=== PATIENT | female | born 1995 | race Caucasian/White ===

== ENCOUNTER 2023-03-25 20:28 | Outpatient (REF) | payer BC, SELFPAY ==
[2023-03-31 14:18] LABS: Age Gdln ACOG Testing Note (.); IGP, rfx Aptima HPV ASCU Note (.)
== END 2023-03-25 20:29 | disposition home or self-care (01) ==
LOC: LAB 20:28
PROVIDERS: PCP Family Medicine; Visit Provider Physician Assistant
DX: Z01.419 Encounter for gynecological examination (general) (routine) without abnormal findings (principal)
CPT/HCPCS: G0145

== ENCOUNTER 2023-06-11 11:33 | Outpatient (OUT) | payer BC, SELFPAY ==
[2023-06-11 12:11] LABS: Basophils Absolute Auto 0.1 10^3/uL (0.0-0.1); Basophils Percent Auto 0.7 % (0.2-2.0); Eosinophils Absolute Auto 0.2 10^3/uL (0.0-0.7); Eosinophils Percent Auto 1.8 % (0.9-7.0); Hematocrit 39.5 % (36.0-48.0); Hemoglobin 12.6 g/dL (12.0-16.0); Immature Granulocytes Abs Auto 0.03 10^3/uL (0.00-0.03); Immature Granulocytes Pct Auto 0.4 % (0.0-0.5); Lymphocytes Absolute Auto 1.9 10^3/uL (1.2-3.8); Lymphocytes Percent Auto 22.9 % (20.5-60.0); Mean Corpuscular HGB Conc 31.9 g/dL (29.9-35.2); Mean Corpuscular Hemoglobin 25.7 pg (26.7-34.0); Mean Corpuscular Volume 80.4 fL (81.0-99.0); Mean Platelet Volume 9.2 fL (9.5-13.5); Monocytes Absolute Auto 0.6 10^3/uL (0.3-0.8); Monocytes Percent Auto 7.1 % (1.7-12.0); Neutrophils Absolute Auto 5.7 10^3/uL (1.4-6.5); Neutrophils Percent Auto 67.1 % (43.0-75.0); Platelet Count 348 10^3/uL (150-450); Red Blood Count 4.91 10^6/uL (4.20-5.40); Red Cell Distribution Width 14.2 % (11.0-15.0); White Blood Count 8.5 10^3/uL (4.0-11.0)
[2023-06-11 12:23] LABS: Estimated Average Glucose 88 mg/dL; Glycohemoglobin A1C 4.7 % (4.5-6.2)
[2023-06-11 13:07] LABS: Alanine Aminotransferase 28 U/L (14-59); Albumin Globulin Ratio 0.9; Albumin Level 3.6 g/dL (3.4-5.0); Alkaline Phosphatase 133 U/L (46-116); Anion Gap 12.3; Aspartate Amino Transferase 10 U/L (15-37); BUN Creatinine Ratio 16.3; Bilirubin Direct <0.1 mg/dL (0.0-0.2); Bilirubin Total 0.3 mg/dL (0.2-1.0); Calcium 8.7 mg/dL (8.5-10.1); Chloride 105 mmol/L (98-107); Chol HDL Ratio 2.8; Cholesterol 143 mg/dL (<=200); Estimated GFR (African America >60 (>=60); Estimated GFR (Non-African Ame >60 (>=60); Globulin 4.2 g/dL; Glucose 95 mg/dL (74-106); HDL Cholesterol 51 mg/dL (40-60); Potassium 4.3 mmol/L (3.5-5.1); Sodium 140 mmol/L (136-145); Thyroid Stimulating Hormone 2.896 uIU/mL (0.358-3.740); Total Protein 7.8 g/dL (6.4-8.2); Triglycerides 160 mg/dL (<=150)
== END 2023-06-11 11:34 | disposition home or self-care (01) ==
PROVIDERS: PCP Family Medicine; Visit Provider Family Medicine
DX: Z00.00 Encounter for general adult medical examination without abnormal findings (principal)
CPT/HCPCS: 36415; 80048; 80061; 80076; 83036; 84443; 85025

== ENCOUNTER 2024-03-29 19:51 | Outpatient (REF) | payer BC, SELFPAY ==
--- OUTSIDE RECORDS SUMMARY | 2024-03-29 19:56 | XMS_ITS | CCD ---
Author Organization [facility] Care Team Providers Care Criminal Research Specialist Name Role Phone Marion Davis Unavailable [phone] MICHAEL BATES Admitting Unavailable MICHAEL BATES Attending Unavailable ESTELLE BELLE Referring Unavailable BELLEESTELLE Primary Care Unavailable JANA, MICHAEL Attending Unavailable BELLEESTELLE Primary Care Unavailable Belle, Estelle Gruber Primary Care Provider Rachael Hernandez Unavailable SOPHIA, DR AGUILAR Admitting Unavailable SOPHIA, DR AGUILAR Attending Unavailable NADERER, DR GRACY Martin Primary Care Unavailable LEOBARDO, RAINE Attending Unavailable LEOBARDO, RAINE Consulting Unavailable LEOBARDORAINE SHARMA Admitting Unavailable NADERER, DR GRACY Martin Primary Care Unavailable SOPHIA, DR AGUILAR Admitting Unavailable SOPHIA, DR AGUILAR Consulting Unavailable SOPHIA, DR AGUILAR Attending Unavailable NADERER, DR GRACY Martin Primary Care Unavailable NADERER, DR GRACY Martin Primary Care Unavailable REINECK, DR HYACINTH Dutta Admitting Unavailabl e REINECK, DR HYACINTH Dutta Attending Unavailabl e REINECK, DR HYACINTH Dutta Consulting Unavailabl e SOPHIA, DR AGUILAR Consulting Unavailable SOPHIA, DR AGUILAR Admitting Unavailable SOPHIA, DR AGUILAR Attending Unavailable NADERER, DR GRACY Martin Primary Care Unavailable NADERER, DR GRACY Martin Attending Unavailable NADERER, DR GRACY Martin Consulting Unavailable NADERER, DR GRACY Martin Admitting Unavailable NADERER, DR GRACY Martin Primary Care Unavailable SOPHIA, DR AGUILAR Admitting Unavailable SOPHIA, DR AGUILAR Attending Unavailable SOPHIA, DR AGUILAR Consulting Unavailable NADERER, DR GRACY Martin Primary Care Unavailable SOPHIA, DR AGUILAR Consulting Unavailable SOPHIA, DR AGUILAR Admitting Unavailable SOPHIA, DR AGUILAR Attending Unavailable NADERER, DR GRACY Martin Primary Care Unavailable SOPHIA, DR AGUILAR Consulting Unavailable SOPHIA, DR AGUILAR Admitting Unavailable SOPHIA, DR AGUILAR Attending Unavailable NADERER, DR GRACY Martin Primary Care Unavailable SOPHIA, DR AGUILAR Admitting Unavailable SOPHIA, DR AGUILAR Attending Unavailable SOPHIA, DR AGUILAR Consulting Unavailable NADERER, DR GRACY Martin Primary Care Unavailable ZIEBER, DR MUNDO Figueroa Consulting Unavailable SOPHIA, DR AGUILAR Admitting Unavailable SOPHIA, DR AGUILAR Attending Unavailable SOPHIA, DR AGUILAR Consulting Unavailable NADERER, DR GRACY Martin Primary Care Unavailable NADERER, DR GRACY Martin Primary Care Unavailable SOPHIA, DR AGUILAR Admitting Unavailable SOPHIA, DR AGUILAR Attending Unavailable SOPHIA, DR AGUILAR Admitting Unavailable SOPHIA, DR AGUILAR Attending Unavailable SOPHAI, DR AGUILAR Consulting Unavailable NADERER, DR GRACY Martin Primary Care Unavailable SOPHIA, DR AGUILAR Admitting Unavailable SOPHIA, DR AGUILAR Attending Unavailable SOPHIA, DR AGUILAR Consulting Unavailable NADERER, DR GRACY Martin Primary Care Unavailable SOPHIA, DR AGUILAR Admitting Unavailable SOPHIA, DR AGUILAR Attending Unavailable SOPHIA, DR AGUILAR Consulting Unavailable NADERER, DR GRACY Martin Primary Care Unavailable SOPHIA, DR AGUILAR Consulting Unavailable SOPHIA, DR AGUILAR Admitting Unavailable SOPHIA, DR AGUILAR Attending Unavailable NADERER, DR GRACY Martin Primary Care Unavailable ZIEBER, DR MUNDO Figueroa Consulting Unavailable SOPHIA, DR AGUILAR Admitting Unavailable SOPHIA, DR AGUILAR Attending Unavailable SOPHIA, DR AGUILAR Consulting Unavailable NADERER, DR GRACY Martin Primary Care Unavailable NADERER, DR GRACY Martin Primary Care Unavailable SOPHIA, DR AGUILAR Admitting Unavailable SOPHIA, DR AGUILAR Consulting Unavailable SOPHIA, DR AGUILAR Attending Unavailable ERIN, DR LILIANE Figueroa Attending Unavailable NADERER, DR GRACY Martin Primary Care Unavailable RANJITCHNAVDEEP, MARY JO VERDUGO Consulting Unavailable ERIN, DR LILIANE Figueroa Admitting Unavailable SOPHIA, DR AGUILAR Consulting Unavailable SOPHIA, DR AGUILAR Admitting Unavailable SOPHIA, DR AGUILAR Attending Unavailable NADERER, DR GRACY Martin Primary Care Unavailable SOPHIA, DR AGUILAR Admitting Unavailable SOPHIA, DR AGUILAR Attending Unavailable WEST, DR KENZIE Chanel Consulting Unavailable NADWANDY, DR GRACY Martin Primary Care Unavailable SOPHIA, DR AGUILAR Consulting Unavailable NADERER, DR GRACY Martin Primary Care Unavailable SOPHIA, DR AGUILAR Admitting Unavailable SOPHIA, DR AGUILAR Attending Unavailable HAY, DR BELTRAN Admitting Unavailable NADERER, DR GRACY Martin Primary Care Unavailable HAY, DR BELTRAN Attending Unavailable HAY, DR BELTRAN Consulting Unavailable NADWANDY, DR GRACY Martin Primary Care Unavailable SOPHIA, DR AGUILAR Admitting Unavailable SOPHIA, DR AGUILAR Procedure Practitioner Unavailab gisella CISNEROS, DR MONTOYA Consulting Unavailable SOPHIA, DR AGUILAR Attending Unavailable SOPHIA, DR AGUILAR Consulting Unavailable SHARP, PATY Consulting Unavailable GEMBUS, JOSÉ MIGUEL Consulting Unavailable SRI, LORBHARTI Consulting Unavailable SOPHIA, DR AGUILAR Consulting Unavailable SOPHIA, DR AGUILAR Admitting Unavailable SOPHIA, DR AGUILAR Attending Unavailable NADERER, DR GRACY Martin Primary Care Unavailable TAMMYMargoth Attending Unavailable Allergies Allergy Classification Reported Allergen(s) Allergy Type Date of Onset Reaction(s) Facility (1 source) No Known Medication Allergies; Translations: [No Known Medication Allergies] Propensity to adverse reactions (disorder) [facility] Repository Medications Current Medications Medication Drug Class(es) Dates Sig (Normalized) Sig (Original) crisaborole 0.02 mg/mg topical ointment (1 source) Start: 02-16-2019 crisaborole (EUCRISA) 2 % Oint Apply 1 application topically 2 (two) times a day . 60 g 11 02/16/2019 Active Start: 02-16-2019 crisaborole (E UCRISA) 2 % Oint Apply 1 application topically 2 (two) times a day . 60 g 11 02/16/2019 Active ethinyl estradiol/ferrous fumarate/norethindrone (4 sources) Progestin, Estrogen Start: 05-03-2015 MICROGESTIN FE 08/29, 28, 1 mg-20 mcg (21)/75 mg (7) per tablet mometasone furoate 0.001 mg/mg topical ointment (1 source) Corticosteroid Start: 09-01-2017 End: 09-01-2018 mometasone (ELOCON) 0.1 % ointment Apply topically 2 (two) times a day. 45 g 0 09/01/2017 09/01/2018 Active PARoxetine hydrochloride 10 mg oral tablet (1 source) Serotonin Reuptake Inhibitor Start: 12-07-2018 take 1 tablet by mouth once daily PARoxetine (PAXIL) 10 MG tablet Take 1 tablet by mouth daily . 1 12/07/2018 Active sertraline 100 mg oral tablet (2 sources) Serotonin Reuptake Inhibitor Start: 03-13-2024 Sertraline Active MG PO March 13, 2024 12:00am Zoloft Active Problems Active Problems Problem Classification Problem Date Documented Date Episodic/Chronic Fever of unknown origin (4 sources) Fever, unspecified; Translations: [FEVER UNSPECIFIED] Onset: 06-19-2022 Episodic Menstrual disorders (4 sources) Irregular menstruation, unspecified; Translations: [IRREGULAR MENSTRUATION UNSPECIFIED] Onset: 11-23-2021 Chronic Other and unspecified benign neoplasm (2 sources) Melanocytic nevi of scalp and neck; Translations: [Melanocytic nevi of scalp and neck] Onset: 12-13-2018 Episodic Other complications of ; puerperium affecting management of mother (1 source) Urinary tract infection following delivery, unspecified; Translations: [UTI FOLLOWING DELIVERY UNSPECIFIED] Onset: 06-23-2022 Episodic Other complications of ; puerperium affecting management of mother (1 source) 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; Translations: [STREP B BOWER STATE COMP CHILDBIRTH] Onset: 06-11-2022 Episodic Other complications of (5 sources) Maternal care for excessive growth, third trimester, not applicable or unspecified; Translations: [MAT CARE EXCSS FTL GRTH 3RD TRI UNS] Onset: 04-27-2022 Episodic Other lower respiratory disease (3 sources) Shortness of breath; Translations: [SHORTNESS OF BREATH] Onset: 07-24-2022 Episodic Other nervous system disorders (2 sources) Other disturbances of skin sensation; Translations: [Other disturbances of skin sensation] Onset: 11-30-2018 Episodic Other and delivery including normal (15 sources) Encounter for care and examination of lactating mother; Translations: [Encounter for routine follow-up] Onset: 11-11-2021 Episodic Other screening for suspected conditions (not mental disorders or infectious disease) (18 sources) Encounter for screening for Streptococcus B; Translations: [Encounter for screening for diabetes mellitus] Onset: 09-02-2021 Episodic Other skin disorders (2 sources) Epidermal cyst; Translations: [Epidermal cyst] Onset: 11-30-2018 Episodic Other skin disorders (2 sources) Corns and callosities; Translations: [Corns and callosities] Onset: 11-30-2018 Episodic Other upper respiratory infections (1 source) Acute upper respiratory infection, unspecified Episodic Previous (1 source) Maternal care for low transverse scar from previous delivery; Translations: [MAT CARE LW TRANS SCAR PREV C/S DEL] Onset: 06-11-2022 Episodic Residual codes; unclassified (1 source) Acquired absence of other specified parts of digestive tract; Translations: [ACQ ABSENCE OTH PART DIGESTV TRACT] Onset: 06-11-2022 Episodic Residual codes; unclassified (1 source) 39 weeks gestation of ; Translations: [39 WEEKS GESTATION OF ] Onset: 06-11-2022 Episodic Unclassified (4 sources) CONTACT W/AND (SUSP) EXPOS COVID-19; Translations: [CONTACT W/AND (SUSP) EXPOS COVID-19] Onset: 06-04-2022 Urinary tract infections (1 source) Urinary tract infection, site not specified; Translations: [UTI SITE NOT SPECIFIED] Onset: 06-23-2022 Episodic Viral infection (1 source) COVID-19; Translations: [COVID-19] Onset: 07-27-2022 Past or Other Problems Problem Classification Problem Date Documented Date Episodic/Chronic Allergic reactions (1 source) Eczema; Translations: [Eczema, unspecified type] Episodic Conditions associated with dizziness or vertigo (3 sources) Dizziness and giddiness; Translations: [DIZZINESS AND GIDDINESS] Onset: 08-18-2021 Episodic Hemorrhage during ; abruptio placenta; placenta previa (4 sources) Hemorrhage in early , unspecified; Translations: [HEMORRHAGE EARLY UNS] Onset: 10-06-2021 Episodic Immunizations and screening for infectious disease (4 sources) Contact with and (suspected) exposure to other viral communicable diseases; Translations: [Encounter for screening for infections with a predominantly sexual mode of transmission] Onset: 11-27-2021 Episodic Other aftercare (1 source) Other longterm (current) drug therapy; Translations: [OTH PAVER CURRENT DRUG THERAPY] Onset: 08-20-2021 Episodic Other and unspecified benign neoplasm (1 source) Melanocytic nevus of scalp; Translations: [Nevus of scalp] Episodic Other female genital disorders (4 sources) Other specified noninflammatory disorders of vagina; Translations: [OTH SPEC NONINFLAMMATORY D/O VAGINA] Onset: 12-25-2021 Episodic Other nervous system disorders (3 sources) Skin sensation disturbance; Translations: [Other disturbances of skin sensation] Episodic Other skin disorders (1 source) Milia; Translations: [Milia] Episodic Other skin disorders (1 source) [place] - lesion ; Translations: [Pre-ulcerative corn or callous] Episodic Residual codes; unclassified (1 source) 33 weeks gestation of ; Translations: [33 WEEKS GESTATION OF ] Onset: 04-27-2022 Episodic Residual codes; unclassified (1 source) 28 weeks gestation of ; Translations: [28 WEEKS GESTATION OF ] Onset: 03-21-2022 Episodic Syncope (1 source) Syncope and collapse; Translations: [SYNCOPE AND COLLAPSE] Onset: 08-20-2021 Episodic Unclassified (1 source) CONTACT W/AND (SUSP) EXPOS COVID-19; Translations: [CONTACT W/AND (SUSP) EXPOS COVID-19] Onset: 07-23-2022 Viral infection (5 sources) Viral wart, unspecified; Translations: [Verruca vulgaris] Onset: 11-30-2018 Episodic Results Test Name Value Interpretation Reference Range Facility Quantiferon-TB Plus (Client Incubated)on 12-02-2023 Gamma interferon background IA Qn (Bld) 0.02 International_Unit/m L Invalid Interpretation Code [facility] Comment on above: Performed By: #### 1 [id number] #### [facility] [address] [place] [address] M. tuberculosis stim IFN-g by CD4+ CD8+ T-cells corrected for background Qn (Bld) 0.12 International_Unit/m L Invalid Interpretation Code [facility] Comment on above: Performed By: #### 1 [id number] #### [facility] [address] [place] [address] M. tuberculosis stim IFN-g by CD4+ T-cells corrected for background Qn (Bld) 0.05 International_Unit/m L Invalid Interpretation Code [facility] Comment on above: Performed By: #### 1 [id number] #### [facility] [address] [place] [address] M. tuberculosis stim IFN-g Ql (Bld) [Interp] Negative Invalid Interpretation Code Negative [facility] Comment on above: Result Comment: No r esponse to M tuberculosis antigens detected. Infection with M tuberculosis is unlikely, but high risk individuals should be considered for additional testing (ATS/IDSA/CDC Clinical Practice Guidelines, 2017). The reference range is an Antigen minus Nil result of <0.35 IU/mL. The specimen received for QuantiFERON testing was incubated by the ordering institution. Specific procedures outlined in our Directory of Services and in the package insert for the QuantiFERON Gold (In Tube) test must be followed to enable for proper stimulation of cells for the production of interferon gamma. Chemiluminescence immunoassay methodology Performed at: [facility] [id number] PhD Hu Jasmine Performed By: #### 1 [id number], [id number], [id number] #### [facility] [address] [place] [address] Mitogen stimulated gamma interferon corrected for background Qn (Bld) >10.00 Invalid Interpretation Code [facility] Comment on above: Performed By: #### 1 [id number], [id number], [id number], [id number] #### [facility] [address] [place] [address] Service comment (Unsp spec) [Interp] Comment Invalid Interpretation Code [facility] Comment on above: Result Comment: Issac tiFERON-TB Gold Plus is a qualitative indirect test for M tuberculosis infection (including disease) and is intended for use in conjunction with risk assessment, radiography, and other medical and diagnostic evaluations. The QuantiFERON-TB Gold Plus result is determined by subtracting the Nil value from either TB antigen (Ag) value. The Mitogen tube serves as a control for the test. Performed By: #### 1 [id number], [id number], [id number] #### [facility] [address] [place] [address] Hep Bs Abon 12-01-2023 HBV surface Ab Ql (S) Non-Reactive Invalid Interpretation Code [facility] Comment on above: Result Comment: Non Reactive: Inconsistent with immunity, less than 10 mIU/mL Reactive: Consistent with immunity, greater than 9.9 mIU/mL Performed at: [address] [id number] PhD Hu Jasmine Performed By: #### 1 [id number], [id number], [id number] #### [facility] [address] [place] [address] Measles/Mumps/Rubella Immuni tyon 12-01-2023 MeV IgG IA Qn (S) {index_val} Low Immune >16.4 [facility] Comment on above: Result Comment: Nega tive <13.5 Equivocal 13.5 - 16.4 Positive >16.4 Presence of antibodies to Rubeola is presumptive evidence of immunity except when acute infection is suspected. Performed By: #### 1 [id number], [id number], [id number] #### [facility] [address] [place] [address] MuV IgG IA Qn (S) 17.7 A unit/mL Invalid Interpretation Code Immune >10.9 [facility] Comment on above: Result Comment: Nega tive <9.0 Equivocal 9.0 - 10.9 Positive >10.9 A positive result generally indicates past exposure to Mumps virus or previous vaccination. Performed at: [facility] [address] [place] [id number] PhD Hu Jasmine Performed By: #### 1 [id number], [id number], [id number], [id number] #### [facility] [address] [place] [address] Rubella virus IgG Qn (S) 2.04 [IU]/mL Invalid Interpretation Code Immune >0.99 [facility] Comment on above: Result Comment: Non- immune <0.90 Equivocal 0.90 - 0.99 Immune >0.99 Performed By: #### 1 [id number], [id number], [id number] #### [facility] [address] [place] [address] Varic IgGon 12-01-2023 VZV IgG IA Qn (S) 164 Low Immune >165 [facility] Comment on above: Result Comment: A se cond sample should be collected and tested no less than 2-4 weeks. Negative <135 Equivocal 135 - 165 Positive >165 A positive result generally indicates exposure to the pathogen or administration of specific immunoglobulins, but it is not indication of active infection or stage of disease. Performed at: [facility] [id number] PhD Hu Jasmine Performed By: #### 1 [id number], [id number], [id number], [id number] #### [facility] [address] [place] [address] Covid-19 PCR ([facility])on 07-10 SARS-CoV-2 (COVID-19) RNA ZACKARY+probe Ql (Unsp spec) Detected Critically abnormal NOT DETECTED [facility] Comment on above: Result Comment: This test is not yet approved or cleared by the [place] FDA. When there are no FDA-approved or cleared tests available, and other criteria are met, FDA can make tests available under an emergency access mechanism called an Emergency Use Authorization (EUA). The EUA for this test is supported by the Electrical Engineering Intern of Health and Human Service's declaration that circumstances exist to justify the emergency use of in vitro diagnostics for the detection and/or diagnosis of the virus that causes COVID-19. This EUA will remain in effect for the duration of the COVID-19 declaration justifying emergency of IVDs, unless it is terminated or revoked by the FDA (after which the test may no longer be used). Performed By: #### C BC #### [facility] [address] [address] [address] Molina Zhang CBC AUTO DIFFon 06-19-2022 BASO # 0.0 103/ul Normal 0.0-0.1 [facility] Comment on above: Performed By: #### C BC #### [facility] [address] [address] [address] Molina Zhang Basophils/100 WBC (Bld) 0.6 % Normal 0.2-2.0 [facility] Comment on above: Performed By: #### C BC #### [facility] [address] [address] [address] Molina Zhang EO # 0.2 103/ul Normal 0.0-0.7 [facility] Comment on above: Performed By: #### C BC #### [facility] [address] [place] [address] Dr. Molina Zhang Eosinophils/100 WBC (Bld) 3.0 % Normal 0.9-7.0 [facility] Comment on above: Performed By: #### C BC #### [facility] [address] [place] [address] Dr. Molina Zhang Erythrocyte distribution width (RBC) [Ratio] 13.2 % Normal 11.0-15.0 [facility] Comment on above: Performed By: #### C BC #### [facility] [address] [place] [address] Dr. Molina Zhang Hematocrit (Bld) [Volume fraction] 33.1 % Critically low 36.0-48.0 [facility] Comment on above: Performed By: #### C BC #### [facility] [address] [place] [address] Dr. Molina Zhang Hemoglobin (Bld) [Mass/Vol] 10.7 g/dL Critically low 12.0-16.0 [facility] Comment on above: Performed By: #### C BC #### [facility] [address] [place] [address] Dr. Molina Zhang IG # 0.08 10e3/ul Critically high 0.00-0.03 [facility] Comment on above: Performed By: #### C BC #### [facility] [address] [place] [address] Dr. Molina Zhang IG % 1.3 % Critically high 0.0-0.5 [facility] Comment on above: Performed By: #### C BC #### [facility] [address] [place] [address] Dr. Molina Zhang LYMPH # 1.1 103/ul Critically low 1.2-3.8 [facility] Comment on above: Performed By: #### C BC #### [facility] [address] [place] [address] Dr. Molina Zhang Lymphocytes/100 WBC (Bld) 16.9 % Critically low 20.5-60.0 [facility] Comment on above: Performed By: #### C BC #### [facility] [address] [place] [address] Dr. Molina Zhang MANUAL DIFF REQ NO Normal [facility] Comment on above: Performed By: #### C BC #### [facility] [address] [place] [address] Dr. Molina Zhang MCH (RBC) [Entitic mass] 26.6 pg Critically low 26.7-34.0 [facility] Comment on above: Performed By: #### C BC #### [facility] [address] [place] [address] Dr. Molina Zhang MCHC (RBC) [Mass/Vol] 32.3 g/dL Normal 29.9-35.2 [facility] Comment on above: Performed By: #### C BC #### [facility] [address] [place] [address] Dr. Molina Zhang MCV (RBC) [Entitic vol] 82.1 fL Normal 81.0-99.0 [facility] Comment on above: Performed By: #### C BC #### [facility] [address] [place] [address] Dr. Molina Zhang MONO # 0.4 103/ul Normal 0.3-0.8 [facility] Comment on above: Performed By: #### C BC #### [facility] [address] [id number] Molina Zhang Monocytes/100 WBC (Bld) 6.1 % Normal 1.7-12.0 [facility] Comment on above: Performed By: #### C BC #### [facility] [address] [id number] Molina Zhang NEUT # 4.5 103/ul Normal 1.4-6.5 [facility] Comment on above: Performed By: #### C BC #### [facility] [address] [place], [place] [id number] Dr. Molina Zhang Neutrophils/100 WBC (Bld) 72.1 % Normal 43.0-75.0 [facility] Comment on above: Performed By: #### C BC #### [facility] [address] [place] [address] Dr. Molina Zhang Platelet mean volume (Bld) [Entitic vol] 9.3 fL Critically low 9.5-13.5 [facility] Comment on above: Performed By: #### C BC #### [facility] [address] [place], [place] [id number] Dr. Molina Zhang PLT 379 103/ul Normal 150-450 [facility] Comment on above: Performed By: #### C BC #### [facility] [address] [place], [place] [id number] Dr. Molina Zhang RBC 4.03 106/ul Critically low 4.20-5.40 [facility] Comment on above: Performed By: #### C BC #### [facility] [address] [place] [address] Dr. Molina Zhang WBC 6.3 103/ul Normal 4.0-11.0 [facility] Comment on above: Performed By: #### C BC #### [facility] [address] [place], [place] [id number] Dr. Molina Zhang COVID/FLU/RSV RT-PCRon 06-19 SARS-CoV-2 (COVID-19) RNA ZACKARY+probe Ql (Unsp spec) Negative [facility] Other COVID/FLU/RSV RT-PCR Negative [facility] Other CULTURE BLOODon 06-19-2022 Microscopic examination of blood, culture Culture Observations: NO GROWTH AT 5 DAYS. Normal [facility] Comment on above: Performed By: #### B [id number] #### [facility] [address] [place] [address] Dr. Molina Zhang Performed By: #### B [id number] #### [facility] [address] [place] [address] Dr. Molina Zhang CULTURE URINEon 06-19-2022 CULTURE URINE Culture Observations: LIGHT GROWTH OF MIXED GENITAL LAWANDA. NO POTENTIAL PATHOGENS SEEN. Normal [facility] Comment on above: Performed By: #### C MP #### [facility] [address] [place] [address] Dr. Molina Zhang [facility]10 SARS-CoV-2 (COVID-19) RNA ZACKARY+probe Ql (Unsp spec) Not detected Normal NOT DETECTED [facility] Comment on above: Result Comment: When diagnostic testing is negative, the possibility of a false negative should be considered in the context of a patient's recent exposures and the presence of clinical signs and symptoms consistent with SARS-CoV-2. This test is not yet approved or cleared by the [place] FDA. When there are no FDA-approved or cleared tests available, and other criteria are met, FDA can make tests available under an emergency access mechanism called an Emergency Use Authorization (EUA). The EUA for this test is supported by the [employer] Intern of Health and Human Service's declaration that circumstances exist to justify the emergency use of in vitro diagnostics for the detection and/or diagnosis of the virus that causes COVID-19. This EUA will remain in effect for the duration of the COVID-19 declaration justifying emergency of IVDs, unless it is terminated or revoked by the FDA (after which the test may no longer be used). Performed By: #### C BC #### [facility] [address] [place] [address] Dr. Molina Zhang ER URINE PROFILEon Bilirubin Ql (U) Negative Normal NEGATIVE [facility] Comment on above: Performed By: #### [id number] #### [facility] [address] [place] [address] Dr. Molina Zhang Clarity (U) CLEAR Normal CLEAR [facility] Comment on above: Performed By: #### [id number] #### [facility] [address] [place] [address] Dr. Molina Zhang Color (U) YELLOW Normal YELLOW [facility] Comment on above: Performed By: #### [id number] #### [facility] [address] [place] [address] Dr. Molina ESPINOSA A micrscopic examination will be performed if indicated. Normal [facility] Comment on above: Performed By: #### [id number] #### [facility] [address] [place] [address] Dr. Molina Zhang Glucose Ql (U) Negative Normal NEGATIVE [facility] Comment on above: Performed By: #### [id number] #### [facility] [address] [place] [address] Dr. Molina Zhang Hemoglobin Ql (U) LARGE Abnormal NEGATIVE [facility] Comment on above: Performed By: #### [id number] #### [facility] [address] [place] [address] Dr. Molina Zhang Ketones Ql (U) TRACE Abnormal NEGATIVE [facility] Comment on above: Performed By: #### [id number] #### [facility] [address] [place] [address] Dr. Molina Zhang LEUKOCYTES TRACE Abnormal NEGATIVE [facility] Comment on above: Performed By: #### [id number] #### [facility] [address] [place] [address] Dr. Molina Zhang Nitrite Ql (U) Negative Normal NEGATIVE [facility] Comment on above: Performed By: #### [id number] #### [facility] [address] [place] [address] Dr. Molina Zhang pH (U) 5.5 [pH] Normal 5-9 [facility] Comment on above: Performed By: #### [id number] #### [facility] [address] [place] [address] Dr. Molina Zhang Protein (U) [Mass/Vol] 30 mg/dL Abnormal NEGATIVE/ TRACE [facility] Comment on above: Performed By: #### [id number] #### [facility] [address] [place] [address] Dr. Molina Zhang SPEC GRAVITY >=1.030 Abnormal 1.005-<=1.025 [facility] Comment on above: Performed By: #### 4 [id number] #### [facility] [address] [place] [address] Dr. Molina Zhang UR MICRO IND INDICATED Normal [facility] Comment on above: Performed By: #### [id number] #### [facility] [address] [place] [address] Dr. Molina Zhang Urobilinogen Qn (U) 0.2 {Jaelyn'U}/dL Normal 0.2 - 1. 0 [facility] Comment on above: Performed By: #### [id number] #### [facility] [address] [place] [address] Dr. Molina Zhang LACTATE/LACTIC ACIDon 2021 Lactate [Moles/Vol] 1.4 mmol/L Normal 0.4-1.9 [facility] Comment on above: Performed By: #### B [id number] #### [facility] [address] [place] [address] Dr. Molina Zhang PROF 14(COMP METB)on 022 Albumin [Mass/Vol] 3.2 g/dL Critically low 3.4-5.0 [facility] Comment on above: Performed By: #### C MP #### [facility] [address] [place] [address] Dr. Molina Zhang Albumin/Globulin [Mass ratio] 0.8 {ratio} Normal [facility] Comment on above: Performed By: #### C MP #### [facility] [address] [place] [address] Dr. Molina Zhang ALP [Catalytic activity/Vol] 127 U/L Critically high 46-116 [facility] Comment on above: Performed By: #### C MP #### [facility] [address] [address] [address] Molina Zhang ALT [Catalytic activity/Vol] 14 U/L Normal 14-59 [facility] Comment on above: Performed By: #### C MP #### [facility] [address] [address] [address] Molina Zhang Anion gap [Moles/Vol] 9.5 mmol/L Normal [facility] Comment on above: Performed By: #### C MP #### [facility] [address] [address] [address] Molina Zhang AST [Catalytic activity/Vol] 10 U/L Critically low 15-37 [facility] Comment on above: Performed By: #### C MP #### [facility] [address] [address] [address] Molina Zhang Bilirubin [Mass/Vol] 0.2 mg/dL Normal 0.2-1.0 [facility] Comment on above: Performed By: #### C MP #### [facility] [address] [address] [address] Molina Zhang Calcium [Mass/Vol] 8.4 mg/dL Critically low 8.5-10.1 [facility] Comment on above: Performed By: #### C MP #### [facility] [address] [address] [address] Molina Zhang Chloride [Moles/Vol] 104 mmol/L Normal 98-107 [facility] Comment on above: Performed By: #### C MP #### [facility] [address] [address] [address] Molina Zhang CO2 [Moles/Vol] 25.9 mmol/L Normal 21.0-32.0 [facility] Comment on above: Performed By: #### C MP #### [facility] [address] [address] [address] Molina Zhang Creatinine [Mass/Vol] 1.23 mg/dL Critically high 0.55-1.02 [facility] Comment on above: Performed By: #### C MP #### [facility] [address] [address] [address] Molina Zhang EGFR-AF KAZAKH >60 Normal >=60 [facility] Comment on above: Performed By: #### C MP #### [facility] [address] [address] [address] Molina Zhang EGFR-NON AF KAZAKH 53 mL/min/1.73m2 Critically low >=60 [facility] Comment on above: Performed By: #### C MP #### [facility] [address] [address] [address] Molina Zhang Globulin (S) [Mass/Vol] 4.2 g/dL Normal [facility] Comment on above: Performed By: #### C MP #### [facility] [address] [address] [address] Molina Zhang Glucose [Mass/Vol] 98 mg/dL Normal 74-106 [facility] Comment on above: Performed By: #### C MP #### [facility] [address] [address] [address] Molina Zhang Potassium [Moles/Vol] 3.4 mmol/L Critically low 3.5-5.1 [facility] Comment on above: Performed By: #### C MP #### [facility] [address] [address] [address] Molina Zhang Protein [Mass/Vol] 7.4 g/dL Normal 6.4-8.2 [facility] Comment on above: Performed By: #### C MP #### [facility] [address] [address] [address] Molina Zhang Sodium [Moles/Vol] 136 mmol/L Normal 136-145 [facility] Comment on above: Performed By: #### C MP #### [facility] [address] [address] [address] Molina Zhagn Urea nitrogen [Mass/Vol] 13.0 mg/dL Normal 7.0-18.0 [facility] Comment on above: Performed By: #### C MP #### [facility] [address] [place] [address] Dr. Molina Zhang Urea nitrogen/Creatinine [Mass ratio] 10.6 mg/mg Normal [facility] Comment on above: Performed By: #### C MP #### [facility] [address] [place] [address] Dr. Molina Zhang URINE MICROSCOPIC ONLYon BACTERIA MODERATE Abnormal NONE SEEN [facility] Comment on above: Performed By: #### [id number] #### [facility] [address] [place] [address] Dr. Molina Zhang Bacteria identified Cx Nom (U) INDICATED Normal [facility] Comment on above: Performed By: #### [id number] #### [facility] [address] [place] [address] Dr. Molina Zhang CAST NONE SEEN Normal NONE SEEN [facility] Comment on above: Performed By: #### [id number] #### [facility] [address] [place] [address] Dr. Molina Zhang Crystals LM Nom (Urine sed) NONE SEEN Normal NONE SEEN [facility] Comment on above: Performed By: #### [id number] #### [facility] [address] [place] [address] Dr. Molina Zhang Epithelial cells LM Ql (Urine sed) FEW Abnormal NONE SEEN /RARE [facility] Comment on above: Performed By: #### [id number] #### [facility] [address] [place] [address] Dr. Molina Zhang MUCOUS TRACE Abnormal NONE SEEN [facility] Comment on above: Performed By: #### [id number] #### [facility] [address] [place] [address] Dr. Molina Zhang RBC 2-5 Abnormal 0-2 [facility] Comment on above: Performed By: #### [id number] #### [facility] [address] [place] [address] Dr. Molina Zhang WBC 10-20 Abnormal NONE SEEN [facility] Comment on above: Performed By: #### [id number] #### [facility] [address] [address] [address] Molina Zhang CBC AUTO DIFFon 06-05-2022 BASO # 0.0 103/ul Normal 0.0-0.1 [facility] Comment on above: Performed By: #### C MP #### [facility] [address] [place] [address] Dr. Molina Zhang Basophils/100 WBC (Bld) 0.4 % Normal 0.2-2.0 [facility] Comment on above: Performed By: #### C MP #### [facility] [address] [place] [address] Dr. Molina Zhang EO # 0.1 103/ul Normal 0.0-0.7 [facility] Comment on above: Performed By: #### C MP #### [facility] [address] [place] [address] Dr. Molina Zhang Eosinophils/100 WBC (Bld) 1.0 % Normal 0.9-7.0 [facility] Comment on above: Performed By: #### C MP #### [facility] [address] [place] [address] Dr. Molina Zhang Erythrocyte distribution width (RBC) [Ratio] 14.2 % Normal 11.0-15.0 [facility] Comment on above: Performed By: #### C MP #### [facility] [address] [place] [address] Dr. Molina Zhang Hematocrit (Bld) [Volume fraction] 24.7 % Critically low 36.0-48.0 [facility] Comment on above: Performed By: #### C MP #### [facility] [address] [place] [address] Dr. Molina Zhang Hemoglobin (Bld) [Mass/Vol] 8.3 g/dL Critically low 12.0-16.0 [facility] Comment on above: Performed By: #### C MP #### [facility] [address] [place] [address] Dr. Molina Zhang IG # 0.07 10e3/ul Critically high 0.00-0.03 [facility] Comment on above: Performed By: #### C MP #### [facility] [address] [place] [address] Dr. Molina Zhang IG % 0.7 % Critically high 0.0-0.5 [facility] Comment on above: Performed By: #### C MP #### [facility] [address] [place] [address] Dr. Molina Zhang LYMPH # 1.6 103/ul Normal 1.2-3.8 [facility] Comment on above: Performed By: #### C MP #### [facility] [address] [place] [address] Dr. Molina Zhang Lymphocytes/100 WBC (Bld) 16.1 % Critically low 20.5-60.0 [facility] Comment on above: Performed By: #### C MP #### [facility] [address] [place] [address] Dr. Molina Zhang MANUAL DIFF REQ NO Normal [facility] Comment on above: Performed By: #### C MP #### [facility] [address] [place] [address] Dr. Molina Zhang MCH (RBC) [Entitic mass] 27.9 pg Normal 26.7-34.0 [facility] Comment on above: Performed By: #### C MP #### [facility] [address] [place] [address] Dr. Molina Zhang MCHC (RBC) [Mass/Vol] 33.6 g/dL Normal 29.9-35.2 [facility] Comment on above: Performed By: #### C MP #### [facility] [address] [place] [address] Dr. Molina Zhang MCV (RBC) [Entitic vol] 83.2 fL Normal 81.0-99.0 [facility] Comment on above: Performed By: #### C MP #### [facility] [address] [place] [address] Dr. Molina Zhang MONO # 0.7 103/ul Normal 0.3-0.8 [facility] Comment on above: Performed By: #### C MP #### [facility] [address] [address] [address] Molina Zhang Monocytes/100 WBC (Bld) 6.8 % Normal 1.7-12.0 [facility] Comment on above: Performed By: #### C MP #### [facility] [address] [place] [address] Dr. Molina Zhang NEUT # 7.3 103/ul Critically high 1.4-6.5 [facility] Comment on above: Performed By: #### C MP #### [facility] [address] [place] [address] Dr. Molina Zhang Neutrophils/100 WBC (Bld) 75.0 % Normal 43.0-75.0 [facility] Comment on above: Performed By: #### C MP #### [facility] [address] [place] [address] Dr. Molina Zhang Platelet mean volume (Bld) [Entitic vol] 9.3 fL Critically low 9.5-13.5 [facility] Comment on above: Performed By: #### C MP #### [facility] [address] [place] [address] Dr. Molina Zhang PLT 253 103/ul Normal 150-450 [facility] Comment on above: Performed By: #### C MP #### [facility] [address] [place] [address] Dr. Molina Zhang RBC 2.97 106/ul Critically low 4.20-5.40 [facility] Comment on above: Performed By: #### C MP #### [facility] [address] [place] [address] Dr. Molina Zhang WBC 9.8 103/ul Normal 4.0-11.0 [facility] Comment on above: Performed By: #### C MP #### [facility] [address] [place] [address] Dr. Molina Zhang CBC AUTO DIFFon 06-04-2022 BASO # 0.0 103/ul Normal 0.0-0.1 [facility] Comment on above: Performed By: #### B [id number] #### [facility] [address] [place] [address] Dr. Molina Zhang Basophils/100 WBC (Bld) 0.4 % Normal 0.2-2.0 [facility] Comment on above: Performed By: #### B LDCX2 #### [facility] [address] [place] [address] Dr. Molina Zhang EO # 0.1 103/ul Normal 0.0-0.7 [facility] Comment on above: Performed By: #### B LDCX2 #### [facility] [address] [place] [address] Dr. Molina Zhang Eosinophils/100 WBC (Bld) 0.9 % Normal 0.9-7.0 [facility] Comment on above: Performed By: #### B LDCX2 #### [facility] [address] [place] [address] Dr. Molina Zhang Erythrocyte distribution width (RBC) [Ratio] 13.8 % Normal 11.0-15.0 [facility] Comment on above: Performed By: #### B LDCX2 #### [facility] [address] [place] [address] Dr. Molina Zhang Hematocrit (Bld) [Volume fraction] 30.9 % Critically low 36.0-48.0 [facility] Comment on above: Performed By: #### B LDCX2 #### [facility] [address] [place] [address] Dr. Molina Zhang Hemoglobin (Bld) [Mass/Vol] 10.5 g/dL Critically low 12.0-16.0 [facility] Comment on above: Performed By: #### B LDCX2 #### [facility] [address] [place] [address] Dr. Molina Zhang IG # 0.08 10e3/ul Critically high 0.00-0.03 [facility] Comment on above: Performed By: #### B LDCX2 #### [facility] [address] [place] [address] Dr. Molina Zhang IG % 0.7 % Critically high 0.0-0.5 [facility] Comment on above: Performed By: #### B LDCX2 #### [facility] [address] [address] [address] Molina Zhang LYMPH # 2.0 103/ul Normal 1.2-3.8 [facility] Comment on above: Performed By: #### B LDCX2 #### [facility] [address] [place] [address] Dr. Molina Zhang Lymphocytes/100 WBC (Bld) 17.7 % Critically low 20.5-60.0 [facility] Comment on above: Performed By: #### B LDCX2 #### [facility] [address] [place] [address] Dr. Molina Zhang MANUAL DIFF REQ NO Normal [facility] Comment on above: Performed By: #### B LDCX2 #### [facility] [address] [place] [address] Dr. Molina Zhang MCH (RBC) [Entitic mass] 28.0 pg Normal 26.7-34.0 [facility] Comment on above: Performed By: #### B LDCX2 #### [facility] [address] [place] [address] Dr. Molina Zhang MCHC (RBC) [Mass/Vol] 34.0 g/dL Normal 29.9-35.2 [facility] Comment on above: Performed By: #### B LDCX2 #### [facility] [address] [place] [address] Dr. Molina Zhang MCV (RBC) [Entitic vol] 82.4 fL Normal 81.0-99.0 [facility] Comment on above: Performed By: #### B LDCX2 #### [facility] [address] [place] [address] Dr. Molina Zhang MONO # 0.7 103/ul Normal 0.3-0.8 [facility] Comment on above: Performed By: #### B LDCX2 #### [facility] [address] [place] [address] Dr. Molina Zhang Monocytes/100 WBC (Bld) 6.4 % Normal 1.7-12.0 [facility] Comment on above: Performed By: #### B LDCX2 #### [facility] [address] [address] [address] Molina Zhang NEUT # 8.3 103/ul Critically high 1.4-6.5 [facility] Comment on above: Performed By: #### B LDCX2 #### [facility] [address] [address] [address] Molina Zhang Neutrophils/100 WBC (Bld) 73.9 % Normal 43.0-75.0 [facility] Comment on above: Performed By: #### B LDCX2 #### [facility] [address] [address] [address] Molina Zhang Platelet mean volume (Bld) [Entitic vol] 10.4 fL Normal 9.5-13.5 [facility] Comment on above: Performed By: #### B LDCX2 #### [facility] [address] [place] [address] Dr. Molina Zhang PLT 351 103/ul Normal 150-450 [facility] Comment on above: Performed By: #### B LDCX2 #### [facility] [address] [place] [address] Dr. Molina Zhang RBC 3.75 106/ul Critically low 4.20-5.40 [facility] Comment on above: Performed By: #### B LDCX2 #### [facility] [address] [place] [address] Dr. Molina Zhang WBC 11.2 103/ul Critically high 4.0-11.0 [facility] Comment on above: Performed By: #### B LDCX2 #### [facility] [address] [place] [address] Dr. Molina Zhang DRUG SCREEN RAPID (URINE)on 06-04-2022 AMP Negative Normal NEGATIVE [facility] Comment on above: Performed By: #### [id number] #### [facility] [address] [place] [address] Dr. Molina Zhang BAR Negative Normal NEGATIVE [facility] Comment on above: Performed By: #### [id number] #### [facility] [address] [place] [address] Dr. Molina Zhang BUP Negative Normal NEGATIVE [facility] Comment on above: Performed By: #### 4 [id number] #### [facility] [address] [place] [address] Dr. Molina Zhang BZO Negative Normal NEGATIVE [facility] Comment on above: Performed By: #### 4 [id number] #### [facility] [address] [place] [address] Dr. Molina Zhang MARCIO Negative Normal NEGATIVE [facility] Comment on above: Performed By: #### [id number] #### [facility] [address] [place] [address] Dr. Molina Zhang CUT-OFFS SEE BELOW Normal [facility] Comment on above: Result Comment: AMP (Amphetamine): 500ng/mL, BAR (Barbituates): 200 ng/mL, BZO (Benzodiazepines): 150 ng/mL, BUP (Buprenorphine): 10 ng/mL, MARCIO (Cocaine): 150 ng/mL, mAMP (Methamphetamine): 500 ng/mL, MTD (Methadone): 200 ng/mL, OPI (Opiates): 100 ng/mL, OXY (Oxycodone): 100 ng/mL, PCP (Phencyclidine): 25 ng/mL, PPX (Propoxyphene): 300 ng/mL, THC (Cannabinoids): 50 ng/mL, TCA (Trycyclic Antidepressants): 300 ng/mL Performed By: #### [id number] #### [facility] [address] [place] [address] Dr. Molina Zhang DRUG CUT HEADER DRUG CLASS TEST SYSTEM CUT-OFF CONCENTRATIONS ARE FOLLOWS: Normal [facility] Comment on above: Performed By: #### [id number] #### [facility] [address] [place] [address] Dr. Molina Zhang mAMP Negative Normal NEGATIVE [facility] Comment on above: Performed By: #### [id number] #### [facility] [address] [place] [address] Dr. Molina Zhang MTD Negative Normal NEGATIVE [facility] Comment on above: Performed By: #### [id number] #### [facility] [address] [place] [address] Dr. Molina Zhang OPI Negative Normal NEGATIVE [facility] Comment on above: Performed By: #### [id number] #### [facility] [address] [place] [address] Dr. Molina Zhang OXY Negative Normal NEGATIVE [facility] Comment on above: Performed By: #### [id number] #### [facility] [address] [place] [address] Dr. Molina Zhang PCP Negative Normal NEGATIVE [facility] Comment on above: Performed By: #### [id number] #### [facility] [address] [place] [address] Dr. Molina Zhang PPX Negative Normal NEGATIVE [facility] Comment on above: Performed By: #### 4 [id number] #### [facility] [address] [place] [address] Dr. Molina Zhang TCA Negative Normal NEGATIVE [facility] Comment on above: Performed By: #### [id number] #### [facility] [address] [place] [address] Dr. Molina Zhang THC Negative Normal NEGATIVE [facility] Comment on above: Performed By: #### 4 [id number] #### [facility] [address] [place] [address] Dr. Molina Zhang TYPE AND SCREENon 06-04-2022 TYPE AND SCREEN Negative Normal [facility] Comment on above: Performed By: #### C MP #### [facility] [address] [place] [address] Dr. Molina Zhang UA (CLEAN/CATCH) APPROVER/MICRO I F IND.on 06-04-2022 Bilirubin Ql (U) Negative Normal NEGATIVE [facility] Comment on above: Performed By: #### C BC #### [facility] [address] [place] [address] Dr. Molina Zhang Clarity (U) CLEAR Normal CLEAR [facility] Comment on above: Performed By: #### C BC #### [facility] [address] [place] [address] Dr. Molina Zhang Color (U) YELLOW Normal YELLOW [facility] Comment on above: Performed By: #### C BC #### [facility] [address] [place] [address] Dr. Molina Zhang Glucose Ql (U) Negative Normal NEGATIVE [facility] Comment on above: Performed By: #### C BC #### [facility] [address] [place] [address] Dr. Molina Zhang Hemoglobin Ql (U) Negative Normal NEGATIVE [facility] Comment on above: Performed By: #### C BC #### [facility] [address] [place] [address] Dr. Molina Zhang Ketones Ql (U) Negative Normal NEGATIVE [facility] Comment on above: Performed By: #### C BC #### [facility] [address] [place] [address] Dr. Molina Zhang LEUKOCYTES Negative Normal NEGATIVE [facility] Comment on above: Performed By: #### C BC #### [facility] [address] [place] [address] Dr. Molina Zhang Nitrite Ql (U) Negative Normal NEGATIVE [facility] Comment on above: Performed By: #### C BC #### [facility] [address] [place] [address] Dr. Molina Zhang pH (U) 6.0 [pH] Normal 5-9 [facility] Comment on above: Performed By: #### C BC #### [facility] [address] [place] [address] Dr. Molina Zhang SPEC GRAVITY >=1.030 Abnormal 1.005-<=1.025 [facility] Comment on above: Performed By: #### C BC #### [facility] [address] [place] [address] Dr. Molina Zhang UA PROTEIN TRACE Normal NEGATIVE/ TRACE [facility] Comment on above: Performed By: #### C BC #### [facility] [address] [place] [address] Dr. Molina Zhang UR MICRO IND NOT INDICATED Normal [facility] Comment on above: Performed By: #### C BC #### [facility] [address] [place], [place] [address] Dr. Molina Zhang Urobilinogen Qn (U) 0.2 {Jaelyn'U}/dL Normal 0.2 - 1. 0 [facility] Comment on above: Performed By: #### C BC #### [facility] [address] [place], [place] [address] Dr. Molina Zhang Covid-19 PCR ([facility])on 05-11 SARS-CoV-2 (COVID-19) RNA ZACKARY+probe Ql (Unsp spec) Not detected Normal NOT DETECTED [facility] Comment on above: Result Comment: This test is not yet approved or cleared by the [place] FDA. When there are no FDA-approved or cleared tests available, and other criteria are met, FDA can make tests available under an emergency access mechanism called an Emergency Use Authorization (EUA). The EUA for this test is supported by the [employer] Intern of Health and Human Service's (HHS's) declaration that circumstances exist to justify the emergency use of in vitro diagnostics for the detection and/or diagnosis of the virus that causes COVID-19. This EUA will remain in effect (meaning this test can be used) for the duration of the COVID-19 declaration justifying emergency of IVDs, unless it is terminated or revoked by FDA (after which the test may no longer be used). When diagnostic testing is negative, the possibility of a false negative should be considered in the context of a patient's recent exposures and the presence of clinical signs and symptoms consistent with SARS-CoV-2. Performed By: #### C MP #### [facility] [address] [place] [id number] [address] Molina Zhang GROUP B STREP CULTUREon S. agalactiae Ag Ql (Unsp spec) Culture Observations: Called Group B to Prisca Pinto LPN on 05/16 @ 1251 Isolate 1 Streptococcus agalactiae Light growth of ORGANISM 1 Streptococcus agalactiae ANTIBIOTIC M.I.C RX STATUS Benzylpenicillin <=0.06 S F Ampicillin <=0.25 S F Cefotaxime <=0.12 S F Ceftriaxone <=0.12 S F Levofloxacin 0.5 S F Erythromycin >=8 R F Clindamycin >=1 R F Linezolid <=2 S F Vancomycin 0.5 S F Tetracycline >=16 R F Normal [facility] Comment on above: Performed By: #### G BSCX #### [facility] [address] [place] [address] Dr. Molina Zhang US PREG GROWTHon 04-23-2022 US PREG GROWTH EXAMINATION: US PREG GROWTH HISTORY: Large for gestation age fetus COMPARISON: Ultrasound growth 03/20/2022 FINDINGS: Heart Rate: 139.0 bpm Number: 1.0 Position: CEPHALIC Amniotic Fluid Volume: 15.7 cm Maximum Vertical Pocket: 6.6 cm Complete BIOMETRY: BPD: 8.6 cm cm; 34 weeks 3 days; 84% HC: 31.5 cmcm; 35 weeks 3 days; 75% AC: 30.8 cm cm; 34 weeks 5 days; 92% FL: 6.5 cm cm; 33 weeks 4 days; 53% EFW: 2432.8 grams; 84% FL/AC: 21.1 FL/BPD: 76.0 HC/AC: 1.0 GESTATIONAL AGE: Age by EDC: 33 weeks 0 days YFN by EDC: 06/11/2022 Age by US: 34 weeks, 4 days YFN by US: 05/31/2022 IMPRESSION: 1. Single live intrauterine with growth detailed above. Electronically authenticated by: MUNDO BECKER Date: 2022-04-23 16:13 Normal [facility] US PREG GROWTHon 03-20-2022 US PREG GROWTH EXAMINATION: US PREG GROWTH HISTORY: Excessive growth affecting management of mother COMPARISON: No relevant comparison available. FINDINGS: Heart Rate: 142.1 bpm Amniotic Fluid Volume: 14.7 cm Number: 1.0 Position: Breech presentation, longitudinal lie Maximum Vertical Pocket: 5.7 cm cm 5.2 cm cm 3.9 cm cm 0.0 cm cm BIOMETRY: BPD: 7.0 cm cm; 28 weeks 2 days; 42% HC: 25.9 cmcm; 28 weeks 1 days, 20% AC: 25.8 cm cm; 30 weeks 0 days, 90% FL: 5.5 cm cm; 28 weeks 6 days; 56.9 % % EFW: 1373.8 grams, 3 lbs. 0 oz., 82% FL/AC: 21.2 FL/BPD: 77.7 HC/AC: 1.0 GESTATIONAL AGE: Age by EDC: 28 weeks 1 days YFN by EDC: 06/11/2022 Age by US: 28 weeks 6 days YFN by US: 06/06/2022 IMPRESSION: Normal interval growth Electronically authenticated by: KENZIE AVILES Date: 2022-03-20 16:41 Normal [facility] GLUCOSE - 1HRon 03-15-2022 Glucose [Mass/Vol] 137 mg/dL Critically high 74-106 [facility] Comment on above: Performed By: #### B [id number] #### [facility] [address] [place] [address] Dr. Molina Zhang HEMOGRAM AND PLATELon 2021 Hematocrit (Bld) [Volume fraction] 32.5 % Critically low 36.0-48.0 [facility] Comment on above: Performed By: #### [id number] #### [facility] [address] [place] [address] Dr. Molina Zhang Hemoglobin (Bld) [Mass/Vol] 11.2 g/dL Critically low 12.0-16.0 [facility] Comment on above: Performed By: #### [id number] #### [facility] [address] [place] [address] Dr. Molina Zhang MCH (RBC) [Entitic mass] 29.1 pg Normal 26.7-34.0 [facility] Comment on above: Performed By: #### 4 [id number] #### [facility] [address] [place] [address] Dr. Molina Zhang MCHC (RBC) [Mass/Vol] 34.5 g/dL Normal 29.9-35.2 [facility] Comment on above: Performed By: #### 4 [id number] #### [facility] [address] [place] [address] Dr. Molina Zhang MCV (RBC) [Entitic vol] 84.4 fL Normal 81.0-99.0 [facility] Comment on above: Performed By: #### 4 [id number] #### [facility] [address] [place] [address] [address] Molina Zhang PLT 294 103/ul Normal 150-450 [facility] Comment on above: Performed By: #### [id number] #### [facility] [address] [place] [address] [address] Molina Zhang RBC 3.85 106/ul Critically low 4.20-5.40 [facility] Comment on above: Performed By: #### 4 [id number] #### [facility] [address] [place] [address] [address] Molina Zhang WBC 9.9 103/ul Normal 4.0-11.0 [facility] Comment on above: Performed By: #### 4 [id number] #### [facility] [address] [place] [address] [address] Molina Zhang AFP MATERNAL FOR SPINA BIFID Aon 01-22-2022 AFP MoM 2.20 Normal [facility] Comment on above: Performed By: #### 4 [id number] #### [facility] [address] [place] [address] [address] Molina Zhang AFP Value 88.7 ng/mL Normal [facility] Comment on above: Performed By: #### [id number] #### [facility] [address] [place] [address] [address] Molina Zhang AFP, Serum for Spina Bifida Report Normal [facility] Comment on above: Performed By: #### 4 [id number] #### [facility] [address] [place] [address] [address] Molina Zhang Comment Comment Normal [facility] Comment on above: Result Comment: Jada Chacon, Ph.D., [facility] Director . References: Available Upon Request. . Multiples Of Median Cutoffs For AFP Elevations Wild 2.5 Black 2.8 IDD 2.0 Twins 4.5 Abbreviation Definitions IDD - Insulin Dep Diabetes OSBR - Open Spina Bifida Risk . For further inquiries contact [facility] at [phone]. Performed By: #### 4 [id number] #### [facility] [address] [place] [address] [address] Molina Zhang Gest Age Collection Date 19.7 weeks Normal [facility] Comment on above: Performed By: #### 4 [id number] #### [facility] [address] [place] [address] [address] Molina Zhang Gestat, Age Based on YFN Normal [facility] Comment on above: Result Comment: 09/2021 Recalculations are not recommended when gestational dating by LMP and ultrasound are within 10 days. Performed By: #### 4 [id number] #### [facility] [address] [place] [address] Dr. Molina Zhang Insulin Dep Diabetes No Normal [facility] Comment on above: Performed By: #### 4 [id number] #### [facility] [address] [place] [address] Dr. Molina Zhang Interpretation Comment Normal [facility] Comment on above: Result Comment: Inte rpretation: Screen Negative . This result is screen negative for OSB. The AFP MoM calculated is based on the gestational age provided. MS-AFP can identify up to 80% of open neural tube defects. Closed neural tube defects and some open defects may not be detected by this test. This test does not screen for Down Syndrome or Trisomy 18. If screening for Down Syndrome or Trisomy 18 is desired, contact [employer] to discuss available options. The [place] recommends amniocentesis be offered to women age 35 and older. Performed By: #### 4 [id number] #### [facility] [address] [place] [address] Dr. Molina Zhang [age] Normal [facility] Comment on above: Performed By: #### 4 [id number] #### [facility] [address] [place] [address] Dr. Molina Zhang Multiple Gestation No Normal [facility] Comment on above: Performed By: #### 4 [id number] #### [facility] [address] [place] [address] Dr. Molina Zhang OSBR Risk 1 IN 523 Normal [facility] Comment on above: Performed By: #### 4 [id number] #### [facility] [address] [place] [address] Dr. Molina Zhang PDF . Normal [facility] Comment on above: Performed By: #### 4 [id number] #### [facility] [address] [place] [address] Dr. Molina Zhang Race Normal [facility] Comment on above: Performed By: #### 4 [id number] #### [facility] [address] [place] [address] Dr. Molina Zhang Test Results: Negative Normal [facility] Comment on above: Performed By: #### 4 [id number] #### [facility] [address] [place] [address] Dr. Molina Zhang CHLAMYDIA/GONOCOCCUS ZACKARY ( AB/URINE/PAPon 12-30-2021 Chlamydia trachomatis, ZACKARY Negative Normal Negative [facility] Comment on above: Performed By: #### C BC #### [facility] [address] [place] [address] Dr. Molina Zhang Neisseria gonorrhoeae, ZACKARY Negative Normal Negative [facility] Comment on above: Performed By: #### C BC #### [facility] [address] [place] [address] Dr. Molina Zhang VAGINITIS/VAGINOSIS DNA PROB Facundo 12-27-2021 Angela species Negative Normal Negative [facility] Comment on above: Performed By: #### C MP #### [facility] [address] [place] [address] Dr. Molina Zhang Gardnerella vaginalis Negative Normal Negative [facility] Comment on above: Performed By: #### C MP #### [facility] [address] [place] [address] Dr. Molina Zhang Trichomonas vaginalis Negative Normal Negative [facility] Comment on above: Performed By: #### C MP #### [facility] [address] [place] [address] Dr. Molina Zhang HEP B SURFACE ANTIGEN SCREEN on 11-24-2021 HBsAg Screen Negative Normal Negative [facility] Comment on above: Performed By: #### [id number] #### [facility] [address] [place] [address] Dr. Molina Zhang HEPATITIS C VIRUS AB W/ REFL EX QUANTon 11-24-2021 HCV AB 0.1 s/co ratio Normal 0.0-0.9 [facility] Comment on above: Performed By: #### C MP #### [facility] [address] [place] [address] Dr. Molina Zhang Interpretation: Comment Normal [facility] Comment on above: Result Comment: Nega tive Not infected with HCV, unless recent infection is suspected or other evidence exists to indicate HCV infection. Performed By: #### C MP #### [facility] [address] [place] [address] Dr. Molina Zhang HIV 1 AND 2 WITH REFLEXon HIV Screen 4th Generation wRfx Non-Reactive Normal Non Reactive [facility] Comment on above: Result Comment: HIV Negative HIV-1/HIV-2 antibodies and HIV-1 p24 antigen were NOT detected. There is no laboratory evidence of HIV infection. Performed By: #### C BC #### [facility] [address] [place] [address] Dr. Molina Zhang RPR QUANTon 11-24-2021 Rapid Plasma Reagin, Quant Non-Reactive Normal NonRea<1:1 [facility] Comment on above: Result Comment: Plea se Note: This test does not meet current guidelines for screening and diagnosis of syphilis. This test is intended for following treatment response in patients being treated for syphilis infection. To screen for syphilis infection, a reflex cascade that includes both RPR and a treponema-specific assay should be utilized, such as Treponema pallidum (Syphilis) Screening [place] (968342) or Rapid Plasma Reagin (RPR) Test With Reflex to Quantitative RPR and Confirmatory Treponema pallidum Antibodies (946729). Performed By: #### B [id number] #### [facility] [address] [place] [address] Dr. Molina Zhang RUBELLA AB IGGon 11-24-2021 Rubella Antibodies, IgG 2.76 index Normal Immune >0.99 [facility] Comment on above: Result Comment: Non- immune <0.90 Equivocal 0.90 - 0.99 Immune >0.99 Performed By: #### C BC #### [facility] [address] [place] [address] Dr. Molina Zhang CBC AUTO DIFFon 11-23-2021 BASO # 0.0 103/ul Normal 0.0-0.1 [facility] Comment on above: Performed By: #### C BC #### [facility] [address] [place] [address] Dr. Molina Zhang Basophils/100 WBC (Bld) 0.2 % Normal 0.2-2.0 [facility] Comment on above: Performed By: #### C BC #### [facility] [address] [place] [address] Dr. Molina Zhang EO # 0.0 103/ul Normal 0.0-0.7 [facility] Comment on above: Performed By: #### C BC #### [facility] [address] [place] [address] Dr. Molina Zhang Eosinophils/100 WBC (Bld) 0.5 % Critically low 0.9-7.0 [facility] Comment on above: Performed By: #### C BC #### [facility] [address] [place] [address] Dr. Molina Zhang Erythrocyte distribution width (RBC) [Ratio] 14.2 % Normal 11.0-15.0 [facility] Comment on above: Performed By: #### C BC #### [facility] [address] [place] [address] Dr. Molina Zhang Hematocrit (Bld) [Volume fraction] 38.9 % Normal 36.0-48.0 [facility] Comment on above: Performed By: #### C BC #### [facility] [address] [place] [address] Dr. Molina Zhang Hemoglobin (Bld) [Mass/Vol] 13.1 g/dL Normal 12.0-16.0 [facility] Comment on above: Performed By: #### C BC #### [facility] [address] [place] [address] Dr. Molina Zhang IG # 0.03 10e3/ul Normal 0.00-0.03 [facility] Comment on above: Performed By: #### C BC #### [facility] [address] [place] [address] Dr. Molina Zhang IG % 0.4 % Normal 0.0-0.5 [facility] Comment on above: Performed By: #### C BC #### [facility] [address] [place] [address] Dr. Molina Zhang LYMPH # 1.2 103/ul Normal 1.2-3.8 [facility] Comment on above: Performed By: #### C BC #### [facility] [address] [place] [address] Dr. Molina Zhang Lymphocytes/100 WBC (Bld) 14.8 % Critically low 20.5-60.0 [facility] Comment on above: Performed By: #### C BC #### [facility] [address] [place] [address] Dr. Molina Zhang MANUAL DIFF REQ NO Normal [facility] Comment on above: Performed By: #### C BC #### [facility] [address] [place] [address] Dr. Molina Zhang MCH (RBC) [Entitic mass] 27.2 pg Normal 26.7-34.0 [facility] Comment on above: Performed By: #### C BC #### [facility] [address] [place] [address] Dr. Molina Zhang MCHC (RBC) [Mass/Vol] 33.7 g/dL Normal 29.9-35.2 [facility] Comment on above: Performed By: #### C BC #### [facility] [address] [place] [address] Dr. Molina Zhang MCV (RBC) [Entitic vol] 80.7 fL Critically low 81.0-99.0 [facility] Comment on above: Performed By: #### C BC #### [facility] [address] [place] [address] Dr. Molina Zhang MONO # 0.4 103/ul Normal 0.3-0.8 [facility] Comment on above: Performed By: #### C BC #### [facility] [address] [place] [address] Dr. Molina Zhang Monocytes/100 WBC (Bld) 4.8 % Normal 1.7-12.0 [facility] Comment on above: Performed By: #### C BC #### [facility] [address] [place] [address] Dr. Molina Zhang NEUT # 6.7 103/ul Critically high 1.4-6.5 [facility] Comment on above: Performed By: #### C BC #### [facility] [address] [place] [address] Dr. Molina Zhang Neutrophils/100 WBC (Bld) 79.3 % Critically high 43.0-75.0 [facility] Comment on above: Performed By: #### C BC #### [facility] [address] [place] [address] Dr. Molina Zhang Platelet mean volume (Bld) [Entitic vol] 9.1 fL Critically low 9.5-13.5 [facility] Comment on above: Performed By: #### C BC #### [facility] [address] [place] [address] Dr. Molina Zhang PLT 346 103/ul Normal 150-450 [facility] Comment on above: Performed By: #### C BC #### [facility] [address] [place] [address] Dr. Molina Zhang RBC 4.82 106/ul Normal 4.20-5.40 [facility] Comment on above: Performed By: #### C BC #### [facility] [address] [place] [address] Dr. Molina Zhang WBC 8.4 103/ul Normal 4.0-11.0 [facility] Comment on above: Performed By: #### C BC #### [facility] [address] [place] [address] Dr. Molina Zhang CULTURE URINEon 11-23-2021 CULTURE URINE Culture Observations: LIGHT GROWTH OF MIXED GENITAL LAWANDA. NO POTENTIAL PATHOGENS SEEN. Normal [facility] Comment on above: Performed By: #### U RCX #### [facility] [address] [place] [address] [address] Molina Zhang GLYCOHEMOGLOBIN A1Con 2021 ADA RECOMMENDATION ADA THERAPEUTIC TARGET 6.0 - 7.0 ACTION SUGGESTED > 7.0 Normal [facility] Comment on above: Performed By: #### 4 [id number] #### [facility] [address] [place] [address] Dr. Molina Zhang Glucose [Mass/Vol] 85 mg/dL Normal [facility] Comment on above: Performed By: #### [id number] #### [facility] [address] [place] [address] Dr. Molina Zhang HbA1c (Bld) [Mass fraction] 4.6 % Normal <=6.0 [facility] Comment on above: Performed By: #### 4 [id number] #### [facility] [address] [place] [address] Dr. Molina Zhang WILVER BOX TEST PT SEND OUTo n 11-23-2021 SENT TO REF LAB 11/23/2021 Normal [facility] Comment on above: Performed By: #### C BC #### [facility] [address] [place] [address] Dr. Molina Zhang TYPE AND SCREENon 11-23-2021 TYPE AND SCREEN Negative Normal [facility] Comment on above: Performed By: #### T NS #### [facility] [address] [place] [address] Dr. Molina Zhang US PREG TVon 11-07-2021 US PREG TV EXAMINATION: US PREG TV HISTORY: Missed period COMPARISON: No relevant comparison available. FINDINGS: GESTATIONAL SAC: Present and normal appearing. POLE: Present and normal appearing. YOLK SAC: Present. CARDIAC: Present. UTERUS: Normal size and appearance. OVARIES: Right: Normal. Left: Normal. CERVIX: 4.5 cm in length and closed. CUL-DE-SAC: Normal. OTHER: None. AGE BY LMP: 9 weeks, 1 day YFN BY LMP: 06/11/2022 AGE BY US CRL: 8 weeks, 4 days YNF BY US CRL: 06/15/2022 IMPRESSION: 1. Single live intrauterine . Electronically authenticated by: MUNDO BECKER Date: 2021-11-07 13:51 Normal [facility] PREG QUANT HCGon 10-06-2021 HCG QUANT 170 mIU/mL Normal [facility] Comment on above: Performed By: #### C MP #### [facility] [address] [place] [address] [address] Molina Zhang HCG RANGE SEE BELOW Normal [facility] Comment on above: Result Comment: 5-50 0-1 WEEK 40-300 1-2 WEEKS 100-1,000 2-3 WEEKS 500-6,000 3-4 WEEKS 5,000-200,000 1-2 MONTHS 10,000-100,000 2-3 MONTHS 3,000-50,000 2ND TRIMESTER 1,000-50,000 3RD TRIMESTER Performed By: #### C MP #### [facility] [address] [address] [address] Molina Zhang PREG QUANT HCGon 10-03-2021 HCG QUANT 59 mIU/mL Normal [facility] Comment on above: Performed By: #### C BC #### [facility] [address] [address] [address] Molina Zhang HCG RANGE SEE BELOW Normal [facility] Comment on above: Result Comment: 5-50 0-1 WEEK 40-300 1-2 WEEKS 100-1,000 2-3 WEEKS 500-6,000 3-4 WEEKS 5,000-200,000 1-2 MONTHS 10,000-100,000 2-3 MONTHS 3,000-50,000 2ND TRIMESTER 1,000-50,000 3RD TRIMESTER Performed By: #### C BC #### [facility] [address] [address] [address] Molina Zhang PREG QUANT HCGon 10-01-2021 HCG QUANT 28 mIU/mL Normal [facility] Comment on above: Performed By: #### C BC #### [facility] [address] [place] [address] Dr. Molina Zhang HCG RANGE SEE BELOW Normal [facility] Comment on above: Result Comment: 5-50 0-1 WEEK 40-300 1-2 WEEKS 100-1,000 2-3 WEEKS 500-6,000 3-4 WEEKS 5,000-200,000 1-2 MONTHS 10,000-100,000 2-3 MONTHS 3,000-50,000 2ND TRIMESTER 1,000-50,000 3RD TRIMESTER Performed By: #### C BC #### [facility] [address] [address] [address] Molina Zhang PREG QUANT HCGon 09-29-2021 HCG QUANT 22 mIU/mL Normal [facility] Comment on above: Performed By: #### P REGQNT #### [facility] [address] [address] [address] Molina Zhang HCG RANGE SEE BELOW Normal [facility] Comment on above: Result Comment: 5-50 0-1 WEEK 40-300 1-2 WEEKS 100-1,000 2-3 WEEKS 500-6,000 3-4 WEEKS 5,000-200,000 1-2 MONTHS 10,000-100,000 2-3 MONTHS 3,000-50,000 2ND TRIMESTER 1,000-50,000 3RD TRIMESTER Performed By: #### P REGQNT #### [facility] [address] [address] [address] Molina Zhang [facility]on SARS-CoV-2 (COVID-19) RNA ZACKARY+probe Ql (Unsp spec) Not detected Normal NOT DETECTED [facility] Comment on above: Result Comment: This test is not yet approved or cleared by the [place] FDA. When there are no FDA-approved or cleared tests available, and other criteria are met, FDA can make tests available under an emergency access mechanism called an Emergency Use Authorization (EUA). The EUA for this test is supported by the [place] of Health and Human Service's (HHS's) declaration that circumstances exist to justify the emergency use of in vitro diagnostics for the detection and/or diagnosis of the virus that causes COVID-19. This EUA will remain in effect (meaning this test can be used) for the duration of the COVID-19 declaration justifying emergency of IVDs, unless it is terminated or revoked by FDA (after which the test may no longer be used). When diagnostic testing is negative, the possibility of a false negative should be considered in the context of a patient's recent exposures and the presence of clinical signs and symptoms consistent with SARS-CoV-2. Performed By: #### [id number] #### [facility] [address] [place] [address] Dr. Molina Zhang PAP ACOG PANEL 2: 21 to 29on 09-05-2021 . . Normal [facility] Comment on above: Performed By: #### [id number] #### [facility] [address] [place] [address] Dr. Molina Zhang Age Gdln ACOG Testing - [facility] Comment on above: Performed By: #### [id number] #### [facility] [address] [place] [address] Dr. Molina Zhang DIAGNOSIS: Comment [facility] Comment on above: Result Comment: NEGA TIVE FOR INTRAEPITHELIAL LESION OR MALIGNANCY. Performed By: #### [id number] #### [facility] [address] [place] [address] Dr. Molina Zhang Methodology: Comment [facility] Comment on above: Result Comment: This liquid based ThinPrep(R) pap test was screened with the use of an image guided system. Performed By: #### [id number] #### [facility] [address] [place] [address] Dr. Molina Zhang Note: Comment [facility] Comment on above: Result Comment: The Pap smear is a screening test designed to aid in the detection of premalignant and malignant conditions of the uterine cervix. It is not a diagnostic procedure and should not be used as the sole means of detecting cervical cancer. Both false-positive and false-negative reports do occur. . Performed By: #### [id number] #### [facility] [address] [place] [address] Dr. Molina Zhang Performed by: Comment Normal [facility] Comment on above: Result Comment: Madhuri Jung, Stationary Engineer Apprentice (ASCP) Performed By: #### [id number] #### [facility] [address] [place] [address] Dr. Molina Zhang Reflex Criteria: Comment Normal [facility] Comment on above: Result Comment: The HPV DNA reflex criteria were not met with this specimen result therefore, no HPV testing was performed. . Performed By: #### [id number] #### [facility] [address] [place] [address] Dr. Molina Zhang Specimen adequacy: Comment Normal [facility] Comment on above: Result Comment: Sati sfactory for evaluation. No endocervical component is identified. Performed By: #### 4 [id number] #### [facility] [address] [place] [address] Dr. Molina Zhang CBC AUTO DIFFon 08-18-2021 BASO # 0.1 103/ul Normal 0.0-0.1 [facility] Comment on above: Performed By: #### C MP #### [facility] [address] [place] [address] Dr. Molina Zhang Basophils/100 WBC (Bld) 0.6 % Normal 0.2-2.0 [facility] Comment on above: Performed By: #### C MP #### [facility] [address] [place] [address] Dr. Molina Zhang EO # 0.2 103/ul Normal 0.0-0.7 [facility] Comment on above: Performed By: #### C MP #### [facility] [address] [place] [address] Dr. Molina Zhang Eosinophils/100 WBC (Bld) 1.7 % Normal 0.9-7.0 [facility] Comment on above: Performed By: #### C MP #### [facility] [address] [place] [address] Dr. Molina Zhang Erythrocyte distribution width (RBC) [Ratio] 13.8 % Normal 11.0-15.0 [facility] Comment on above: Performed By: #### C MP #### [facility] [address] [place] [address] Dr. Molina Zhang Hematocrit (Bld) [Volume fraction] 36.9 % Normal 36.0-48.0 [facility] Comment on above: Performed By: #### C MP #### [facility] [address] [address] [address] Molina Zhang Hemoglobin (Bld) [Mass/Vol] 12.3 g/dL Normal 12.0-16.0 [facility] Comment on above: Performed By: #### C MP #### [facility] [address] [address] [address] Molina Zhang IG # 0.02 10e3/ul Normal 0.00-0.03 [facility] Comment on above: Performed By: #### C MP #### [facility] [address] [place] [address] Dr. Molina Zhang IG % 0.2 % Normal 0.0-0.5 [facility] Comment on above: Performed By: #### C MP #### [facility] [address] [place] [address] Dr. Molina Zhang LYMPH # 2.3 103/ul Normal 1.2-3.8 [facility] Comment on above: Performed By: #### C MP #### [facility] [address] [place] [address] Dr. Molina Zhang Lymphocytes/100 WBC (Bld) 25.1 % Normal 20.5-60.0 [facility] Comment on above: Performed By: #### C MP #### [facility] [address] [place] [address] Dr. Molina Zhang MANUAL DIFF REQ NO Normal [facility] Comment on above: Performed By: #### C MP #### [facility] [address] [place] [address] Dr. Molina Zhang MCH (RBC) [Entitic mass] 26.7 pg Normal 26.7-34.0 [facility] Comment on above: Performed By: #### C MP #### [facility] [address] [place] [address] Dr. Molina Zhang MCHC (RBC) [Mass/Vol] 33.3 g/dL Normal 29.9-35.2 [facility] Comment on above: Performed By: #### C MP #### [facility] [address] [address] [address] Molina Zhang MCV (RBC) [Entitic vol] 80.2 fL Critically low 81.0-99.0 [facility] Comment on above: Performed By: #### C MP #### [facility] [address] [address] [address] Molina Zhang MONO # 0.7 103/ul Normal 0.3-0.8 [facility] Comment on above: Performed By: #### C MP #### [facility] [address] [address] [address] Molina Zhang Monocytes/100 WBC (Bld) 7.9 % Normal 1.7-12.0 [facility] Comment on above: Performed By: #### C MP #### [facility] [address] [place] [address] Dr. Molina Zhang NEUT # 6.0 103/ul Normal 1.4-6.5 [facility] Comment on above: Performed By: #### C MP #### [facility] [address] [place] [address] Dr. Molina Zhang Neutrophils/100 WBC (Bld) 64.5 % Normal 43.0-75.0 [facility] Comment on above: Performed By: #### C MP #### [facility] [address] [place] [address] Dr. Molina Zhang Platelet mean volume (Bld) [Entitic vol] 9.0 fL Critically low 9.5-13.5 [facility] Comment on above: Performed By: #### C MP #### [facility] [address] [place] [address] Dr. Molina Zhang PLT 368 103/ul Normal 150-450 [facility] Comment on above: Performed By: #### C MP #### [facility] [address] [place] [address] Dr. Molina Zhang RBC 4.60 106/ul Normal 4.20-5.40 [facility] Comment on above: Performed By: #### C MP #### [facility] [address] [place] [address] Dr. Molina Zhang WBC 9.3 103/ul Normal 4.0-11.0 [facility] Comment on above: Performed By: #### C MP #### [facility] [address] [place] [address] Dr. Molina Zhang ER URINE PROFILEon 2 Bilirubin Ql (U) Negative Normal NEGATIVE [facility] Comment on above: Performed By: #### 4 [id number] #### [facility] [address] [place] [address] Dr. Molina Zhang Clarity (U) CLEAR Normal CLEAR [facility] Comment on above: Performed By: #### 4 [id number] #### [facility] [address] [place] [address] Dr. Molina Zhang Color (U) LT. YELLOW Normal YELLOW [facility] Comment on above: Performed By: #### 4 [id number] #### [facility] [address] [place] [address] Dr. Molina CORNEJOPeter A micrscopic examination will be performed if indicated. Normal [facility] Comment on above: Performed By: #### 4 [id number] #### [facility] [address] [place] [address] Dr. Molina Zhang Glucose Ql (U) Negative Normal NEGATIVE [facility] Comment on above: Performed By: #### 4 [id number] #### [facility] [address] [place] [address] Dr. Molina Zhang Hemoglobin Ql (U) Negative Normal NEGATIVE [facility] Comment on above: Performed By: #### 4 [id number] #### [facility] [address] [place] [address] Dr. Molina Zhang Ketones Ql (U) Negative Normal NEGATIVE [facility] Comment on above: Performed By: #### 4 [id number] #### [facility] [address] [place] [address] Dr. Molina Zhang LEUKOCYTES Negative Normal NEGATIVE [facility] Comment on above: Performed By: #### 4 [id number] #### [facility] [address] [place] [address] Dr. Molina Zhang Nitrite Ql (U) Negative Normal NEGATIVE [facility] Comment on above: Performed By: #### 4 [id number] #### [facility] [address] [place] [address] Dr. Molina Zhang pH (U) 6.0 [pH] Normal 5-9 [facility] Comment on above: Performed By: #### 4 [id number] #### [facility] [address] [place] [address] Dr. Molina Zhang SPEC GRAVITY 1.025 Normal 1.005-<=1.025 [facility] Comment on above: Performed By: #### 4 [id number] #### [facility] [address] [place] [address] Dr. Molina Zhang UA PROTEIN Negative Normal NEGATIVE/ TRACE [facility] Comment on above: Performed By: #### 4 [id number] #### [facility] [address] [place] [address] Dr. Molina Zhang UR MICRO IND NOT INDICATED Normal [facility] Comment on above: Performed By: #### 4 [id number] #### [facility] [address] [place] [address] Dr. Molina Zhang Urobilinogen Qn (U) 0.2 {Jaelyn'U}/dL Normal 0.2 - 1. 0 [facility] Comment on above: Performed By: #### 4 [id number] #### [facility] [address] [place] [address] Dr. Molina Zhang POINT OF CARE GLUCOSEon Glucose [Mass/Vol] 110 mg/dL Critically high 74-106 [facility] Comment on above: Performed By: #### B [id number] #### [facility] [address] [place] [address] Dr. Molina Zhang URon 08-18-2021 , QUAL Negative Normal NEGATIVE [facility] Comment on above: Performed By: #### 4 [id number] #### [facility] [address] [place] [address] Dr. Molina Zhang PROF 14(COMP METB)on 022 Albumin [Mass/Vol] 3.6 g/dL Normal 3.5-5.0 [facility] Comment on above: Performed By: #### C MP #### [facility] [address] [place] [address] Dr. Molina Zhang Albumin/Globulin [Mass ratio] 0.9 {ratio} Normal [facility] Comment on above: Performed By: #### C MP #### [facility] [address] [place] [address] Dr. Molina Zhang ALP [Catalytic activity/Vol] 114 U/L Normal 38-126 [facility] Comment on above: Performed By: #### C MP #### [facility] [address] [place] [address] Dr. Molina Zhang ALT [Catalytic activity/Vol] 21 U/L Normal 9-52 [facility] Comment on above: Performed By: #### C MP #### [facility] [address] [place] [address] Dr. Molina Zhang Anion gap [Moles/Vol] 11.2 mmol/L Normal [facility] Comment on above: Performed By: #### C MP #### [facility] [address] [place] [address] Dr. Molina Zhang AST [Catalytic activity/Vol] 13 U/L Critically low 14-36 [facility] Comment on above: Performed By: #### C MP #### [facility] [address] [place] [address] Dr. Molina Zhang Bilirubin [Mass/Vol] 0.3 mg/dL Normal 0.2-1.3 [facility] Comment on above: Performed By: #### C MP #### [facility] [address] [place] [address] Dr. Molina Zhang Calcium [Mass/Vol] 9.0 mg/dL Normal 8.4-10.2 [facility] Comment on above: Performed By: #### C MP #### [facility] [address] [place] [address] Dr. Molina Zhang Chloride [Moles/Vol] 103 mmol/L Normal 98-107 [facility] Comment on above: Performed By: #### C MP #### [facility] [address] [address] [address] Molina Zhang CO2 [Moles/Vol] 27.6 mmol/L Normal 22.0-30.0 [facility] Comment on above: Performed By: #### C MP #### [facility] [address] [address] [address] Molina Zhang Creatinine [Mass/Vol] 0.98 mg/dL Normal 0.52-1.04 [facility] Comment on above: Performed By: #### C MP #### [facility] [address] [place] [address] Dr. Molina Zhang EGFR-AF KAZAKH >60 Normal >=60 [facility] Comment on above: Performed By: #### C MP #### [facility] [address] [place] [address] Dr. Molina Zhang EGFR-NON AF KAZAKH >60 Normal >=60 [facility] Comment on above: Performed By: #### C MP #### [facility] [address] [address] [address] Molina Zhang Globulin (S) [Mass/Vol] 3.9 g/dL Normal [facility] Comment on above: Performed By: #### C MP #### [facility] [address] [place] [address] Dr. Molina Zhang Glucose [Mass/Vol] 85 mg/dL Normal 74-106 [facility] Comment on above: Performed By: #### C MP #### [facility] [address] [place] [address] Dr. Molina Zhang Potassium [Moles/Vol] 3.8 mmol/L Normal 3.4-5.0 [facility] Comment on above: Performed By: #### C MP #### [facility] [address] [place] [address] Dr. Molina Zhang Protein [Mass/Vol] 7.5 g/dL Normal 6.1-8.2 [facility] Comment on above: Performed By: #### C MP #### [facility] [address] [place], [place] [address] Dr. Molina Zhang Sodium [Moles/Vol] 138 mmol/L Normal 137-145 [facility] Comment on above: Performed By: #### C MP #### [facility] [address] [place], [place] [address] Dr. Molina Zhang Urea nitrogen [Mass/Vol] 13.0 mg/dL Normal 7.0-17.0 [facility] Comment on above: Performed By: #### C MP #### [facility] [address] [place], [place] [address] Dr. Molina Zhang Urea nitrogen/Creatinine [Mass ratio] 13.3 mg/mg Normal [facility] Comment on above: Performed By: #### C MP #### [facility] [address] [place], [place] [address] Dr. Molina Zhang PAP, THIN PREP WITH IMAGINGo n 12-21-2018 PAP, THIN PREP WITH IMAGING Normal [facility] Comment on above: Result Comment: INTE RPRETATION Thin Prep Image-Guided Pap Test (Cervical/Endocervical) NEGATIVE FOR INTRAEPITHELIAL LESION /MALIGNANCY Satisfactory for evaluation (Absence/paucity of endocervical/transformation zone component) x12/21/2018 The Pap test is a screening test, hence, subject to both false negative and false positive results as evidenced by published data. For most women who lack an endocervical component on their Pap, and are undergoing routine screening, literature supports follow-up by obtaining a repeat Pap test in 12 months. Your patient's results should be interpreted in this context together with the history and clinical findings. HPV REQUESTS If ASC-US or above, perform Aptima high risk HPV testing. CLINICAL HISTORY Date of Last Menstrual Period: 11-29-18 Hormonal History: OCP (Oral Contraceptive Pills) ICD-CM DIAGNOSIS CODE(S) Z01.419 Encntr For Sequins Stringer Exam (general) (routine) W/o Abn Findings [facility] [address] [place] [address] CLIA No. [id number] CAP Accreditation No. [id number] Extrusion Die Template Maker: Kai Agarwal M.D. [employer] Accession Number: [id number] Performed By: #### P L PAP W/IMAGE #### [facility] [address] [place] [address] CT Nucleic-Acid Probe-Endoce rvical Swabon 12-20-2018 CT Nucleic-Acid Probe-Endocervical Swab Negative Normal NEGATIVE [facility] Comment on above: Performed By: #### G C Amp Endocerv, CT Amp Endocerv #### [facility] [address] [place] [address] Age at specimen collection = Normal [facility] Comment on above: Performed By: #### G C Amp Endocerv, CT Amp Endocerv #### [place] [address] [place] [address] Performed By: #### P L PAP W/IMAGE #### [place] [address] [place] [address] GC Nucleic-Acid Probe-Endoce rvical Swabon 12-20-2018 GC Nucleic-Acid Probe-Endocervical Swab Negative Normal NEGATIVE [facility] Comment on above: Performed By: #### G C Amp Endocerv, CT Amp Endocerv #### [place] [id number] [place] [address] Vital Signs Date Time Vital Sign Value Performing Clinician Facility 03-13-2024 10:30040 Body height 170.18 cm [facility] 03-13-2024 10:30-0400 Body mass index (BMI) [Ratio] 44.8 kg/m2 [facility] 03-13-2024 10:30-0400 Body temperature 99.6 [degF] [facility] 03-13-2024 10:30040 Body weight 129.84 kg [facility] 03-13-2024 10:30-0400 Diastolic blood pressure 81 mm[Hg] [facility] 03-13-2024 10:30-0400 Heart rate 92 /min [facility] 03-13-2024 10:30-0400 Respiratory rate 18 /min [facility] 03-13-2024 10:30-0400 SaO2% (BldA) [Mass fraction] 97 % [facility] 03-13-2024 10:30-0400 Systolic blood pressure 130 mm[Hg] [facility] 06-19-2022 16:05-0500 Body height 170.18 cm Rachael Hernandez Other [facility] Other 06-19-2022 16:05-0500 Body mass index (BMI) [Ratio] 42.28 kg/m2 Rachael Hernandez Other [facility] Other 06-19-2022 16:05-0500 Body temperature 100.3 [degF] Rachael Hernandez Other [facility] Other 06-19-2022 16:05-0500 Body weight 122.47 kg Rachael Hernandez Other [facility] Other 06-19-2022 16:05-0500 Respiratory rate 20 /min Rachael Hernandez Other [facility] Other 06-19-2022 16:05-0500 SaO2% (BldA) [Mass fraction] 98 % Rachael Hernandez Other [facility] Other 01-22-2022 03:06-0400 Body weight 125.[address] JEFF JARAMILLO [facility] Comment on above: Performed By: #### [id number] #### [facility] [address] [place] [address] Dr. Molian Zhang Encounters Encounter Date Encounter Type Care Provider Facility Start: 03-13-2024 End: 03-13-2024 ambulatory [facility] Work Phone: Start: 03-13-2024 End: 03-13-2024 Patient encounter procedure [facility] Work Phone: Start: 11-30-2023 End: 12-01-2023 ambulatory Margoth MUNOZ [facility] Start: 07-24-2022 End: 07-24-[address] RUBY PEARSON Facility: Start: 07-23-2022 End: 07-23-[address] GRACY ROSALES Facility:[facility] Start: 06-19-2022 End: 06-20-[address] LILIANE KHAN [facility] Other Start: 06-19-2022 Office outpatient ne w 30 minutes Rachael Hernandez [facility] Start: 06-12-2022 End: 06-23-[address] GRACY ROSALES Facility:[facility] Start: 06-09-2022 End: 06-09-[address] GRACY ROSALES Facility:[facility] Start: 06-04-2022 End: 06-06-2022 Evaluation and management of inpatient DR GRACY ROSALES Facility:[facility] Start: 05-31-2022 End: 05-31-[address] GRACY ROSALES Facility:[facility] Start: 05-31-2022 Evaluation and management of inpatient DR JEFF JARAMILLO Facility:[facility] Start: 05-31-2022 End: 05-31-[address] JEFF JARAMILLO Facility:[facility] Start: 05-13-2022 End: 05-13-[address] JEFF JARAMILLO Facility:[facility] Start: 04-23-2022 End: 04-24-[address] JEFF JARAMILLO Facility:[facility] Start: 03-20-2022 End: 03-21-[address] JEFF JARAMILLO Facility:[facility] Start: 03-15-2022 End: 03-16-[address] JEFF JARAMILLO Facility:[facility] Start: 01-20-2022 End: 01-21-[address] JEFF JARAMILLO Facility:[facility] Start: 12-25-2021 End: 12-25-[address] JEFF JARAMILLO Facility:[facility] Start: 11-23-2021 End: 11-24-[address] JEFF JARAMILLO Facility:[facility] Start: 11-07-2021 End: 11-08-[address] JEFF JARAMILLO Facility:[facility] Start: 10-06-2021 End: 10-07-[address] JEFF JARAMILLO Facility:[facility] Start: 10-03-2021 End: 10-04-[address] JEFF JARAMILLO Facility:[facility] Start: 10-01-2021 End: 10-02-[address] JEFF JARAMILLO Facility:[facility] Start: 09-29-2021 End: 09-30-[address] JEFF JARAMILLO Facility:[facility] Start: 09-16-2021 End: 09-16-2021 ambulatory RAINE BOOTH Facility:[facility] Start: 09-02-2021 End: 09-02-[address] JEFF JARAMILLO Facility:[facility] Start: 08-18-2021 End: 08-18-[address] GRACY ROSAELS Facility:[facility] Start: 02-16-2019 End: 02-16-2019 Office outpatient visit 15 minutes [facility] Work Phone: [facility] Comment on above: Viral warts, unspeci fied type (Primary Dx); Other disturbances of skin sensation; Eczema, unspecified type Start: 12-13-2018 End: 12-17-2018 Patient encounter procedure [facility] Start: 12-13-2018 End: 12-13-2018 Office outpatient visit 10 minutes [facility] Work Phone: [facility] Comment on above: Viral warts, unspeci fied type (Primary Dx); Other disturbances of skin sensation; Nevus of scalp Start: 11-30-2018 End: 12-04-2018 Patient encounter procedure [facility] Start: 11-30-2018 End: 11-30-2018 Office outpatient visit 15 minutes [facility] Work Phone: [facility] Comment on above: Milia (Primary Dx); Viral warts, unspecified type; Other disturbances of skin sensation; Pre-ulcerative corn or callous Start: 09-01-2017 Office consultation [facility] Work Phone: [facility] Procedures Date Procedure Procedure Detail Performing Clinician Start: 06-04-2022 Extraction of Produc ts of Conception, Low Cervical, Open Approach DR JEFF JARAMILLO Start: 10-13-2016 Microscopic observat ion [Identifier] in Cervix by Cyto stain Michael Bates Plan of Treatment Date Care Activity Detail Author Start: 08-31-2027 Tetanus vaccination TETANUS EVERY 10 YR [facility] Start: 10-14-2019 Screening for malignant neoplasm of cervix PAP SMEAR [facility] Work Phone: Start: 04-10-2019 Influenza vaccination given [facility] Start: 02-16-2019 End: 02-16-2019 Office Visit 02/16/2019 Office Visit Dermatology Michael Bates Jr., DO [address] [place] [address] [phone] [facility] Start: 12-13-2018 End: 12-13-2018 Office Visit 12/13/2018 Office Visit Dermatology Michael Bates Jr., DO [address] [place] [address] [phone] [facility] Start: 04-10-2018 Influenza vaccination given SEQUENTIAL INFLUENZA VACCINE (#1) [facility] Start: 04-10-2017 Influenza vaccination SEQUENTIAL INFLUENZA VACCINE (#1) [facility] Work Phone: Start: 2010 Vaccination for human papillomavirus HPV VACCINES (1 - Female 3-dose series) [facility] Start: 2006 Vaccination for human papillomavirus HPV VACCINES (1 of 3 - Female 3 Dose Series) [facility] [facility] Work Phone: Start: 1998 History and physical examination, annual for health maintenance Wellness Visit [facility] Start: 1995 Screening for Chlamydia trachomatis Chlamydia Screening [facility] Start: 1995 Tetanus vaccination TETANUS EVERY 10 YR [facility] Work Phone: Payers Date Payer Category Payer Unknown [id number] 2016 Private Health Insurance [id number] 2.16.840.1.352816.3.249.13 2016 Private Health Insurance xxx [id number] .[id number] 1995 Unknown [id number] 2.16.840.1.709094.3.579.2.903 1995 Unknown [id number] 2.16.840.1.990061.3.579.2.903 1995 Unknown [id number] 2.16.840.1.595601.3.579.2.593 1995 Unknown [id number] 2.16.840.1.648115.3.579.2.593 1995 Unknown [id number] 2.16.840.1.307601.3.579.2.593 1995 Unknown [id number] 2.16.840.1.921518.3.579.2.593 1995 Unknown [id number] 2.16.840.1.479664.3.579.2.593 1995 Unknown [id number] 2.16.840.1.352652.3.579.2.593 1995 Unknown [id number] 2.16.840.1.208239.3.579.2.593 1995 Unknown [id number] 2.16.840.1.253552.3.579.2.593 1995 Unknown [id number] 2.16.840.1.111290.3.579.2.593 1995 Unknown [id number] 2.16.840.1.259028.3.579.2.593 1995 Unknown [id number] 2.16.840.1.617886.3.579.2.593 1995 Unknown [id number] 2.16.840.1.899973.3.579.2.593 1995 Unknown [id number] 2.16.840.1.491885.3.579.2.593 1995 Unknown [id number] 2.16.840.1.906046.3.579.2.593 1995 Unknown [id number] 2.16.840.1.213101.3.579.2.593 1995 Unknown [id number] 2.16.840.1.264479.3.579.2.593 1995 Unknown [id number] 2.16.840.1.897127.3.579.2.593 1995 Unknown [id number] 2.16.840.1.137662.3.579.2.593 1995 Unknown [id number] 2.16.840.1.424427.3.579.2.593 1995 Unknown [id number] 2.16.840.1.332990.3.579.2.593 1995 Unknown [id number] 2.16.840.1.909637.3.579.2.593 1995 Unknown [id number] 2.16.840.1.383242.3.579.2.593 1995 Unknown [id number] 2.16.840.1.676913.3.579.2.593 1995 Unknown [id number] 2.16.840.1.569160.3.579.2.593 1995 Unknown [id number] 2.16.840.1.472835.3.579.2.727 1959 Self-pay Unknown [id number] 2.16.840.1.060890.3.249.13 Private Health Insurance [facility] [id number] Unknown [id number] 2.16840.1.235719.3.579.2.593 Social History Date Type Detail Facility Start: 09-01-2017 End: 12-13-2018 Tobacco smoking status NHIS Never smoker [facility] Work Phone: Sex Assigned At Not on file [facility] Work Phone: Sex Assigned At Sex Assigned At [facility] Start: 1995 Sex Assigned At Female F [facility] Evaluation note 06-19-2022 Note Date & Type Note Facility 06-19-2022 Evaluation note Encounter Date Diagnosis Assessment Notes Jun, Contact with and (suspected) exposure to other viral communicable diseases (ICD-10 - Z20.828) Jun, Viral URI with cough (ICD-10 - J06.9) Advised patient that COVID/Influenza A/B PCR test. Advised patient that will treat as viral URI. Supportive care as directed, increase fluids and rest, Tylenol as directed, OTC cough/cold remedies as directed on packaging that are safe in , cool mist humidifier, throat lozenges. Discussed infection control practices such as good hand washing and mask wearing. Patient to follow up with PCP if symptoms persist or worsen despite treatment. Immediate eval for SOB, difficulty, chest pain, fevers that do not break with antipyretic or any other concerning symptoms as reviewed on patient education handout. Patient verbalizes understanding and is agreeable to treatment plan. Patient left in stable condition [facility] Discharge summary note 06-04-2022 Note Date & Type Note Facility 06-04-2022 Note CONSULTATION DISCHARGE DATE: 07/03/2022 PRIMARY DIAGNOSES: 1. Intrauterine at 39 weeks. 2. Previous . PROCEDURE: Repeat low transverse section. HOSPITAL COURSE: As expected. Please see chart for full details. LABORATORY DATA: Please see chart. COMPLICATIONS: None. DISCHARGE CONDITION: Stable. CONSULTATION: Anesthesia. DISCHARGE INSTRUCTIONS: 1. Diet: Regular. 2. Medications: a. Percocet 5/325 one to two p.o. every 4-6 hours p.r.n. pain. b. Motrin 800 one p.o. every 8 hours p.r.n. pain. 3. Followup in one week. Restrictions: Pelvic rest for 6 weeks. No heavy lifting. May drive when pain free and no longer on narcotics. [facility] Clinical Note 06-04-2022 Note Date & Type Note Facility 06-04-2022 Note OPERATIVE NOTE OPERATION DATE: 06/04/2022 PROCEDURE: Repeat low transverse section. PREOPERATIVE DIAGNOSIS: 1. Intrauterine at 39 weeks. 2. Previous . POSTOPERATIVE DIAGNOSIS: 1. Intrauterine at 39 weeks. 2. Previous . ANESTHESIA: Spinal with Duramorph. SURGEON: Jeff Jaramillo D.O. FLOOR STEWARD/STEWARDESS: KASANDRA Ko URINE OUTPUT: Yellow and clear. BLOOD LOSS: 575 mL. SPECIMEN: Placenta. FINDINGS: Viable female. Apgars 8 at 1 and 9 at 5. Weight unknown at this time. PROCEDURE: Patient was taken back to the Operating Room where she was given a spinal anesthesia with Duramorph without difficulty. She was prepped and draped in the normal sterile fashion. A Pfannenstiel skin incision was then made 2 cm above the symphysis pubis and carried down to underlying rectus fascia using a Bovie. The fascia was incised in the midline and extended laterally using Means scissors. Two Joanne clamps were placed on the superior aspect of the fascia and dissected off the underlying rectus muscles. The same was performed on the inferior aspect as well. The muscles were then in the midline. Peritoneum was identified and entered bluntly. The peritoneum was then extended superiorly and inferiorly with good visualization of the bladder. The bladder blade was inserted. A low transverse incision was made on the patient's uterus and extended laterally digitally. The was then delivered atraumatically after the bladder blade was removed in the cephalic position. The cord was clamped and cut. Cord blood was obtained. The infant was handed off to awaiting team. The patient's placenta was spontaneously delivered. The uterus was then exteriorized. The uterus was cleared of all clots and debris. The bladder blade was reinserted. The patient's uterine incision was closed using #0 Vicryl in a running lock fashion. Excellent hemostasis was assured. The uterus was then returned to the patient's abdomen. The patient's abdomen was copiously irrigated using warm saline. Peritoneal gutters were cleared of all clots and debris. Again excellent hemostasis was assured. The patient's peritoneum was closed using 3-0 Vicryl in a running fashion. The patient's fascia was closed using #0 Vicryl in a running fashion. The patient's skin was closed using 4-0 Vicryl subcuticularly. The patient tolerated the procedure well. Sponge, lap, and needle counts were correct x2. The patient was taken to the Recovery Room in stable condition. [facility] Evaluation note Note Date & Type Note Facility Evaluation note No assessment information [facility] Work Phone: History general Narrative - Reported Note Date & Type Note Facility History general Narrative - Reported Type Surgical History [place] [facility] Other Assessments Diagnosis Eczema, unspecified type - P rimary Xerosis cutis Other specified disease of sebaceous glands Diagnosis Milia- Primary Sebaceous cyst Viral warts, unspecified type Other disturbances of skin sensation Pre-ulcerative corn or callous Diagnosis Viral warts, unspecified type- Primary Other disturbances of skin sensation Eczema, unspecified type Diagnosis Viral warts, unspecified type- Primary Other disturbances of skin sensation Nevus of scalp Summary Purpose Family History No Family History Records FoundNo Family History Records FoundNo Family History Records FoundNo Family History Records Found Advance Directives Documents on File Type Date Recorded 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 female who presents for Chief Complaint Skin Problem Dictation on: 11/30/2018 10:27 AM by: MICHAEL BATES [[id number]] History reviewed. No pertinent past medical history. Past Medical History Pertinent Negatives: Diagnosis Date Noted Basal cell carcinoma 09/01/2017 Melanoma (HCC) 09/01/2017 Squamous cell skin cancer 09/01/2017 Family History Cancer-related family history is not on file. Review of Systems Constitutional: Malaise: No Skin: Other new or changing growths on skin: No Physical Examination Physical Exam The following areas were within normal limits except as noted otherwise in this note: Exposed: Oriented x 3/ alert; development/nourishment; mood/affect; scalp/hair; face; eyes/eyelids;lips; neck; digits/nails. Pertinent positive PE findings can be found below Assessment and Plan Michael Bates DO 11/30/2018 documented in this encounter* Michael Bates Jr., DO - 02/16/2019 10:28 AM EDT Ioana Reyna is a 23 y.o. female who presents for Chief Complaint Skin Problem; Skin Lesion Dictation on: 02/16/2019 10:36 AM by: MICHAEL BATES [[id number]] History reviewed. No pertinent past medical history. Past Medical History Pertinent Negatives: Diagnosis Date Noted Basal cell carcinoma 09/01/2017 Melanoma (HCC) 09/01/2017 Squamous cell skin cancer 09/01/2017 Family History Cancer-related family history is not on file. Review of Systems Constitutional: Malaise: No Skin: Other new or changing growths on skin: No Physical Examination Physical Exam The following areas were within normal limits except as noted otherwise in this note: Exposed: Oriented x 3/ alert; development/nourishment; mood/affect; scalp/hair; face; eyes/eyelids;lips; neck; digits/nails. Pertinent positive PE findings can be found below Assessment and Plan Michael Bates DO 02/16/2019 documented in this encounter* Michael Bates Jr., DO - 12/13/2018 10:08 AM EDT Ioana Reyna is a 23 y.o. female who presents for Chief Complaint Skin Problem The patient is here today for the evaluation of a few verruca on her right hand and left knee that are still present. They were treated with cryosurgery at last visit. They did blister, but she states that they are still there. She is also complaining of a bump of her scalp that has grown slowly. It is not painful. It is constantly there. PHYSICAL EXAMINATION She has a brown 4 mm papule of her left scalp, verrucal papule of her left knee and 5 verrucal papules of her right hand. ASSESSMENT AND PLAN 1.Verruca vulgaris x5. We treated these 5 verruca with cryosurgery x2 freeze- thaw cycles. We discussed home care instructions, side effects and blistering. This was done after verbal consent was obtained. 2.Benign melanocytic nevus of the scalp. No treatment is needed today. I discussed the etiology with the patient. We will continue to observe. History reviewed. No pertinent past medical history. Past Medical History Pertinent Negatives: Diagnosis Date Noted Basal cell carcinoma 09/01/2017 Melanoma (HCC) 09/01/2017 Squamous cell skin cancer 09/01/2017 Family History Cancer-related family history is not on file. Review of Systems Constitutional: Malaise: No Skin: Other new or changing growths on skin: No Physical Examination Physical Exam The following areas were within normal limits except as noted otherwise in this note: Exposed: Oriented x 3/ alert; development/nourishment; mood/affect; scalp/hair; face; eyes/eyelids;lips; neck; digits/nails. Pertinent positive PE findings can be found below Assessment and Plan Michael Bates DO 12/13/2018 documented in this encounter Chief Complaint and Reason for Visit Chief Complaint cough for 2 weeks, d rainage Additional Source Comments INFORMATION SOURCE (unrecogn ized section and content) DATE CREATED AUTHOR 12/27/2018 [facility] DATE CREATED AUTHOR AUTHOR'S ORGANIZ ATION 11/15/2019 [facility] DATE CREATED AUTHOR AUTHOR'S ORGANIZ ATION 07/30/2022 [facility] DATE CREATED AUTHOR AUTHOR'S ORGANIZ ATION 12/04/2023 [facility] Reason for Visit (unrecogniz ed section and content) Reason Comments Skin Problem Status Reason Specialty Diagnoses / Procedures Referred By Contact Referred To Contact Pending Review Specialty Services Required/Patie nt's Best Interest Dermatology Diagnoses Viral warts, unspecified type Estelle Belle, ENG[employer] [address] [place] [address] Michael Bates Jr., DO [address] [place] [address] Reason Comments Skin Problem Skin Lesion Care Teams (unrecognized sec tion and content) Team Status: Active Member Role Status Dates Estelle Belle APRN [employer] Primary Care Provider Activ jeremiah Team Status: Inactive Member Role Status Dates Estelle Belle APRN [employer] Primary Care Provider Activ e Start: March 13, 2024 End: March 13, 2024 Lisbeth Toro APRN Attending Provider Active S tart: March 13, 2024 End: March 13, 2024 Goals (unrecognized section and content) Goals may be documented in a n alternate section FOR RECORDS PERTAINING TO PATIENTS WHO ARE OR HAVE BEEN ENROLLED IN A CHEMICAL DEPENDENCY/SUBSTANCEABUSE PROGRAM, SOME INFORMATION MAY BE OMITTED. This clinical summary was aggregated from multiple sources. Caution should be exercised in using it in the provision of clinical care. This summary normalizes information from multiple sources, and as a consequence, information in this document may materially change the coding, format and clinical context of patient data. In addition, data may be omitted in some cases. CLINICAL DECISIONS SHOULD BE BASED ON THE PRIMARY CLINICAL RECORDS. [employer] provides no warranty or guarantee of the accuracy or completeness of information in this document.
[2024-04-03 11:07] LABS: Age Gdln ACOG Testing Note (.); IGP, rfx Aptima HPV ASCU Note (.)
== END 2024-03-29 19:52 | disposition home or self-care (01) ==
LOC: LAB 19:51
PROVIDERS: PCP Family Medicine; Visit Provider Obstetrics & Gynecology
DX: Z01.419 Encounter for gynecological examination (general) (routine) without abnormal findings (principal)
CPT/HCPCS: 88175

== ENCOUNTER 2025-04-02 10:15 | Emergency (ER) | payer OTHER, SELFPAY ==
[2025-04-02 10:21] VITALS: BP 142/93; PULSE 114; TEMP 37; O2SAT 98; BMI 45.4
--- OUTSIDE RECORDS SUMMARY | 2025-04-02 10:24 | XMS_ITS | CCD ---
Author Organization [facility] Care Team Providers Care [employer] Balancer Name Role Phone Marion Davis Unavailable MICHAEL BATES Admitting Unavailable MICHAEL BATES Attending Unavailable ESTELLE BELLE Referring Unavailable ESTELLE BELLE Primary Care Unavailable MICHAEL BATES Attending Unavailable ESTELLE BELLE Primary Care Unavailable Estelle Belle Primary Care Provider Rachael Hernandez Unavailable CLINT, DR AGUILAR Admitting Unavailable CLINT, DR AGUILAR Attending Unavailable NADERER, DR BRADEN Martin Primary Care Unavailable LEOBARDORAINE SHARMA Attending Unavailable LEOBARDO, RAINE Consulting Unavailable RAINE BOOTH Admitting Unavailable NADERER, DR BRADEN Martin Primary Care Unavailable CLINT, DR AGUILAR Admitting Unavailable CLINT, DR AGUILAR Consulting Unavailable CLINT, DR AGUILAR Attending Unavailable NADERER, DR BRADEN Martin Primary Care Unavailable NADERER, DR BRADEN Martin Primary Care Unavailable REINECK, DR HYACINTH Dutta Admitting Unavailabl e REINECK, DR HYACINTH Dutta Attending Unavailabl e REINECK, DR HYACINTH Dutta Consulting Unavailabl e CLINT, DR AGUILAR Consulting Unavailable CLINT, DR AGUILAR Admitting Unavailable CLINT, DR AGUILAR Attending Unavailable NADERER, DR BRADEN Martin Primary Care Unavailable NADERER, DR BRADEN Martin Attending Unavailable NADERER, DR BRADEN Martin Consulting Unavailable NADERER, DR BRADEN Martin Admitting Unavailable NADERER, DR BRADEN Martin Primary Care Unavailable CLINT, DR AGUILAR Admitting Unavailable CLINT, DR AGUILAR Attending Unavailable CLINT, DR AGUILAR Consulting Unavailable NADERER, DR BRADEN Martin Primary Care Unavailable CLINT, DR AGUILAR Consulting Unavailable CLINT, DR AGUILAR Admitting Unavailable CLINT, DR AGUILAR Attending Unavailable NADERER, DR BRADEN Martin Primary Care Unavailable CLINT, DR AGUILAR Consulting Unavailable CLINT, DR AGUILAR Admitting Unavailable CLINT, DR AGUILAR Attending Unavailable NADERER, DR BRADEN Martin Primary Care Unavailable CLINT, DR AGUILAR Admitting Unavailable CLINT, DR AGUILAR Attending Unavailable CLINT, DR AGUILAR Consulting Unavailable NADERER, DR DUBOSE A Primary Care Unavailable ZIEBER, DR MUNDO Figueroa Consulting Unavailable CLINT, DR AGUILAR Admitting Unavailable CLINT, DR AGUILAR Attending Unavailable CLINT, DR AGUILAR Consulting Unavailable NADERER, DR BRADEN Martin Primary Care Unavailable NADERER, DR BRADEN Martin Primary Care Unavailable CLINT, DR AGUILAR Admitting Unavailable CLINT, DR AGUILAR Attending Unavailable CLINT, DR AGUILAR Admitting Unavailable CLINT, DR AGUILAR Attending Unavailable CLINT, DR AGUILAR Consulting Unavailable NADERER, DR BRADEN Martin Primary Care Unavailable CLINT, DR AGUILAR Admitting Unavailable CLINT, DR AGUILAR Attending Unavailable CLINT, DR AGUILAR Consulting Unavailable NADERER, DR BRADEN Martin Primary Care Unavailable CLINT, DR AGUILAR Admitting Unavailable CLINT, DR AGUILAR Attending Unavailable CLINT, DR AGUILAR Consulting Unavailable NADERER, DR BRADEN Martin Primary Care Unavailable CLINT, DR AGUILAR Consulting Unavailable CLINT, DR AGUILAR Admitting Unavailable CLINT, DR AGUILAR Attending Unavailable NADERER, DR BRADEN Martin Primary Care Unavailable ZIEBER, DR MUNDO Figueroa Consulting Unavailable CLINT, DR AGUILAR Admitting Unavailable CLINT, DR AGUILAR Attending Unavailable CLINT, DR AGUILAR Consulting Unavailable NADERER, DR BRADEN Martin Primary Care Unavailable NADERER, DR BRADEN Martin Primary Care Unavailable CLINT, DR AGUILAR Admitting Unavailable CLINT, DR AGUILAR Consulting Unavailable CLINT, DR AGUILAR Attending Unavailable KHAN, DR LILIANE Figueroa Attending Unavailable NADERER, DR BRADEN Martin Primary Care Unavailable GRECHNY, MARY JO VERDUGO Consulting Unavailable KHAN, DR LILIANE Figueroa Admitting Unavailable CLINT, DR AGUILAR Consulting Unavailable CLINT, DR AGUILAR Admitting Unavailable CLINT, DR AGUILAR Attending Unavailable NADERER, DR BRADEN A Primary Care Unavailable CLINT, DR AGUILAR Admitting Unavailable CLINT, DR AGUILAR Attending Unavailable AMANDA PARK, DR KENZIE Chanel Consulting Unavailable NADWANDY, DR DUBOSE A Primary Care Unavailable CLINT, DR AGUILAR Consulting Unavailable NADERER, DR DUBOSE A Primary Care Unavailable CLINT, DR AGUILAR Admitting Unavailable CLINT, DR AGUILAR Attending Unavailable HAY, DR BELTRAN Admitting Unavailable NADERER, DR DUBOSE A Primary Care Unavailable HAY, DR BELTRAN Attending Unavailable HAY, DR BELTRAN Consulting Unavailable NADERER, DR DUBOSE A Primary Care Unavailable CLINT, DR AGUILAR Admitting Unavailable CLINT, DR AGUILAR Procedure Practitioner Unavailab gisella CISNEROS, DR MONTOYA Consulting Unavailable CLINT, DR AGUILAR Attending Unavailable CLINT, DR AGUILAR Consulting Unavailable SHARP, PATY Consulting Unavailable GEMBUS, JOSÉ MIGUEL Consulting Unavailable SRI, LORBHARTI Consulting Unavailable CLINT, DR AGUILAR Consulting Unavailable CLINT, DR AGUILAR Admitting Unavailable CLINT, DR AGUILAR Attending Unavailable NADWANDY, DR DUBOSE A Primary Care Unavailable Braden Rosales MD Primary Care Provider [phone] JEFF JARAMILLO Attending Unavailable NADWANDY, BRADEN Attending Unavailable NADEREHenry, BRADEN Attending Unavailable TAMMY, Margoth Lentz Attending Unavailable Allergies Allergy Classification Reported Allergen(s) Allergy Type Date of Onset Reaction(s) Facility (1 source) No Known Medication Allergies; Translations: [No Known Medication Allergies] Propensity to adverse reactions (disorder) [facility] Repository Medications Current Medications Medication Drug Class(es) Dates Sig (Normalized) Sig (Original) [id number] 200 actuat albuterol 0.09 mg/actuat metered dose inhaler (9 sources) beta2-Adrenergic Agonist Start: 03-13-2024 take 2 puff(s) by mouth every four to six hours as needed for wheezing albuterol HFA 90 mcg/act inhaler INHALE 2 PUFFS BY MOUTH EVERY 4-6 HOURS NEEDED FOR SHORTNESS OF BREATH OR WHEEZING FOR 7 DAYS 03/13/2024 Active crisaborole 0.02 mg/mg topical ointment (1 source) [...] mg-20 mcg (21)/75 mg (7) per tablet levoFLOXacin 750 mg oral tablet (2 sources) Quinolone Antimicrobial Start: 04-08-2024 End: 04-15-2024 take 1 tablet by mouth once daily levoFLOXacin (Levaquin) 750 MG tablet Indications: Acute bronchitis due to other specified organisms Take 1 tablet (750 mg) by mouth Daily for 7 days 7 tablet 04/08/2024 04/15/2024 Active mometasone furoate 0.001 mg/mg topical ointment (1 [...] by mouth daily . 1 12/07/2018 Active predniSONE 50 mg oral tablet (2 sources) Start: 04-08-2024 End: 04-14-2024 take 1 tablet by mouth once daily predniSONE (Deltasone) 50 MG tablet Indications: Acute bronchitis due to other specified organisms Take 1 tablet (50 mg) by mouth Daily for 6 days 6 tablet 04/08/2024 04/14/2024 Active sertraline 100 mg oral tablet (12 sources) Serotonin Reuptake Inhibitor Start: 03-13-2024 Sertraline Active MG PO March 13, 2024 12:00am Start: 03-18-2023 End: 03-29-2024 Sertraline 100 mg tablet Act aline MG PO March 13, 2024 12:00am Zoloft Active Completed/Discontinued Medications Medication Drug Class(es) Dates Sig (Normalized) Sig (Original) Albuterol Sulfate 90 mcg/actuation HFA aerosol inhaler (1 source) Start: 03-13-2024 End: 10-26-2024 Albuterol Sulfate 90 mcg/actuation HFA aerosol inhaler Discontinued 2 INH INHALATION EVERY 4-6 HOURS as needed for shortness of breath or wheezing 6.7 7 March 13, 2024 12:00am October 26, 2024 1:26pm amoxicillin 875 mg / clavulanate 125 mg oral tablet (1 source) Penicillin-class Antibacterial Start: 03-13-2024 End: 10-26-2024 take 1 tablet by mouth twice daily Amoxicillin-Pot Clavulanate 875-125 mg tablet Discontinued 1 TAB PO Twice daily 20 10 March 13, 2024 12:00am October 26, 2024 1:26pm Problems Active Problems Problem Classification Problem Date Documented Date Episodic/Chronic Anxiety disorders (7 sources) Generalized anxiety disorder; Translations: [Generalized anxiety disorder] Onset: 04-08-2024 04-08-2024 Chronic Chronic obstructive pulmonary disease and bronchiectasis (1 source) Bronchitis; Translations: [Bronchitis, not specified as acute or chronic] 03-13-2024 Episodic Fever of unknown origin (4 sources) Fever, unspecified; Translations: [FEVER UNSPECIFIED] Onset: 06-19-2022 Episodic Influenza (2 sources) Influenza due to Influenza A virus; Translations: [Influenza due to other identified influenza virus with other respiratory manifestations] 10-26-2024 Episodic Menstrual disorders (4 sources) Irregular menstruation, unspecified; Translations: [IRREGULAR MENSTRUATION UNSPECIFIED] Onset: 11-23-2021 Chronic Mood disorders (7 sources) Recurrent major depressive episodes, mild ; Translations: [Major depressive disorder, recurrent, mild] Onset: 04-08-2024 04-08-2024 Chronic Other and unspecified benign neoplasm (2 [...] of skin sensation] Onset: 11-30-2018 Episodic Other nutritional; endocrine; and metabolic disorders (5 sources) Morbid obesity; Translations: [Morbid (severe) obesity due to excess calories] Onset: 04-08-2024 04-08-2024 Chronic Other nutritional; endocrine; and metabolic disorders (4 sources) Severe obesity; Translations: [Class 3 severe obesity due to excess calories without serious comorbidity with body mass index (BMI) of 45.0 to 49.9 in adult ([facility])] Onset: 04-08-2024 06-08-2024 Chronic Other nutritional; endocrine; and metabolic disorders (2 sources) Body mass index 40+ - severely obese; Translations: [Body mass index (BMI) 40.0-44.9, adult] 04-08-2024 Chronic Other and delivery including normal (15 sources) [...] Onset: 11-30-2018 Episodic Other upper respiratory infections (2 sources) Acute upper respiratory infection, unspecified; Translations: [Acute sinusitis] Episodic Previous (1 source) Maternal care for [...] Problem Classification Problem Date Documented Date Episodic/Chronic Acute bronchitis (7 sources) Acute infective bronchitis; Translations: [Acute bronchitis due to other specified organisms] Onset: 04-08-2024 Resolved: 06-08-2024 04-08-2024 Episodic Allergic reactions (1 source) Eczema; Translations: [Eczema, [...] 11-27-2021 Episodic Other aftercare (1 source) Other mcc (current) drug therapy; Translations: [OTH APPRAISER CURRENT DRUG THERAPY] Onset: 08-20-2021 Episodic Other [...] [Milia] Episodic Other skin disorders (1 source) Lima - lesion ; Translations: [Pre-ulcerative corn or [...] Test Name Value Interpretation Reference Range Facility No Panel InformationOrdered By: Magda Carroll on 10-26-2024 Quick Strep (POC) [facility] IGP,APTIMA HPV,AGE GDLNon AGE GDLN ACOG TESTING Note . [facility] Comment on above: TESTS RESULT FLAG UN ITS REF RANGE LAB Clinician Provided Cytology Information Source.............Cervix;Endocervix No. of containers..01 ThinPrep Vial Age Algo ACOG Roselyn... FLAG LEGEND: L-Low Normal,H-High Normal,LL-Alert Low,HH-Alert High <-Panic Low,>-Panic High,A-Abnormal,AA-Critical Abnormal Performed at: 01 =G [facility] [address] [place] [place] [address] Althea Boone MD, IGP, RFX APTIMA HPV ASCU Note . [facility] Comment on above: TESTS RESULT FLAG UN ITS REF RANGE LAB DIAGNOSIS: 02 NEGATIVE FOR INTRAEPITHELIAL LESION OR MALIGNANCY. Specimen adequacy: 02 Satisfactory for evaluation. Endocervical and/or squamous metaplastic cells (endocervical component) are present. Performed by: Rosario Nunez, Office Sweeper ([facility]) . 02 Note: Note 03 The Pap smear is a screening test designed to aid in the detection of premalignant and malignant conditions of the uterine cervix. It is not a diagnostic procedure and should not be used as the sole means of detecting cervical cancer. Both false-positive and false-negative reports do occur. Test Methodology: Note 03 This liquid based ThinPrep(R) pap test was screened with the use of an image guided system. . 02 The HPV DNA reflex criteria were not met with this specimen result therefore, no HPV testing was performed. FLAG LEGEND: L-Low Normal,H-High Normal,LL-Alert Low,HH-Alert High <-Panic Low,>-Panic High,A-Abnormal,AA-Critical Abnormal Performed at: 02 [facility] [address] [place] [address] Jimi Florez MD, 03 WB [facility] [address] [address] Althea Boone MD, Performed at: =G - [facility] [address] [id number] Ironer Hand: Althea Boone MD, Phone: [phone] Performed at: [facility] - [facility] [address] [place], [place] [id number] Ironer Hand: Jimi Florez MD, Phone: [phone] [facility] CERVIX ENDOCERVIX [facility] Covid-[facility] PCR ([facility])on 07-10 SARS-CoV-2 (COVID-19) RNA ZACKARY+probe Ql (Unsp spec) Detected Critically abnormal NOT DETECTED [facility] Comment on above: Result Comment: This test is not yet approved or cleared by the [place] FDA. When there are no FDA-approved or cleared tests available, and other criteria are met, FDA can make tests available under an emergency access mechanism called an Emergency Use Authorization (EUA). The EUA for this test is supported by the Coach of Health and Human Service's declaration that [...] used). Performed By: #### C BC #### [facility] [address] [place] [address] Dr. Molina Zhang CBC AUTO DIFFon 06-19-2022 BASO # 0.0 103/ul Normal 0.0-0.1 [facility] Comment on above: Performed By: #### C BC #### [facility] [address] [address] [address] Molina Zhang Basophils/100 WBC (Bld) 0.6 % Normal 0.2-2.0 [facility] Comment on above: Performed By: #### C BC #### [facility] [address] [place] [address] Dr. Molina Zhang EO # 0.2 103/ul Normal 0.0-0.7 [facility] Comment on above: Performed By: #### C BC #### [facility] [address] [place] [address] Dr. Molina Zhang Eosinophils/100 WBC (Bld) 3.0 % Normal 0.9-7.0 [facility] Comment on above: Performed By: #### C BC #### [facility] [address] [place] [address] Dr. Molina Zhang Erythrocyte distribution width (RBC) [Ratio] 13.2 % Normal 11.0-15.0 [facility] Comment on above: Performed By: #### C BC #### [facility] [address] [place] [address] Dr. Molina Zhang Hematocrit (Bld) [Volume fraction] 33.1 % Critically low 36.0-48.0 [facility] Comment on above: Performed By: #### C BC #### [facility] [address] [place] [address] Dr. Molina Zhang Hemoglobin (Bld) [Mass/Vol] 10.7 g/dL Critically low 12.0-16.0 [facility] Comment on above: Performed By: #### C BC #### [facility] [address] [place] [address] Dr. Molina Zhang IG # 0.08 10e3/ul Critically high 0.00-0.03 [facility] Comment on above: Performed By: #### C BC #### [facility] [address] [place] [address] Dr. Molina Zhang IG % 1.3 % Critically high 0.0-0.5 [facility] Comment on above: Performed By: #### C BC #### [facility] [address] [place] [address] Dr. Molina Zhang LYMPH # 1.1 103/ul Critically low 1.2-3.[address] [facility] Comment on above: Performed By: #### C BC #### [facility] [address] [place] [address] Dr. Molina Zhang Lymphocytes/100 WBC (Bld) 16.9 % Critically low 20.5-60.0 [facility] Comment on above: Performed By: #### C BC #### [facility] [address] [place] [address] Dr. Molina Zhang MANUAL DIFF REQ NO Normal [facility] Comment on above: Performed By: #### C BC #### [facility] [address] [place] [address] Dr. Molina Zhang MCH (RBC) [Entitic mass] 26.6 pg Critically low 26.7-34.0 [facility] Comment on above: Performed By: #### C BC #### [facility] [address] [place] [address] Dr. Molina Zhang MCHC (RBC) [Mass/Vol] 32.3 g/dL Normal 29.9-35.2 [facility] Comment on above: Performed By: #### C BC #### [facility] [address] [place] [address] Dr. Molina Zhang MCV (RBC) [Entitic vol] 82.1 fL Normal 81.0-99.0 [facility] Comment on above: Performed By: #### C BC #### [facility] [address] [place] [address] Dr. Molina Zhang MONO # 0.4 103/ul Normal 0.3-0.8 [facility] Comment on above: Performed By: #### C BC #### [facility] [address] [place] [address] Dr. Molina Zhang Monocytes/100 WBC (Bld) 6.1 % Normal 1.7-12.0 [facility] Comment on above: Performed By: #### C BC #### [facility] [address] [place] [address] Dr. Molina Zhang NEUT # 4.5 103/ul Normal 1.4-6.5 [facility] Comment on above: Performed By: #### C BC #### [facility] [address] [place] [address] Dr. Molina Zhang Neutrophils/100 WBC (Bld) 72.1 % Normal 43.0-75.0 [facility] Comment on above: Performed By: #### C BC #### [facility] [address] [place] [address] Dr. Molina Zhang Platelet mean volume (Bld) [Entitic vol] 9.3 fL Critically low 9.5-13.5 [facility] Comment on above: Performed By: #### C BC #### [facility] [address] [place] [address] Dr. Molina Zhang PLT 379 103/ul Normal 150-450 [facility] Comment on above: Performed By: #### C BC #### [facility] [address] [place] [address] Dr. Molina Zhang RBC 4.03 106/ul Critically low 4.20-5.40 [facility] Comment on above: Performed By: #### C BC #### [facility] [address] [place] [address] Dr. Molina Zhang WBC 6.3 103/ul Normal 4.0-11.0 [facility] Comment on above: Performed By: #### C BC #### [facility] [address] [place] [address] Dr. Molina Zhang COVID/FLU/RSV RT-PCRon 06-19 SARS-CoV-2 (COVID-19) RNA ZACKARY+probe Ql (Unsp spec) Negative [facility] Other COVID/FLU/RSV RT-PCR Negative [facility] [employer] Other CULTURE BLOODon 06-19-2022 Microscopic examination of blood, culture Culture Observations: NO GROWTH AT 5 DAYS. Normal [facility] Comment on above: Performed By: #### B [id number] #### [facility] [address] [place] [address] Dr. Molina Zhang Performed By: #### B LDCX1 #### [facility] [address] [place] [address] Dr. Molina Zhang CULTURE URINEon 06-19-2022 CULTURE URINE Culture Observations: LIGHT GROWTH OF MIXED GENITAL LAWANDA. NO POTENTIAL PATHOGENS SEEN. Normal [facility] Comment on above: Performed By: #### C MP #### [facility] [address] [place] [address] Dr. Molina Zhang Covid-19 PCR ([facility])on 06-10 SARS-CoV-2 (COVID-19) RNA ZACKARY+probe Ql (Unsp spec) Not detected Normal NOT DETECTED [facility] Comment on above: Result Comment: When [...] for this test is supported by the [place] of Health and Human Service's declaration that [...] used). Performed By: #### C BC #### [facility] [address] [place] [address] Dr. Molina Zhang ER URINE PROFILEon Bilirubin Ql (U) Negative Normal NEGATIVE [facility] Comment on above: Performed By: #### 4 [id number] #### [facility] [address] [place] [address] Dr. Molina Zhang Clarity (U) CLEAR Normal CLEAR [facility] Comment on above: Performed By: #### 4 [id number] #### [facility] [address] [place] [address] Dr. Molina Zhang Color (U) YELLOW Normal YELLOW [facility] Comment on above: Performed By: #### 4 [id number] #### [facility] [address] [place] [address] Dr. Molina ESPINOSA A micrscopic examination will be performed if indicated. Normal [facility] Comment on above: Performed By: #### 4 [id number] #### [facility] [address] [place] [address] Dr. Molina Zhang Glucose Ql (U) Negative Normal NEGATIVE [facility] Comment on above: Performed By: #### 4 [id number] #### [facility] [address] [place] [address] Dr. Molina Zhang Hemoglobin Ql (U) LARGE Abnormal NEGATIVE [facility] Comment on above: Performed By: #### 4 [id number] #### [facility] [address] [place] [address] Dr. Molina Zhang Ketones Ql (U) TRACE Abnormal NEGATIVE [facility] Comment on above: Performed By: #### 4 [id number] #### [facility] [address] [place] [address] Dr. Molina Zhang LEUKOCYTES TRACE Abnormal NEGATIVE [facility] Comment on above: Performed By: #### 4 [id number] #### [facility] [address] [place] [address] Dr. Molina Zhang Nitrite Ql (U) Negative Normal NEGATIVE [facility] Comment on above: Performed By: #### 4 [id number] #### [facility] [address] [place] [address] Dr. Molina Zhang pH (U) 5.5 [pH] Normal 5-9 [facility] Comment on above: Performed By: #### 4 [id number] #### [facility] [address] [place] [address] Dr. Molina Zhang Protein (U) [Mass/Vol] 30 mg/dL Abnormal NEGAT ALINE/ TRACE [facility] Comment on above: Performed By: #### 4 [id number] #### [facility] [address] [place] [address] Dr. Molina Zhang SPEC GRAVITY >=1.030 Abnormal 1.005-<=1.02 5 [facility] Comment on above: Performed By: #### 4 [id number] #### [facility] [address] [place] [address] Dr. Molina Zhang UR MICRO IND INDICATED Normal [facility] Comment on above: Performed By: #### 4 [id number] #### [facility] [address] [place] [address] Dr. Molina Zhang Urobilinogen Qn (U) 0.2 {Jaelyn'U}/dL Normal 0.2 - 1. 0 [facility] Comment on above: Performed By: #### 4 [id number] #### [facility] [address] [place] [address] Dr. Molina Zhagn LACTATE/LACTIC ACIDon 2021 Lactate [Moles/Vol] 1.4 mmol/L Normal 0.4-1.9 [facility] Comment on above: Performed By: #### B LDCX2 #### [facility] [address] [place] [address] Dr. Molina Zhang PROF 14(COMP METB)on 022 Albumin [Mass/Vol] 3.2 g/dL Critically low 3.4-5.0 [facility] Comment on above: Performed By: #### C MP #### [facility] [address] [place] [address] Dr. Molina Zhang Albumin/Globulin [Mass ratio] 0.8 {ratio} Normal [facility] Comment on above: Performed By: #### C MP #### [facility] [address] [place] [address] Dr. Molina Zhang ALP [Catalytic activity/Vol] 127 U/L Critically high 46-116 [facility] Comment on above: Performed By: #### C MP #### [facility] [address] [place] [address] Dr. Molina Zhang ALT [Catalytic activity/Vol] 14 U/L Normal 14-59 [facility] Comment on above: Performed By: #### C MP #### [facility] [address] [address] [address] Molina Zhang Anion gap [Moles/Vol] 9.5 mmol/L Normal [facility] Comment on above: Performed By: #### C MP #### [facility] [address] [address] [address] Molina Zhang AST [Catalytic activity/Vol] 10 U/L Critically low 15-37 [facility] Comment on above: Performed By: #### C MP #### [facility] [address] [address] [address] Molina Zhang Bilirubin [Mass/Vol] 0.2 mg/dL Normal 0.2-1.0 [facility] Comment on above: Performed By: #### C MP #### [facility] [address] [place] [address] Dr. Molina Zhang Calcium [Mass/Vol] 8.4 mg/dL Critically low 8.5-10.1 [facility] Comment on above: Performed By: #### C MP #### [facility] [address] [place] [address] Dr. Molina Zhang Chloride [Moles/Vol] 104 mmol/L Normal 98-107 [facility] Comment on above: Performed By: #### C MP #### [facility] [address] [place] [address] Dr. Molina Zhang CO2 [Moles/Vol] 25.9 mmol/L Normal 21.0-32.0 [facility] Comment on above: Performed By: #### C MP #### [facility] [address] [place] [address] Dr. Molina Zhang Creatinine [Mass/Vol] 1.23 mg/dL Critically high 0.55-1.02 [facility] Comment on above: Performed By: #### C MP #### [facility] [address] [address] [address] Molina Zhang EGFR-AF QATARI >60 Normal >=60 [facility] Comment on above: Performed By: #### C MP #### [facility] [address] [place] [address] Dr. Molina Zhang EGFR-NON AF QATARI 53 mL/min/1.73m2 Critically low >=60 [facility] Comment on above: Performed By: #### C MP #### [facility] [address] [address] [address] Molina Zhang Globulin (S) [Mass/Vol] 4.2 g/dL Normal [facility] Comment on above: Performed By: #### C MP #### [facility] [address] [address] [address] Molina Zhang Glucose [Mass/Vol] 98 mg/dL Normal 74-106 [facility] Comment on above: Performed By: #### C MP #### [facility] [address] [place] [address] Dr. Molina Zhang Potassium [Moles/Vol] 3.4 mmol/L Critically low 3.5-5.1 [facility] Comment on above: Performed By: #### C MP #### [facility] [address] [address] [address] Molina Zhang Protein [Mass/Vol] 7.4 g/dL Normal 6.4-8.2 [facility] Comment on above: Performed By: #### C MP #### [facility] [address] [place] [address] Dr. Molina Zhang Sodium [Moles/Vol] 136 mmol/L Normal 136-145 [facility] Comment on above: Performed By: #### C MP #### [facility] [address] [address] [address] Molina Zhang Urea nitrogen [Mass/Vol] 13.0 mg/dL Normal 7.0-18.0 [facility] Comment on above: Performed By: #### C MP #### [facility] [address] [place] [address] Dr. Molina Zhang Urea nitrogen/Creatinine [Mass ratio] 10.6 mg/mg Normal [facility] Comment on above: Performed By: #### C MP #### [facility] [address] [place] [address] Dr. Molina Zhang URINE MICROSCOPIC ONLYon BACTERIA MODERATE Abnormal NONE SEEN [facility] Comment on above: Performed By: #### [id number] #### [facility] [address] [place] [address] Dr. Molina Zhang Bacteria identified Cx Nom (U) INDICATED Normal [facility] Comment on above: Performed By: #### [id number] #### [facility] [address] [place] [address] Dr. Molina Zhang CAST NONE SEEN Normal NONE SEEN [facility] Comment on above: Performed By: #### [id number] #### [facility] [address] [place] [address] Dr. Molina Zhang Crystals LM Nom (Urine sed) NONE SEEN Normal NONE SEEN [facility] Comment on above: Performed By: #### [id number] #### [facility] [address] [place] [address] Dr. Molina Zhang Epithelial cells LM Ql (Urine sed) FEW Abnormal NONE SEEN /RARE [facility] Comment on above: Performed By: #### [id number] #### [facility] [address] [place] [address] Dr. Molina Zhang MUCOUS TRACE Abnormal NONE SEEN [facility] Comment on above: Performed By: #### [id number] #### [facility] [address] [place] [address] Dr. Molina Zhang RBC 2-5 Abnormal 0-2 [facility] Comment on above: Performed By: #### [id number] #### [facility] [address] [place] [address] Dr. Molina Zhang WBC 10-20 Abnormal NONE SEEN [facility] Comment on above: Performed By: #### [id number] #### [facility] [address] [place] [address] Dr. Molina Zhang CBC AUTO DIFFon 06-05-2022 BASO # 0.0 103/ul Normal 0.0-0.1 [facility] Comment on above: Performed By: #### C MP #### [facility] [address] [place] [address] Dr. Molina Zhang Basophils/100 WBC (Bld) 0.4 % Normal 0.2-2.0 [facility] Comment on above: Performed By: #### C MP #### [facility] [address] [place] [address] Dr. Molina Zhang EO # 0.1 103/ul Normal 0.0-0.7 [facility] Comment on above: Performed By: #### C MP #### [facility] [address] [place] [address] Dr. Molina Zhang Eosinophils/100 WBC (Bld) 1.0 % Normal 0.9-7.0 [facility] Comment on above: Performed By: #### C MP #### [facility] [address] [place] [address] Dr. Molina Zhang Erythrocyte distribution width (RBC) [Ratio] 14.2 % Normal 11.0-15.0 [facility] Comment on above: Performed By: #### C MP #### [facility] [address] [place] [address] Dr. Molina Zhang Hematocrit (Bld) [Volume fraction] 24.7 % Critically low 36.0-48.0 [facility] Comment on above: Performed By: #### C MP #### [facility] [address] [place] [address] Dr. Molina Zhang Hemoglobin (Bld) [Mass/Vol] 8.3 g/dL Critically low 12.0-16.0 [facility] Comment on above: Performed By: #### C MP #### [facility] [address] [place] [address] Dr. Molina Zhang IG # 0.07 10e3/ul Critically high 0.00-0.03 [facility] Comment on above: Performed By: #### C MP #### [facility] [address] [place] [address] Dr. Molina Zhang IG % 0.7 % Critically high 0.0-0.5 [facility] Comment on above: Performed By: #### C MP #### [facility] [address] [place] [address] Dr. Molina Zhang LYMPH # 1.6 103/ul Normal 1.2-3.8 [facility] Comment on above: Performed By: #### C MP #### [facility] [address] [place] [address] Dr. Molina Zhang Lymphocytes/100 WBC (Bld) 16.1 % Critically low 20.5-60.0 [facility] Comment on above: Performed By: #### C MP #### [facility] [address] [place] [address] Dr. Molina Zhang MANUAL DIFF REQ NO Normal [facility] Comment on above: Performed By: #### C MP #### [facility] [address] [place] [address] Dr. Molina Zhang MCH (RBC) [Entitic mass] 27.9 pg Normal 26.7-34.0 [facility] Comment on above: Performed By: #### C MP #### [facility] [address] [place] [address] Dr. Molina Zhang MCHC (RBC) [Mass/Vol] 33.6 g/dL Normal 29.9-35.2 [facility] Comment on above: Performed By: #### C MP #### [facility] [address] [place] [address] Dr. Molina Zhang MCV (RBC) [Entitic vol] 83.2 fL Normal 81.0-99.0 [facility] Comment on above: Performed By: #### C MP #### [facility] [address] [place] [address] Dr. Molina Zhang MONO # 0.7 103/ul Normal 0.3-0.8 [facility] Comment on above: Performed By: #### C MP #### [facility] [address] [place] [address] Dr. Molina Zhang Monocytes/100 WBC (Bld) 6.8 % Normal 1.7-12.0 [facility] Comment on above: Performed By: #### C MP #### [facility] [address] [place] [address] Dr. Molina Zhang NEUT # 7.3 103/ul Critically high 1.4-6.5 [facility] Comment on above: Performed By: #### C MP #### [facility] [address] [address] [address] Molina Zhang Neutrophils/100 WBC (Bld) 75.0 % Normal 43.0-75.0 [facility] Comment on above: Performed By: #### C MP #### [facility] [address] [address] [address] Molina Zhang Platelet mean volume (Bld) [Entitic vol] 9.3 fL Critically low 9.5-13.5 [facility] Comment on above: Performed By: #### C MP #### [facility] [address] [place] [address] Dr. Molina Zhang PLT 253 103/ul Normal 150-450 [facility] Comment on above: Performed By: #### C MP #### [facility] [address] [place] [address] Dr. Molina Zhang RBC 2.97 106/ul Critically low 4.20-5.40 [facility] Comment on above: Performed By: #### C MP #### [facility] [address] [place] [address] Dr. Molina Zhang WBC 9.8 103/ul Normal 4.0-11.0 [facility] Comment on above: Performed By: #### C MP #### [facility] [address] [place] [address] Dr. Molina Zhang CBC AUTO DIFFon 06-04-2022 BASO # 0.0 103/ul Normal 0.0-0.1 [facility] Comment on above: Performed By: #### B LDCX2 #### [facility] [address] [place] [address] Dr. Molina Zhang Basophils/100 WBC (Bld) 0.4 % Normal 0.2-2.0 [facility] Comment on above: Performed By: #### B LDCX2 #### [facility] [address] [place] [address] Dr. Molina Zhang EO # 0.1 103/ul Normal 0.0-0.7 [facility] Comment on above: Performed By: #### B LDCX2 #### [facility] [address] [place] [address] Dr. Molina Zhang Eosinophils/100 WBC (Bld) 0.9 % Normal 0.9-7.0 [facility] Comment on above: Performed By: #### B LDCX2 #### [facility] [address] [place] [address] Dr. Molina Zhang Erythrocyte distribution width (RBC) [Ratio] 13.8 % Normal 11.0-15.0 [facility] Comment on above: Performed By: #### B LDCX2 #### [facility] [address] [place] [address] Dr. Molina Zhang Hematocrit (Bld) [Volume fraction] 30.9 % Critically low 36.0-48.0 [facility] Comment on above: Performed By: #### B LDCX2 #### [facility] [address] [place] [address] Dr. Molina Zhang Hemoglobin (Bld) [Mass/Vol] 10.5 g/dL Critically low 12.0-16.0 [facility] Comment on above: Performed By: #### B LDCX2 #### [facility] [address] [place] [address] Dr. Molina Zhang IG # 0.08 10e3/ul Critically high 0.00-0.03 [facility] Comment on above: Performed By: #### B LDCX2 #### [facility] [address] [place] [address] Dr. Molina Zhang IG % 0.7 % Critically high 0.0-0.5 [facility] Comment on above: Performed By: #### B LDCX2 #### [facility] [address] [place] [address] Dr. Molina Zhang LYMPH # 2.0 103/ul Normal 1.2-3.8 [facility] Comment on above: Performed By: #### B LDCX2 #### [facility] [address] [place] [address] Dr. Molina Zhang Lymphocytes/100 WBC (Bld) 17.7 % Critically low 20.5-60.0 [facility] Comment on above: Performed By: #### B LDCX2 #### [facility] [address] [place] [address] Dr. Molina Zhang MANUAL DIFF REQ NO Normal [facility] Comment on above: Performed By: #### B LDCX2 #### [facility] [address] [place] [address] Dr. Molina Zhang MCH (RBC) [Entitic mass] 28.0 pg Normal 26.7-34.0 [facility] Comment on above: Performed By: #### B LDCX2 #### [facility] [address] [place] [address] Dr. Molina Zhang MCHC (RBC) [Mass/Vol] 34.0 g/dL Normal 29.9-35.2 [facility] Comment on above: Performed By: #### B LDCX2 #### [facility] [address] [place] [address] Dr. Molina Zhang MCV (RBC) [Entitic vol] 82.4 fL Normal 81.0-99.0 [facility] Comment on above: Performed By: #### B LDCX2 #### [facility] [address] [place] [address] Dr. Molina Zhang MONO # 0.7 103/ul Normal 0.3-0.8 [facility] Comment on above: Performed By: #### B LDCX2 #### [facility] [address] [place] [address] Dr. Molina Zhang Monocytes/100 WBC (Bld) 6.4 % Normal 1.7-12.0 [facility] Comment on above: Performed By: #### B LDCX2 #### [facility] [address] [place] [address] Dr. Molnia Zhang NEUT # 8.3 103/ul Critically high 1.4-6.5 [facility] Comment on above: Performed By: #### B LDCX2 #### [facility] [address] [place] [address] Dr. Molina Zhang Neutrophils/100 WBC (Bld) 73.9 % Normal 43.0-75.0 [facility] Comment on above: Performed By: #### B LDCX2 #### [facility] [address] [place] [address] Dr. Molina Zhang Platelet mean volume (Bld) [Entitic vol] 10.4 fL Normal 9.5-13.5 [facility] Comment on above: Performed By: #### B LDCX2 #### [facility] [address] [place] [address] Dr. Molina Zhang PLT 351 103/ul Normal 150-450 [facility] Comment on above: Performed By: #### B LDCX2 #### [facility] [address] [place] [address] Dr. Molina Zhang RBC 3.75 106/ul Critically low 4.20-5.40 [facility] Comment on above: Performed By: #### B LDCX2 #### [facility] [address] [place] [address] Dr. Molina Zhang WBC 11.2 103/ul Critically high 4.0-11.0 [facility] Comment on above: Performed By: #### B LDCX2 #### [facility] [address] [place] [address] Dr. Molina Zhang DRUG SCREEN RAPID (URINE)on 06-04-2022 AMP Negative Normal NEGATIVE [facility] Comment on above: Performed By: #### [id number] #### [facility] [address] [place] [address] Dr. Molina Zhang BAR Negative Normal NEGATIVE [facility] Comment on above: Performed By: #### 4 [id number] #### [facility] [address] [place] [address] Dr. Molina Zhang BUP Negative Normal NEGATIVE [facility] Comment on above: Performed By: #### 4 [id number] #### [facility] [address] [place] [address] Dr. Molina Zhang BZO Negative Normal NEGATIVE [facility] Comment on above: Performed By: #### 4 [id number] #### [facility] [address] [place] [address] Dr. Molina Zhang MARCIO Negative Normal NEGATIVE [facility] Comment on above: Performed By: #### [id number] #### [facility] [address] [place] [address] Dr. Molina Zhang CUT-OFFS SEE BELOW Normal [facility] Comment on above: Result Comment: AMP (Amphetamine): 500ng/mL, BAR (Barbituates): 200 ng/mL, BZO (Benzodiazepines): 150 ng/mL, BUP (Buprenorphine): 10 ng/mL, MARCIO (Cocaine): 150 ng/mL, mAMP (Methamphetamine): 500 ng/mL, MTD (Methadone): 200 ng/mL, OPI (Opiates): 100 ng/mL, OXY (Oxycodone): 100 ng/mL, PCP (Phencyclidine): 25 ng/mL, PPX (Propoxyphene): 300 ng/mL, THC (Cannabinoids): 50 ng/mL, TCA (Trycyclic Antidepressants): 300 ng/mL Performed By: #### [id number] #### [facility] [address] [place] [address] Dr. Molina Zhang DRUG CUT HEADER DRUG CLASS TEST SYSTEM CUT-OFF CONCENTRATIONS ARE FOLLOWS: Normal [facility] Comment on above: Performed By: #### 4 [id number] #### [facility] [address] [place] [address] Dr. Molina Zhang mAMP Negative Normal NEGATIVE [facility] Comment on above: Performed By: #### [id number] #### [facility] [address] [place] [address] Dr. Molina Zhang MTD Negative Normal NEGATIVE [facility] Comment on above: Performed By: #### 4 [id number] #### [facility] [address] [place] [address] Dr. Molina Zhang OPI Negative Normal NEGATIVE [facility] Comment on above: Performed By: #### 4 [id number] #### [facility] [address] [place] [address] Dr. Molina Zhang OXY Negative Normal NEGATIVE [facility] Comment on above: Performed By: #### 4 [id number] #### [facility] [address] [place] [address] Dr. Molina Zhang PCP Negative Normal NEGATIVE [facility] Comment on above: Performed By: #### 4 [id number] #### [facility] [address] [place] [address] Dr. Molina Zhang PPX Negative Normal NEGATIVE [facility] Comment on above: Performed By: #### 4 [id number] #### [facility] [address] [place] [address] Dr. Molina Zhang TCA Negative Normal NEGATIVE [facility] Comment on above: Performed By: #### 4 [id number] #### [facility] [address] [place] [address] Dr. Molina Zhang THC Negative Normal NEGATIVE [facility] Comment on above: Performed By: #### [id number] #### [facility] [address] [place] [address] Dr. Molina Zhang TYPE AND SCREENon 06-04-2022 TYPE AND SCREEN Negative Normal [facility] Comment on above: Performed By: #### C MP #### [facility] [address] [place] [address] Dr. Molina Zhang UA (CLEAN/CATCH) METAL CONTROL COORDINATOR/MICRO I F IND.on 06-04-2022 Bilirubin Ql (U) Negative Normal NEGATIVE [facility] Comment on above: Performed By: #### C BC #### [facility] [address] [place] [address] Dr. Molina Zhang Clarity (U) CLEAR Normal CLEAR [facility] Comment on above: Performed By: #### C BC #### [facility] [address] [place] [address] Dr. Molina Zhang Color (U) YELLOW Normal YELLOW [facility] Comment on above: Performed By: #### C BC #### [facility] [address] [place] [address] Dr. Molina Zhang Glucose Ql (U) Negative Normal NEGATIVE [facility] Comment on above: Performed By: #### C BC #### [facility] [address] [place] [address] Dr. Molina Zhang Hemoglobin Ql (U) Negative Normal NEGATIVE [facility] Comment on above: Performed By: #### C BC #### [facility] [address] [place] [address] Dr. Molina Zhang Ketones Ql (U) Negative Normal NEGATIVE [facility] Comment on above: Performed By: #### C BC #### [facility] [address] [place] [address] Dr. Molina Zhang LEUKOCYTES Negative Normal NEGATIVE [facility] Comment on above: Performed By: #### C BC #### [facility] [address] [place] [address] Dr. Molina Zhang Nitrite Ql (U) Negative Normal NEGATIVE [facility] Comment on above: Performed By: #### C BC #### [facility] [address] [place] [address] Dr. Molina Zhang pH (U) 6.0 [pH] Normal 5-9 [facility] Comment on above: Performed By: #### C BC #### [facility] [address] [place] [address] Dr. Molina Zhang SPEC GRAVITY >=1.030 Abnormal 1.005-<=1.02 5 [facility] Comment on above: Performed By: #### C BC #### [facility] [address] [place] [address] Dr. Molina Zhang UA PROTEIN TRACE Normal NEGATIVE/ TRACE [facility] Comment on above: Performed By: #### C BC #### [facility] [address] [place] [address] Dr. Molina Zhang UR MICRO IND NOT INDICATED Normal [facility] Comment on above: Performed By: #### C BC #### [facility] [address] [place] [address] Dr. Molina Zhang Urobilinogen Qn (U) 0.2 {Jaelyn'U}/dL Normal 0.2 - 1. 0 [facility] Comment on above: Performed By: #### C BC #### [facility] [address] [place] [address] Dr. Molina Zhang [facility]11 SARS-CoV-2 (COVID-19) RNA ZACKARY+probe Ql (Unsp spec) Not detected Normal NOT DETECTED [facility] Comment on above: Result Comment: This test is not yet approved or cleared by the [place] FDA. When there are no FDA-approved or cleared tests available, and other criteria are met, FDA can make tests available under an emergency access mechanism called an Emergency Use Authorization (EUA). The EUA for this test is supported by the [place] of Health and Human Service's (HHS's) declaration [...] SARS-CoV-2. Performed By: #### C MP #### [facility] [address] [address] [address] Molina Zhang GROUP B STREP CULTUREon [...] S F Tetracycline >=16 R F Normal [facility] Comment on above: Performed By: #### G BSCX #### [facility] [address] [address] [address] Molina Zhang US PREG GROWTHon 04-23-2022 [...] by: MUNDO BECKER Date: 2022-04-23 16:13 Normal [facility] US PREG GROWTHon 03-20-2022 US PREG GROWTH [...] by: KENZIE AVILES Date: 2022-03-20 16:41 Normal [facility] GLUCOSE - 1HRon 03-15-2022 Glucose [Mass/Vol] 137 mg/dL Critically high 74-106 [facility] Comment on above: Performed By: #### B LDCX2 #### [facility] [address] [place] [address] Dr. Molina Zhang HEMOGRAM AND PLATELon 2021 Hematocrit (Bld) [Volume fraction] 32.5 % Critically low 36.0-48.0 [facility] Comment on above: Performed By: #### [id number] #### [facility] [address] [place] [address] Dr. Molina Zhang Hemoglobin (Bld) [Mass/Vol] 11.2 g/dL Critically low 12.0-16.0 [facility] Comment on above: Performed By: #### [id number] #### [facility] [address] [place] [address] Dr. Molina Zhang MCH (RBC) [Entitic mass] 29.1 pg Normal 26.7-34.0 [facility] Comment on above: Performed By: #### 4 [id number] #### [facility] [address] [place] [address] Dr. Molina Zhang MCHC (RBC) [Mass/Vol] 34.5 g/dL Normal 29.9-35.2 [facility] Comment on above: Performed By: #### 4 [id number] #### [facility] [address] [place] [address] Dr. Molina Zhang MCV (RBC) [Entitic vol] 84.4 fL Normal 81.0-99.0 [facility] Comment on above: Performed By: #### 4 [id number] #### [facility] [address] [place] [address] Dr. Molina Zhang PLT 294 103/ul Normal 150-450 [facility] Comment on above: Performed By: #### 4 [id number] #### [facility] [address] [place] [address] Dr. Molina Zhang RBC 3.85 106/ul Critically low 4.20-5.40 [facility] Comment on above: Performed By: #### 4 [id number] #### [facility] [address] [address] [address] Molina Zhang WBC 9.9 103/ul Normal 4.0-11.0 [facility] Comment on above: Performed By: #### 4 [id number] #### [facility] [address] [address] [address] Molina Zhang AFP MATERNAL FOR SPINA BIFID Aon 01-22-2022 AFP MoM 2.20 Normal [facility] Comment on above: Performed By: #### 4 [id number] #### [facility] [address] [address] [address] Molina Zhang AFP Value 88.7 ng/mL Normal [facility] Comment on above: Performed By: #### 4 [id number] #### [facility] [address] [address] [address] Molina Zhang AFP, Serum for Spina Bifida Report Normal [facility] Comment on above: Performed By: #### 4 [id number] #### [facility] [address] [address] [address] Molina Zhang Comment Comment Normal [facility] Comment on above: Result Comment: Jada Chacon, Ph.D., [facility] Director . References: Available Upon Request. . Multiples Of Median Cutoffs For AFP Elevations Wild 2.5 Black 2.8 IDD 2.0 Twins 4.5 Abbreviation Definitions IDD - Insulin Dep Diabetes OSBR - Open Spina Bifida Risk . For further inquiries contact [facility] at [phone]. Performed By: #### 4 [id number] #### [facility] [address] [address] [address] Molina Charles Age Collection Date 19.7 weeks Normal [facility] Comment on above: Performed By: #### 4 [id number] #### [facility] [address] [address] [address] Molina Zhang Gestat, Age Based on YFN Normal [facility] Comment on above: Result Comment: 09/2021 Recalculations are not recommended when gestational dating by LMP and ultrasound are within 10 days. Performed By: #### 4 [id number] #### [facility] [address] [address] [address] Molina Zhang Insulin Dep Diabetes No Normal [facility] Comment on above: Performed By: #### 4 [id number] #### [facility] [address] [place] [address] Dr. Molina Zhang Interpretation Comment Normal [facility] Comment on above: Result Comment: Inte [...] Customer Services to discuss available options. The [employer] recommends amniocentesis be offered to women age 35 and older. Performed By: #### 4 [id number] #### [facility] [address] [place] [address] Dr. Molina Zhang [age] Normal [facility] Comment on above: Performed By: #### 4 [id number] #### [facility] [address] [place] [address] Dr. Molina Zhang Multiple Gestation No Normal [facility] Comment on above: Performed By: #### 4 [id number] #### [facility] [address] [place] [address] Dr. Molina Zhang OSBR Risk 1 [place] 523 [facility] Comment on above: Performed By: #### 4 [id number] #### [facility] [address] [place] [address] Dr. Molina Zhang PDF . [facility] Comment on above: Performed By: #### 4 [id number] #### [facility] [address] [place] [address] Dr. Molina Zhang Race [facility] Comment on above: Performed By: #### 4 [id number] #### [facility] [address] [place] [address] Dr. Molina Zhang Test Results: Negative Normal [facility] Comment on above: Performed By: #### 4 [id number] #### [facility] [address] [place] [address] Dr. Molina Zhang CHLAMYDIA/GONOCOCCUS ZACKARY (SW AB/URINE/PAPon 12-30-2021 Chlamydia trachomatis, ZACKARY Negative Normal Negative [facility] Comment on above: Performed By: #### C BC #### [facility] [address] [place] [address] Dr. Molina Zhang Neisseria gonorrhoeae, ZACKARY Negative Normal Negative [facility] Comment on above: Performed By: #### C BC #### [facility] [address] [place] [address] Dr. Molina Zhang VAGINITIS/VAGINOSIS DNA PROB Facundo 12-27-2021 Angela species Negative Normal Negative [facility] Comment on above: Performed By: #### C MP #### [facility] [address] [place] [address] Dr. Molina Zhang Gardnerella vaginalis Negative Normal Negative [facility] Comment on above: Performed By: #### C MP #### [facility] [address] [place] [address] Dr. Molina Zhang Trichomonas vaginalis Negative Normal Negative [facility] Comment on above: Performed By: #### C MP #### [facility] [address] [place] [address] Dr. Molina Zhang HEP B SURFACE ANTIGEN SCREEN on 11-24-2021 HBsAg Screen Negative Normal Negative [facility] Comment on above: Performed By: #### 4 [id number] #### [facility] [address] [place] [address] Dr. Molina Zhang HEPATITIS C VIRUS AB W/ REFL EX QUANTon 11-24-2021 HCV AB 0.1 s/co ratio Normal 0.0-0.[address] [facility] Comment on above: Performed By: #### C MP #### [facility] [address] [place] [address] Dr. Molina Zhang Interpretation: Comment Normal [facility] Comment on above: Result Comment: Nega tive Not infected with HCV, unless recent infection is suspected or other evidence exists to indicate HCV infection. Performed By: #### C MP #### [facility] [address] [place] [address] Dr. Molina Zhang HIV 1 AND 2 WITH REFLEXon HIV Screen 4th Generation wRfx Non-Reactive Normal Non Reactive [facility] Comment on above: Result Comment: HIV Negative HIV-1/HIV-2 antibodies and HIV-1 p24 antigen were NOT detected. There is no laboratory evidence of HIV infection. Performed By: #### C BC #### [facility] [address] [place] [address] Dr. Molina Zhang RPR QUANTon 11-24-2021 Rapid Plasma Reagin, Quant Non-Reactive Normal NonRea<1:1 [facility] Comment on above: Result Comment: Plea se Note: This test does not meet current guidelines for screening and diagnosis of syphilis. This test is intended for following treatment response in patients being treated for syphilis infection. To screen for syphilis infection, a reflex cascade that includes both RPR and a treponema-specific assay should be utilized, such as Treponema pallidum (Syphilis) Screening [place] (773069) or Rapid Plasma Reagin (RPR) Test With Reflex to Quantitative RPR and Confirmatory Treponema pallidum Antibodies (681567). Performed By: #### B [id number] #### [facility] [address] [place] [address] Dr. Molina Zhang RUBELLA AB IGGon 11-24-2021 Rubella Antibodies, IgG 2.76 index Normal Immune >0.99 [facility] Comment on above: Result Comment: Non- immune <0.90 Equivocal 0.90 - 0.99 Immune >0.99 Performed By: #### C BC #### [facility] [address] [place] [address] Dr. Molina Zhang CBC AUTO DIFFon 11-23-2021 BASO # 0.0 103/ul Normal 0.0-0.1 [facility] Comment on above: Performed By: #### C BC #### [facility] [address] [address] [address] Molina Zhang Basophils/100 WBC (Bld) 0.2 % Normal 0.2-2.0 [facility] Comment on above: Performed By: #### C BC #### [facility] [address] [address] [address] Molina Zhang EO # 0.0 103/ul Normal 0.0-0.7 [facility] Comment on above: Performed By: #### C BC #### [facility] [address] [address] [address] Molina Zhang Eosinophils/100 WBC (Bld) 0.5 % Critically low 0.9-7.0 [facility] Comment on above: Performed By: #### C BC #### [facility] [address] [place] [address] Dr. Molina Zhang Erythrocyte distribution width (RBC) [Ratio] 14.2 % Normal 11.0-15.0 [facility] Comment on above: Performed By: #### C BC #### [facility] [address] [place] [address] Dr. Molina Zhang Hematocrit (Bld) [Volume fraction] 38.9 % Normal 36.0-48.0 [facility] Comment on above: Performed By: #### C BC #### [facility] [address] [place] [address] Dr. Molina Zhang Hemoglobin (Bld) [Mass/Vol] 13.1 g/dL Normal 12.0-16.0 [facility] Comment on above: Performed By: #### C BC #### [facility] [address] [place] [address] Dr. Molina Zhang IG # 0.03 10e3/ul Normal 0.00-0.03 [facility] Comment on above: Performed By: #### C BC #### [facility] [address] [place] [address] Dr. Molina Zhang IG % 0.4 % Normal 0.0-0.5 [facility] Comment on above: Performed By: #### C BC #### [facility] [address] [address] [address] Molina Zhang LYMPH # 1.2 103/ul Normal 1.2-3.8 [facility] Comment on above: Performed By: #### C BC #### [facility] [address] [place] [address] Dr. Molina Zhang Lymphocytes/100 WBC (Bld) 14.8 % Critically low 20.5-60.0 [facility] Comment on above: Performed By: #### C BC #### [facility] [address] [place] [address] Dr. Molina Zhang MANUAL DIFF REQ NO Normal [facility] Comment on above: Performed By: #### C BC #### [facility] [address] [place] [address] Dr. Molina Zhang MCH (RBC) [Entitic mass] 27.2 pg Normal 26.7-34.0 [facility] Comment on above: Performed By: #### C BC #### [facility] [address] [place] [address] Dr. Molina Zhang MCHC (RBC) [Mass/Vol] 33.7 g/dL Normal 29.9-35.2 [facility] Comment on above: Performed By: #### C BC #### [facility] [address] [place] [address] Dr. Molina Zhang MCV (RBC) [Entitic vol] 80.7 fL Critically low 81.0-99.0 [facility] Comment on above: Performed By: #### C BC #### [facility] [address] [place] [address] Dr. Molina Zhang MONO # 0.4 103/ul Normal 0.3-0.8 [facility] Comment on above: Performed By: #### C BC #### [facility] [address] [place] [address] Dr. Molina Zhang Monocytes/100 WBC (Bld) 4.8 % Normal 1.7-12.0 [facility] Comment on above: Performed By: #### C BC #### [facility] [address] [address] [address] Molina Zhang NEUT # 6.7 103/ul Critically high 1.4-6.5 [facility] Comment on above: Performed By: #### C BC #### [facility] [address] [address] [address] Molina Zhang Neutrophils/100 WBC (Bld) 79.3 % Critically high 43.0-75.0 [facility] Comment on above: Performed By: #### C BC #### [facility] [address] [place] [address] Dr. Molina Zhang Platelet mean volume (Bld) [Entitic vol] 9.1 fL Critically low 9.5-13.5 [facility] Comment on above: Performed By: #### C BC #### [facility] [address] [place] [address] Dr. Molina Zhang PLT 346 103/ul Normal 150-450 [facility] Comment on above: Performed By: #### C BC #### [facility] [address] [place] [address] Dr. Molina Zhang RBC 4.82 106/ul Normal 4.20-5.40 [facility] Comment on above: Performed By: #### C BC #### [facility] [address] [place] [address] Dr. Molina Zhang WBC 8.4 103/ul Normal 4.0-11.0 [facility] Comment on above: Performed By: #### C BC #### [facility] [address] [place] [address] Dr. Molina Zhang CULTURE URINEon 11-23-2021 CULTURE URINE Culture Observations: LIGHT GROWTH OF MIXED GENITAL LAWANDA. NO POTENTIAL PATHOGENS SEEN. Normal [facility] Comment on above: Performed By: #### U RCX #### [facility] [address] [place] [address] Dr. Molina Zhang GLYCOHEMOGLOBIN A1Con 2021 ADA RECOMMENDATION ADA THERAPEUTIC TARGET 6.0 - 7.0 ACTION SUGGESTED > 7.0 Normal [facility] Comment on above: Performed By: #### 4 [id number] #### [facility] [address] [address] [address] Molina Zhang Glucose [Mass/Vol] 85 mg/dL Normal [facility] Comment on above: Performed By: #### 4 [id number] #### [facility] [address] [address] [address] Molina Zhang HbA1c (Bld) [Mass fraction] 4.6 % Normal <=6.0 [facility] Comment on above: Performed By: #### 4 [id number] #### [facility] [address] [place] [address] Dr. Moilna Zhang WILVER BOX TEST PT SEND OUTo n 11-23-2021 SENT TO REF LAB 11/23/2021 Normal [facility] Comment on above: Performed By: #### C BC #### [facility] [address] [place] [address] Dr. Molina Zhang TYPE AND SCREENon 11-23-2021 TYPE AND SCREEN Negative Normal [facility] Comment on above: Performed By: #### T NS #### [facility] [address] [place] [address] Dr. Molina Zhang US PREG TVon 11-07-2021 [...] BY US CRL: 8 weeks, 4 days YFN BY US CRL: 06/15/2022 IMPRESSION: 1. Single live intrauterine . Electronically authenticated by: MUNDO BECKER Date: 2021-11-07 13:51 Normal [facility] PREG QUANT HCGon 10-06-2021 HCG QUANT 170 mIU/mL Normal [facility] Comment on above: Performed By: #### C MP #### [facility] [address] [place] [address] Dr. Molina Zhang HCG RANGE SEE BELOW Normal [facility] Comment on above: Result Comment: 5-50 0-1 WEEK 40-300 1-2 WEEKS 100-1,000 2-3 WEEKS 500-6,000 3-4 WEEKS 5,000-200,000 1-2 MONTHS 10,000-100,000 2-3 MONTHS 3,000-50,000 2ND TRIMESTER 1,000-50,000 3RD TRIMESTER Performed By: #### C MP #### [facility] [address] [place] [address] Dr. Molina Zhang PREG QUANT HCGon 10-03-2021 HCG QUANT 59 mIU/mL Normal [facility] Comment on above: Performed By: #### C BC #### [facility] [address] [place] [address] Dr. Molina Zhang HCG RANGE SEE BELOW Normal [facility] Comment on above: Result Comment: 5-50 0-1 WEEK 40-300 1-2 WEEKS 100-1,000 2-3 WEEKS 500-6,000 3-4 WEEKS 5,000-200,000 1-2 MONTHS 10,000-100,000 2-3 MONTHS 3,000-50,000 2ND TRIMESTER 1,000-50,000 3RD TRIMESTER Performed By: #### C BC #### [facility] [address] [place] [address] Dr. Molina Zhang PREG QUANT HCGon 10-01-2021 HCG QUANT 28 mIU/mL Normal [facility] Comment on above: Performed By: #### C BC #### [facility] [address] [place] [address] Dr. Molina Zhang HCG RANGE SEE BELOW Normal [facility] Comment on above: Result Comment: 5-50 0-1 WEEK 40-300 1-2 WEEKS 100-1,000 2-3 WEEKS 500-6,000 3-4 WEEKS 5,000-200,000 1-2 MONTHS 10,000-100,000 2-3 MONTHS 3,000-50,000 2ND TRIMESTER 1,000-50,000 3RD TRIMESTER Performed By: #### C BC #### [facility] [address] [place] [address] Dr. Molina Zhang PREG QUANT HCGon 09-29-2021 HCG QUANT 22 mIU/mL Normal [facility] Comment on above: Performed By: #### P REGQNT #### [facility] [address] [place] [address] Dr. Molina Zhang HCG RANGE SEE BELOW Normal [facility] Comment on above: Result Comment: 5-50 0-1 WEEK 40-300 1-2 WEEKS 100-1,000 2-3 WEEKS 500-6,000 3-4 WEEKS 5,000-200,000 1-2 MONTHS 10,000-100,000 2-3 MONTHS 3,000-50,000 2ND TRIMESTER 1,000-50,000 3RD TRIMESTER Performed By: #### P REGQNT #### [facility] [address] [place] [address] Dr. Molina Zhang Covid-19 PCR ([facility])on SARS-CoV-2 (COVID-19) RNA ZACKARY+probe Ql (Unsp spec) Not detected Normal NOT DETECTED [facility] Comment on above: Result Comment: This test is not yet approved or cleared by the [place] FDA. When there are no FDA-approved or cleared tests available, and other criteria are met, FDA can make tests available under an emergency access mechanism called an Emergency Use Authorization (EUA). The EUA for this test is supported by the [place] of Health and Human Service's (HHS's) declaration [...] consistent with SARS-CoV-2. Performed By: #### 4 [id number] #### [facility] [address] [place] [address] Dr. Molina Zhang PAP ACOG PANEL 2: 21 to 29on 09-05-2021 . . Normal [facility] Comment on above: Performed By: #### 4 [id number] #### [facility] [address] [place] [address] Dr. Molina Zhang Age Gdln ACOG Testing - [facility] Comment on above: Performed By: #### 4 [id number] #### [facility] [address] [place] [address] Dr. Molina Zhang DIAGNOSIS: Comment [facility] Comment on above: Result Comment: NEGA TIVE FOR INTRAEPITHELIAL LESION OR MALIGNANCY. Performed By: #### 4 [id number] #### [facility] [address] [place] [address] Dr. Molina Zhang Methodology: Comment [facility] Comment on above: Result Comment: This liquid based ThinPrep(R) pap test was screened with the use of an image guided system. Performed By: #### 4 [id number] #### [facility] [address] [place] [address] Dr. Molina Zhang Note: Comment [facility] Comment on above: Result Comment: The Pap smear is a screening test designed to aid in the detection of premalignant and malignant conditions of the uterine cervix. It is not a diagnostic procedure and should not be used as the sole means of detecting cervical cancer. Both false-positive and false-negative reports do occur. . Performed By: #### 4 [id number] #### [facility] [address] [place] [address] Dr. Molina Zhang Performed by: Comment Normal [facility] Comment on above: Result Comment: Madhuri Jung, Office Sweeper (ASCP) Performed By: #### 4 [id number] #### [facility] [address] [place] [address] Dr. Molina Zhang Reflex Criteria: Comment [facility] Comment on above: Result Comment: The HPV DNA reflex criteria were not met with this specimen result therefore, no HPV testing was performed. . Performed By: #### 4 [id number] #### [facility] [address] [place] [address] Dr. Molina Zhang Specimen adequacy: Comment Normal [facility] Comment on above: Result Comment: Sati sfactory for evaluation. No endocervical component is identified. Performed By: #### 4 [id number] #### [facility] [address] [address] [address] Molina Zhang CBC AUTO DIFFon 08-18-2021 BASO # 0.1 103/ul Normal 0.0-0.1 [facility] Comment on above: Performed By: #### C MP #### [facility] [address] [place] [address] Dr. Molina Zhang Basophils/100 WBC (Bld) 0.6 % Normal 0.2-2.0 [facility] Comment on above: Performed By: #### C MP #### [facility] [address] [place] [address] Dr. Molina Zhang EO # 0.2 103/ul Normal 0.0-0.7 [facility] Comment on above: Performed By: #### C MP #### [facility] [address] [place] [address] Dr. Molina Zhang Eosinophils/100 WBC (Bld) 1.7 % Normal 0.9-7.0 [facility] Comment on above: Performed By: #### C MP #### [facility] [address] [place] [address] Dr. Molina Zhang Erythrocyte distribution width (RBC) [Ratio] 13.8 % Normal 11.0-15.0 [facility] Comment on above: Performed By: #### C MP #### [facility] [address] [place] [address] Dr. Molina Zhang Hematocrit (Bld) [Volume fraction] 36.9 % Normal 36.0-48.0 [facility] Comment on above: Performed By: #### C MP #### [facility] [address] [place] [address] Dr. Molina Zhang Hemoglobin (Bld) [Mass/Vol] 12.3 g/dL Normal 12.0-16.0 [facility] Comment on above: Performed By: #### C MP #### [facility] [address] [place] [address] Dr. Molina Zhang IG # 0.02 10e3/ul Normal 0.00-0.03 [facility] Comment on above: Performed By: #### C MP #### [facility] [address] [place] [address] Dr. Molina Zhang IG % 0.2 % Normal 0.0-0.5 [facility] Comment on above: Performed By: #### C MP #### [facility] [address] [place] [address] Dr. Molina Zhang LYMPH # 2.3 103/ul Normal 1.2-3.8 [facility] Comment on above: Performed By: #### C MP #### [facility] [address] [place] [address] Dr. Molina Zhang Lymphocytes/100 WBC (Bld) 25.1 % Normal 20.5-60.0 [facility] Comment on above: Performed By: #### C MP #### [facility] [address] [place] [address] Dr. Molina Zhang MANUAL DIFF REQ NO Normal [facility] Comment on above: Performed By: #### C MP #### [facility] [address] [place] [address] Dr. Molina Zhang MCH (RBC) [Entitic mass] 26.7 pg Normal 26.7-34.0 [facility] Comment on above: Performed By: #### C MP #### [facility] [address] [place] [address] Dr. Molina Zhang MCHC (RBC) [Mass/Vol] 33.3 g/dL Normal 29.9-35.2 [facility] Comment on above: Performed By: #### C MP #### [facility] [address] [place] [address] Dr. Molina Zhang MCV (RBC) [Entitic vol] 80.2 fL Critically low 81.0-99.0 [facility] Comment on above: Performed By: #### C MP #### [facility] [address] [place] [address] Dr. Molina Zhang MONO # 0.7 103/ul Normal 0.3-0.8 [facility] Comment on above: Performed By: #### C MP #### [facility] Laboratory [address] [place] [address] Dr. Molina Zhang Monocytes/100 WBC (Bld) 7.9 % Normal 1.7-12.0 [facility] Comment on above: Performed By: #### C MP #### [facility] [address] [place] [address] Dr. Molina Zhang NEUT # 6.0 103/ul Normal 1.4-6.5 [facility] Comment on above: Performed By: #### C MP #### [facility] [address] [place] [address] Dr. Molina Zhang Neutrophils/100 WBC (Bld) 64.5 % Normal 43.0-75.0 [facility] Comment on above: Performed By: #### C MP #### [facility] [address] [place] [address] Dr. Molina Zhang Platelet mean volume (Bld) [Entitic vol] 9.0 fL Critically low 9.5-13.5 [facility] Comment on above: Performed By: #### C MP #### [facility] [address] [place] [address] Dr. Molina Zhang PLT 368 103/ul Normal 150-450 [facility] Comment on above: Performed By: #### C MP #### [facility] [address] [place] [address] Dr. Molina Zhang RBC 4.60 106/ul Normal 4.20-5.40 [facility] Comment on above: Performed By: #### C MP #### [facility] [address] [place] [address] Dr. Molina Zhang WBC 9.3 103/ul Normal 4.0-11.0 [facility] Comment on above: Performed By: #### C MP #### [facility] [address] [place] [address] Dr. Molina Zhang ER URINE PROFILEon 2 Bilirubin Ql (U) Negative Normal NEGATIVE [facility] Comment on above: Performed By: #### 4 [id number] #### [facility] [address] [place] [address] Dr. Molina Zhang Clarity (U) CLEAR Normal CLEAR [facility] Comment on above: Performed By: #### 4 [id number] #### [facility] [address] [place] [address] Dr. Molina Zhang Color (U) LT. YELLOW Normal YELLOW [facility] Comment on above: Performed By: #### 4 [id number] #### [facility] [address] [place] [address] Dr. Molina Zhang ERUAHD A micrscopic examination will be performed if indicated. Normal [facility] Comment on above: Performed By: #### 4 [id number] #### [facility] [address] [place] [address] Dr. Molina Zhang Glucose Ql (U) Negative Normal NEGATIVE [facility] Comment on above: Performed By: #### 4 [id number] #### [facility] [address] [place] [address] Dr. Molina Zhang Hemoglobin Ql (U) Negative Normal NEGATIVE [facility] Comment on above: Performed By: #### 4 [id number] #### [facility] [address] [place] [address] Dr. Molina Zhang Ketones Ql (U) Negative Normal NEGATIVE [facility] Comment on above: Performed By: #### 4 [id number] #### [facility] [address] [place] [address] Dr. Molina Zhang LEUKOCYTES Negative Normal NEGATIVE [facility] Comment on above: Performed By: #### 4 [id number] #### [facility] [address] [place] [address] Dr. Molina Zhang Nitrite Ql (U) Negative Normal NEGATIVE [facility] Comment on above: Performed By: #### 4 [id number] #### [facility] [address] [place] [address] Dr. Molina Zhang pH (U) 6.0 [pH] Normal 5-9 [facility] Comment on above: Performed By: #### 4 [id number] #### [facility] [address] [place] [address] Dr. Molina Zhang SPEC GRAVITY 1.025 Normal 1.005-<=1.02 5 [facility] Comment on above: Performed By: #### 4 [id number] #### [facility] [address] [place] [address] Dr. Molina Zhang UA PROTEIN Negative Normal NEGATIVE/ TRACE [facility] Comment on above: Performed By: #### 4 [id number] #### [facility] [address] [address] [address] Molina Zhang UR MICRO IND NOT INDICATED Normal [facility] Comment on above: Performed By: #### 4 [id number] #### [facility] [address] [place] [address] Dr. Molina Zhang Urobilinogen Qn (U) 0.2 {Jaelyn'U}/dL Normal 0.2 - 1. 0 [facility] Comment on above: Performed By: #### 4 [id number] #### [facility] [address] [place] [address] Dr. Molina Zhang POINT OF CARE GLUCOSEon Glucose [Mass/Vol] 110 mg/dL Critically high 74-106 T [facility] Comment on above: Performed By: #### B [id number] #### [facility] [address] [place] [address] Dr. Molina Zhang URon 08-18-2021 , QUAL Negative Normal NEGATIVE [facility] Comment on above: Performed By: #### 4 [id number] #### [facility] [address] [place] [address] Dr. Molina Zhang PROF 14(COMP METB)on 022 Albumin [Mass/Vol] 3.6 g/dL Normal 3.5-5.0 [facility] Comment on above: Performed By: #### C MP #### [facility] [address] [place] [address] Dr. Molina Zhang Albumin/Globulin [Mass ratio] 0.9 {ratio} Normal [facility] Comment on above: Performed By: #### C MP #### [facility] [address] [address] [address] Molina Zhang ALP [Catalytic activity/Vol] 114 U/L Normal 38-126 [facility] Comment on above: Performed By: #### C MP #### [facility] [address] [address] [address] Molina Zhang ALT [Catalytic activity/Vol] 21 U/L Normal 9-52 [facility] Comment on above: Performed By: #### C MP #### [facility] [address] [address] [address] Molina Zhang Anion gap [Moles/Vol] 11.2 mmol/L Normal [facility] Comment on above: Performed By: #### C MP #### [facility] [address] [place] [address] Dr. Molina Zhang AST [Catalytic activity/Vol] 13 U/L Critically low 14-36 [facility] Comment on above: Performed By: #### C MP #### [facility] [address] [address] [address] Molina Zhang Bilirubin [Mass/Vol] 0.3 mg/dL Normal 0.2-1.3 [facility] Comment on above: Performed By: #### C MP #### [facility] [address] [place] [address] Dr. Molina Zhang Calcium [Mass/Vol] 9.0 mg/dL Normal 8.4-10.2 [facility] Comment on above: Performed By: #### C MP #### [facility] [address] [address] [address] Molina Zhang Chloride [Moles/Vol] 103 mmol/L Normal 98-107 [facility] Comment on above: Performed By: #### C MP #### [facility] [address] [address] [address] Molina Zhang CO2 [Moles/Vol] 27.6 mmol/L Normal 22.0-30.0 [facility] Comment on above: Performed By: #### C MP #### [facility] [address] [address] [address] Molina Zhang Creatinine [Mass/Vol] 0.98 mg/dL Normal 0.52-1.04 [facility] Comment on above: Performed By: #### C MP #### [facility] [address] [address] [address] Molina Zhang EGFR-AF QATARI >60 Normal >=60 [facility] Comment on above: Performed By: #### C MP #### [facility] [address] [address] [address] Molina Zhang EGFR-NON AF QATARI >60 Normal >=60 [facility] Comment on above: Performed By: #### C MP #### [facility] [address] [place] [address] Dr. Molina Zhang Globulin (S) [Mass/Vol] 3.9 g/dL Normal [facility] Comment on above: Performed By: #### C MP #### [facility] [address] [place] [address] Dr. Molina Zhang Glucose [Mass/Vol] 85 mg/dL Normal 74-106 [facility] Comment on above: Performed By: #### C MP #### [facility] [address] [place] [address] Dr. Molina Zhang Potassium [Moles/Vol] 3.8 mmol/L Normal 3.4-5.0 [facility] Comment on above: Performed By: #### C MP #### [facility] [address] [place] [address] Dr. Molina Zhang Protein [Mass/Vol] 7.5 g/dL Normal 6.1-8.2 [facility] Comment on above: Performed By: #### C MP #### [facility] [address] [place] [address] Dr. Molina Zhang Sodium [Moles/Vol] 138 mmol/L Normal 137-145 [facility] Comment on above: Performed By: #### C MP #### [facility] [address] [place] [address] Dr. Molina Zhang Urea nitrogen [Mass/Vol] 13.0 mg/dL Normal 7.0-17.0 [facility] Comment on above: Performed By: #### C MP #### [facility] [address] [place], [place] [address] Dr. Molina Zhang Urea nitrogen/Creatinine [Mass ratio] 13.3 mg/mg Normal [facility] Comment on above: Performed By: #### C MP #### [facility] [address] [place], [place] [address] Dr. Molina Zhang PAP, THIN PREP WITH IMAGINGo n 12-21-2018 PAP, THIN PREP WITH IMAGING Normal [facility] Comment on above: Result Comment: INTE RPRETATION Thin Prep Image-Guided Pap Test (Cervical/Endocervical) NEGATIVE FOR INTRAEPITHELIAL LESION /MALIGNANCY Satisfactory for evaluation (Absence/paucity of endocervical/transformation zone component) xdc12/21/2018 The Pap test is a screening test, [...] Pills) ICD-CM DIAGNOSIS CODE(S) Z01.419 [facility] [employer] Coordinator Exam (general) (routine) W/o Abn Findings [facility] [address] [place] [address] CLIA No. [id number] CAP Accreditation No. [id number] Event Marketing Specialist: Kai Agarwal M.D. [facility] Accession Number: [id number] Performed By: #### P L PAP W/IMAGE #### [facility] [id number] Nucleic-Acid Probe-Endoce rvical Swabon 12-20-2018 CT Nucleic-Acid Probe-Endocervical Swab Negative Normal NEGATIVE [facility] Comment on above: Performed By: #### G C Amp Endocerv, CT Amp Endocerv #### [facility] [address] [place] [address] Age at specimen collection = Normal [facility] Comment on above: Performed By: #### G C Amp Endocerv, CT Amp Endocerv #### [facility] [address] [place] [address] Performed By: #### P L PAP W/IMAGE #### [facility] [address] [place] [address] GC Nucleic-Acid Probe-Endoce rvical Swabon 12-20-2018 GC Nucleic-Acid Probe-Endocervical Swab Negative Normal NEGATIVE [facility] Comment on above: Performed By: #### G C Amp Endocerv, CT Amp Endocerv #### [facility] [address] [place] [address] Vital Signs Date Time Vital Sign Value Performing Clinician Facility 10-26-2024 13:32-0400 Body height 170.18 cm [facility] 10-26-2024 13:32-0400 Body mass index (BMI) [Ratio] 45.6 kg/m2 [facility] 10-26-2024 13:32-0400 Body temperature 98.8 [degF] [facility] 10-26-2024 13:32-0400 Body weight 131.99 kg [facility] 10-26-2024 13:32-0400 Diastolic blood pressure 82 mm[Hg] [facility] 10-26-2024 13:32-0400 Heart rate 94 /min [facility] 10-26-2024 13:32-0400 Respiratory rate 16 /min [facility] 10-26-2024 13:32-0400 SaO2% (BldA) [Mass fraction] 99 % [facility] 10-26-2024 13:32-0400 Systolic blood pressure 118 mm[Hg] [facility] 06-08-2024 08:57-0400 Body height 167.6 cm Braden Rosales MD Work Phone: [facility] 06-08-2024 08:57-0400 Body mass index (BMI) [Ratio] 46.65 kg/m2 Braden Rosales MD Work Phone: [facility] 06-08-2024 08:57-0400 Body temperature 97.3 [degF] Braden Rosales MD Work Phone: [facility] 06-08-2024 08:57-0400 Body weight 131.09 kg Braden Rosales MD Work Phone: [facility] 06-08-2024 08:57-0400 Diastolic blood pressure 68 mm[Hg] Braden Rosales MD Work Phone: [facility] 06-08-2024 08:57-0400 Heart rate 87 /min Braden Rosales MD Work Phone: [facility] 06-08-2024 08:57-0400 Respiratory rate 22 /min Braden Rosales MD Work Phone: [facility] 06-08-2024 08:57-0400 SaO2% (BldA) [Mass fraction] 97 % Braden Rosales MD Work Phone: [facility] 06-08-2024 08:57-0400 Systolic blood pressure 120 mm[Hg] Braden Rosales MD Work Phone: [facility] 04-08-2024 09:40-0400 Body height 167.6 cm Braden Rosales MD Work Phone: [facility] 04-08-2024 09:40-0400 Body mass index (BMI) [Ratio] 46.16 kg/m2 Braden Rosales MD Work Phone: [facility] 04-08-2024 09:40-0400 Body temperature 97.5 [degF] Braden Rosales MD Work Phone: [facility] 04-08-2024 09:40-0400 Body weight 129.73 kg Braden Rosales MD Work Phone: [facility] 04-08-2024 09:40-0400 Diastolic blood pressure 74 mm[Hg] Braden Rosales MD Work Phone: [facility] 04-08-2024 09:40-0400 Heart rate 88 /min Braden Rosales MD Work Phone: [facility] 04-08-2024 09:40-0400 Respiratory rate 22 /min Braden Rosales MD Work Phone: [facility] 04-08-2024 09:40-0400 SaO2% (BldA) [Mass fraction] 97 % Braden Rosales MD Work Phone: [facility] 04-08-2024 09:40-0400 Systolic blood pressure 120 mm[Hg] Braden Rosales MD Work Phone: [facility] 03-29-2024 09:11-0400 Body mass index (BMI) [Ratio] 46.16 kg/m2 Jeff Clint DO Work Phone: [facility] 03-29-2024 09:11-0400 Body weight 129.73 kg Jeff Clint DO Work Phone: [facility] 03-29-2024 09:11-0400 Diastolic blood pressure 74 mm[Hg] Jeff Clint DO Work Phone: [facility] 03-29-2024 09:11-0400 Systolic blood pressure 118 mm[Hg] Jeff Clint DO Work Phone: [facility] 03-13-2024 10:30-0400 Body height 170.18 cm [facility] 03-13-2024 10:30-0400 Body mass index (BMI) [Ratio] 44.8 kg/m2 [facility] 03-13-2024 10:30-0400 Body temperature 99.6 [degF] [facility] 03-13-2024 10:30-0400 Body weight 129.84 kg [facility] 03-13-2024 10:30-0400 Diastolic blood pressure 81 mm[Hg] [facility] 03-13-2024 10:30-0400 Heart rate 92 /min [facility] 03-13-2024 10:30-0400 Respiratory rate 18 /min [facility] 03-13-2024 10:30-0400 SaO2% (BldA) [Mass fraction] 97 % [facility] 03-13-2024 10:30-0400 Systolic blood pressure 130 mm[Hg] [facility] 06-19-2022 16:05-0500 Body height 170.18 cm Rachael Hernandez Other [facility] Other 06-19-2022 16:05-0500 Body mass index (BMI) [Ratio] 42.28 kg/m2 Rachael Hernandez Other [facility] Other 06-19-2022 16:05-0500 Body temperature 100.3 [degF] Rachael Hernandez Other [facility] Other 06-19-2022 16:05-0500 Body weight 122.47 kg Rachael Hernandez Other [facility] Other 06-19-2022 16:05-0500 Respiratory rate 20 /min Rachael Hernandez Other [facility] Other 06-19-2022 16:05-0500 SaO2% (BldA) [Mass fraction] 98 % Rachael Hernandez Other [facility] Other 01-22-2022 03:06-0400 Body weight 125.[address] JEFF JARAMILLO [facility] Comment on above: Performed By: #### [id number] #### [facility] [address] [place] [address] Dr. Molina Zhang Encounters Encounter Date Encounter Type Care Provider Facility Start: 02-20-2025 End: 02-20-2025 ambulatory Margoth MUNOZ Facility:[facility] Start: 10-26-2024 End: 10-26-2024 ambulatory [facility] Work Phone: Start: 10-26-2024 End: 10-26-2024 Patient encounter procedure [facility] Work Phone: Start: 06-08-2024 End: 06-08-2024 Bamboo flowsheet Braden Rosales MD Work Phone: [facility] Start: 06-08-2024 End: 06-08-2024 Bamboo flowsheet Braden Rosales MD Work Phone: [facility] Start: 06-08-2024 End: 06-08-2024 Patient encounter procedure Braden Rosales MD Work Phone: [facility] Work Phone: Start: 06-08-2024 End: 06-08-2024 Periodic preventive med est patient 18-39 yrs Braden Rosales MD Work Phone: [facility] Comment on above: Annual physical exam (Primary Dx); Class 3 severe obesity due to excess calories without serious comorbidity with body mass index (BMI) of 45.0 to 49.9 in adult ([facility]) Start: 06-08-2024 End: 06-08-2024 ambulatory BRADEN ROSALES Not Available Start: 04-08-2024 End: 04-08-2024 Bamboo flowsheet Braden Rosales MD Work Phone: [facility] Start: 04-08-2024 End: 04-08-2024 Bamboo flowsheet Braden Rosales MD Work Phone: [facility] Start: 04-08-2024 End: 04-08-2024 Office outpatient visit 15 minutes Braden Rosales MD Work Phone: [facility] Comment on above: Acute bronchitis due to other specified organisms (Primary Dx); Morbid obesity due to excess calories (CMS/HCC); Body mass index (BMI) 40.0-44.9, adult (CMS/HCC) Start: 04-08-2024 End: 04-08-2024 ambulatory BRADEN ROSALES Not Available Start: 03-29-2024 End: 04-03-2024 Clinisync Result Encounter Generic External Data Provider [facility] External Department Unsolicited Start: 03-29-2024 End: 04-03-2024 Clinisync Result Encounter Generic External Data Provider [facility] External Department Unsolicited Start: 03-29-2024 End: 03-29-2024 Patient encounter procedure Jeff Clint DO Work Phone: [facility] Work Phone: Start: 03-29-2024 End: 03-29-2024 Periodic preventive med est patient 18-39 yrs Jeff Clint DO Work Phone: [facility] Comment on above: Well woman exam with routine gynecological exam Start: 03-29-2024 End: 03-29-2024 ambulatory JEFF CLINT Not Available Start: 03-13-2024 End: 03-13-2024 ambulatory [facility] Work Phone: Start: 03-13-2024 End: 03-13-2024 Patient encounter procedure [facility] Work Phone: Start: 07-24-2022 End: 07-24-[address] RUBY PEARSON Facility:[facility] Start: 07-23-2022 End: 07-23-[address] BRADEN ROSALES Facility:[facility] Start: 06-19-2022 End: 06-20-[address] LILIANE KHAN [facility] Other Start: 06-19-2022 Office outpatient ne w 30 minutes Rachael Hernandez [facility] Start: 06-12-2022 End: 06-23-[address] BRADEN ROSALES Facility:[facility] Start: 06-09-2022 End: 06-09-[address] BRADEN ROSALES Facility:[facility] Start: 06-04-2022 End: 06-06-2022 Evaluation and management of inpatient DR BRADEN ROSALES Facility:[facility] Start: 05-31-2022 End: 05-31-[address] BRADEN ROSALES Facility:[facility] Start: 05-31-2022 Evaluation and manag ement of inpatient DR JEFF JARAMILLO Facility:[facility] Start: [...] Facility:[facility] Start: 08-18-2021 End: 08-18-[address] BRADEN ROSALES Facility:[facility] Start: 02-16-2019 End: 02-16-2019 Office outpatient visit 15 minutes Michael Bates Work Phone: [facility] Comment on above: Viral warts, unspeci fied type (Primary Dx); Other disturbances of skin sensation; Eczema, unspecified type Start: 12-13-2018 End: 12-17-2018 [facility] Start: 12-13-2018 End: 12-13-2018 Office outpatient visit 10 minutes Michael Hameedo Work Phone: [facility] Comment on above: Viral warts, unspeci fied type (Primary Dx); Other disturbances of skin sensation; Nevus of scalp Start: 11-30-2018 End: 12-04-2018 Patient encounter procedure MICHAEL [facility] Start: 11-30-2018 End: 11-30-2018 Office outpatient visit 15 minutes Michael Hameedo Work Phone: [facility] Comment on above: Milia (Primary Dx); Viral warts, unspecified type; Other disturbances of skin sensation; Pre-ulcerative corn or callous Start: 09-01-2017 Office consultation Michael Vargas sales account representative Work Phone: [facility] Procedures Date Procedure Procedure Detail Performing Clinician Start: 10-26-2024 Quick Strep (POC) Start: 03-29-2024 IGP,APTIMA HPV,AGE GDLN Jeff Jaramillo DO Work Phone: Start: 06-04-2022 Extraction of Produc ts of Conception, Low Cervical, Open Approach DR JEFF JARAMILLO Start: 10-13-2016 Microscopic observat ion [Identifier] in Cervix by Cyto stain [facility] Plan of Treatment Date Care Activity Detail Author Start: 08-31-2027 Tetanus vaccination TETANUS EVERY 10 YR [facility] Start: 04-06-2025 End: 04-06-2025 Patient encounter procedure 04/06/2025 9:00 AM EDT Office Visit [facility] [address] [place] [id number] Jeff Jaramillo, DO [address] [place] [address] [facility] Start: 06-08-2024 End: 06-08-2025 Basic metabolic 1998 panel - Serum or Plasma Basic metabolic panel Lab Routine Annual physical exam Expected: 06/08/2024 (Approximate), Expires: 06/08/2025 [facility] Comment on above: Expected: 06/08/2024 (Approximate), Expires: 06/08/2025 Start: 06-08-2024 End: 06-08-2025 CBC W Auto Differential panel - Blood CBC and differential Lab Routine Annual physical exam Expected: 06/08/2024 (Approximate), Expires: 06/08/2025 [facility] Comment on above: Expected: 06/08/2024 (Approximate), Expires: 06/08/2025 Start: 06-08-2024 End: 06-08-2025 Hemoglobin A1c/Hemoglobin.total in Blood Hemoglobin A1c Lab Routine Annual physical exam Expected: 06/08/2024 (Approximate), Expires: 06/08/2025 [facility] Work Phone: Comment on above: Expected: 06/08/2024 (Approximate), Expires: 06/08/2025 Start: 06-08-2024 End: 06-08-2025 Hepatic function 2000 panel - Serum or Plasma Hepatic function panel Lab Routine Annual physical exam Expected: 06/08/2024 (Approximate), Expires: 06/08/2025 [facility] Comment on above: Expected: 06/08/2024 (Approximate), Expires: 06/08/2025 Start: 06-08-2024 End: 06-08-2025 Lipid 1996 panel - Serum or Plasma Lipid panel Lab Routine Annual physical exam Expected: 06/08/2024 (Approximate), Expires: 06/08/2025 [facility] Comment on above: Expected: 06/08/2024 (Approximate), Expires: 06/08/2025 Start: 06-08-2024 End: 06-08-2025 Thyrotropin [Units/volume] in Serum or Plasma TSH Lab Routine Annual physical exam Expected: 06/08/2024 (Approximate), Expires: 06/08/2025 [facility] Comment on above: Expected: 06/08/2024 (Approximate), Expires: 06/08/2025 Start: 06-08-2024 End: 06-08-2024 [facility] Comment on above: Arrived Start: 04-10-2024 Influenza vaccination Influenza Vacc ine (#1) [facility] Start: 04-08-2024 End: 04-08-2024 Patient encounter procedure 04/08/2024 9:45 AM EDT Office Visit [facility] [address] [place] [address] Braden Rosales MD [address] [place] [address] Arrived [facility] Comment on above: Arrived Start: 10-14-2019 Screening for malign ant neoplasm of cervix PAP SMEAR [facility] Work Phone: Start: 04-10-2019 Influenza vaccinatio n given [facility] Start: 02-16-2019 End: 02-16-2019 Office Visit 02/16/2019 Office Visit Dermatology Michael Bates Jr., DO [address] [facility] [place] [address] [phone] [facility] Start: 12-13-2018 End: 12-13-2018 Office Visit 12/13/2018 Office Visit Dermatology Michael Bates Jr., DO [address] [place] [address] [phone] [facility] Start: 04-10-2018 Influenza vaccinatio n given SEQUENTIAL INFLUENZA VACCINE (#1) [facility] Start: 04-10-2017 Influenza vaccination SEQUENTI AL INFLUENZA VACCINE (#1) [facility] Work Phone: Start: 2010 Vaccination for starr n papillomavirus HPV VACCINES (1 - Female 3-dose series) [facility] Start: 2006 Vaccination for starr n papillomavirus HPV VACCINES (1 of 3 - Female 3 Dose Series) [facility] Work Phone: Start: 1998 History and physical examination, annual for health maintenance Wellness Visit [facility] Start: 1995 Screening for Chlamy darwin trachomatis Chlamydia Screening [facility] Start: 1995 Tetanus vaccination TETANUS EVERY 10 YR [facility] Work Phone: Cytology Cervical or vaginal smear or scraping study Pap Smear Pathology and Cytology Routine Well woman exam with routine gynecological exam Ordered: 03/29/2024 [facility] Work Phone: Comment on above: Ordered: 03/29/2024 Immunizations Immunization Date Immunization Notes Care Provider Wanda bruce 07-10-2017 influenza virus vacc ine, unspecified formulation Jeff Jaramillo DO Work Phone: [facility] Payers Date Payer Category Payer Private Health Insurance [id number] 2024 Private Health Insurance [id number] 2019 Unknown [id number] 2.16.840.1.200651.19 2016 Private Health Insurance [id number] 2.16.840.1.685984.3.249.13 2016 Private Health Insurance xxx [id number] .[id number] 1995 Unknown [id number] 2.16.840.1.909740.3.579.2.903 1995 Unknown [id number] 2.16.840.1.824488.3.579.2.903 1995 Unknown [id number] 2.16.840.1.223185.3.579.2.593 1995 Unknown [id number] 2.16.840.1.831528.3.579.2.593 1995 Unknown [id number] 2.16.840.1.892890.3.579.2.593 1995 Unknown [id number] 2.16.840.1.226122.3.579.2.593 1995 Unknown [id number] 2.16.840.1.608231.3.579.2.593 1995 Unknown [id number] 2.16.840.1.172498.3.579.2.593 1995 Unknown [id number] 2.16.840.1.886400.3.579.2.593 1995 Unknown [id number] 2.16.840.1.091548.3.579.2.593 1995 Unknown [id number] 2.16.840.1.422954.3.579.2.593 1995 Unknown [id number] 2.16.840.1.485428.3.579.2.593 1995 Unknown [id number] 2.16.840.1.083163.3.579.2.593 1995 Unknown [id number] 2.16.840.1.962689.3.579.2.593 1995 Unknown [id number] 2.16.840.1.969783.3.579.2.593 1995 Unknown [id number] 2.16.840.1.255014.3.579.2.593 1995 Unknown [id number] 2.16.840.1.242058.3.579.2.593 1995 Unknown [id number] 2.16.840.1.043205.3.579.2.593 1995 Unknown [id number] 2.16.840.1.490710.3.579.2.593 1995 Unknown [id number] 2.16.840.1.787577.3.579.2.593 1995 Unknown [id number] 2.16.840.1.516568.3.579.2.593 1995 Unknown [id number] 2.16.840.1.960005.3.579.2.593 1995 Unknown [id number] 2.16.840.1.974121.3.579.2.593 1995 Unknown [id number] 2.16.840.1.971549.3.579.2.593 1995 Unknown [id number] 2.16.840.1.690176.3.579.2.593 1995 Unknown [id number] 2.16.840.1.153932.3.579.2.593 1995 Unknown [id number] 2.16.840.1.401247.3.579.2.125 9 1995 Unknown [id number] 2.16.840.1.587842.3.579.2.125 9 1995 Unknown [id number] 2.16.840.1.923462.3.579.2.125 9 1995 Unknown [id number] 2.16.840.1.709239.3.579.2.727 1959 Self-pay Unknown [id number] 2.16.840.1.019787.3.249.13 Private Health Insurance [facility] [id number] Unknown [id number] 2.16.840.1.507548.3.579.2.593 Social History Date Type Detail Facility Start: 09-01-2017 End: 10-26-2024 Tobacco smoking status [facility] Never smoker [facility] Work Phone: Start: 1995 Sex Assigned At Not on file [facility] Work Phone: Start: 03-29-2024 End: 04-08-2024 Sex Assigned At [facility] [place] Other Start: 1995 Sex Assigned At Female [facility] Start: 04-08-2024 Tobacco use and exposure Smokeless tobacco non-user [facility] Start: 03-29-2024 End: 04-08-2024 Alcoholic beverage intake Lifetime non-drinker (finding) [facility] Start: 03-29-2024 End: 04-08-2024 History of Social function [facility] Start: 03-24-2023 Alcohol Comment Caffeine intak e: 2 cans pop daily [facility] Start: 10-26-2024 Sex Female (finding) [facility] Clinical Notes 06-04-2022 to 06-08-2024 Braden Rosales MD - 06/08/2024 9:44 AM Jesse Rosales MD - 06/08/2024 9:43 AM Jesse Rosales MD - 06/08/2024 8:45 AM Jesse Rosales MD - 04/08/2024 10:11 AM EDT Note Date & Type Note Facility 06-08-2024 History of Presen t illness Narrative Associated Problem(s): Class 3 severe obesity due to excess calories without serious comorbidity with body mass index (BMI) of 45.0 to 49.9 in adult (CMS/[facility]) Weight loss indicated Associated Problem(s): Annual physical exam Due for labs. Discussed proper diet and regular aerobic exercise. Need aerobic exercise 5-6 days a week for 30 minutes at a time. Smaller portions and limit total calories. Colonoscopy after age 45. Tetanus every 10 years. Advised not to smoke. Discussed daily Aspirin therapy. Images from the original note were not included. Subjective Patient ID: Ioana Hutchison is a 28 y.o. female who presents for Annual Exam (wellness). Presents for annual PE. Patient doing well today. Weight up 6 pounds in the past year. Active at work and with her children but no regular exercise. Tries to watch diet and eat healthy. Increased fruits and vegetables. Smaller portions and limits snacking. Tries to limit total daily calories. Due for labs. Review of Systems Respiratory: Negative for cough, shortness of breath and wheezing. Cardiovascular: Negative for chest pain and palpitations. Gastrointestinal: Negative for abdominal pain, diarrhea, nausea and vomiting. Genitourinary: Negative for dysuria. Objective Physical Exam Constitutional: General: She is not in acute distress. Appearance: Normal appearance. HENT: Head: Normocephalic. Right Ear: Tympanic membrane normal. Left Ear: Tympanic membrane normal. Eyes: Extraocular Movements: Extraocular movements intact. Pupils: Pupils are equal, round, and reactive to light. Cardiovascular: Rate and Rhythm: Normal rate and regular rhythm. Heart sounds: No murmur heard. No friction rub. No gallop. Pulmonary: Effort: Pulmonary effort is normal. Breath sounds: Normal breath sounds. No wheezing, rhonchi or rales. Abdominal: General: Bowel sounds are normal. There is no distension. Palpations: Abdomen is soft. Tenderness: There is no abdominal tenderness. There is no guarding or rebound. Musculoskeletal: General: No swelling or tenderness. Cervical back: Neck supple. Right lower leg: No edema. Left lower leg: No edema. Skin: Findings: No erythema or rash. Neurological: General: No focal deficit present. Mental Status: She is alert and oriented to person, place, and time. Cranial Nerves: No cranial nerve deficit. Motor: No weakness. Gait: Gait normal. Assessment/Plan Problem List Items Addressed This Visit Class 3 severe obesity due to excess calories without serious comorbidity with body mass index (BMI) of 45.0 to 49.9 in adult (CMS/HCC) Weight loss indicated Annual physical exam - Primary Due for labs. Discussed proper diet and regular aerobic exercise. Need aerobic exercise 5-6 days a week for 30 minutes at a time. Smaller portions and limit total calories. Colonoscopy after age 45. Tetanus every 10 years. Advised not to smoke. Discussed daily Aspirin therapy. Relevant Orders Hemoglobin A1c Basic metabolic panel CBC and differential Hepatic function panel Lipid panel TSH documented in this encounter [facility] 04-08-2024 History of Presen t illness Narrative Associated Problem(s): Morbid obesity due to excess calories (CMS/HCC) Weight loss indicated Associated Problem(s): Acute bronchitis due to other specified organisms Take antibiotics for 7 days. Use prednisone for inflammation. Use sudafed or other decongestants as needed. Use Robitussin or Robitussin-DM for cough. Can use afrin for congestion but no longer than 3 days. Can use Mucinex to bring up phlegm. Use Motrin or Tylenol as needed for fever, aches, or pains. Increase fluid intake and rest. Should improve over next 5-7 days and if no better or worse call for re-evaluation. Images from the original note were not included. Subjective Patient ID: Ioana Hutchison is a 28 y.o. female who presents for Sinusitis (WITH BRONCHITIS ). C/o cough, congestion, and rhinorrhea x 1 month. Afebrile. Severe fatigue and no energy. Increased cough dry and nonproductive. Denies chest tightness or SOB. LÓPEZ and sinus pressure in forehead and cheeks along with postnasal drip. Ears plugged and popping. Sore throat and pain to swallow. Mild nausea. Denies recent sick contacts. Initially had severe sinus symptoms. To urgent care 03/13 and given augmentin. Sinus symptoms improved but now developed worsening cough and mild SOB. Using OTC medication and mild relief. Review of Systems Respiratory: Positive for cough. Negative for shortness of breath and wheezing. Cardiovascular: Negative for chest pain and palpitations. Gastrointestinal: Negative for abdominal pain, diarrhea, nausea and vomiting. Genitourinary: Negative for dysuria. Objective Physical Exam Constitutional: General: She is not in acute distress. Appearance: Normal appearance. HENT: Head: Normocephalic. Right Ear: Tympanic membrane normal. Left Ear: Tympanic membrane normal. Eyes: Extraocular Movements: Extraocular movements intact. Pupils: Pupils are equal, round, and reactive to light. Cardiovascular: Rate and Rhythm: Normal rate and regular rhythm. Heart sounds: No murmur heard. No friction rub. No gallop. Pulmonary: Effort: Pulmonary effort is normal. Breath sounds: Normal breath sounds. No wheezing, rhonchi or rales. Abdominal: General: Bowel sounds are normal. There is no distension. Palpations: Abdomen is soft. Tenderness: There is no abdominal tenderness. There is no guarding or rebound. Musculoskeletal: Cervical back: Neck supple. Right lower leg: No edema. Left lower leg: No edema. Neurological: Mental Status: She is alert. Assessment/Plan Problem List Items Addressed This Visit Acute bronchitis due to other specified organisms - Primary Take antibiotics for 7 days. Use prednisone for inflammation. Use sudafed or other decongestants as needed. Use Robitussin or Robitussin-DM for cough. Can use afrin for congestion but no longer than 3 days. Can use Mucinex to bring up phlegm. Use Motrin or Tylenol as needed for fever, aches, or pains. Increase fluid intake and rest. Should improve over next 5-7 days and if no better or worse call for re-evaluation. Relevant Medications levoFLOXacin (Levaquin) 750 MG tablet predniSONE (Deltasone) 50 MG tablet documented in this encounter [facility] 03-29-2024 History of Presen t illness Narrative Reason for Appointment: Patient ID: Ioana Hutchison is a 28 y.o. female who presents for Well Women Visit Patient presents today for Annual Exam. MEDICATIONS Current Outpatient Medications Medication Instructions albuterol HFA 90 mcg/act inhaler INHALE 2 PUFFS BY MOUTH EVERY 4-6 HOURS NEEDED FOR SHORTNESS OF BREATH OR WHEEZING FOR 7 DAYS sertraline (ZOLOFT) 100 mg, Oral, Daily ALLERGIES No Known Allergies PROBLEMS Active Ambulatory Problems Diagnosis Date Noted No Active Ambulatory Problems Resolved Ambulatory Problems Diagnosis Date Noted No Resolved Ambulatory Problems Past Medical History: Diagnosis Date Anxiety Panic attacks (CMS/HCC) HISTORY PAST MEDICAL HISTORY SOCIAL HISTORY Past Medical History: Diagnosis Date Anxiety Panic attacks (CMS/HCC) Social History Tobacco Use Smoking status: Never Smokeless tobacco: Not on file Substance Use Topics Alcohol use: Never Comment: Caffeine intake: 2 cans pop daily Drug use: Never FAMILY HISTORY No family history on file. SURGICAL HISTORY Past Surgical History: Procedure Laterality Date SECTION, LOW TRANSVERSE 06/2022 REVIEW OF SYSTEMS Review of Systems: Review of Systems Constitutional: Negative. HENT: Negative. Eyes: Negative. Respiratory: Negative. Cardiovascular: Negative. Gastrointestinal: Negative. Genitourinary: Negative. Musculoskeletal: Negative. Skin: Negative. Neurological: Negative. All other systems reviewed and are negative. Hematological: Negative. Endocrine: Negative. Allergic/Immunologic: Negative. OBJECTIVE Objective: Physical Exam Constitutional: Appearance: Normal appearance. She is well-developed. Genitourinary: Vulva normal. Breasts: Breasts are soft. Right: Normal. Left: Normal. Cardiovascular: Rate and Rhythm: Normal rate and regular rhythm. Pulmonary: Effort: Pulmonary effort is normal. Breath sounds: Normal breath sounds. Abdominal: General: Bowel sounds are normal. There is no distension. Palpations: Abdomen is soft. Tenderness: There is no abdominal tenderness. There is no guarding or rebound. Musculoskeletal: General: No swelling. Normal range of motion. Right lower leg: No edema. Left lower leg: No edema. Neurological: Mental Status: She is alert and oriented to person, place, and time. Skin: General: Skin is warm and dry. Psychiatric: Mood and Affect: Mood normal. Behavior: Behavior normal. Vitals and nursing note reviewed. Exam conducted with a academic administrator present. Vitals: Estimated body mass index is 46.16 kg/m as calculated from the following: Height as of 07/22/22: 5' 6 . Weight as of this encounter: 286 lb. BP: 118/74 No LMP recorded. ASSESSMENT & PLAN ICD-10-CM 1. Well woman exam with routine gynecological exam Z01.419 Pap Smear Annual Exam: Patient presents today for an annual exam. Patient states she is doing well and has no complaints. Pap was obtained without difficulty. No orders of the defined types were placed in this encounter. Follow Up: Patient is to return in one year for annual unless needed otherwise. Documented by Dedra Carlos LPN on behalf of: Jeff Jaramillo DO documented in this encounter [facility] 06-19-2022 Evaluation note Encounter Date Diagnosis Assessment [...] treatment plan. Patient left in stable condition [facility] Other 10-26-2022 NoteCONSULTATION DISCHARGE DATE: 07/03/2022 PRIMARY DIAGNOSES: 1. Intrauterine [...] when pain free and no longer on narcotics.[facility] [id number] NoteOPERATIVE NOTE OPERATION DATE: 06/04/2022 PROCEDURE: Repeat low transverse section. PREOPERATIVE DIAGNOSIS: 1. Intrauterine at 39 weeks. 2. Previous . POSTOPERATIVE DIAGNOSIS: 1. Intrauterine at 39 weeks. 2. Previous . ANESTHESIA: Spinal with Duramorph. SURGEON: Jeff Jaramillo D.O. IT OPERATIONS ANALYST: KASANDRA Ko URINE OUTPUT: Yellow and clear. [...] and cut. Cord blood was obtained. The was handed off to awaiting team. The [...] taken to the Recovery Room in stable condition.[facility]Evaluation noteNo assessment information availableK[facility] Work Phone: Evaluation note* Diagnosis Acute bronchitis due to other specified organisms- Primary Morbid obesity due to excess calories ([facility]/HCC) Body mass index (BMI) 40.0-44.9, adult ([facility]) Annual physical exam- Primary Routine general medical examination at a health care facility Class 3 severe obesity due to excess calories without serious comorbidity with body mass index (BMI) of 45.0 to 49.9 in adult (CMS/HCC) documented in this encounter [facility] HealthcareEvaluation note* Diagnosis Well woman exam with routine gynecological exam Routine gynecological examination documented in this encounter [facility] HealthcareEvaluation note* Diagnosis Acute bronchitis due to other specified organisms- Primary Morbid obesity due to excess calories ([facility]) Body mass index (BMI) 40.0-44.9, adult ([facility]) documented in this encounter [facility] HealthcareEvaluation note* Diagnosis Onset Date Resolution Status Admit Date Influenza A acute October 26 1:14pm [facility] Work Phone: History general Narrative - Reported* Type Description Date Surgical History [facility] Other Assessments Diagnosis Eczema, unspecified type - [...] FoundNo Family History Records Found Advance Directives No Advanced Directives Records FoundDocuments on File Type Date Recorded Patient Radiosonde Operator Expl anation Advance Directives and Living Will Advance Directive Response Recorded Date/ Time Advance Directives No October 24 6:03pm History of Present Illness * Michael Bates Jr., DO - 11/30/2018 10:19 AM EDT Ioana Reyna is a 23 y.o. female who presents for Chief Complaint Skin Problem Dictation on: 11/30/2018 10:27 AM by: MICHAEL BATES [[id number]] History reviewed. No pertinent past medical history. [...] on: 02/16/2019 10:36 AM by: MICHAEL BATES [[id number]] History reviewed. No pertinent past medical history. [...] Complaint cough for 2 weeks, d rainage Chief Complaint Admit Date Sore throat October 26, 2024 1:1 4pm Reason for Visit Admit Date Influenza A October 26, 2024 1:1 4pm Additional Source Comments INFORMATION SOURCE (unrecogn ized section and content) DATE CREATED AUTHOR 12/27/2018 [facility] DATE CREATED AUTHOR AUTHOR'S ORGANIZ ATION 11/15/2019 [facility] DATE CREATED AUTHOR AUTHOR'S ORGANIZ ATION 07/30/2022 [facility] DATE CREATED AUTHOR AUTHOR'S ORGANIZ ATION 06/09/2024 [facility] DATE CREATED AUTHOR AUTHOR'S ORGANIZ ATION 02/27/2025 [facility] Reason for Visit (unrecogniz ed section and content) Reason Comments Skin Problem Status Reason Specialty Diagnoses / Procedures Referred By Contact Referred To Contact Pending Review Specialty Services Required/Patie nt's Best Interest Dermatology Diagnoses Viral warts, unspecified type Estelle Belle, ROD MILL TENDER [address] [place] [address] Michael Bates Jr., DO [address] [place] [address] Reason Comments Skin Problem Skin Lesion Reason Comments Annual Exam wellness Reason Comments Well Women Visit Reason Comments Sinusitis WITH BRONCHITIS Care Teams (unrecognized sec tion and content) Team Status: Active Member Role Status Dates Estelle Belle APRN SENIOR TAX ACCOUNTANT-C Primary Care Provider Activ e Team Status: Inactive Member Role Status Dates Estelle Belle APRN SENIOR TAX ACCOUNTANT-C Primary Care Provider Activ e Start: March 13, 2024 End: March 13, 2024 Lisbeth Toro APRN Attending Provider Active S tart: March 13, 2024 End: March 13, 2024 Crankshaft Balancer Relationship Specialty Start Date End Date Braden Rosales MD [address] [place] [address] [place] [phone] PCP - General Family Medicine 03/25/23 Crankshaft Balancer Relationship Specialty Start Date End Date Braden Rosales MD [address] [place] [phone] PCP - General Family Medicine 03/25/23 Crankshaft Balancer Relationship Specialty Start Date End Date Braden Rosales MD [address] [place] [phone] PCP - General Family Medicine 03/25/23 Crankshaft Balancer Relationship Specialty Start Date End Date Braden Rosales MD [address] [place] [address] [place] [phone] PCP - General Family Medicine 03/25/23 Crankshaft Balancer Relationship Specialty Start Date End Date Braden Rosales MD [address] [place] [phone] PCP - [facility] 03/25/23 Crankshaft Balancer Relationship Specialty Start Date End Date Braden Rosales MD [address] [place] [phone] PCP - [facility] 03/25/23 Team Status: Inactive Member Role Status Dates Estelle Belle APRN SENIOR TAX ACCOUNTANT-C Primary Care Provider Activ e Start: October 26, 2024 End: October 26, 2024 Magda Carroll APRN Attending Provider Active Start: October 26, 2024 End: October 26, 2024 Goals (unrecognized section and content) Goals [...] BE BASED ON THE PRIMARY CLINICAL RECORDS. [facility] [employer] [facility]. provides no warranty or guarantee of the accuracy or completeness of information in this document.
--- OUTSIDE RECORDS SUMMARY | 2025-04-02 10:24 | XMS_ITS | Clinical Summary ---
Author Organization [facility] tem Address [id number] [address] [place] [address] Care Team Providers Care Bakery Decorator Name Role Phone 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 APRN-ABSTRACT WRITER Primary Care Provider [phone] Allergies No known active allergies Medications ondansetron (ZOFRAN) 4 mg tablet Take 4 mg by mouth every 6 (six) hours as needed for nausea or vomiting. Active sertraline (ZOLOFT) 50 mg tablet Take 100 mg by mouth daily. Active vit calc,iron,folic ( VITAMIN ORAL) Take 1 tablet by mouth daily. Active loratadine (CLARITIN) 10 mg tablet TAKE 1 TABLET BY MOUTH ONCE A DAY NEEDED FOR ALLERGIES 0 Active metoclopramide (REGLAN) 10 mg tablet Take 10 mg by mouth in the morning and 10 mg at noon and 10 mg in the evening and 10 mg before bedtime. Active aspirin 81 mg Take 81 mg by mouth in the morning. Active Active Problems Problem Noted Date Diagnosed Date Abnormal genetic test during 1 Overview (09/05/2020): Screen POSITIVE for OSB Cholelithiasis affecting , antepartum 0 08/31/2020 Anxiety during 07/25/2020 Depression during 07/25/2020 Family history of coarctation of aorta 0 Overview (07/25/2020): FOB has coarctation of aorta Obesity affecting 07/25/2020 Family History Medical History Relation Name Comments Diabetes Maternal Grandmother Heart disease Maternal Grandmother Hypertension Maternal Grandmother Cancer Paternal Grandfather lung Relation Name Status Comments Maternal Grandmother Paternal Grandfather Social History Tobacco Use Types Packs/Day Years Used Date Smoking Tobacco: Never Smokeless Tobacco: Never Alcohol Use Standard Drinks/Week Comments Not Currently 0 (1 standard drink = 0.6 oz pur e alcohol) Childcare Answer Date Recorded Childcare Unknown 07/17/2020 Employment Answer Date Recorded Employment Unknown 07/17/2020 Purpose - Life Answer Date Recorded Purpose and direction in life Unknown Comments No Sex and Gender Information Value Date Recorded Sex Assigned at Not on file Legal Sex Female 11:07 AM EST Gender Identity Not on file Sexual Orientation Not on file Last Filed Vital Signs Vital Sign Reading Time Taken Comments Blood Pressure 107/59 01/24/2022 9:07 AM EDT Pulse 74 01/24/2022 9:07 AM EDT Temperature - - Respiratory Rate - - Oxygen Saturation - - Inhaled Oxygen Concentration - - Weight 126.5 kg (278 lb 14.1 oz) 01/24/2022 9:07 AM EDT Height 170.2 cm (5' 7 ) 01/24/2022 9:07 AM EDT Body Mass Index 43.68 01/24/2022 9:07 AM EDT Plan of Treatment Health Maintenance Due Date Last Done Comments Depression Screening 2007 Tobacco Screening 2007 Adult BMI Screening 2013 Pap Smear 2016 COVID-19 Vaccine (2023-2 5 season) 2024 04/01/2021, 03/09/2021 Influenza Vaccine 04/10/2025 07/10/2017, , 05/14/2015, Additional history exists DTaP,Tdap and Td Vaccines (9 - Td or Tdap) 01/01/2031 01/01/2021, 08/31/2017, 12/03/2007, Additional history exists Medical Devices Not on file Insurance [employer] Care Teams Bakery Decorator Relationship Specialty Start Date End Date 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 APRN-NP PCP - General Nurse Practitioner 08/31/20
--- OUTSIDE RECORDS SUMMARY | 2025-04-02 10:24 | XMS_ITS | Clinical Summary ---
Author Organization [facility] Address [address], [address] [place] [address] Care Team Providers Care Livestock Yard Supervisor Name Role Phone Paul Estelle Dutta APRN - [employer]CHO[employer] TE[employer]ER Primary Care Provider Allergies No known active allergies Medications loratadine (CLARITIN) 10 MG tablet TAKE 1 TABLET BY MOUTH ONCE A DAY NEEDED FOR ALLERGIES 0 Active ondansetron (ZOFRAN) 4 MG tablet TAKE 1 TABLET BY MOUTH EVERY 6 HOURS 0 Active sertraline (ZOLOFT) 100 MG tablet TAKE 1 TABLET BY MOUTH EVERY DAY 15 tablet 1 Active Active Problems Problem Noted Date Diagnosed Date 12 weeks gestation of 07/10/2020 Other specified diseases of gallbladder 07/10/20 20 Upper abdominal pain, unspecified 07/06/2020 Anxiety 11/22/2019 Immunizations Immunization Administration Dates Next Due Hep B, RECOMBIVAX-HB, (age 20y+), IM, 1mL 2017,11/06/2017,09/29/2017 TDaP, ADACEL (age 10y-64y), BOOSTRIX (age 10y+), IM, 0.5mL 08/31/2017 Social History Tobacco Use Types Packs/Day Years Used Date Smoking Tobacco: Never Smokeless Tobacco: Never Alcohol Use Standard Drinks/Week Comments Yes 0 (1 standard drink = 0.6 oz pur e alcohol) AUDIT-C Answer Date Recorded Q1: How often do you have a drink containing alc ohol? Monthly or less 07/11/2020 Q2: How many drinks containi ng alcohol do you have on a typical day when you are drinking? 1 or 2 07/11/2020 Frequency of Binge Drinking Not on file 09/2019 Comments Unknown Sex and Gender Information Value Date Recorded Sex Assigned at Not on file Legal Sex Female 9:41 PM EST Gender Identity Not on file Sexual Orientation Not on file Last Filed Vital Signs Vital Sign Reading Time Taken Comments Blood Pressure 119/76 07/11/2020 7:36 AM EST Pulse 80 07/11/2020 7:36 AM EST Temperature 36.7 C (98.1 F) 07/11/2020 7:36 AM EST Respiratory Rate 12 07/11/2020 7:36 AM EST Oxygen Saturation 98% 12/11/2015 12:49 PM EDT Inhaled Oxygen Concentration - - Weight 117 kg (258 lb) 07/11/2020 7:36 AM EST Height 170.2 cm (5' 7 ) 07/11/2020 7:36 AM EST Body Mass Index 40.41 07/11/2020 7:36 AM EST Plan of Treatment Not on file Insurance [employer] Care Teams Livestock Yard Supervisor Relationship Specialty Start Date End Date 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, WILLOW WORKER - [employer] SCHO[employer] TEACHER PCP - General Family Nurse Practitioner 07/11/20
--- OUTSIDE RECORDS SUMMARY | 2025-04-02 10:24 | XMS_ITS | Encounter Summary ---
Author Organization [facility] Address [address], [address] [place] [address] Care Team Providers Care Blacksmith Farm Name Role Phone 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 APRN, CNP Primary Care Provider Reason for Visit * Reason Comments Medication Refill Encounter Details Date Type Department Care Team (Late st Contact Info) Description 01/23/2021 Refill [facility] Medical Providers at [facility] [address] [place] [phone] 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 APRN - CNP [address] [place], [place] [id number] Medication Refill Social History Tobacco Use Types Packs/Day Years [...] on file Sexual Orientation Not on file documented as of this encounter Plan of Treatment Not on file documented as of this encounter Visit Diagnoses Not on filedocumented in this encounter Care Teams [employer] Farm Relationship Specialty Start Date End Date 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 APRN - CNP PCP - General Family Nurse Practitioner 07/11/20 documented as of this encounter
--- OUTSIDE RECORDS SUMMARY | 2025-04-02 10:24 | XMS_ITS | Encounter Summary ---
Author Organization [facility] Address [facility] [id number] [address] [place] [address] Care Team Providers Care Top Polisher Name Role Phone 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 Primary Care Provider [phone] Encounter Details Date Type Department Care Team (Late st Contact Info) Description 07/25/2020 Orders Only Maternal- Medicine at [facility] [address] [place] [phone] External, Scanning Provider Social History Tobacco Use Types Packs/Day Years Used Date Smoking Tobacco: Never Alcohol Use Standard Drinks/Week Comments Not Currently 0 (1 standard drink = 0.6 oz pur e alcohol) Childcare Answer Date Recorded Childcare Unknown 07/17/2020 Employment Answer Date Recorded Employment Unknown 07/17/2020 Comments Yes Sex and Gender Information Value Date Recorded Sex Assigned at Not on file Legal Sex Female 11:07 AM EST Gender Identity Not on file Sexual Orientation Not on file documented as of this encounter Plan of Treatment Not on file documented as of this encounter Procedures Procedure Name Priority Date/Time Associated Diagnosis Comments US PREG LMTD 1 OR MORE FETUS Routine 06/12/2020 documented in this encounter Results * Ultrasound limited 1 or more fetus (06/12/2020) Anatomical Region Laterality Modality OB-COMMERCIAL TECHNICIAN Ultrasound Narrative 06/12/2020 see attached report us Scanning Provider External IMG US ORDERABLES Charles melissa Result - Final documented in this encounter Visit Diagnoses Not on filedocumented in this encounter Care Teams Top Polisher Relationship Specialty Start Date End Date 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 APRN-NP PCP - General Nurse Practitioner 08/31/20 documented as of this encounter
--- OUTSIDE RECORDS SUMMARY | 2025-04-02 10:24 | XMS_ITS | Clinical Summary ---
Author Organization [facility] Address [address] [place] [address] Care Team Providers Care Security Guard Supervisor Name Role Phone Braden Reagan MD Primary Care Provider [phone] Allergies No known active allergies Medications sertraline (Zoloft) 100 MG tabletIndicatio ns:Major depressive disorder, recurrent, mild,Major depressive disorder, recurrent episode, mild TAKE 1 TABLET BY MOUTH EVERY DAY 90 tablet 3 4 Active albuterol HFA 90 mcg/act inhaler INHALE 2 PUFFS BY MOUTH EVERY 4-6 HOURS NEEDED FOR SHORTNESS OF BREATH OR WHEEZING FOR 7 DAYS 4 Active Active Problems Problem Noted Date Diagnosed Date Annual physical exam 06/08/2024 Assessment & Plan (06/08/2024 9:43 AM EDT): Due for labs. Discussed proper diet and regular aerobic exercise. Need aerobic exercise 5-6 days a week for 30 minutes at a time. Smaller portions and limit total calories. Colonoscopy after age 45. Tetanus every 10 years. Advised not to smoke. Discussed daily Aspirin therapy. Generalized anxiety disorder 04/08/2024 Major depressive disorder, recurrent episode, mi ld 04/08/2024 Class 3 severe obesity due t o excess calories without serious comorbidity with body mass index (BMI) of 45.0 to 49.9 in adult 04/08/2024 Assessment & Plan (06/08/2024 9:44 AM EDT): Weight loss indicated Assessment & Plan (04/08/2024 10:11 AM EDT): Weight loss indicated Resolved Problems Problem Noted Date Diagnosed Date Resolved Date Acute bronchitis due to othe r specified organisms 04/08/2024 06/08/2024 Assessment & Plan (04/08/2024 10:10 AM EDT): Take antibiotics for 7 days. Use prednisone [...] if no better or worse call for re- evaluation. Encounters Date Type Department Care Team Description 01/18/2025 Telephone [facility] [address] [place] [address] Braden Reagan MD 01/16/2025 Telephone [facility] [address] [place] [phone] Braden Reagan MD from Last 3 Months Social History Tobacco Use Types Packs/Day Years Used Date Smoking Tobacco: Never Smokeless Tobacco: Never Tobacco Cessation:Counseling Given: Not Answered Alcohol Use Standard Drinks/Week Comments Never 0 (1 standard drink = 0.6 oz pure alcohol) Caffeine intake: 2 cans pop daily Comments Unknown Sex and Gender Information Value Date Recorded Sex Assigned at Not on file Legal Sex Female 10:02 PM EDT Gender Identity Not on file Sexual Orientation Not on file Last Filed Vital Signs Vital Sign Reading Time Taken Comments Blood Pressure 120/68 06/08/2024 8:57 AM EDT Pulse 87 06/08/2024 8:57 AM EDT Temperature 36.3 C (97.3 F) 06/08/2024 8:57 AM EDT Respiratory Rate 22 06/08/2024 8:57 AM EDT Oxygen Saturation 97% 06/08/2024 8:57 AM EDT Inhaled Oxygen Concentration - - Weight 131 kg (289 lb) 06/08/2024 8:57 AM EDT Height 167.6 cm (5' 6 ) 06/08/2024 8:57 AM EDT Body Mass Index 46.65 06/08/2024 8:57 AM EDT Plan of Treatment Upcoming Encounters Date Type Department Care Team (Late st Contact Info) Description 04/28/2025 9:00 AM ED[place] [address] 04/28/2025 9:30 [place] [address] Health Maintenance Due Date Last Done Comments Influenza Vaccine (#1) 2025 07/10/2017, 2015, 05/14/2015 Insurance [employer] Care Teams Security Guard Supervisor Relationship Specialty Start Date End Date Braden Reagan MD [address] [address] PCP - General Family Medicine 03/25/23
[2025-04-02 10:50] LABS: Hematocrit 39.5 % (36.0-48.0); Hemoglobin 13.3 g/dL (12.0-16.0); Immature Granulocytes Abs Auto 0.03 10^3/uL (0.00-0.03); Immature Granulocytes Pct Auto 0.4 % (0.0-0.5); Lymphocytes Absolute Auto 1.7 10^3/uL (1.2-3.8); Mean Corpuscular HGB Conc 33.7 g/dL (29.9-35.2); Mean Corpuscular Hemoglobin 27.5 pg (26.7-34.0); Mean Corpuscular Volume 81.6 fL (81.0-99.0); Platelet Count 374 10^3/uL (150-450); Red Blood Count 4.84 10^6/uL (4.20-5.40); White Blood Count 8.6 10^3/uL (4.0-11.0)
[2025-04-02] MEDS: 0.9 % SODIUM CHLORIDE 1,000 ML 1000 ML IV (10:50)
--- NOTE | 2025-04-02 10:54 | ED.GENADUL1 ---
HPI HPI - General Adult General Chief complaint: Nausea/Vomiting/Diarrhea Stated complaint: NAUSEA, LIGHT HEADED, + Time Seen by Provider: 04/02/25 10:19 Source: patient Mode of arrival: Wheelchair History of Present Illness HPI narrative: Patient is a 29-year-old female with no medical conditions, presenting to the emergency department for nausea x 3 days. Patient states that she is 5 weeks , her LMP was February 26, 2025. She states that she has dealt with -induced nausea for her prior pregnancies, however this feels significantly worse. She states she still able to eat, but has decreased appetite because of the nausea. She denies any vomiting, constipation, or diarrhea. She denies any abdominal pain. No dysuria or hematuria. No vaginal bleeding. She denies history of prior miscarriages or gynecologic conditions. Her 2 previous children are healthy and were born via . She denies any fevers or chills. No chest pain or shortness of breath. Related Data Home Medications ?Medication ?Instructions ?Recorded ?Confirmed sertraline 100 mg tablet mg 04/02/25 Previous Rx's ?Medication ?Instructions ?Recorded doxylamine 10 mg-pyridoxine (vit 1 tab PO DAILY PRN nausea 14 days 04/02/25 B6) 10 mg tablet,delayed release #14 tabs (Diclegis) ondansetron 4 mg disintegrating 4 mg PO Q8H PRN nausea and 04/02/25 tablet vomiting 5 days #10 tabs Allergies Allergy/AdvReac Type Severity Reaction Status Date / Time No Known Drug Allergies Allergy Verified 04/02/25 10:20 Opioid HPI Opioid Management Most Recent Opioid Data: Last Pain Scale 0 Today, 10:21 Review of Systems ROS Status of ROS 10 or more systems reviewed and unremarkable except as noted in history and below PFSH PFSH Social History Little interest or pleasure in doing things: not at all Feeling down, depressed, or hopeless: not at all Exam Narrative Exam Narrative: CONSTITUTIONAL: Patient appears fatigued, but nontoxic. Answering questions and following commands appropriately. SKIN: Was warm and dry. EYES: Sclerae white. No conjunctival pallor EARS, NOSE, THROAT: Moist oral mucosa. RESPIRATORY: Clear to auscultation bilaterally, no wheezes, crackles, or stridor, no use of accessory muscles CARDIOVASCULAR: Normal rate and regular rhythm. There is no S3, S4, murmur, rub. GASTROINTESTINAL: Abdomen soft, nondistended, and nontender MUSCULOSKELETAL: No peripheral edema. NEUROLOGIC: Patient is awake and alert. 5/5 strength in the bilateral upper/lower extremities. Sensation tact light touch in the bilateral upper/lower extremities. EOMI. PERRLA. Finger-nose intact. Facies were symmetrical Constitutional Vital Signs, click to edit/add: Last Vital Signs Temp 98.6 F 04/02/25 10:21 Pulse 114 H 04/02/25 10:21 Resp 16 04/02/25 10:21 BP 142/93 H 04/02/25 10:21 Pulse Ox 98 04/02/25 10:21 O2 Del Method Room Air 04/02/25 10:21 Course Vital Signs Vital signs: Vital Signs Temperature 98.6 F 04/02/25 10:21 Pulse Rate 114 H 04/02/25 10:21 Respiratory Rate 16 04/02/25 10:21 Blood Pressure 142/93 H 04/02/25 10:21 Pulse Oximetry 98 04/02/25 10:21 Oxygen Delivery Method Room Air 04/02/25 10:21 Temperature 98.6 F 04/02/25 10:21 Pulse Rate 114 H 04/02/25 10:21 Respiratory Rate 16 04/02/25 10:21 Blood Pressure 142/93 H 04/02/25 10:21 Pulse Oximetry 98 04/02/25 10:21 Oxygen Delivery Method Room Air 04/02/25 10:21 Medical Decision Making MDM Narrative Medical decision making narrative: Patient is a healthy 29-year-old female presenting to the emergency department with a 3-day history of nausea in the setting of first trimester . Patient is 5 weeks by dates, LMP is February 26. Vital signs arrival are significant for tachycardia, otherwise were within normal limits. She is afebrile and hemodynamically stable. The patient appears fatigued, but has a normal physical examination. She has no abdominal tenderness. She has no vaginal bleeding. She does not appear to be significantly dehydrated. Differential diagnosis includes -induced nausea, molar , ectopic , GERD, gastritis, or other electrolyte/metabolic derangement. She has no vaginal bleeding or abdominal pain/tenderness making ectopic less likely. Regardless, TVUS was ordered to further investigate. IV was established and laboratory studies were obtained. She was treated symptomatically with 1 L bolus normal saline and 4 mg IV Zofran. Laboratory studies were unremarkable. Patient's beta hCG level was 2583, which is in the expected range at 5 weeks of - making molar of low likelihood. No significant electrolyte or metabolic derangement. No evidence of acute kidney injury. No anemia, leukocytosis, or thrombocytopenia. No transaminitis or hyperbilirubinemia. TVUS independently reviewed and interpreted by myself and radiology demonstrated an intrauterine gestational sac without evidence of ectopic . On reevaluation, she states she feels moderately improved. Her tachycardia has resolved. I did instruct her to follow-up with her [facility] within the 5 days for further care. She was given a prescription for Diclegis and Zofran. Strict return precautions were given including lower abdominal pain/cramping and vaginal bleeding. Patient understands and agrees to plan. FINAL IMPRESSION: #Acute nausea in the setting of first trimester DISPOSITION: Discharged home CONDITION: Good Medical Records Medical records reviewed: Yes I reviewed the patient's medical records Lab Data Lab results reviewed: Yes I reviewed the patient's lab results Labs: Lab Results 04/02/25 Range/Units 10:35 WBC 8.6 (4.0-11.0) 10^3/uL RBC 4.84 (4.20-5.40) 10^6/uL Hgb 13.3 (12.0-16.0) g/dL Hct 39.5 (36.0-48.0) % MCV 81.6 (81.0-99.0) fL MCH 27.5 (26.7-34.0) pg MCHC 33.7 (29.9-35.2) g/dL RDW 14.4 (11.0-15.0) % Plt Count 374 (150-450) 10^3/uL MPV 9.1 L (9.5-13.5) fL Neut % (Auto) 70.4 (43.0-75.0) % Lymph % (Auto) 19.6 L (20.5-60.0) % Atlantic % (Auto) 7.7 (1.7-12.0) % Eos % (Auto) 1.5 (0.9-7.0) % Baso % (Auto) 0.4 (0.2-2.0) % Neut # (Auto) 6.0 (1.4-6.5) 10^3/uL Lymph # (Auto) 1.7 (1.2-3.8) 10^3/uL Atlantic # (Auto) 0.7 (0.3-0.8) 10^3/uL Eos # (Auto) 0.1 (0.0-0.7) 10^3/uL Baso # (Auto) 0.0 (0.0-0.1) 10^3/uL Abs Immat Gran (auto) 0.03 (0.00-0.03) 10^3/uL Imm/Tot Granulo (auto) 0.4 (0.0-0.5) % Sodium 140 (136-145) mmol/L Potassium 3.7 (3.5-5.1) mmol/L Chloride 104 (98-107) mmol/L Carbon Dioxide 26.7 (21.0-32.0) mmol/L Anion Gap 13.0 BUN 6.0 L (7.0-18.0) mg/dL Creatinine 0.70 (0.55-1.02) mg/dL Est GFR ( Amer) >60 (>=60 mL/min/1.73m^2) Est GFR (Non-Af Amer) >60 (>=60 mL/min/1.73m^2) BUN/Creatinine Ratio 8.6 Glucose 102 (74-106) mg/dL Calcium 9.1 (8.5-10.1) mg/dL Total Bilirubin 0.4 (0.2-1.0) mg/dL AST 17 (15-37) U/L ALT 39 (14-59) U/L Alkaline Phosphatase 85 (46-116) U/L Total Protein 8.1 (6.4-8.2) g/dL Albumin 3.8 (3.4-5.0) g/dL Globulin 4.3 g/dL Albumin/Globulin Ratio 0.9 HCG, Quant 2583 mIU/mL Imaging Data TVUS: Attestation: I personally reviewed and interpreted this imaging study as follows: Discharge Plan Discharge Chief Complaint: Nausea/Vomiting/Diarrhea Clinical Impression: Vomiting or nausea of Patient Disposition: Home, Self-Care Time of Disposition Decision: 11:40 Condition: Good Mode of Transportation: Private Vehicle Prescriptions / Home Meds: New ondansetron 4 mg tablet,disintegrating 4 mg PO Q8H PRN (Reason: nausea and vomiting) 5 Days Qty: 10 0RF doxylamine-pyridoxine (vit B6) [Diclegis] 10-10 mg tablet,delayed release (DR/EC) 1 tab PO DAILY PRN (Reason: nausea ) 14 Days Qty: 14 0RF No Action sertraline 100 mg tablet Print Language: German Instructions: Nausea and Vomiting in (ED) Referrals: Braden Reagan MD [Primary Care Provider, Family Practice] - 1 week
[2025-04-02 11:06] LABS: Alanine Aminotransferase 39 U/L (14-59); Albumin Globulin Ratio 0.9; Albumin Level 3.8 g/dL (3.4-5.0); Alkaline Phosphatase 85 U/L (46-116); Anion Gap 13.0; Aspartate Amino Transferase 17 U/L (15-37); Blood Urea Nitrogen 6.0 mg/dL (7.0-18.0); Calcium 9.1 mg/dL (8.5-10.1); Carbon Dioxide 26.7 mmol/L (21.0-32.0); Chloride 104 mmol/L (98-107); Estimated GFR (African America >60 (>=60 mL/min/1.73m^2); Estimated GFR (Non-African Ame >60 (>=60 mL/min/1.73m^2); Globulin 4.3 g/dL; Glucose 102 mg/dL (74-106); Potassium 3.7 mmol/L (3.5-5.1); Sodium 140 mmol/L (136-145); Total Protein 8.1 g/dL (6.4-8.2)
--- NOTE | 2025-04-02 11:59 | US_ITS ---
[facility] [place] [id number] Patient Name: ERI HUTCHISON MRN: [id number] date: 1995 Sex: F Assigned Patient Location: ER Current Patient Location: Accession/Order Number: [id number] Exam Date: 04/02/2025 12:30 Report Date: 04/02/2025 13:29 At the request of: KENDRA PANDEY DO Procedure: US OB transvaginal US OB transvaginal 04/02/2025 1:11 PM SIGNS AND SYMPTOMS: ^r/o ectopic COMPARISON: None. TECHNIQUE: Limited pelvic ultrasound using transvesical sonography. FINDINGS: An early intrauterine is identified. An early gestational sac is noted within the endometrial canal measuring 5 mm. This has an estimated gestational age of 5 weeks and 0 days. There is no visible pole or yolk sac at this time. No evidence of ectopic . Pelvic survey reveals no gross abnormalities. The right ovary measures 2.2 x 1.9 x 3.0 cm in greatest dimension. The left ovary is not visualized. The cervix measures 4.1 cm in length. US/US OB transvaginal IMPRESSION: Early intrauterine with an estimated gestational age of 5 weeks and 0 days. The yolk sac and pole are not currently visible presumably due to early gestational age. No evidence of ectopic . However, the left ovary is not visualized. Impression dictated by: Ming Vaughan M.D. 04/02/2025 1:29 PM Dictation Location: [place] [address] Electronically authenticated by: [id number] Y Date: 04/02/2025 13:29
== END 2025-04-02 13:13 | disposition home or self-care (01) ==
PROVIDERS: Emergency Provider Student in an Organized Health Care Education/Training Program; PCP Family Medicine
DX: O21.0 Mild hyperemesis gravidarum (principal); Z3A.01 Less than 8 weeks gestation of pregnancy
CPT/HCPCS: 36415; 76817; 80053; 84702; 85025; 96374; 99285; J2405

== ENCOUNTER 2025-05-03 12:02 | Outpatient (OUT) | payer OTHER, SELFPAY ==
--- OUTSIDE RECORDS SUMMARY | 2025-05-03 12:09 | XMS_ITS | CCD ---
Author Organization [facility] Care Team Providers Care Resident Care Manager Rn Name Role Phone Marion Davis Unavailable [phone] SONIA ABTES Admitting Unavailable TYSHAWN, SONIA Attending Unavailable BELLEESTELLE Referring Unavailable BELLE, ESTELLE BETTS Primary Care Unavailable MOROCCChanning, SONIA Attending Unavailable BELLE, ESTELLE BETTS Primary Care Unavailable BelleEstelle Gamichel Primary Care Provider Rachael Hernandez Unavailable CLINT, DR AGUILAR Admitting Unavailable CLINT, DR AGUILAR Attending Unavailable NADERER, DR BRADEN Martin Primary Care Unavailable LEOBARDO, RAINE Attending Unavailable LEOBARDO, RAINE Consulting Unavailable LEOBARDORAINE SHARMA Admitting Unavailable NADERER, DR BRADEN Martin Primary [...] Admitting Unavailable CLINT, DR AGUILAR Attending Unavailable BIDDLE, DR KENZIE Chanel Consulting Unavailable NADERER, DR BRADEN Martin Primary Care Unavailable CLINT, DR AGUILAR Consulting Unavailable NADERER, DR BRADEN Martin Primary Care Unavailable CLINT, DR AGUILAR Admitting Unavailable CLINT, DR AGUILAR Attending Unavailable HAY, DR BELTRAN Admitting Unavailable NADERER, DR BRADEN Martin Primary Care Unavailable HAY, DR BELTRAN Attending Unavailable HAY, DR BELTRAN Consulting Unavailable NADERER, DR BRADEN Martin Primary Care Unavailable CLINT, DR AGUILAR Admitting Unavailable CLINT, DR AGUILAR Procedure Practitioner Unavailab gisella CISNEROS, DR MONTOYA Consulting Unavailable CLINT, DR AGUILAR Attending Unavailable CLINT, DR AGUILAR Consulting Unavailable SHARP, PATY Consulting Unavailable GEMBUS, JOSÉ MIGUEL Consulting Unavailable SRI, LORAN Consulting Unavailable CLINT, DR AGUILAR Consulting Unavailable CLINT, DR AGUILAR Admitting Unavailable CLINT, DR AGUILAR Attending Unavailable NADWANDY, DR BRADEN Martin Primary Care Unavailable Braden Rosales MD Primary Care Provider Margoth MUNOZ Attending Unavailable Braden Rosales MD Primary Care Provider [phone] CONNIE, BRADEN Attending Unavailable CONNIE, BRADEN Attending Unavailable Allergies Allergy Classification Reported Allergen(s) Allergy Type Date of Onset Reaction(s) Facility (1 source) No Known Medication Allergies; Translations: [No Known Medication Allergies] Propensity to adverse reactions (disorder) [facility] Medications Current Medications Medication Drug Class(es) Dates Sig (Normalized) Sig (Original) [id number] 200 actuat albuterol 0.09 mg/actuat metered dose inhaler (12 sources) beta2-Adrenergic Agonist Start: 03-13-2024 End: 04-04-2025 take 2 puff(s) by mouth every four to six hours as needed for wheezing albuterol HFA 90 mcg/act inhaler INHALE 2 PUFFS BY MOUTH EVERY 4-6 HOURS NEEDED FOR SHORTNESS OF BREATH OR WHEEZING FOR 7 DAYS 03/13/2024 04/04/2025 Discontinued crisaborole 0.02 mg/mg topical ointment (1 source) [...] Progestin, Estrogen Start: 05-03-2015 MICROGESTIN FE 08/29, , 1 mg-20 mcg (21)/75 mg (7) per tablet hydrOXYzine hydrochloride 25 mg oral tablet (3 sources) Antihistamine Start: 04-04-2025 take 1 tablet by mouth four times daily as needed for anxiety hydrOXYzine HCl (Atarax) 25 MG tablet Indications: Generalized anxiety disorder Take 1 tablet (25 mg) by mouth 4 (four) times a day as needed for anxiety 60 tablet 2 04/04/2025 Active Start: 04-04-2025 take 1 tablet by kahlil th four times daily as needed for anxiety hydrOXYzine HCl (Atarax) 25 MG tablet Indications: Generalized anxiety disorder Take 1 tablet (25 mg) by mouth 4 (four) times a day as needed for anxiety 60 tablet 2 04/04/2025 Active levoFLOXacin 750 mg oral tablet (2 sources) [...] day. 45 g 0 09/01/2017 09/01/2018 Active ondansetron 4 mg disintegrating oral tablet (1 source) Serotonin-3 Receptor Antagonist Start: 04-05-2025 take 1 tablet by mouth every six hours as needed for nausea and nausea and nausea ondansetron ODT (Zofran-ODT) 4 MG disintegrating tablet Indications: Nausea Take 1 tablet (4 mg) by mouth every 6 (six) hours if needed for nausea 20 tablet 2 04/05/2025 Active PARoxetine hydrochloride 10 mg oral tablet [...] 04/14/2024 Active sertraline 100 mg oral tablet (18 sources) Serotonin Reuptake Inhibitor Start: 04-04-2025 take 1.5 tablets by mouth once daily sertraline (Zoloft) 100 MG tablet Indications: Major depressive disorder, recurrent episode, mild Take 1.5 tablets (150 mg) by mouth Daily 135 tablet 3 04/04/2025 Active Start: 04-04-2025 take 1.5 tablets by mouth once daily sertraline (Zoloft) 100 MG tablet Indications: Major depressive disorder, recurrent episode, mild Take 1.5 tablets (150 mg) by mouth Daily 135 tablet 3 04/04/2025 Active Start: 04-03-2025 End: 04-04-2025 take 1 tablet by mouth once daily sertraline (Zoloft) 100 MG tablet Indications: Major depressive disorder, recurrent, mild , Major depressive disorder, recurrent episode, mild TAKE 1 TABLET BY MOUTH EVERY DAY 90 tablet 3 04/03/2025 04/04/2025 Discontinued (Reorder) Start: 03-13-2024 Sertraline Act aline MG PO March 13, 2024 12:00am Start: [...] 13, 2024 12:00am October 26, 2024 1:26pm metoclopramide 10 mg oral tablet (1 source) Dopamine-2 Receptor Antagonist Start: 04-12-2025 End: 04-27-2025 metoclopramide (Reglan) 10 MG tablet Indications: Nausea and vomiting during ([facility]) Take 1 tablet (10 mg) by mouth in the morning and 1 tablet (10 mg) at noon and 1 tablet (10 mg) in the evening. Take before meals. Take 1 tablet by mouth 30 minutes prior to meals 3 times daily as needed for nausea. 90 tablet 2 04/12/2025 04/27/2025 Discontinued Problems Active Problems Problem Classification Problem Date Documented Date Episodic/Chronic Anxiety disorders (13 sources) Generalized anxiety disorder; Translations: [Generalized anxiety [...] other respiratory manifestations] 10-26-2024 Episodic Menstrual disorders (5 sources) Irregular menstruation, unspecified; Translations: [Missed period] Onset: 11-23-2021 Chronic Mood disorders (13 sources) Recurrent major depressive episodes, mild ; [...] 3RD TRI UNS] Onset: 04-27-2022 Episodic Other complications of (5 sources) Vomiting of , unspecified; Translations: [Mild hyperemesis gravidarum, unspecified as to episode of care or not applicable] Onset: 04-04-2025 04-04-2025 Episodic Other lower respiratory disease (3 sources) [...] Chronic Other nutritional; endocrine; and metabolic disorders (10 sources) Severe obesity; Translations: [Class 3 severe obesity due to excess calories without serious comorbidity with body mass index (BMI) of 45.0 to 49.9 in adult ([facility])] Onset: 04-08-2024 06-08-2024 Chronic Other nutritional; endocrine; and metabolic disorders (2 sources) Body mass index 40+ - severely obese; Translations: [Body mass index (BMI) 40.0-44.9, adult] 04-08-2024 Chronic Other and delivery including normal (18 sources) Encounter for care and examination of [...] Problem Date Documented Date Episodic/Chronic Acute bronchitis (11 sources) Acute infective bronchitis; Translations: [Acute bronchitis [...] 11-27-2021 Episodic Other aftercare (1 source) 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 No subchorionic hemorrhage. A single pole is present. Normal heart rate at 173 beats per minute. Yolk sac also is seen. Current sonographic age is 8 weeks and 4 days based on the crown-rump length measurement of 2.0cm. Based on this age, current estimated date of delivery is December 03, 2025. No pelvic fluid or adnexal mass present. Cervix closed, 4.3 cm. IMPRESSION: Findings consistent with a live intrauterine gestation, current sonographic age of 8 weeks and 4 days resulting in an estimated date of delivery of December 03, 2025. TRANSCRIBED BY: ELECTRONICALLY SIGNED BY: Juan A Neal MD Normal Not Available Comment on above: Order Comment: US OB TRANSVAGINAL No LMP recorded. Urinalysis macro (dipstick) panel (U)on 04-27-2025 Bilirubin, UA Negative Negative - 4(70) +++ mg/dL [facility] Blood, UA Negative Negative - 50 Todd/mcL [facility] Clarity, UA Clear [facility] Healthca re Color, UA Yellow [facility] Showpadcar e Glucose, UA Negative Negative - 1999(110) ++++ mg/dL [facility] Interpretation and review of laboratory results Abnormal [facility] Ketones, UA Negative Negative - 160(16) ++++ mg/dL [facility] Leukocytes, UA Negative Negative - 500+++ Yamilet/mcL [facility] Nitrite, UA Negative Negative - Positive [facility] pH, UA 6 5 - 9 [facility] Filmzu e Protein, UA Positive Negative - 1999(20) ++++ mg/dL [facility] Spec Grav, UA 1.03 1 - 1.03 [facility] Urobilinogen, UA 1.0 0.2 - 12 mg/dL [facility] Health[facility] No Panel InformationOrdered By: Magda Carroll on 10-26-2024 Quick Strep (POC) [facility] IGP,APTIMA HPV,AGE GDLNon AGE GDLN ACOG TESTING Note . [facility] Comment on above: TESTS RESULT FLAG UN ITS REF RANGE LAB Clinician Provided Cytology Information Source.............Cervix;Endocervix No. of containers..01 ThinPrep Vial Age Algo ACOG Roselyn... FLAG LEGEND: L-Low Normal,H-High Normal,LL-Alert Low,HH-Alert High <-Panic Low,>-Panic High,A-Abnormal,AA-Critical Abnormal Performed at: 01 =[facility] [address] [place] [address] Althea Boone MD, IGP, RFX APTIMA HPV ASCU Note . [facility] Comment on above: TESTS RESULT FLAG UN ITS REF RANGE LAB DIAGNOSIS: 02 NEGATIVE FOR INTRAEPITHELIAL LESION OR MALIGNANCY. Specimen adequacy: 02 Satisfactory for evaluation. Endocervical and/or squamous metaplastic cells (endocervical component) are present. Performed by: Rosario Nunez, Label Paster ([facility]) . 02 Note: Note 03 The Pap [...] High,A-Abnormal,AA-Critical Abnormal Performed at: 02 [facility] [place] [facility] [address] [address] [place] [address] Jimi Florez MD, 03 WB [facility] [address] [address] Althea Boone MD, Performed at: =G - [facility] [address] [id number] [employer] Operator: Althea Boone MD, Phone: [phone] Performed at: [facility] [address] [place], [place] [id number] [employer] Serv[employer] Operator: Jimi Florez MD, Phone: [phone] [facility] CERVIX ENDOCERVIX [facility] Covid-19 PCR ([facility])on 07-10 SARS-CoV-2 (COVID-19) RNA ZACKARY+probe Ql (Unsp spec) Detected Critically abnormal NOT DETECTED [facility] Comment on above: Result Comment: This test is not yet approved or cleared by the [place] FDA. When there are no FDA-approved or cleared tests available, and other criteria are met, FDA can make tests available under an emergency access mechanism called an Emergency Use Authorization (EUA). The EUA for this test is supported by the [place] of Health and Human Service's declaration that [...] used). Performed By: #### C BC #### [facility] [address] [place] [address] Dr. Molina Zhang CBC AUTO DIFFon 06-19-2022 BASO # 0.0 103/ul Normal 0.0-0.1 [facility] Comment on above: Performed By: #### C BC #### [facility] [address] [address] [address] Molina Zhang Basophils/100 WBC (Bld) 0.6 % Normal 0.2-2.0 [facility] Comment on above: Performed By: #### C BC #### [facility] [address] [address] [address] Molina Zhang EO # 0.2 103/ul Normal 0.0-0.7 [facility] Comment on above: Performed By: #### C BC #### [facility] [address] [address] [address] Molina Zhang Eosinophils/100 WBC (Bld) 3.0 % Normal 0.9-7.0 [facility] Comment on above: Performed By: #### C BC #### [facility] [address] [place] [address] Dr. Molina Zhang Erythrocyte distribution width (RBC) [Ratio] 13.2 % Normal 11.0-15.0 [facility] Comment on above: Performed By: #### C BC #### [facility] [address] [place] [address] Dr. Molina Zhang Hematocrit (Bld) [Volume fraction] 33.1 % Critically low 36.0-48.0 [facility] Comment on above: Performed By: #### C BC #### [facility] [address] [place] [address] Dr. Molina Zhang Hemoglobin (Bld) [Mass/Vol] 10.7 g/dL Critically low 12.0-16.0 [facility] Comment on above: Performed By: #### C BC #### [facility] [address] [address] [address] Molina Zhang IG # 0.08 10e3/ul Critically high 0.00-0.03 [facility] Comment on above: Performed By: #### C BC #### [facility] [address] [address] [address] Molina Zhang IG % 1.3 % Critically high 0.0-0.5 [facility] Comment on above: Performed By: #### C BC #### [facility] [address] [place] [address] Dr. Molina Zhang LYMPH # 1.1 103/ul Critically low 1.2-3.8 [facility] Comment on above: Performed By: #### C BC #### [facility] [address] [place] [address] Dr. Molina Zhang Lymphocytes/100 WBC (Bld) 16.9 % Critically low 20.5-60.0 [facility] Comment on above: Performed By: #### C BC #### [facility] [address] [place] [address] Dr. Molina Zhang MANUAL DIFF REQ NO Normal [facility] Comment on above: Performed By: #### C BC #### [facility] [address] [place] [address] Dr. Molina Zhang MCH (RBC) [Entitic mass] 26.6 pg Critically low 26.7-34.0 [facility] Comment on above: Performed By: #### C BC #### [facility] [address] [place] [address] Dr. Molina Zhang MCHC (RBC) [Mass/Vol] 32.3 g/dL Normal 29.9-35.2 [facility] Comment on above: Performed By: #### C BC #### [facility] [address] [place] [address] Dr. Molina Zhang MCV (RBC) [Entitic vol] 82.1 fL Normal 81.0-99.0 [facility] Comment on above: Performed By: #### C BC #### [facility] [address] [place] [address] Dr. Molina Zhang MONO # 0.4 103/ul Normal 0.3-0.8 [facility] Comment on above: Performed By: #### C BC #### [facility] [address] [place] [address] Dr. Molina Zhang Monocytes/100 WBC (Bld) 6.1 % Normal 1.7-12.0 [facility] Comment on above: Performed By: #### C BC #### [facility] [address] [place] [address] Dr. Molina Zhang NEUT # 4.5 103/ul Normal 1.4-6.5 [facility] Comment on above: Performed By: #### C BC #### [facility] [address] [place] [address] Dr. Molina Zhang Neutrophils/100 WBC (Bld) 72.1 % Normal 43.0-75.0 [facility] Comment on above: Performed By: #### C BC #### [facility] [address] [place] [address] Dr. Molina Zhang Platelet mean volume (Bld) [Entitic vol] 9.3 fL Critically low 9.5-13.5 [facility] Comment on above: Performed By: #### C BC #### [facility] [address] [place] [address] Dr. Molina Zhang PLT 379 103/ul Normal 150-450 [facility] Comment on above: Performed By: #### C BC #### [facility] [address] [place] [address] Dr. Molina Zhang RBC 4.03 106/ul Critically low 4.20-5.40 [facility] Comment on above: Performed By: #### C BC #### [facility] [address] [place] [address] Dr. Molina Zhang WBC 6.3 103/ul Normal 4.0-11.0 [facility] Comment on above: Performed By: #### C BC #### [facility] [address] [place] [address] Dr. Molina Zhang COVID/FLU/RSV RT-PCRon 06-19 SARS-CoV-2 (COVID-19) RNA ZACKARY+probe Ql (Unsp spec) Negative [employer] Other COVID/FLU/RSV RT-PCR Negative [facility] Other CULTURE BLOODon 06-19-2022 Microscopic examination of blood, culture Culture Observations: NO GROWTH AT 5 DAYS. Normal [facility] Comment on above: Performed By: #### B [id number] #### [facility] [address] [place] [address] Dr. Molina Zhnag Performed By: #### B [id number] #### [facility] [address] [place] [address] Dr. Molina Zhang CULTURE URINEon 06-19-2022 CULTURE URINE Culture Observations: LIGHT GROWTH OF MIXED GENITAL LAWANDA. NO POTENTIAL PATHOGENS SEEN. Normal [facility] Comment on above: Performed By: #### C MP #### [facility] [address] [place] [address] Dr. Molina Zhang Covid-19 PCR ([facility])on 06-10 SARS-CoV-2 (COVID-19) RNA ZACKARY+probe Ql (Unsp spec) Not detected Normal NOT DETECTED [facility] Comment on above: Result Comment: When diagnostic [...] for this test is supported by the [place] of Health and Human Service's declaration that [...] used). Performed By: #### C BC #### [facility] [address] [place] [address] Dr. Molina Zhang ER URINE PROFILEon 2 Bilirubin Ql (U) Negative Normal NEGATIVE [facility] Comment on above: Performed By: #### 4 [id number] #### [facility] [address] [place] [address] Dr. Molina Zhang Clarity (U) CLEAR Normal CLEAR [facility] Comment on above: Performed By: #### 4 [id number] #### [facility] [address] [place] [address] Dr. Molina Zhang Color (U) YELLOW Normal YELLOW [facility] Comment on above: Performed By: #### 4 [id number] #### [facility] [address] [place] [address] Dr. Molina ESPINOSA A micrscopic examination will be performed if indicated. Normal [facility] Comment on above: Performed By: #### [id number] #### [facility] [address] [place] [address] Dr. Molina Zhang Glucose Ql (U) Negative Normal NEGATIVE [facility] Comment on above: Performed By: #### 4 [id number] #### [facility] [address] [place] [address] Dr. Molina Zhang Hemoglobin Ql (U) LARGE Abnormal NEGATIVE [facility] Comment on above: Performed By: #### 4 [id number] #### [facility] [address] [place] [address] Dr. Molina Zhang Ketones Ql (U) TRACE Abnormal NEGATIVE [facility] Comment on above: Performed By: #### 4 [id number] #### [facility] [address] [place] [address] Dr. Molina Zhang LEUKOCYTES TRACE Abnormal NEGATIVE [facility] Comment on above: Performed By: #### 4 [id number] #### [facility] [address] [place] [address] Dr. Molina Zhang Nitrite Ql (U) Negative Normal NEGATIVE [facility] Comment on above: Performed By: #### 4 [id number] #### [facility] [address] [place] [address] Dr. Molina Zhang pH (U) 5.5 [pH] Normal 5-9 [facility] Comment on above: Performed By: #### 4 [id number] #### [facility] [address] [place] [address] Dr. Molina Zhang Protein (U) [Mass/Vol] 30 mg/dL Abnormal NEGAT ALINE/ TRACE [facility] Comment on above: Performed By: #### 4 [id number] #### [facility] [address] [place] [address] Dr. Molina Zhang SPEC GRAVITY >=1.030 Abnormal 1.005-<=1.02 5 [facility] Comment on above: Performed By: #### 4 [id number] #### [facility] [address] [place] [address] Dr. Molina Zhang UR MICRO IND INDICATED Normal [facility] Comment on above: Performed By: #### [id number] #### [facility] [address] [place] [address] Dr. Molina Zhang Urobilinogen Qn (U) 0.2 {Jaelyn'U}/dL Normal 0.2 - 1. 0 [facility] Comment on above: Performed By: #### 4 [id number] #### [facility] [address] [place] [address] Dr. Molina Zhang LACTATE/LACTIC ACIDon 2021 Lactate [Moles/Vol] 1.4 mmol/L Normal 0.4-1.9 [facility] Comment on above: Performed By: #### B [id number] #### [facility] [address] [place] [address] Dr. Molina Zhang PROF 14(COMP METB)on 022 Albumin [Mass/Vol] 3.2 g/dL Critically low 3.4-5.0 [facility] Comment on above: Performed By: #### C MP #### [facility] [address] [place] [address] Dr. Molina Zhang Albumin/Globulin [Mass ratio] 0.8 {ratio} Normal [facility] Comment on above: Performed By: #### C MP #### [facility] [address] [place] [address] Dr. Molina Zhang ALP [Catalytic activity/Vol] 127 U/L Critically high 46-116 [facility] Comment on above: Performed By: #### C MP #### [facility] [address] [address] [address] Molina Zhang ALT [Catalytic activity/Vol] 14 U/L Normal 14-59 [facility] Comment on above: Performed By: #### C MP #### [facility] [address] [address] [address] Molina Zhang Anion gap [Moles/Vol] 9.5 mmol/L Normal [facility] Comment on above: Performed By: #### C MP #### [facility] [address] [address] [address] Molina Zhang AST [Catalytic activity/Vol] 10 U/L Critically low 15-37 [facility] Comment on above: Performed By: #### C MP #### [facility] [address] [place] [address] Dr. Molina Zhang Bilirubin [Mass/Vol] 0.2 mg/dL Normal 0.2-1.0 [facility] Comment on above: Performed By: #### C MP #### [facility] [address] [address] [address] Molina Zhang Calcium [Mass/Vol] 8.4 mg/dL Critically low 8.5-10.1 [facility] Comment on above: Performed By: #### C MP #### [facility] [address] [address] [address] Molina Zhang Chloride [Moles/Vol] 104 mmol/L Normal 98-107 [facility] Comment on above: Performed By: #### C MP #### [facility] [address] [address] [address] Molina Zhang CO2 [Moles/Vol] 25.9 mmol/L Normal 21.0-32.0 [facility] Comment on above: Performed By: #### C MP #### [facility] [address] [address] [address] Molina Zhang Creatinine [Mass/Vol] 1.23 mg/dL Critically high 0.55-1.02 [facility] Comment on above: Performed By: #### C MP #### [facility] [address] [address] [address] Molina Zhang EGFR-AF DJIBOUTIAN >60 Normal >=60 [facility] Comment on above: Performed By: #### C MP #### [facility] [address] [address] [address] Molina Zhang EGFR-NON AF DJIBOUTIAN 53 mL/min/1.73m2 Critically low >=60 [facility] Comment on above: Performed By: #### C MP #### [facility] [address] [address] [address] Molina Zhang Globulin (S) [Mass/Vol] 4.2 g/dL Normal [facility] Comment on above: Performed By: #### C MP #### [facility] [address] [address] [address] Molina Zhang Glucose [Mass/Vol] 98 mg/dL Normal 74-106 [facility] Comment on above: Performed By: #### C MP #### [facility] [address] [address] [address] Molina Zhang Potassium [Moles/Vol] 3.4 mmol/L Critically low 3.5-5.1 [facility] Comment on above: Performed By: #### C MP #### [facility] [address] [address] [address] Molina Zhang Protein [Mass/Vol] 7.4 g/dL Normal 6.4-8.2 [facility] Comment on above: Performed By: #### C MP #### [facility] [address] [address] [address] Molina Zhang Sodium [Moles/Vol] 136 mmol/L Normal 136-145 [facility] Comment on above: Performed By: #### C MP #### [facility] [address] [address] [address] Molina Zhang Urea nitrogen [Mass/Vol] 13.0 mg/dL Normal 7.0-18.0 [facility] Comment on above: Performed By: #### C MP #### [facility] [address] [place] [address] Dr. Molina Zhang Urea nitrogen/Creatinine [Mass ratio] 10.6 mg/mg Normal [facility] Comment on above: Performed By: #### C MP #### [facility] [address] [place] [address] Dr. Molina Zhang URINE MICROSCOPIC ONLYon BACTERIA MODERATE Abnormal NONE SEEN [facility] Comment on above: Performed By: #### [id number] #### [facility] [address] [place] [address] Dr. Molina Zhang Bacteria identified Cx Nom (U) INDICATED Normal [facility] Comment on above: Performed By: #### [id number] #### [facility] [address] [place] [address] Dr. Molina Zhang CAST NONE SEEN Normal NONE SEEN [facility] Comment on above: Performed By: #### 4 [id number] #### [facility] [address] [place] [address] Dr. Molina Zhang Crystals LM Nom (Urine sed) NONE SEEN Normal NONE SEEN [facility] Comment on above: Performed By: #### 4 [id number] #### [facility] [address] [place] [address] Dr. Molina Zhang Epithelial cells LM Ql (Urine sed) FEW Abnormal NONE SEEN /RARE [facility] Comment on above: Performed By: #### [id number] #### [facility] [address] [place] [address] Dr. Molina Zhang MUCOUS TRACE Abnormal NONE SEEN [facility] Comment on above: Performed By: #### 4 [id number] #### [facility] [address] [place] [address] Dr. Molina Zhang RBC 2-5 Abnormal 0-2 [facility] Comment on above: Performed By: #### 4 [id number] #### [facility] [address] [place] [address] Dr. Molina Zhang WBC 10-20 Abnormal NONE SEEN [facility] Comment on above: Performed By: #### 4 [id number] #### [facility] [address] [place] [address] Dr. Molina Zhang CBC AUTO DIFFon 06-05-2022 BASO # 0.0 103/ul Normal 0.0-0.1 [facility] Comment on above: Performed By: #### C MP #### [facility] [address] [address] [address] Molina Zhang Basophils/100 WBC (Bld) 0.4 % Normal 0.2-2.0 [facility] Comment on above: Performed By: #### C MP #### [facility] [address] [address] [address] Molina Zhang EO # 0.1 103/ul Normal 0.0-0.7 [facility] Comment on above: Performed By: #### C MP #### [facility] [address] [address] [address] Molina Zhang Eosinophils/100 WBC (Bld) 1.0 % Normal 0.9-7.0 [facility] Comment on above: Performed By: #### C MP #### [facility] [address] [address] [address] Molina Zhang Erythrocyte distribution width (RBC) [Ratio] 14.2 % Normal 11.0-15.0 [facility] Comment on above: Performed By: #### C MP #### [facility] [address] [address] [address] Molina Zhang Hematocrit (Bld) [Volume fraction] 24.7 % Critically low 36.0-48.0 [facility] Comment on above: Performed By: #### C MP #### [facility] [address] [address] [address] Molina Zhang Hemoglobin (Bld) [Mass/Vol] 8.3 g/dL Critically low 12.0-16.0 [facility] Comment on above: Performed By: #### C MP #### [facility] [address] [address] [address] Molina Zhang IG # 0.07 10e3/ul Critically high 0.00-0.03 [facility] Comment on above: Performed By: #### C MP #### [facility] [address] [address] [address] Molina Zhang IG % 0.7 % Critically high 0.0-0.5 [facility] Comment on above: Performed By: #### C MP #### [facility] [address] [place] [address] Dr. Molina Zhang LYMPH # 1.6 103/ul Normal 1.2-3.8 [facility] Comment on above: Performed By: #### C MP #### [facility] [address] [place] [address] Dr. Molina Zhang Lymphocytes/100 WBC (Bld) 16.1 % Critically low 20.5-60.0 [facility] Comment on above: Performed By: #### C MP #### [facility] [address] [place] [address] Dr. Molina Zhang MANUAL DIFF REQ NO Normal [facility] Comment on above: Performed By: #### C MP #### [facility] [address] [place] [address] Dr. Molina Zhang MCH (RBC) [Entitic mass] 27.9 pg Normal 26.7-34.0 [facility] Comment on above: Performed By: #### C MP #### [facility] [address] [place] [address] Dr. Molina Zhang MCHC (RBC) [Mass/Vol] 33.6 g/dL Normal 29.9-35.2 [facility] Comment on above: Performed By: #### C MP #### [facility] [address] [place] [address] Dr. Molina Zhang MCV (RBC) [Entitic vol] 83.2 fL Normal 81.0-99.0 [facility] Comment on above: Performed By: #### C MP #### [facility] [address] [place] [address] Dr. Molina Zhang MONO # 0.7 103/ul Normal 0.3-0.8 [facility] Comment on above: Performed By: #### C MP #### [facility] [address] [place] [address] Dr. Molina Zhang Monocytes/100 WBC (Bld) 6.8 % Normal 1.7-12.0 [facility] Comment on above: Performed By: #### C MP #### [facility] [address] [place] [address] Dr. Molina Zhang NEUT # 7.3 103/ul Critically high 1.4-6.5 [facility] Comment on above: Performed By: #### C MP #### [facility] [address] [place] [address] Dr. Molina Zhang Neutrophils/100 WBC (Bld) 75.0 % Normal 43.0-75.0 [facility] Comment on above: Performed By: #### C MP #### [facility] [address] [place] [address] Dr. Molina Zhang Platelet mean volume (Bld) [Entitic vol] 9.3 fL Critically low 9.5-13.5 [facility] Comment on above: Performed By: #### C MP #### [facility] [address] [place] [address] Dr. Molina Zhang PLT 253 103/ul Normal 150-450 [facility] Comment on above: Performed By: #### C MP #### [facility] [address] [place] [address] Dr. Molina Zhang RBC 2.97 106/ul Critically low 4.20-5.40 [facility] Comment on above: Performed By: #### C MP #### [facility] [address] [place] [address] Dr. Molina Zhang WBC 9.8 103/ul Normal 4.0-11.0 [facility] Comment on above: Performed By: #### C MP #### [facility] [address] [place] [address] Dr. Molina Zhang CBC AUTO DIFFon 06-04-2022 BASO # 0.0 103/ul Normal 0.0-0.1 [facility] Comment on above: Performed By: #### B LDCX2 #### [facility] [address] [place] [address] Dr. Molina Zhang Basophils/100 WBC (Bld) 0.4 % Normal 0.2-2.0 [facility] Comment on above: Performed By: #### B LDCX2 #### [facility] [address] [place] [address] Dr. Molina Zhang EO # 0.1 103/ul Normal 0.0-0.7 [facility] Comment on above: Performed By: #### B LDCX2 #### [facility] [address] [place] [address] Dr. Molina Zhang Eosinophils/100 WBC (Bld) 0.9 % Normal 0.9-7.0 [facility] Comment on above: Performed By: #### B LDCX2 #### [facility] [address] [place] [address] Dr. Molina Zhang Erythrocyte distribution width (RBC) [Ratio] 13.8 % Normal 11.0-15.0 [facility] Comment on above: Performed By: #### B LDCX2 #### [facility] [address] [place] [address] Dr. Molina Zhang Hematocrit (Bld) [Volume fraction] 30.9 % Critically low 36.0-48.0 [facility] Comment on above: Performed By: #### B LDCX2 #### [facility] [address] [place] [address] Dr. Molina Zhang Hemoglobin (Bld) [Mass/Vol] 10.5 g/dL Critically low 12.0-16.0 [facility] Comment on above: Performed By: #### B LDCX2 #### [facility] [address] [place] [address] Dr. Molina Zhang IG # 0.08 10e3/ul Critically high 0.00-0.03 [facility] Comment on above: Performed By: #### B LDCX2 #### [facility] [address] [place] [address] Dr. Molina Zhang IG % 0.7 % Critically high 0.0-0.5 [facility] Comment on above: Performed By: #### B LDCX2 #### [facility] [address] [address] [address] Molina Zhang LYMPH # 2.0 103/ul Normal 1.2-3.8 [facility] Comment on above: Performed By: #### B LDCX2 #### [facility] [address] [address] [address] Molina Zhang Lymphocytes/100 WBC (Bld) 17.7 % Critically low 20.5-60.0 [facility] Comment on above: Performed By: #### B LDCX2 #### [facility] [address] [address] [address] Molina Zhang MANUAL DIFF REQ NO Normal [facility] Comment on above: Performed By: #### B LDCX2 #### [facility] [address] [place] [address] Dr. Molina Zhang MCH (RBC) [Entitic mass] 28.0 pg Normal 26.7-34.0 [facility] Comment on above: Performed By: #### B LDCX2 #### [facility] [address] [place] [address] Dr. Molina Zhang MCHC (RBC) [Mass/Vol] 34.0 g/dL Normal 29.9-35.2 [facility] Comment on above: Performed By: #### B LDCX2 #### [facility] [address] [place] [address] Dr. Molina Zhang MCV (RBC) [Entitic vol] 82.4 fL Normal 81.0-99.0 [facility] Comment on above: Performed By: #### B LDCX2 #### [facility] [address] [place] [address] Dr. Molina Zhang MONO # 0.7 103/ul Normal 0.3-0.8 [facility] Comment on above: Performed By: #### B LDCX2 #### [facility] [address] [place] [address] Dr. Molina Zhang Monocytes/100 WBC (Bld) 6.4 % Normal 1.7-12.0 [facility] Comment on above: Performed By: #### B LDCX2 #### [facility] [address] [address] [address] Molina Zhang NEUT # 8.3 103/ul Critically high 1.4-6.5 [facility] Comment on above: Performed By: #### B LDCX2 #### [facility] [address] [place] [address] Dr. Molina Zhang Neutrophils/100 WBC (Bld) 73.9 % Normal 43.0-75.0 [facility] Comment on above: Performed By: #### B LDCX2 #### [facility] [address] [place] [address] Dr. Molina Zhang Platelet mean volume (Bld) [Entitic vol] 10.4 fL Normal 9.5-13.5 [facility] Comment on above: Performed By: #### B LDCX2 #### [facility] [address] [place] [address] Dr. Molina Zhang PLT 351 103/ul Normal 150-450 [facility] Comment on above: Performed By: #### B LDCX2 #### [facility] [address] [place] [address] Dr. Molina Zhang RBC 3.75 106/ul Critically low 4.20-5.40 [facility] Comment on above: Performed By: #### B LDCX2 #### [facility] [address] [place] [address] Dr. Molina Zhang WBC 11.2 103/ul Critically high 4.0-11.0 [facility] Comment on above: Performed By: #### B LDCX2 #### [facility] [address] [place] [address] Dr. Molina Zhang DRUG SCREEN RAPID (URINE)on 06-04-2022 AMP Negative Normal NEGATIVE [facility] Comment on above: Performed By: #### 4 [id number] #### [facility] [address] [place] [address] Dr. Molina Zhang BAR Negative Normal NEGATIVE [facility] Comment on above: Performed By: #### 4 [id number] #### [facility] [address] [place] [address] Dr. Molina Zhang BUP Negative Normal NEGATIVE [facility] Comment on above: Performed By: #### 4 [id number] #### [facility] [address] [place] [address] Dr. Molina Zhang BZO Negative Normal NEGATIVE [facility] Comment on above: Performed By: #### 4 [id number] #### [facility] [address] [place] [address] Dr. Molina Zhang MARCIO Negative Normal NEGATIVE [facility] Comment on above: Performed By: #### 4 [id number] #### [facility] [address] [place] [address] Dr. Molina Zhang CUT-OFFS SEE BELOW Normal [facility] Comment on above: Result Comment: AMP (Amphetamine): 500ng/mL, BAR (Barbituates): 200 ng/mL, BZO (Benzodiazepines): 150 ng/mL, BUP (Buprenorphine): 10 ng/mL, MARCIO (Cocaine): 150 ng/mL, mAMP (Methamphetamine): 500 ng/mL, MTD (Methadone): 200 ng/mL, OPI (Opiates): 100 ng/mL, OXY (Oxycodone): 100 ng/mL, PCP (Phencyclidine): 25 ng/mL, PPX (Propoxyphene): 300 ng/mL, THC (Cannabinoids): 50 ng/mL, TCA (Trycyclic Antidepressants): 300 ng/mL Performed By: #### 4 [id number] #### [facility] [address] [place] [address] Dr. Mloina Zhang DRUG CUT HEADER DRUG CLASS TEST SYSTEM CUT-OFF CONCENTRATIONS ARE FOLLOWS: Normal [facility] Comment on above: Performed By: #### 4 [id number] #### [facility] [address] [place] [address] Dr. Molina Zhang mAMP Negative Normal NEGATIVE [facility] Comment on above: Performed By: #### 4 [id number] #### [facility] [address] [place] [address] Dr. Molina Zhang MTD Negative Normal NEGATIVE [facility] Comment on above: Performed By: #### 4 [id number] #### [facility] [address] [place] [address] Dr. Molina Zhang OPI Negative Normal NEGATIVE [facility] Comment on above: Performed By: #### 4 [id number] #### [facility] [address] [place] [address] Dr. Molina Zhang OXY Negative Normal NEGATIVE [facility] Comment on above: Performed By: #### 4 [id number] #### [facility] [address] [place] [address] Dr. Molina Zhang PCP Negative Normal NEGATIVE [facility] Comment on above: Performed By: #### 4 [id number] #### [facility] [address] [place] [address] Dr. Molina Zhang PPX Negative Normal NEGATIVE [facility] Comment on above: Performed By: #### 4 [id number] #### [facility] [address] [place] [address] Dr. Molina Zhang TCA Negative Normal NEGATIVE [facility] Comment on above: Performed By: #### 4 [id number] #### [facility] [address] [place] [address] Dr. Molina Zhang THC Negative Normal NEGATIVE [facility] Comment on above: Performed By: #### 4 [id number] #### [facility] [address] [place] [address] Dr. Molina Zhang TYPE AND SCREENon 06-04-2022 TYPE AND SCREEN Negative Normal [facility] Comment on above: Performed By: #### C MP #### [facility] [address] [place] [address] Dr. Molina Zhang UA (CLEAN/CATCH) RECYCLE WORKER/MICRO I F IND.on 06-04-2022 Bilirubin Ql (U) Negative Normal NEGATIVE [facility] Comment on above: Performed By: #### C BC #### [facility] [address] [place] [address] Dr. Molina Zhang Clarity (U) CLEAR Normal CLEAR [facility] Comment on above: Performed By: #### C BC #### [facility] [address] [place] [address] Dr. Molina Zhang Color (U) YELLOW Normal YELLOW [facility] Comment on above: Performed By: #### C BC #### [facility] [address] [address] [address] Molina Zhang Glucose Ql (U) Negative Normal NEGATIVE [facility] Comment on above: Performed By: #### C BC #### [facility] [address] [place] [address] Dr. Molina Zhang Hemoglobin Ql (U) Negative Normal NEGATIVE [facility] Comment on above: Performed By: #### C BC #### [facility] [address] [address] [address] Molina Zhang Ketones Ql (U) Negative Normal NEGATIVE [facility] Comment on above: Performed By: #### C BC #### [facility] [address] [place] [address] Dr. Molina Zhang LEUKOCYTES Negative Normal NEGATIVE [facility] Comment on above: Performed By: #### C BC #### [facility] [address] [place] [address] Dr. Molina Zhang Nitrite Ql (U) Negative Normal NEGATIVE [facility] Comment on above: Performed By: #### C BC #### [facility] [address] [place] [address] Dr. Molina Zhang pH (U) 6.0 [pH] Normal 5-9 [facility] Comment on above: Performed By: #### C BC #### [facility] [address] [place] [address] Dr. Molina Zhang SPEC GRAVITY >=1.030 Abnormal 1.005-<=1.02 5 [facility] Comment on above: Performed By: #### C BC #### [facility] [address] [place] [address] Dr. Molina Zhang UA PROTEIN TRACE Normal NEGATIVE/ TRACE [facility] Comment on above: Performed By: #### C BC #### [facility] [address] [place] [address] Dr. Molina Zhang UR MICRO IND NOT INDICATED Normal [facility] Comment on above: Performed By: #### C BC #### [facility] [address], [place] [address] Dr. Molina Zhang Urobilinogen Qn (U) 0.2 {Jaelyn'U}/dL Normal 0.2 - 1. 0 [facility] Comment on above: Performed By: #### C BC #### [facility] [address], [place] [address] Dr. Molina Zhang Covid-19 PCR ([facility])on 05-11 SARS-CoV-2 (COVID-19) RNA ZACKARY+probe Ql (Unsp spec) Not detected Normal NOT DETECTED [facility] Comment on above: Result Comment: This test is not yet approved or cleared by the [place] FDA. When there are no FDA-approved or cleared tests available, and other criteria are met, FDA can make tests available under an emergency access mechanism called an Emergency Use Authorization (EUA). The EUA for this test is supported by the [employer] of Health and Human Service's (HHS's) declaration [...] SARS-CoV-2. Performed By: #### C MP #### [facility] [address], [place] [address] Dr. Molina Zhang GROUP B STREP CULTUREon [...] F Tetracycline >=16 R F Normal [facility] Comment on above: Performed By: #### G BSCX #### [facility] [address] [address] [address] Molina Zhang US PREG GROWTHon 04-23-2022 [...] MUNDO BECKER Date: 2022-04-23 16:13 Normal [facility] US PREG GROWTHon 03-20-2022 US PREG GROWTH [...] KENZIE AVILES Date: 2022-03-20 16:41 Normal [facility] GLUCOSE - 1HRon 03-15-2022 Glucose [Mass/Vol] 137 mg/dL Critically high 74-106 [facility] Comment on above: Performed By: #### B LDCX2 #### [facility] [address] [place] [address] Dr. Molina Zhang HEMOGRAM AND PLATELon 2021 Hematocrit (Bld) [Volume fraction] 32.5 % Critically low 36.0-48.0 [facility] Comment on above: Performed By: #### 4 [id number] #### [facility] [address] [place] [address] Dr. Molina Zhang Hemoglobin (Bld) [Mass/Vol] 11.2 g/dL Critically low 12.0-16.0 [facility] Comment on above: Performed By: #### 4 [id number] #### [facility] [address] [place] [address] Dr. Molina Zhang MCH (RBC) [Entitic mass] 29.1 pg Normal 26.7-34.0 [facility] Comment on above: Performed By: #### 4 [id number] #### [facility] [address] [place] [address] Dr. Molina Zhang MCHC (RBC) [Mass/Vol] 34.5 g/dL Normal 29.9-35.2 [facility] Comment on above: Performed By: #### 4 [id number] #### [facility] [address] [place] [address] Dr. Molina Zhang MCV (RBC) [Entitic vol] 84.4 fL Normal 81.0-99.0 [facility] Comment on above: Performed By: #### 4 [id number] #### [facility] [address] [address] [address] Molina Zhang PLT 294 103/ul Normal 150-450 [facility] Comment on above: Performed By: #### 4 [id number] #### [facility] [address] [address] [address] Molina Zhang RBC 3.85 106/ul Critically low 4.20-5.40 [facility] Comment on above: Performed By: #### 4 [id number] #### [facility] [address] [address] [address] Molina Zhang WBC 9.9 103/ul Normal 4.0-11.0 [facility] Comment on above: Performed By: #### 4 [id number] #### [facility] [address] [address] [address] Molina Zhang AFP MATERNAL FOR SPINA BIFID Aon 01-22-2022 AFP MoM 2.20 Normal [facility] Comment on above: Performed By: #### 4 [id number] #### [facility] [address] [address] [address] Molina Zhang AFP Value 88.7 ng/mL Normal [facility] Comment on above: Performed By: #### 4 [id number] #### [facility] [address] [address] [address] oMlina Zhang AFP, Serum for Spina Bifida Report Normal [facility] Comment on above: Performed By: #### 4 [id number] #### [facility] [address] [address] [address] Molina Zhang Comment Comment Normal [facility] Comment on above: Result Comment: Jada Chacon, Ph.D., [facility] Director . References: Available Upon Request. . Multiples Of Median Cutoffs For AFP Elevations Wild 2.5 Black 2.8 IDD 2.0 Twins 4.5 Abbreviation Definitions IDD - Insulin Dep Diabetes OSBR - Open Spina Bifida Risk . For further inquiries contact [facility] at [phone]. Performed By: #### 4 [id number] #### [facility] [address] [address] [address] Molina Charles Age Collection Date 19.7 weeks Normal [facility] Comment on above: Performed By: #### 4 [id number] #### [facility] [address] [address] [address] Molina Zhang Gestat, Age Based on YFN Normal [facility] Comment on above: Result Comment: 09/2021 Recalculations are not recommended when gestational dating by LMP and ultrasound are within 10 days. Performed By: #### 4 [id number] #### [facility] [address] [place] [address] Dr. Molina Zhang Insulin Dep Diabetes No Normal [facility] Comment on above: Performed By: #### 4 [id number] #### [facility] [address] [place] [address] Dr. Molina Zhang Interpretation Comment Normal [facility] Comment on above: Result Comment: Inte [...] Customer Services to discuss available options. The [employer] recommends amniocentesis be offered to women age 35 and older. Performed By: #### 4 [id number] #### [facility] [address] [place] [address] Dr. Molina Zhang [age] Normal [facility] Comment on above: Performed By: #### 4 [id number] #### [facility] [address] [place] [address] Dr. Molina Zhang Multiple Gestation No Normal [facility] Comment on above: Performed By: #### 4 [id number] #### [facility] [address] [place] [address] Dr. Molina Zhang OSBR Risk 1 [place] 523 Normal [facility] Comment on above: Performed By: #### [id number] #### [facility] [address] [place] [address] Dr. Molina Zhang PDF . Normal [facility] Comment on above: Performed By: #### [id number] #### [facility] [address] [place] [address] Dr. Molina Zhang Race Normal [facility] Comment on above: Performed By: #### [id number] #### [facility] [address] [place] [address] Dr. Molina Zhang Test Results: Negative Normal [facility] Comment on above: Performed By: #### 4 [id number] #### [facility] [address] [place] [address] Dr. Molina Zhang CHLAMYDIA/GONOCOCCUS ZACKARY ( AB/URINE/PAPon 12-30-2021 Chlamydia trachomatis, ZACKARY Negative Normal Negative [facility] Comment on above: Performed By: #### C BC #### [facility] [address] [place] [address] Dr. Molina Zhang Neisseria gonorrhoeae, ZACKARY Negative Normal Negative [facility] Comment on above: Performed By: #### C BC #### [facility] [address] [place] [address] Dr. Molina Zhang VAGINITIS/VAGINOSIS DNA PROB Facundo 12-27-2021 Angela species Negative Normal Negative [facility] Comment on above: Performed By: #### C MP #### [facility] [address] [place] [address] Dr. Molina Zhang Gardnerella vaginalis Negative Normal Negative [facility] Comment on above: Performed By: #### C MP #### [facility] [address] [place] [address] Dr. Molina Zhang Trichomonas vaginalis Negative Normal Negative [facility] Comment on above: Performed By: #### C MP #### [facility] [address] [place] [address] Dr. Molina Zhang HEP B SURFACE ANTIGEN SCREEN on 11-24-2021 HBsAg Screen Negative Normal Negative [facility] Comment on above: Performed By: #### [id number] #### [facility] [address] [address] [address] Molina Zhang HEPATITIS C VIRUS AB W/ REFL EX QUANTon 11-24-2021 HCV AB 0.1 s/co ratio Normal 0.0-0.9 [facility] Comment on above: Performed By: #### C MP #### [facility] [address] [place] [address] Dr. Molina Zhang Interpretation: Comment Normal [facility] Comment on above: Result Comment: Nega tive Not infected with HCV, unless recent infection is suspected or other evidence exists to indicate HCV infection. Performed By: #### C MP #### [facility] [address] [place] [address] Dr. Molina Zhang HIV 1 AND 2 WITH REFLEXon HIV Screen 4th Generation wRfx Non-Reactive Normal Non Reactive [facility] Comment on above: Result Comment: HIV Negative HIV-1/HIV-2 antibodies and HIV-1 p24 antigen were NOT detected. There is no laboratory evidence of HIV infection. Performed By: #### C BC #### [facility] [address] [place] [address] Dr. Molina Zhang RPR QUANTon 11-24-2021 Rapid Plasma Reagin, Quant Non-Reactive Normal NonRea<1:1 [facility] Comment on above: Result Comment: Plea se Note: This test does not meet current guidelines for screening and diagnosis of syphilis. This test is intended for following treatment response in patients being treated for syphilis infection. To screen for syphilis infection, a reflex cascade that includes both RPR and a treponema-specific assay should be utilized, such as Treponema pallidum (Syphilis) Screening Gu[place]illa (599929) or Rapid Plasma Reagin (RPR) Test With Reflex to Quantitative RPR and Confirmatory Treponema pallidum Antibodies (248036). Performed By: #### B [id number] #### [facility] [address] [place] [address] Dr. Molina Zhang RUBELLA AB IGGon 11-24-2021 Rubella Antibodies, IgG 2.76 index Normal Immune >0.99 [facility] Comment on above: Result Comment: Non- immune <0.90 Equivocal 0.90 - 0.99 Immune >0.99 Performed By: #### C BC #### [facility] [address] [place] [address] Dr. Molina Zhang CBC AUTO DIFFon 11-23-2021 BASO # 0.0 103/ul Normal 0.0-0.1 [facility] Comment on above: Performed By: #### C BC #### [facility] [address] [place] [address] Dr. Molina Zhang Basophils/100 WBC (Bld) 0.2 % Normal 0.2-2.0 [facility] Comment on above: Performed By: #### C BC #### [facility] [address] [place] [address] Dr. Molina Zhang EO # 0.0 103/ul Normal 0.0-0.7 [facility] Comment on above: Performed By: #### C BC #### [facility] [address] [place] [address] Dr. Molina Zhang Eosinophils/100 WBC (Bld) 0.5 % Critically low 0.9-7.0 [facility] Comment on above: Performed By: #### C BC #### [facility] [address] [place] [address] Dr. Molina Zhang Erythrocyte distribution width (RBC) [Ratio] 14.2 % Normal 11.0-15.0 [facility] Comment on above: Performed By: #### C BC #### [facility] [address] [place] [address] Dr. Molina Zhang Hematocrit (Bld) [Volume fraction] 38.9 % Normal 36.0-48.0 [facility] Comment on above: Performed By: #### C BC #### [facility] [address] [place] [address] Dr. Molina Zhang Hemoglobin (Bld) [Mass/Vol] 13.1 g/dL Normal 12.0-16.0 [facility] Comment on above: Performed By: #### C BC #### [facility] [address] [place] [address] Dr. Molina Zhang IG # 0.03 10e3/ul Normal 0.00-0.03 [facility] Comment on above: Performed By: #### C BC #### [facility] [address] [place] [address] Dr. Molina Zhang IG % 0.4 % Normal 0.0-0.5 [facility] Comment on above: Performed By: #### C BC #### [facility] [address] [place] [address] Dr. Molina Zhang LYMPH # 1.2 103/ul Normal 1.2-3.8 [facility] Comment on above: Performed By: #### C BC #### [facility] [address] [place] [address] Dr. Molina Zhang Lymphocytes/100 WBC (Bld) 14.8 % Critically low 20.5-60.0 [facility] Comment on above: Performed By: #### C BC #### [facility] [address] [place] [address] Dr. Molina Zhang MANUAL DIFF REQ NO Normal [facility] Comment on above: Performed By: #### C BC #### [facility] [address] [place] [address] Dr. Molina Zhang MCH (RBC) [Entitic mass] 27.2 pg Normal 26.7-34.0 [facility] Comment on above: Performed By: #### C BC #### [facility] [address] [place] [address] Dr. Molina Zhang MCHC (RBC) [Mass/Vol] 33.7 g/dL Normal 29.9-35.2 [facility] Comment on above: Performed By: #### C BC #### [facility] [address] [place] [address] Dr. Molina Zhang MCV (RBC) [Entitic vol] 80.7 fL Critically low 81.0-99.0 [facility] Comment on above: Performed By: #### C BC #### [facility] [address] [place] [address] Dr. Molina Zhang MONO # 0.4 103/ul Normal 0.3-0.8 [facility] Comment on above: Performed By: #### C BC #### [facility] [address] [address] [address] Molina Zhang Monocytes/100 WBC (Bld) 4.8 % Normal 1.7-12.0 [facility] Comment on above: Performed By: #### C BC #### [facility] [address] [address] [address] Molina Zhang NEUT # 6.7 103/ul Critically high 1.4-6.5 [facility] Comment on above: Performed By: #### C BC #### [facility] [address] [place] [address] Dr. Molina Zhang Neutrophils/100 WBC (Bld) 79.3 % Critically high 43.0-75.0 [facility] Comment on above: Performed By: #### C BC #### [facility] [address] [place] [address] Dr. Molina Zhang Platelet mean volume (Bld) [Entitic vol] 9.1 fL Critically low 9.5-13.5 [facility] Comment on above: Performed By: #### C BC #### [facility] [address] [place] [address] Dr. Molina Zhang PLT 346 103/ul Normal 150-450 [facility] Comment on above: Performed By: #### C BC #### [facility] [address] [place] [address] Dr. Molina Zhang RBC 4.82 106/ul Normal 4.20-5.40 [facility] Comment on above: Performed By: #### C BC #### [facility] [address] [place] [address] Dr. Molina Zhang WBC 8.4 103/ul Normal 4.0-11.0 [facility] Comment on above: Performed By: #### C BC #### [facility] [address] [place] [address] Dr. Molina Zhang CULTURE URINEon 11-23-2021 CULTURE URINE Culture Observations: LIGHT GROWTH OF MIXED GENITAL LAWANDA. NO POTENTIAL PATHOGENS SEEN. Normal [facility] Comment on above: Performed By: #### U RCX #### [facility] [address] [address] [address] Molina Zhang GLYCOHEMOGLOBIN A1Con 2021 ADA RECOMMENDATION ADA THERAPEUTIC TARGET 6.0 - 7.0 ACTION SUGGESTED > 7.0 Normal [facility] Comment on above: Performed By: #### [id number] #### [facility] [address] [address] [address] Molina Zhang Glucose [Mass/Vol] 85 mg/dL Normal [facility] Comment on above: Performed By: #### 4 [id number] #### [facility] [address] [place] [address] Dr. Molina Zhang HbA1c (Bld) [Mass fraction] 4.6 % Normal <=6.0 [facility] Comment on above: Performed By: #### [id number] #### [facility] [address] [place] [address] Dr. Molina Zhang WILVER BOX TEST PT SEND OUTo n 11-23-2021 SENT TO REF LAB 11/23/2021 Normal [facility] Comment on above: Performed By: #### C BC #### [facility] [address] [place] [address] Dr. Molina Zhang TYPE AND SCREENon 11-23-2021 TYPE AND SCREEN Negative Normal [facility] Comment on above: Performed By: #### T NS #### [facility] [address] [place] [address] Dr. Molina Zhang US PREG TVon 11-07-2021 [...] MUNDO BECKER Date: 2021-11-07 13:51 Normal [facility] PREG QUANT HCGon 10-06-2021 HCG QUANT 170 mIU/mL Normal [facility] Comment on above: Performed By: #### C MP #### [facility] [address] [address] [address] Molina Zhang HCG RANGE SEE BELOW Normal [facility] Comment on above: Result Comment: 5-50 0-1 WEEK 40-300 1-2 WEEKS 100-1,000 2-3 WEEKS 500-6,000 3-4 WEEKS 5,000-200,000 1-2 MONTHS 10,000-100,000 2-3 MONTHS 3,000-50,000 2ND TRIMESTER 1,000-50,000 3RD TRIMESTER Performed By: #### C MP #### [facility] [address] [address] [address] Molina Zhang PREG QUANT HCGon 10-03-2021 HCG QUANT 59 mIU/mL Normal [facility] Comment on above: Performed By: #### C BC #### [facility] [address] [address] [address] Molina Zhang HCG RANGE SEE BELOW Normal [facility] Comment on above: Result Comment: 5-50 0-1 WEEK 40-300 1-2 WEEKS 100-1,000 2-3 WEEKS 500-6,000 3-4 WEEKS 5,000-200,000 1-2 MONTHS 10,000-100,000 2-3 MONTHS 3,000-50,000 2ND TRIMESTER 1,000-50,000 3RD TRIMESTER Performed By: #### C BC #### [facility] [address] [address] [address] Molina Zhang PREG QUANT HCGon 10-01-2021 HCG QUANT 28 mIU/mL Normal [facility] Comment on above: Performed By: #### C BC #### [facility] [address] [address] [address] Molina Zhang HCG RANGE SEE BELOW Normal [facility] Comment on above: Result Comment: 5-50 0-1 WEEK 40-300 1-2 WEEKS 100-1,000 2-3 WEEKS 500-6,000 3-4 WEEKS 5,000-200,000 1-2 MONTHS 10,000-100,000 2-3 MONTHS 3,000-50,000 2ND TRIMESTER 1,000-50,000 3RD TRIMESTER Performed By: #### C BC #### [facility] [address] [address] [address] Molina Zhang PREG QUANT HCGon 09-29-2021 HCG QUANT 22 mIU/mL Normal [facility] Comment on above: Performed By: #### P REGQNT #### [facility] [address] [address] [address] Molina Zhang HCG RANGE SEE BELOW Normal [facility] Comment on above: Result Comment: 5-50 0-1 WEEK 40-300 1-2 WEEKS 100-1,000 2-3 WEEKS 500-6,000 3-4 WEEKS 5,000-200,000 1-2 MONTHS 10,000-100,000 2-3 MONTHS 3,000-50,000 2ND TRIMESTER 1,000-50,000 3RD TRIMESTER Performed By: #### P REGQNT #### [facility] [address] [address] [address] Molina Zhang Covid-19 PCR ([facility])on SARS-CoV-2 (COVID-19) RNA ZACKARY+probe Ql (Unsp spec) Not detected Normal NOT DETECTED [facility] Comment on above: Result Comment: This test is not yet approved or cleared by the [place] FDA. When there are no FDA-approved or cleared tests available, and other criteria are met, FDA can make tests available under an emergency access mechanism called an Emergency Use Authorization (EUA). The EUA for this test is supported by the [employer] Operator of Health and Human Service's (HHS's) declaration [...] consistent with SARS-CoV-2. Performed By: #### 4 [id number] #### [facility] [address] [place] [address] Dr. Molina Zhang PAP ACOG PANEL 2: 21 to 29on 09-05-2021 . . Normal [facility] Comment on above: Performed By: #### 4 [id number] #### [facility] [address] [place] [address] Dr. Molina Zhang Age Gdln ACOG Testing - [facility] Comment on above: Performed By: #### 4 [id number] #### [facility] [address] [place] [address] Dr. Molina Zhang DIAGNOSIS: Comment [facility] Comment on above: Result Comment: NEGA TIVE FOR INTRAEPITHELIAL LESION OR MALIGNANCY. Performed By: #### 4 [id number] #### [facility] [address] [place] [address] Dr. Molina hZang Methodology: Comment [facility] Comment on above: Result Comment: This liquid based ThinPrep(R) pap test was screened with the use of an image guided system. Performed By: #### 4 [id number] #### [facility] [address] [place] [address] Dr. Molina Zhang Note: Comment [facility] Comment on above: Result Comment: The Pap smear is a screening test designed to aid in the detection of premalignant and malignant conditions of the uterine cervix. It is not a diagnostic procedure and should not be used as the sole means of detecting cervical cancer. Both false-positive and false-negative reports do occur. . Performed By: #### [id number] #### [facility] [address] [place] [address] Dr. Molina Zhang Performed by: Comment Normal [facility] Comment on above: Result Comment: Madhuri Jung Label Paster (ASCP) Performed By: #### 4 [id number] #### [facility] [address] [place] [address] Dr. Molina Zhang Reflex Criteria: Comment Normal [facility] Comment on above: Result Comment: The HPV DNA reflex criteria were not met with this specimen result therefore, no HPV testing was performed. . Performed By: #### 4 [id number] #### [facility] [address] [place] [address] Dr. Molina Zhang Specimen adequacy: Comment Normal [facility] Comment on above: Result Comment: Sati sfactory for evaluation. No endocervical component is identified. Performed By: #### 4 [id number] #### [facility] [address] [address] [address] Molina Zhang CBC AUTO DIFFon 08-18-2021 BASO # 0.1 103/ul Normal 0.0-0.1 [facility] Comment on above: Performed By: #### C MP #### [facility] [address] [place] [address] Dr. Molina Zhang Basophils/100 WBC (Bld) 0.6 % Normal 0.2-2.0 [facility] Comment on above: Performed By: #### C MP #### [facility] [address] [address] [address] Molina Zhang EO # 0.2 103/ul Normal 0.0-0.7 [facility] Comment on above: Performed By: #### C MP #### [facility] [address] [place] [address] Dr. Molina Zhang Eosinophils/100 WBC (Bld) 1.7 % Normal 0.9-7.0 [facility] Comment on above: Performed By: #### C MP #### [facility] [address] [place] [address] Dr. Molina Zhang Erythrocyte distribution width (RBC) [Ratio] 13.8 % Normal 11.0-15.0 [facility] Comment on above: Performed By: #### C MP #### [facility] [address] [place] [address] Dr. Molina Zhang Hematocrit (Bld) [Volume fraction] 36.9 % Normal 36.0-48.0 [facility] Comment on above: Performed By: #### C MP #### [facility] [address] [place] [address] Dr. Molina Zhang Hemoglobin (Bld) [Mass/Vol] 12.3 g/dL Normal 12.0-16.0 [facility] Comment on above: Performed By: #### C MP #### [facility] [address] [place] [address] Dr. Molina Zhang IG # 0.02 10e3/ul Normal 0.00-0.03 [facility] Comment on above: Performed By: #### C MP #### [facility] [address] [place] [address] Dr. Molina Zhang IG % 0.2 % Normal 0.0-0.5 [facility] Comment on above: Performed By: #### C MP #### [facility] [address] [place] [address] Dr. Molina Zhang LYMPH # 2.3 103/ul Normal 1.2-3.8 [facility] Comment on above: Performed By: #### C MP #### [facility] [address] [place] [address] Dr. Molina Zhang Lymphocytes/100 WBC (Bld) 25.1 % Normal 20.5-60.0 [facility] Comment on above: Performed By: #### C MP #### [facility] [address] [place] [address] Dr. Molina Zhang MANUAL DIFF REQ NO Normal [facility] Comment on above: Performed By: #### C MP #### [facility] [address] [place] [address] Dr. Molina Zhang MCH (RBC) [Entitic mass] 26.7 pg Normal 26.7-34.0 [facility] Comment on above: Performed By: #### C MP #### [facility] [address] [place] [address] Dr. Molina Zhang MCHC (RBC) [Mass/Vol] 33.3 g/dL Normal 29.9-35.2 [facility] Comment on above: Performed By: #### C MP #### [facility] [address] [address] [address] Molina Zhang MCV (RBC) [Entitic vol] 80.2 fL Critically low 81.0-99.0 [facility] Comment on above: Performed By: #### C MP #### [facility] [address] [address] [address] Molina Zhang MONO # 0.7 103/ul Normal 0.3-0.8 [facility] Comment on above: Performed By: #### C MP #### [facility] [address] [address] [address] Molina Zhang Monocytes/100 WBC (Bld) 7.9 % Normal 1.7-12.0 [facility] Comment on above: Performed By: #### C MP #### [facility] [address] [place] [address] Dr. Molina Zhang NEUT # 6.0 103/ul Normal 1.4-6.5 [facility] Comment on above: Performed By: #### C MP #### [facility] [address] [place] [address] Dr. Molina Zhang Neutrophils/100 WBC (Bld) 64.5 % Normal 43.0-75.0 [facility] Comment on above: Performed By: #### C MP #### [facility] [address] [place] [address] Dr. Molina Zhang Platelet mean volume (Bld) [Entitic vol] 9.0 fL Critically low 9.5-13.5 [facility] Comment on above: Performed By: #### C MP #### [facility] [address] [place] [address] Dr. Molina Zhang PLT 368 103/ul Normal 150-450 [facility] Comment on above: Performed By: #### C MP #### [facility] [address] [place] [address] Dr. Molina Zhang RBC 4.60 106/ul Normal 4.20-5.40 [facility] Comment on above: Performed By: #### C MP #### [facility] [address] [place] [address] Dr. Molina Zhang WBC 9.3 103/ul Normal 4.0-11.0 [facility] Comment on above: Performed By: #### C MP #### [facility] [address] [place] [address] Dr. Molina Zhang ER URINE PROFILEon 2 Bilirubin Ql (U) Negative Normal NEGATIVE [facility] Comment on above: Performed By: #### [id number] #### [facility] [address] [place] [address] Dr. Molina Zhang Clarity (U) CLEAR Normal CLEAR [facility] Comment on above: Performed By: #### 4 [id number] #### [facility] [address] [place] [address] Dr. Molina Zhang Color (U) LT. YELLOW Normal YELLOW [facility] Comment on above: Performed By: #### 4 [id number] #### [facility] [address] [place] [address] Dr. Molina Zhang ERUPeter A micrscopic examination will be performed if indicated. Normal [facility] Comment on above: Performed By: #### 4 [id number] #### [facility] [address] [place] [address] Dr. Molina Zhang Glucose Ql (U) Negative Normal NEGATIVE [facility] Comment on above: Performed By: #### 4 [id number] #### [facility] [address] [place] [address] Dr. Molina Zhang Hemoglobin Ql (U) Negative Normal NEGATIVE [facility] Comment on above: Performed By: #### 4 [id number] #### [facility] [address] [place] [address] Dr. Molina Zhang Ketones Ql (U) Negative Normal NEGATIVE [facility] Comment on above: Performed By: #### [id number] #### [facility] [address] [place] [address] Dr. Molina Zhang LEUKOCYTES Negative Normal NEGATIVE [facility] Comment on above: Performed By: #### 4 [id number] #### [facility] [address] [place] [address] Dr. Molina Zhang Nitrite Ql (U) Negative Normal NEGATIVE [facility] Comment on above: Performed By: #### 4 [id number] #### [facility] [address] [place] [address] Dr. Molina Zhang pH (U) 6.0 [pH] Normal 5-9 [facility] Comment on above: Performed By: #### 4 [id number] #### [facility] [address] [place] [address] Dr. Molina Zhang SPEC GRAVITY 1.025 Normal 1.005-<=1.02 5 [facility] Comment on above: Performed By: #### 4 [id number] #### [facility] [address] [place] [address] Dr. Molina Zhang UA PROTEIN Negative Normal NEGATIVE/ TRACE [facility] Comment on above: Performed By: #### 4 [id number] #### [facility] [address] [place] [address] Dr. Molina Zhang UR MICRO IND NOT INDICATED Normal [facility] Comment on above: Performed By: #### 4 [id number] #### [facility] [address] [place] [address] Dr. Molina Zhang Urobilinogen Qn (U) 0.2 {Jaelyn'U}/dL Normal 0.2 - 1. 0 [facility] Comment on above: Performed By: #### 4 [id number] #### [facility] [address] [place] [address] Dr. Molina Zhang POINT OF CARE GLUCOSEon Glucose [Mass/Vol] 110 mg/dL Critically high 74-106 [facility] Comment on above: Performed By: #### B LDCX2 #### [facility] [address] [place] [address] Dr. Molina Zhang URon 08-18-2021 , QUAL Negative Normal NEGATIVE [facility] Comment on above: Performed By: #### 4 [id number] #### [facility] [address] [place] [address] Dr. Molina Zhang PROF 14(COMP METB)on 022 Albumin [Mass/Vol] 3.6 g/dL Normal 3.5-5.0 [facility] Comment on above: Performed By: #### C MP #### [facility] [address] [place] [address] Dr. Molina Zhang Albumin/Globulin [Mass ratio] 0.9 {ratio} Normal [facility] Comment on above: Performed By: #### C MP #### [facility] [address] [address] [address] Molina Zhang ALP [Catalytic activity/Vol] 114 U/L Normal 38-126 [facility] Comment on above: Performed By: #### C MP #### [facility] [address] [place] [address] Dr. Molina Zhang ALT [Catalytic activity/Vol] 21 U/L Normal 9-52 [facility] Comment on above: Performed By: #### C MP #### [facility] [address] [place] [address] Dr. Molina Zhang Anion gap [Moles/Vol] 11.2 mmol/L Normal [facility] Comment on above: Performed By: #### C MP #### [facility] [address] [place] [address] Dr. Molina Zhang AST [Catalytic activity/Vol] 13 U/L Critically low 14-36 [facility] Comment on above: Performed By: #### C MP #### [facility] [address] [place] [address] Dr. Molina Zhang Bilirubin [Mass/Vol] 0.3 mg/dL Normal 0.2-1.3 [facility] Comment on above: Performed By: #### C MP #### [facility] [address] [place] [address] Dr. Molina hZang Calcium [Mass/Vol] 9.0 mg/dL Normal 8.4-10.2 [facility] Comment on above: Performed By: #### C MP #### [facility] [address] [place] [address] Dr. Molina Zhang Chloride [Moles/Vol] 103 mmol/L Normal 98-107 [facility] Comment on above: Performed By: #### C MP #### [facility] [address] [address] [address] Molina Zhang CO2 [Moles/Vol] 27.6 mmol/L Normal 22.0-30.0 [facility] Comment on above: Performed By: #### C MP #### [facility] [address] [address] [address] Molina Zhang Creatinine [Mass/Vol] 0.98 mg/dL Normal 0.52-1.04 [facility] Comment on above: Performed By: #### C MP #### [facility] [address] [address] [address] Molina Zhang EGFR-AF DJIBOUTIAN >60 Normal >=60 [facility] Comment on above: Performed By: #### C MP #### [facility] [address] [place] [address] Dr. Molina Zhang EGFR-NON AF DJIBOUTIAN >60 Normal >=60 [facility] Comment on above: Performed By: #### C MP #### [facility] [address] [address] [address] Molina Zhang Globulin (S) [Mass/Vol] 3.9 g/dL Normal [facility] Comment on above: Performed By: #### C MP #### [facility] [address] [place] [address] Dr. Molina Zhang Glucose [Mass/Vol] 85 mg/dL Normal 74-106 [facility] Comment on above: Performed By: #### C MP #### [facility] [address] [address] [address] Molina Zhang Potassium [Moles/Vol] 3.8 mmol/L Normal 3.4-5.0 [facility] Comment on above: Performed By: #### C MP #### [facility] [address] [place] [address] Dr. Molina Zhang Protein [Mass/Vol] 7.5 g/dL Normal 6.1-8.2 [facility] Comment on above: Performed By: #### C MP #### [facility] [address], [place] [address] Dr. Molina Zhang Sodium [Moles/Vol] 138 mmol/L Normal 137-145 [facility] Comment on above: Performed By: #### C MP #### [facility] [address], [place] [address] Dr. Molina Zhang Urea nitrogen [Mass/Vol] 13.0 mg/dL Normal 7.0-17.0 [facility] Comment on above: Performed By: #### C MP #### [facility] [address], [place] [address] Dr. Molina Zhang Urea nitrogen/Creatinine [Mass ratio] 13.3 mg/mg Normal [facility] Comment on above: Performed By: #### C MP #### [facility] [address], [place] [address] Dr. Molina Zhang PAP, THIN PREP WITH IMAGINGo n 12-21-2018 PAP, THIN PREP WITH IMAGING Normal [facility] Comment on above: Result Comment: INTE [...] Pills) ICD-CM DIAGNOSIS CODE(S) Z01.419 Encntr For Accounts Payable Administrator Exam (general) (routine) W/o Abn Findings [facility] [address] [address] CLIA No. [id number] CAP Accreditation No. [id number] Food Safety Officer: Kai Agarwal M.D. [facility] Accession Number: [id number] Performed By: #### P L PAP W/IMAGE #### [address] [place] [address] CT Nucleic-Acid Probe-Endoce rvical Swabon 12-20-2018 CT Nucleic-Acid Probe-Endocervical Swab Negative Normal NEGATIVE [facility] Comment on above: Performed By: #### G C Amp Endocerv, CT Amp Endocerv #### [address] [facility] [place] [address] Age at specimen collection = Normal [facility] Comment on above: Performed By: #### G C Amp Endocerv, CT A[facility]oc[facility] #### [address] [place] [address] Performed By: #### P L PAP W/IMAGE #### [address] [place] [address] GC Nucleic-Acid Probe-Endoce rvical Swabon 12-20-2018 GC Nucleic-Acid Probe-Endocervical Swab Negative Normal NEGATIVE [facility] Comment on above: Performed By: #### G C Amp Endocerv, CT Amp Endocerv #### [address] [facility] [place] [address] Vital Signs Date Time Vital Sign Value Performing Clinician Facility 04-27-2025 14:08-0400 Body mass index (BMI) [Ratio] 46.17 kg/m2 [facility] 04-27-2025 14:08040 Body weight 133.72 kg [facility] 04-27-2025 14:08-0400 Diastolic blood pressure 70 mm[Hg] [facility] 04-27-2025 14:080400 Systolic blood pressure 120 mm[Hg] [facility] 04-04-2025 13:28-0400 Body height 170.2 cm Braden Rosales MD Work Phone: [facility] 04-04-2025 13:28-0400 Body mass index (BMI) [Ratio] 47.46 kg/m2 Braden Rosales MD Work Phone: [facility] 04-04-2025 13:28-0400 Body temperature 97.81 [degF] Braden Rosales MD Work Phone: [facility] 04-04-2025 13:28-0400 Body weight 137.44 kg Braden Rosales MD Work Phone: [facility] 04-04-2025 13:28-0400 Diastolic blood pressure 80 mm[Hg] Braden Rosales MD Work Phone: [facility] 04-04-2025 13:28-0400 Heart rate 103 /min Braden Rosales MD Work Phone: [facility] 04-04-2025 13:28-0400 Respiratory rate 22 /min Braden Rosales MD Work Phone: [facility] 04-04-2025 13:28-0400 SaO2% (BldA) [Mass fraction] 98 % Braden Rosales MD Work Phone: [facility] 04-04-2025 13:28-0400 Systolic blood pressure 132 mm[Hg] Braden Rosales MD Work Phone: [facility] 10-26-2024 13:32-0400 Body height 170.18 cm [facility] 10-26-2024 13:32-0400 Body mass index (BMI) [Ratio] 45.6 kg/m2 [facility] 10-26-2024 13:32-0400 Body temperature 98.8 [degF] [facility] 10-26-2024 13:32-0400 Body weight 131.99 kg [facility] 10-26-2024 13:32-0400 Diastolic blood pressure 82 mm[Hg] [facility] 10-26-2024 13:32-0400 Heart rate 94 /min [facility] 10-26-2024 13:32-0400 Respiratory rate 16 /min [facility] 10-26-2024 13:32-0400 SaO2% (BldA) [Mass fraction] 99 % [facility] 10-26-2024 13:32-0400 Systolic blood pressure 118 mm[Hg] [facility] 06-08-2024 08:57-0400 Body height 167.6 cm Braden Rosales MD Work Phone: [facility] 06-08-2024 08:57-0400 Body mass index (BMI) [Ratio] 46.65 kg/m2 Braden Rosales MD Work Phone: [facility] 06-08-2024 08:57-0400 Body temperature 97.3 [degF] Braden Rosales MD Work Phone: [facility] 06-08-2024 08:57-0400 Body weight 131.09 kg Braden Rosales MD Work Phone: [facility] 06-08-2024 08:57-0400 Diastolic blood pressure 68 mm[Hg] Braden Rosales MD Work Phone: [facility] 06-08-2024 08:57-0400 Heart rate 87 /min Braden Rosales MD Work Phone: [facility] 06-08-2024 08:57-0400 Respiratory rate 22 /min Braden Rosales MD Work Phone: [facility] 06-08-2024 08:57-0400 SaO2% (BldA) [Mass fraction] 97 % Braden Rosales MD Work Phone: [facility] 06-08-2024 08:57-0400 Systolic blood pressure 120 mm[Hg] Braden Rosales MD Work Phone: [facility] 04-08-2024 09:40-0400 Body height 167.6 cm Braden Rosales MD Work Phone: [facility] 04-08-2024 09:40-0400 Body mass index (BMI) [Ratio] 46.16 kg/m2 Braden Rosales MD Work Phone: [facility] 04-08-2024 09:40-0400 Body temperature 97.5 [degF] Braden Rosales MD Work Phone: [facility] 04-08-2024 09:40-0400 Body weight 129.73 kg Braden Rosales MD Work Phone: [facility] 04-08-2024 09:40-0400 Diastolic blood pressure 74 mm[Hg] Braden Rosales MD Work Phone: [facility] 04-08-2024 09:40-0400 Heart rate 88 /min Braden Rosales MD Work Phone: [facility] 04-08-2024 09:40-0400 Respiratory rate 22 /min Braden Rosales MD Work Phone: [facility] 04-08-2024 09:40-0400 SaO2% (BldA) [Mass fraction] 97 % Braden Rosales MD Work Phone: [facility] 04-08-2024 09:40-0400 Systolic blood pressure 120 mm[Hg] Braden Rosales MD Work Phone: [facility] 03-29-2024 09:11-0400 Body mass index (BMI) [Ratio] 46.16 kg/m2 Catarino Clint DO Work Phone: [facility] 03-29-2024 09:11-0400 Body weight 129.73 kg Catarino Clint DO Work Phone: [facility] 03-29-2024 09:11-0400 Diastolic blood pressure 74 mm[Hg] Catarino Clint DO Work Phone: [facility] 03-29-2024 09:11-0400 Systolic blood pressure 118 mm[Hg] Catarino Clint DO Work Phone: [facility] 03-13-2024 10:30-0400 Body height 170.18 cm [facility] 03-13-2024 10:30-0400 Body mass index (BMI) [Ratio] 44.8 kg/m2 [facility] 03-13-2024 10:30-0400 Body temperature 99.6 [degF] [facility] 03-13-2024 10:30-0400 Body weight 129.84 kg [facility] 03-13-2024 10:30-0400 Diastolic blood pressure 81 mm[Hg] [facility] 03-13-2024 10:30-0400 Heart rate 92 /min [facility] 03-13-2024 10:30-0400 Respiratory rate 18 /min [facility] 03-13-2024 10:30-0400 SaO2% (BldA) [Mass fraction] 97 % [facility] 03-13-2024 10:30-0400 Systolic blood pressure 130 mm[Hg] [facility] 06-19-2022 16:05-0500 Body height 170.18 cm Rachael Hernandez Other [employer] [facility] [employer] Other 06-19-2022 16:05-0500 Body mass index (BMI) [Ratio] 42.28 kg/m2 Rachael Hernandez Other [employer] [facility] [employer] Other 06-19-2022 16:05-0500 Body temperature 100.3 [degF] Rachael Hernandez Other [employer] Other 06-19-2022 16:05-0500 Body weight 122.47 kg Rachael Hernandez Other [employer] [facility] [employer] Other 06-19-2022 16:05-0500 Respiratory rate 20 /min Rachael Hernandez Other [employer] Other 06-19-2022 16:05-0500 SaO2% (BldA) [Mass fraction] 98 % Rachael Hernandez Other [employer] Other 01-22-2022 03:06-0400 Body weight 125.[address] CATARINO JARAMILLO [facility] Comment on above: Performed By: #### [id number] #### [facility] [address] [address] [address] Molina Zhang Encounters Encounter Date Encounter Type Care Provider Facility Start: 04-27-2025 End: 04-27-2025 Office outpatient visit 5 minutes Clint Nurse [facility] Comment on above: GA: 8w4d Start: 04-27-2025 End: 04-27-2025 ambulatory BRADEN ROSALES Not Available Start: 04-04-2025 End: 04-04-2025 Bamboo flowsheet Braden Rosales MD Work Phone: [facility] Start: 04-04-2025 End: 04-04-2025 Bamboo flowsheet Braden Rosales MD Work Phone: [facility] Start: 04-04-2025 End: 04-04-2025 Office outpatient visit 25 minutes Braden Rosales MD Work Phone: [facility] Comment on above: Major depressive dis order, recurrent episode, mild (Primary Dx); Generalized anxiety disorder ; Nausea and vomiting during prior to 22 weeks gestation ([facility]); Class 3 severe obesity due to excess calories without serious comorbidity with body mass index (BMI) of 45.0 to 49.9 in adult ([facility]) Start: 04-04-2025 End: 04-04-2025 ambulatory BRADEN ROSALES Not Available Start: 02-20-2025 End: 02-20-2025 ambulatory [facility] Facility:[facility] Start: 10-26-2024 End: 10-26-2024 ambulatory [facility] Work Phone: Start: 10-26-2024 End: 10-26-2024 Patient encounter procedure [facility] Work Phone: Start: 06-08-2024 End: 06-08-2024 Bamboo [...] (BMI) of 45.0 to 49.9 in adult ([facility]) Start: 06-08-2024 End: 06-08-2024 ambulatory BRADEN ROSALES [...] Dx); Morbid obesity due to excess calories ([facility]); Body mass index (BMI) 40.0-44.9, adult ([facility]) Start: 03-29-2024 End: 04-03-2024 Clinisync Result Encounter Generic External Data Provider [facility] External Department Unsolicited Start: 03-29-2024 End: 04-03-2024 Clinisync Result Encounter Generic External Data Provider [facility] External Department Unsolicited Start: 03-29-2024 End: 03-29-2024 Patient encounter procedure Catarino Jaramillo DO Work Phone: [facility] Work Phone: Start: 03-29-2024 End: 03-29-2024 Periodic preventive med est patient 18-39 yrs Catarino Jaramillo DO Work Phone: [facility] Comment on above: Well woman exam with routine gynecological exam Start: 03-13-2024 End: 03-13-2024 ambulatory [facility] Work Phone: Start: 03-13-2024 End: 03-13-2024 Patient encounter procedure [facility] Work Phone: Start: 07-24-2022 End: 07-24-[address] RUBY PEARSON Facility:[facility] Start: 07-23-2022 End: 07-23-[address] BRADEN ROSALES Facility:[facility] Start: 06-19-2022 End: 06-20-[address] LILIANE KHAN [facility] [employer] Other Start: 06-19-2022 Office outpatient ne w 30 minutes Rachael Hernandez [facility] Start: 06-12-2022 End: 06-23-[address] BRADEN ROSALES Facility:[facility] Start: 06-09-2022 End: 06-09-[address] BRADEN ROSALES Facility:[facility] Start: 06-04-2022 End: 06-06-2022 Evaluation and management of inpatient DR BRADEN ROSALES Facility:[facility] Start: 05-31-2022 End: 05-31-[address] BRADEN ROSALES Facility:[facility] Start: 05-31-2022 Evaluation and manag ement of inpatient DR CATARINO JARAMILLO Facility:[facility] Start: 05-31-2022 End: 05-31-[address] CATARINO JARAMILLO Facility:[facility] Start: 05-13-2022 End: 05-13-[address] CATARINO JARAMILLO Facility:[facility] Start: 04-23-2022 End: 04-24-[address] CATARINO JARAMILLO Facility:[facility] Start: 03-20-2022 End: 03-21-[address] CATARINO JARAMILLO Facility:[facility] Start: 03-15-2022 End: 03-16-[address] CATARINO JARAMILLO Facility:[facility] Start: 01-20-2022 End: 01-21-[address] CATARINO JARAMILLO Facility:[facility] Start: 12-25-2021 End: 12-25-[address] CATARINO JARAMILLO Facility:[facility] Start: 11-23-2021 End: 11-24-[address] CATARINO JARAMILLO Facility:[facility] Start: 11-07-2021 End: 11-08-[address] CATARINO JARAMILLO Facility:[facility] Start: 10-06-2021 End: 10-07-[address] CATARINO JARAMILLO Facility:[facility] Start: 10-03-2021 End: 10-04-[address] CATARINO JARAMILLO Facility:[facility] Start: 10-01-2021 End: 10-02-[address] CATARINO JARAMILLO Facility:[facility] Start: 09-29-2021 End: 09-30-[address] CATARINO JARAMILLO Facility:[facility] Start: 09-16-2021 End: 09-16-2021 ambulatory RAINE BOOTH Facility:[facility] Start: 09-02-2021 End: 09-02-[address] CATARINO JARAMILLO Facility:[facility] Start: 08-18-2021 End: 08-18-[address] BRADEN ROSALES Facility:[facility] Start: 02-16-2019 End: 02-16-2019 Office outpatient visit 15 minutes [employer] Work Phone: [facility] Comment on above: Viral warts, unspeci fied type (Primary Dx); Other disturbances of skin sensation; Eczema, unspecified type Start: 12-13-2018 End: 12-17-2018 Patient encounter procedure [facility] Start: 12-13-2018 End: 12-13-2018 Office outpatient visit 10 minutes Sonia [place] Work Phone: [facility] Comment on above: Viral warts, unspeci fied type (Primary Dx); Other disturbances of skin sensation; Nevus of scalp Start: 11-30-2018 End: 12-04-2018 Patient encounter procedure [facility] Start: 11-30-2018 End: 11-30-2018 Office outpatient visit 15 minutes Sonia Bates Work Phone: [facility] Comment on above: Milia (Primary Dx); Viral warts, unspecified type; Other disturbances of skin sensation; Pre-ulcerative corn or callous Start: 09-01-2017 Office consultation Sonia Vargas holly Work Phone: [facility] Procedures Date Procedure Procedure Detail Performing Clinician Start: 04-27-2025 Urnls dip stick/tabl et rgnt non-auto w/o micrscp Catarino Jaramillo DO Work Phone: Start: 10-26-2024 Quick Strep (POC) Start: 03-29-2024 IGP,APTIMA HPV,AGE GDLN Catarino Jaramillo DO Work Phone: Start: 06-04-2022 Extraction of Produc ts of Conception, Low Cervical, Open Approach DR CATARINO JARAMILLO Start: 10-13-2016 Microscopic observat ion [Identifier] in Cervix by Cyto stain Sonia Tyshawn Plan of Treatment Date Care Activity Detail Author Start: 08-31-2027 Tetanus vaccination TETANUS EVERY 10 YR [facility] Start: 05-30-2025 End: 05-30-2025 Patient encounter procedure 05/30/2025 2:40 PM EDT Routine [facility]Y ACU[facility]A [address] [place] [phone] Catarino Jaramillo DO [address] [place] [address] LILLY ACUÑA Start: 05-09-2025 End: 05-09-2025 Patient encounter procedure 05/09/2025 9:30 AM EDT Office Visit [facility] [address] [place] [phone] Brdaen Rosales MD [address] [place] [id number] [facility] Start: 04-28-2025 End: 04-28-2025 ambulatory 04/28/2025 9:30 AM EDT Initial [facility] [address] [place] [address] [facility] Start: 04-28-2025 End: 04-28-2025 Professional / ancillary services management 04/28/2025 9:00 AM EDT Ancillary Procedure NOM[facility] [address] [place] [phone] [facility] Start: 04-27-2025 End: 04-27-2026 ABO/Rh ABO/Rh Lab Routine Missed menses , unspecified gestational age ([facility]) Expected: 04/27/2025 (Approximate), Expires: 04/27/2026 [facility] Comment on above: Expected: 04/27/2025 (Approximate), Expires: 04/27/2026 Start: 04-27-2025 End: 04-27-2026 Blood type and Indirect antibody screen panel - Blood Type and screen Lab Routine Missed menses , unspecified gestational age ([facility]) Expected: 04/27/2025 (Approximate), Expires: 04/27/2026 [facility] Comment on above: Expected: 04/27/2025 (Approximate), Expires: 04/27/2026 Start: 04-27-2025 End: 04-27-2026 Drugs of abuse panel - Urine by Screen method Rapid drug screen, urine Lab Routine , unspecified gestational age ([facility]) Encounter for supervision of normal first in first trimester ([facility]) Expected: 04/27/2025 (Approximate), Expires: 04/27/2026 [facility] Comment on above: Expected: 04/27/2025 (Approximate), Expires: 04/27/2026 Start: 04-19-2025 End: 07-19-2025 US Pelvis transvaginal US OB transvaginal Imaging Routine Missed menses Positive urine test ([facility]) Expected: 04/19/2025, Expires: 07/19/2025 [facility] Work Phone: Comment on above: Expected: 04/19/2025 , Expires: 07/19/2025 Start: 04-10-2025 Influenza vaccination Influenza Vacc ine (#1) [facility] Start: 04-06-2025 End: 04-06-2025 Patient encounter procedure 04/06/2025 9:00 AM EDT Office Visit [facility] [address] [place] [phone] Catarino Jaramillo, [address] [place] [address] [facility] Start: 04-04-2025 End: 04-04-2025 Patient encounter procedure 04/04/2025 1:15 PM EDT Office Visit [facility] [address] [place] [address] Braden Rosales MD [address] [place] [phone] Arrived [facility] Comment on above: Arrived Start: 06-08-2024 End: 06-08-2025 Basic metabolic 1998 panel - Serum or Plasma Basic metabolic panel Lab Routine Annual physical exam Expected: 06/08/2024 (Approximate), Expires: 06/08/2025 [facility] Comment on above: Expected: 06/08/2024 (Approximate), Expires: 06/08/2025 Start: 06-08-2024 End: 06-08-2025 CBC W Auto Differential panel - Blood CBC and differential Lab Routine Annual physical exam Expected: 06/08/2024 (Approximate), Expires: 06/08/2025 [facility] Comment on above: Expected: 06/08/2024 (Approximate), Expires: 06/08/2025 Start: 06-08-2024 End: 06-08-2025 Hemoglobin A1c/Hemoglobin.total in Blood Hemoglobin A1c Lab Routine Annual physical exam Expected: 06/08/2024 (Approximate), Expires: 06/08/2025 [facility] Work Phone: Comment on above: Expected: 06/08/2024 (Approximate), Expires: 06/08/2025 Start: 06-08-2024 End: 06-08-2025 Hepatic function 2000 panel - Serum or Plasma Hepatic function panel Lab Routine Annual physical exam Expected: 06/08/2024 (Approximate), Expires: 06/08/2025 [facility] Comment on above: Expected: 06/08/2024 (Approximate), Expires: 06/08/2025 Start: 06-08-2024 End: 06-08-2025 Lipid 1996 panel - Serum or Plasma Lipid panel Lab Routine Annual physical exam Expected: 06/08/2024 (Approximate), Expires: 06/08/2025 [facility] Comment on above: Expected: 06/08/2024 (Approximate), Expires: 06/08/2025 Start: 06-08-2024 End: 06-08-2025 Thyrotropin [Units/volume] in Serum or Plasma TSH Lab Routine Annual physical exam Expected: 06/08/2024 (Approximate), Expires: 06/08/2025 [facility] Comment on above: Expected: 06/08/2024 (Approximate), Expires: 06/08/2025 Start: 06-08-2024 End: 06-08-2024 Patient encounter procedure [facility] Comment on above: Arrived Start: 04-10-2024 Influenza vaccination Influenza Vacc ine (#1) [facility] Start: 04-08-2024 End: 04-08-2024 Patient encounter procedure 04/08/2024 9:45 AM EDT [facility] Visit [facility] [address] [phone] Braden Rosales MD [address] [phone] Arrived [facility] Comment on above: Arrived Start: 10-14-2019 Screening for malign ant neoplasm of cervix PAP SMEAR [facility] Work Phone: Start: 04-10-2019 Influenza vaccinatio n given [facility] Start: 02-16-2019 End: 02-16-2019 Office Visit 02/16/2019 Office Visit Dermatology Sonia Bates Jr., DO [address] [place] [phone] [facility] Start: 12-13-2018 End: 12-13-2018 Office Visit 12/13/2018 Office Visit Dermatology Sonia Bates Jr., DO [address] [place] [address] [phone] [facility] Start: 04-10-2018 Influenza vaccinatio n given SEQUENTIAL INFLUENZA VACCINE (#1) [facility] Start: 04-10-2017 Influenza vaccination SEQUENTI AL INFLUENZA VACCINE (#1) [facility] Work Phone: Start: 2010 Vaccination for starr n papillomavirus HPV VACCINES (1 - Female 3-dose series) [facility] [facility] Start: 2006 Vaccination for starr n papillomavirus HPV VACCINES (1 of 3 - Female 3 Dose Series) [facility] Work Phone: Start: 1998 History and physical examination, annual for health maintenance Wellness Visit [facility] Start: 1995 Screening for Chlamy darwin trachomatis Chlamydia Screening [facility] Start: 1995 Tetanus vaccination TETANUS EVERY 10 YR [facility] Work Phone: Bacteria identified in Urine by Culture Urine culture Microbiology Routine Missed menses Ordered: 04/27/2025 [facility] Comment on above: Ordered: 04/27/2025 CBC W Auto Different ial panel - Blood CBC and differential Lab Routine Missed menses , unspecified gestational age ([facility]) Ordered: 04/27/2025 [facility] Comment on above: Ordered: 04/27/2025 Cytology Cervical or vaginal smear or scraping study Pap Smear Pathology and Cytology Routine Well woman exam with routine gynecological exam Ordered: 03/29/2024 [facility] Work Phone: Comment on above: Ordered: 03/29/2024 Hemoglobin A1c/Hemoglobin.total in Blood Hemoglobin A1c Lab Routine Missed menses , unspecified gestational age ([facility]) Ordered: 04/27/2025 [facility] Comment on above: Ordered: 04/27/2025 Hepatitis B virus surface Ag [Presence] in Serum or Plasma by Immunoassay Hepatitis B surface antigen Lab Routine Missed menses , unspecified gestational age ([facility]) Ordered: 04/27/2025 [facility] Comment on above: Ordered: 04/27/2025 Hepatitis C virus Ab [Presence] in Serum or Plasma by Immunoassay Hepatitis C antibody Lab Routine Missed menses , unspecified gestational age ([facility]) Ordered: 04/27/2025 [facility] Comment on above: Ordered: 04/27/2025 HIV-1/HIV-2 antigen/antibody combination immunoassay HIV-1 and HIV-2 antibodies Lab Routine Missed menses , unspecified gestational age ([facility]) Ordered: 04/27/2025 [facility] Comment on above: Ordered: 04/27/2025 Reagin Ab [Presence] in Serum by RPR RPR Lab Routine Missed menses , unspecified gestational age ([facility]) Ordered: 04/27/2025 [facility] Comment on above: Ordered: 04/27/2025 Rubella antibody, IgG Rubella an tibody, IgG Lab Routine Missed menses , unspecified gestational age ([facility]) Ordered: 04/27/2025 [facility] Comment on above: Ordered: 04/27/2025 US Pelvis transvaginal US OB tra nsvaginal Imaging Routine Missed menses Positive urine test ([facility]) 04/27/2025 1:48 PM EDT [facility] Immunizations Immunization Date Immunization Notes Care Provider Wanda bruce 07-10-2017 influenza virus vacc ine, unspecified formulation Catarino Jaramillo DO Work Phone: [facility] Payers Date Payer Category Payer Private Health Insurance [id number] 2024 Private Health Insurance [id number] 2019 Unknown [id number] 2016 Private Health Insurance [id number] 2.16.840.1.247524.3.249.13 2016 Private Health Insurance xxx [id number] 1995 Unknown [id number] 2.16.840.1.766233.3.579.2.903 1995 Unknown [id number] 2.16.840.1.975113.3.579.2.903 1995 Unknown [id number] 2.16.840.1.589415.3.579.2.593 1995 Unknown [id number] 2.16.840.1.594322.3.579.2.593 1995 Unknown [id number] 2.16.840.1.042012.3.579.2.593 1995 Unknown [id number] 2.16.840.1.242390.3.579.2.593 1995 Unknown [id number] 2.16.840.1.097724.3.579.2.593 1995 Unknown [id number] 2.16.840.1.544874.3.579.2.593 1995 Unknown [id number] 2.16.840.1.749919.3.579.2.593 1995 Unknown [id number] 2.16.840.1.345383.3.579.2.593 1995 Unknown [id number] 2.16.840.1.436115.3.579.2.593 1995 Unknown [id number] 2.16.840.1.858318.3.579.2.593 1995 Unknown [id number] 2.16.840.1.490283.3.579.2.593 1995 Unknown [id number] 2.16.840.1.865563.3.579.2.593 1995 Unknown [id number] 2.16.840.1.784053.3.579.2.593 1995 Unknown [id number] 2.16.840.1.937066.3.579.2.593 1995 Unknown [id number] 2.16.840.1.136463.3.579.2.593 1995 Unknown [id number] 2.16.840.1.148975.3.579.2.593 1995 Unknown [id number] 2.16.840.1.148518.3.579.2.593 1995 Unknown [id number] 2.16.840.1.214669.3.579.2.593 1995 Unknown [id number] 2.16.840.1.857287.3.579.2.593 1995 Unknown [id number] 2.16.840.1.731868.3.579.2.593 1995 Unknown [id number] 2.16.840.1.440748.3.579.2.593 1995 Unknown [id number] 2.16.840.1.235748.3.579.2.593 1995 Unknown [id number] 2.16.840.1.835437.3.579.2.593 1995 Unknown [id number] 2.16.840.1.645255.3.579.2.593 1995 Unknown [id number] 2.16.840.1.827469.3.579.2.727 1995 Unknown [id number] 2.16.840.1.174252.3.579.2.125 9 1995 Unknown [id number] 2.16.840.1.724293.3.579.2.125 9 1995 Unknown [id number] 2.16.840.1.510194.3.579.2.125 9 1995 Unknown [id number] 2.16.840.1.700498.3.579.2.125 9 1959 Self-pay Unknown [id number] 2.16.840.1.590320.3.249.13 Private Health Insurance [facility] [id number] Unknown [id number] 2.16.840.1.226678.3.579.2.593 Social History Date Type Detail Facility Start: 09-01-2017 End: 04-08-2024 Tobacco smoking status NHIS Never smoker [facility] Work Phone: Start: 1995 Sex Assigned At Not on file [facility] Work Phone: Start: 04-08-2024 End: 04-04-2025 Sex Assigned At [facility] Start: 1995 Sex Assigned At Female [facility] Start: 04-08-2024 Tobacco use and exposure Smokeless tobacco non-user [facility] Start: 04-08-2024 End: 04-27-2025 Alcoholic beverage intake Lifetime non-drinker (finding) [facility] Start: 04-08-2024 End: 04-04-2025 History of Social function [facility] Start: 03-24-2023 Alcohol Comment Caffeine intak e: 2 cans pop daily [facility] Start: 10-26-2024 Sex Female (finding) [facility] How often do you nee d to have someone help you when you read instructions, pamphlets, or other written material from your doctor or pharmacy [SILS] Never [facility] Within the last year , have you been afraid of your partner or ex-partner? No [facility] Are you now , , , , never or living with a partner? [facility] How many standard drinks containing alcohol do you have on a typical day? Patient does not drink [facility] Do you feel stress - tense, restless, nervous, or anxious, or unable to sleep at night because your mind is troubled all the time - these days [OSQ] To some extent [facility] (I/We) worried wheth er (my/our) food would run out before (I/we) got money to buy more. Never true [facility] Start: 03-12-2025 [facility] Functional Status Date Assessment Result Facility 04-04-2025 Total score [AUDIT-C] 0 04/04/20 6:18 AM EDT Mychart, Generic [facility] 04-04-2025 How often to you hav e a drink containing alcohol? Never 04/04/2025 6:18 AM EDT Mychart, Generic Never [facility] 04-04-2025 Functional status Patient does n ot drink 04/04/2025 6:18 AM EDT [facility], Generic Patient does not drink [facility] 04-04-2025 How often do you hav e 6 or more drinks on 1 occasion? Never 04/04/2025 6:18 AM EDT [facility] Never [facility] Clinical Notes 06-04-2022 to 04-27-2025 Twyla Robles LPN - 04/27/2025 2:00 PM Jesse Rosales MD - 04/04/2025 1:58 PM Jesse Rosales MD - 04/04/2025 1:56 PM EDDex Rosales MD - 04/04/2025 1:56 PM EDT Note Date & Type Note Facility 04-27-2025 History of Presen t illness Narrative Reason for Appointment: Patient ID: Ioana Cadena is a 29 y.o. female who presents for Amenorrhea Patient presents today for a Nurse OB Intake appointment. Patient is 8w4d with a Estimated Date of Delivery: 12/03/25 OB History Para Term AB Living 3 2 2 2 SAB IAB Ectopic Multiple Live Births 2 # Outcome Date GA Lbr Krishan/2nd Weight Sex Type Anes PTL Lv 3 Current 2 Term 06/04/22 9 lb 9 oz F CS-LTranv CASSANDRA 1 Term 12/29/20 6 lb 13 oz F CS-LTranv CASSANDRA Current Medications: has a current medication list which includes the following prescription(s): hydroxyzine hcl, ondansetron odt, and sertraline. Medical History: Active Ambulatory Problems Diagnosis Date Noted Generalized anxiety disorder 04/08/2024 Major depressive disorder, recurrent episode, mild 04/08/2024 Class 3 severe obesity due to excess calories without serious comorbidity with body mass index (BMI) of 45.0 to 49.9 in adult ([facility]) 04/08/2024 Annual physical exam 06/08/2024 Nausea and vomiting during prior to 22 weeks gestation ([facility]) 04/04/2025 Resolved Ambulatory Problems Diagnosis Date Noted Acute bronchitis due to other specified organisms 04/08/2024 Past Medical History: Diagnosis Date Anxiety Panic attacks No family history on file. Social History Tobacco Use Smoking status: Never Smokeless tobacco: Never Substance Use Topics Alcohol use: Never Comment: Caffeine intake: 2 cans pop daily Drug use: Never Past Surgical History: Procedure Laterality Date SECTION, LOW TRANSVERSE 06/2022 CHOLECYSTECTOMY No Known Allergies Vitals: Estimated body mass index is 46.17 kg/m as calculated from the following: Height as of 04/04/25: 5' 7 . Weight as of this encounter: 294 lb 12.8 oz. BP: 120/70 Patient's last menstrual period was 02/26/2025. Assessment/Plan Diagnoses and all orders for this visit: Missed menses - US OB transvaginal; Future - Type and screen; Future - ABO/Rh; Future - CBC and differential - Hemoglobin A1c - RPR - Rubella antibody, IgG - Hepatitis B surface antigen - Hepatitis C antibody - HIV-1 and HIV-2 antibodies - Urine culture - POCT , urine manually resulted - POCT urinalysis dipstick manually resulted Positive urine test ([facility]) - US OB transvaginal; Future , unspecified gestational age ([facility]) - Type and screen; Future - ABO/Rh; Future - CBC and differential - Hemoglobin A1c - RPR - Rubella antibody, IgG - Hepatitis B surface antigen - Hepatitis C antibody - HIV-1 and HIV-2 antibodies - Rapid drug screen, urine; Future Encounter for supervision of normal first in first trimester ([facility]) - Rapid drug screen, urine; Future Nurse Note: OB Intake: Patient presents today for first OB visit. Patients history has been reviewed in great detail including any potential risks. Patient signed consent forms and patient desires testing in both trimesters. Patient currently has no complaints and has been advised to drink 6-8 glasses of water a day, eat no raw or undercooked meat, and stay away from [facility]. Patient has also been advised to not change litter boxes and eat 6 small meals a day. Patient has been consulted regarding the do's and don'ts of . Patient was given labs and all questions and concerns were answered. Patient Given [place] to have completed with Initial intake labs. Follow Up: Patient is to return in 4 weeks for routine OB appointment. Follow Up: Patient is to have labs drawn at directed and return to office for initial OB appointment with provider. Patient may call office as needed with any concerns or questions. Nurse Visit Completed by: Twyla Robles LPN documented in this encounter [facility] 04-04-2025 History of Presen t illness Narrative Associated Problem(s): Class 3 severe obesity due to excess calories without serious comorbidity with body mass index (BMI) of 45.0 to 49.9 in adult ([facility]) Weight loss indicated Associated Problem(s): Generalized anxiety disorder Worsening symptoms and increase zoloft. Warned will take 2-3 weeks to notice improvement in mood. Start hydroxyzine PRN. Associated Problem(s): Major depressive disorder, recurrent episode, mild Worsening symptoms and increase zoloft. Warned will take 2-3 weeks to notice improvement in mood. Associated Problem(s): Nausea and vomiting during prior to 22 weeks gestation ([facility]) Increased symptoms and use medication PRN. Follow with OB. Increase fluids. Images from the original note were not included. Subjective Patient ID: Ioana Cadena is a 29 y.o. female who presents for Follow-up (Er f/up faintness). ER follow up from 04/02 for nausea and lightheaded. Currently about 5 weeks . Developed severe nausea and emesis. Very lightheaded and fatigued. In ER labs normal. US showed intrauterine gestation. Discharged with Thea and alfredo. Nausea tolerable with medication but overall doesn't feels well. Severe anxiety and feels like will have anxiety attack. No motivation and not want to do things. Doesn't want to go to work. Nervous and worry all the time. Stressed out and overwhelmed. Thought racing and hard to clear mind. On zoloft daily. Review of Systems Respiratory: Negative for cough, [...] Assessment/Plan Problem List Items Addressed This Visit Generalized anxiety disorder Worsening symptoms and increase zoloft. Warned will take 2-3 weeks to notice improvement in mood. Start hydroxyzine PRN. Relevant Medications hydrOXYzine HCl (Atarax) 25 MG tablet Major depressive disorder, recurrent episode, mild - Primary Worsening symptoms and increase zoloft. Warned will take 2-3 weeks to notice improvement in mood. Relevant Medications sertraline (Zoloft) 100 MG tablet Class 3 severe obesity due to excess calories without serious comorbidity with body mass index (BMI) of 45.0 to 49.9 in adult ([facility]) Weight loss indicated Nausea and vomiting during prior to 22 weeks gestation ([facility]) Increased symptoms and use medication PRN. Follow with OB. Increase fluids. documented in this encounter [facility] 06-08-2024 History of Presen t illness Narrative Associated Problem(s): Class 3 severe obesity due to excess calories without serious comorbidity with body mass index (BMI) of 45.0 to 49.9 in adult ([facility]) Weight loss indicated Associated Problem(s): Annual physical [...] were not included. Subjective Patient ID: Ioana Cadena is a 28 y.o. female who presents [...] (BMI) of 45.0 to 49.9 in adult ([facility]) Weight loss indicated Annual physical exam - [...] Lipid panel TSH documented in this encounter [facility] 04-08-2024 History of Presen t illness Narrative Associated Problem(s): Morbid obesity due to excess calories ([facility]) Weight loss indicated Associated Problem(s): Acute bronchitis [...] were not included. Subjective Patient ID: Ioana Cadena is a 28 y.o. female who presents [...] 50 MG tablet documented in this encounter [facility] 03-29-2024 History of Presen t illness Narrative Reason for Appointment: Patient ID: Ioana Cadena is a 28 y.o. female who presents for [facility] Women Visit Patient presents today for Annual [...] nursing note reviewed. Exam conducted with a coin box collector present. Vitals: Estimated body mass index is [...] by Dedra Carlos LPN on behalf of: Catarino Jaramillo DO documented in this encounter [facility] 06-19-2022 Evaluation note Encounter Date Diagnosis Assessment [...] treatment plan. Patient left in stable condition [employer] Other 10-26-2022 NoteCONSULTATION DISCHARGE DATE: 07/03/2022 PRIMARY [...] when pain free and no longer on narcotics.[facility]10-26-2022 NoteOPERATIVE NOTE OPERATION DATE: 06/04/2022 PROCEDURE: Repeat low transverse section. PREOPERATIVE DIAGNOSIS: 1. Intrauterine at 39 weeks. 2. Previous . POSTOPERATIVE DIAGNOSIS: 1. Intrauterine at 39 weeks. 2. Previous . ANESTHESIA: Spinal with Duramorph. SURGEON: Catarino Jaramillo D.O. SHAPE HAND: KASANDRA Ko URINE OUTPUT: Yellow and clear. [...] patient's uterus and extended laterally digitally. The infant was then delivered atraumatically after the bladder [...] to the Recovery Room in stable condition.[facility] noteNo assessment information availableThe [facility] Work Phone: Evaluation note* Diagnosis Acute bronchitis due to other specified organisms- Primary Morbid obesity due to excess calories ([facility]) Body mass index (BMI) 40.0-44.9, adult ([facility]) Annual physical exam- Primary Routine general medical examination at a health care facility Class 3 severe obesity due to excess calories without serious comorbidity with body mass index (BMI) of 45.0 to 49.9 in adult ([facility]) [facility] Diagnosis Well woman exam with routine gynecological exam Routine gynecological examination [facility] Diagnosis Acute bronchitis due to other specified organisms- Primary Morbid obesity due to excess calories ([facility]) Body mass index (BMI) 40.0-44.9, adult ([facility]) [facility] Diagnosis Onset Date Resolution Status Admit Date Influenza A acute October 26, 025 1:14pm [facility] Work Phone: Evaluation note* Diagnosis Acute bronchitis due to other specified organisms- Primary Morbid obesity due to excess calories ([facility]) Body mass index (BMI) 40.0-44.9, adult ([facility]) Annual physical exam- Primary Routine general medical examination at a health care facility Class 3 severe obesity due to excess calories without serious comorbidity with body mass index (BMI) of 45.0 to 49.9 in adult ([facility]) Major depressive disorder, recurrent episode, mild- Primary Major depressive disorder, recurrent episode, mild Generalized anxiety disorder Generalized anxiety disorder Nausea and vomiting during prior to 22 weeks gestation ([facility]) Class 3 severe obesity due to excess calories without serious comorbidity with body mass index (BMI) of 45.0 to 49.9 in adult ([facility]) documented in this encounter [facility]* Diagnosis Acute bronchitis due to other specified organisms- Primary Morbid obesity due to excess calories ([facility]) Body mass index (BMI) 40.0-44.9, adult ([facility]) Annual physical exam- Primary Routine general medical examination at a health care facility Class 3 severe obesity due to excess calories without serious comorbidity with body mass index (BMI) of 45.0 to 49.9 in adult ([facility]) Major depressive disorder, recurrent episode, mild- Primary Major depressive disorder, recurrent episode, mild Generalized anxiety disorder Generalized anxiety disorder Nausea and vomiting during prior to 22 weeks gestation ([facility]) Class 3 severe obesity due to excess calories without serious comorbidity with body mass index (BMI) of 45.0 to 49.9 in adult ([facility]) Missed menses Positive urine test ([facility]) , unspecified gestational age ([facility]) Encounter for supervision of normal first in first trimester ([facility]) documented in this encounter [facility] general Narrative - Reported* Type Description Date Surgical History [employer] Other Assessments Diagnosis Eczema, unspecified type - [...] FoundDocuments on File Type Date Recorded 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 female who presents for Chief Complaint Skin Problem Dictation on: 11/30/2018 10:27 AM by: SONIA BATES [[id number]] History reviewed. No pertinent past medical history. [...] can be found below Assessment and Plan Sonia Bates DO 11/30/2018 documented in this encounter* Sonia Bates Jr., DO - 02/16/2019 10:28 AM EDT Ioana Reyna is a 23 y.o. female who presents for Chief Complaint Skin Problem; Skin Lesion Dictation on: 02/16/2019 10:36 AM by: SONIA BATES [[id number]] History reviewed. No pertinent past medical history. [...] can be found below Assessment and Plan Sonia Bates DO 02/16/2019 documented in this encounter* Sonia Bates Jr., DO - 12/13/2018 10:08 AM [...] can be found below Assessment and Plan Sonia Bates DO 12/13/2018 documented in this encounter Chief Complaint and Reason for Visit Chief Complaint cough for 2 weeks, d rainage Chief Complaint Admit Date Sore throat October 26, 2024 1:1 4pm Reason for Visit Admit Date Influenza A October 26, 2024 1:1 4pm Additional Source Comments INFORMATION SOURCE (unrecogn ized section and content) DATE CREATED AUTHOR 12/27/2018 [facility] DATE CREATED AUTHOR AUTHOR'S ORGANIZ ATION 11/15/2019 [facility] DATE CREATED AUTHOR AUTHOR'S ORGANIZ ATION 07/30/2022 [facility] DATE CREATED AUTHOR AUTHOR'S ORGANIZ ATION 02/27/2025 [facility] DATE CREATED AUTHOR AUTHOR'S ORGANIZ ATION 04/29/2025 [facility] EPIC Reason for Visit (unrecogniz ed section and content) Reason Comments Skin Problem Status Reason Specialty Diagnoses / Procedures Referred By Contact Referred To Contact Pending Review Specialty Services Required/Patie nt's Best Interest Dermatology Diagnoses Viral warts, unspecified type Estelle Belle, SERVICES DELIVERY DRIVER [address] [place] [address] Sonia Bates Jr., DO [address] [place] [address] Reason Comments Skin Problem Skin Lesion Reason Comments Annual Exam wellness Reason Comments Well Women Visit Reason Comments Sinusitis WITH BRONCHITIS Reason Comments Follow-up Er f/up faintness Reason Comments Amenorrhea Care Teams (unrecognized sec tion and content) Team Status: Active Member Role Status Dates Estelle Belle APRN FARM EQUIPMENT TECHNICIAN-C Primary Care Provider Activ e Team Status: Inactive Member Role Status Dates Estelle Belle APRN FARM EQUIPMENT TECHNICIAN-C Primary Care Provider Activ e Start: March 13, 2024 End: March 13, 2024 Lisbeth Toro APRN Attending Provider Active S tart: March 13, 2024 End: March 13, 2024 Resident Care Manager Rn Relationship Specialty Start Date End Date Braden Rosales MD [address] [place] [phone] PCP - General Family Medicine 03/25/23 Resident Care Manager Rn Relationship Specialty Start Date End Date Braden Roslaes MD [address] [place] [phone] PCP - General Family Medicine 03/25/23 Resident Care Manager Rn Relationship Specialty Start Date End Date Braden Rosales MD [address] [place] [phone] PCP - General Family Medicine 03/25/23 Resident Care Manager Rn Relationship Specialty Start Date End Date Braden Rosales MD [address] [place] [phone] PCP - General Family Medicine 03/25/23 Resident Care Manager Rn Relationship Specialty Start Date End Date Braden Rosales MD [address] [place] [phone] PCP - General Family Medicine 03/25/23 Resident Care Manager Rn Relationship Specialty Start Date End Date Braden Rosales MD [address] [place] [phone] PCP - General Family Medicine 03/25/23 Team Status: Inactive Member Role Status Dates Estelle Belle APRN FARM EQUIPMENT TECHNICIAN-C Primary Care Provider Activ e Start: October 26, 2024 End: October 26, 2024 Magda Carroll APRN Attending Provider Active Start: October 26, 2024 End: October 26, 2024 Resident Care Manager Rn Relationship Specialty Start Date End Date Braden Rosales MD [address] [place] [id number] PCP - General Family Medicine 03/25/23 Resident Care Manager Rn Relationship Specialty Start Date End Date Braden Rosales MD PCP - General Family Medicine 03/25/23 Goals (unrecognized section and content) Goals may [...] BE BASED ON THE PRIMARY CLINICAL RECORDS. [facility]. provides no warranty or guarantee of the accuracy or completeness of information in this document.
[2025-05-03 13:00] LABS: Hematocrit 37.8 % (36.0-48.0); Hemoglobin 12.9 g/dL (12.0-16.0); Immature Granulocytes Abs Auto 0.02 10^3/uL (0.00-0.03); Immature Granulocytes Pct Auto 0.2 % (0.0-0.5); Lymphocytes Absolute Auto 1.2 10^3/uL (1.2-3.8); Mean Corpuscular HGB Conc 34.1 g/dL (29.9-35.2); Mean Corpuscular Hemoglobin 28.2 pg (26.7-34.0); Mean Corpuscular Volume 82.7 fL (81.0-99.0); Platelet Count 334 10^3/uL (150-450); Red Blood Count 4.57 10^6/uL (4.20-5.40); White Blood Count 8.5 10^3/uL (4.0-11.0)
[2025-05-03 14:11] LABS: Cannabinoid Screen Urine NEGATIVE (NEGATIVE); Methamphetamines Screen Urine NEGATIVE (NEGATIVE); Tricyclic Antidepressant Urine NEGATIVE (NEGATIVE)
[2025-05-04 07:08] LABS: Rubella Antibodies, IgG 2.31 index (Immune >0.99)
[2025-05-04 13:08] LABS: Rapid Plasma Reagin, Quant Non Reactive titer (NonRea<1:1)
== END 2025-05-03 12:03 | disposition home or self-care (01) ==
LOC: LAB 12:03
PROVIDERS: PCP Family Medicine; Visit Provider Obstetrics & Gynecology
DX: Z34.01 Encounter for supervision of normal first pregnancy, first trimester (principal); N92.6 Irregular menstruation, unspecified
CPT/HCPCS: 36415; 80307; 83036; 85025; 86592; 86762; 86803; 86850; 86900; 86901; 87086; 87340; 87389

== ENCOUNTER 2025-06-28 20:45 | Outpatient (REF) | payer OTHER, SELFPAY ==
--- OUTSIDE RECORDS SUMMARY | 2025-06-28 13:30 | XMS_ITS | Encounter Summary ---
Author Organization [facility] Address [address] [place] [address] Care Team Providers Care Vacuum Furnace Operator Name Role Phone Braden Reagan MD Primary Care Provider [phone] Reason for Visit * ReasonCommentsRoutine VisitSTI ScreeningWell Women Visit Encounter Details DateTypeDepartmentCare Team (Latest Contact Info)Lbusqijhkyl35/19/2025 1:30 PM ESTRoutine [facility] [address] [place] [id number] Kady Haynes PA [address] [place], [facility] 17 weeks gestation of ([facility]); Second trimester ([facility]); Hx of cold sores; Well woman exam with routine gynecological exam; Exposure to STD; Vaginal discharge Social History Tobacco UseTypesPacks/DayYears UsedDateSmoking Tobacco: NeverSmokeless Tobacco: NeverAlcohol UseStandard Drinks/WeekCommentsNever0 (1 standard drink = 0.6 oz pure alcohol)Caffeine intake: 2 cans pop [id number] Health LiteracyAnswerDate RecordedHow often do you need to have someone help you when you read instructions, pamphlets, or other written material from your doctor or pharmacy? Never04/04/2025Humiliation, Afraid, Rape, and Kick questionnaireAnswerDate RecordedWithin the last year, have you been afraid of your partner or ex-partner?No04/04/2025Within the last year, have you been humiliated or emotionally abused in other ways by your partner or ex-partner?No04/04/2025 Within the last year, have you been kicked, hit, slapped, or otherwise physically hurt by your partner or ex-partner?No04/04/2025Within the last year, have you been raped or forced to have any kind of sexual activity by your part ner or ex-partner?No04/04/2025Social Connection and Isolation PanelAnswerDate RecordedIn a typical week, how many times do you talk on the phone with family, friends, or neighbors?More than three times a week04/04/2025How often do you get together with friends or relatives?Once a week04/04/2025How often do you attend catholic or confucianist services?Never04/04/2025Do you belong to any clubs or organizations such as catholic groups, unions, fraternal or athletic groups, or school groups?No04/04/2025How often do you attend meetings of the clubs or organizations you belong to?Never04/04/2025re you , , , , never , or living with a partner?Uunxhky3504/04/2025UDIT-C AnswerDate RecordedQ1: How often do you have a drink containing alcohol?Never 04/04/2025Q2: How many drinks containing alcohol do you have on a typical day when you are drinking?Patient does not drink04/04/2025Q3: How often do you have six or more drinks on one occasion?Never04/04/2025Overall Financial Resource Strain (CARDIA)AnswerDate RecordedHow hard is it for you to pay for the very basics like food, housing, medical care, and heating?Not hard at all04/04/2025 [employer] - Occupational Stress Questionnaire AnswerDate RecordedDo you feel stress - tense, restless, nervous, or anxious, or unable to sleep at night because yourmind is troubled all the time - these days? To some ymqgiu3804/04/2025Exercise Vital SignAnswerDate RecordedOn average, how many days per week do you engage in moderate to strenuous exercise (like a brisk walk)?2 days04/04/2025On average, how many minutes do you engage in exercise at this level?0 min04/04/2025Hunger Vital SignAnswerDate RecordedWithin the past 12 months, you worried that your food would run out before you got the money to buy more.Never true04/04/2025Within the past 12 months, the food you bought just didn't last and you didn't have money to get more.Never true04/04/2025PRAPARE - TransportationAnswerDate RecordedIn the past 12 months, has lack of transportation kept you from medical appointments or from getting medications?No 04/04/2025In the past 12 months, has lack of transportation kept you from meetings, work, or from getting things needed for daily living?No04/04/2025 Housing Stability Vital SignAnswerDate RecordedIn the last 12 months, was there a time when you were not able to pay the mortgage or rent on time?No04/04/2025In the past 12 months, how many times have you moved where you were living?0 04/04/2025t any time in the past 12 months, were you homeless or living in a alf (including now)?No04/04/2025Estimated Date of DeliveryComments Yes12/03/2025ased on last menstrual period of 02/26/2025Sex and Gender InformationValueDate RecordedSex Assigned at BirthNot on fileLegal SexFemale 10/22/2022 10:02 PM EDTGender IdentityNot on fileSexual OrientationNot on file documented as of this encounter Last Filed Vital Signs Vital SignReadingTime TakenCommentsBlood Wcypdusj138/7611 1:59 PM EST Pulse--Temperature--Respiratory Rate--Oxygen Saturation--Inhaled Oxygen Concentration--Zkhbxt590 kg (293 lb 6.4 oz)06/28/2025 1:59 PM ESTHeight--Body Mass Index45.9508 1:28 PM EDTdocumented in this encounter Progress Notes * MARY JO Pena - 06/28/2025 1:30 PM EST Reason for Appointment: Patient ID: Ioana Cadena is a 29 y.o. female who presents for Routine Visit, STI Screening, and Well Women Visit Patient presents today for Return OB appointment. MEDICATIONS Current Outpatient Medications Medication Instructions hydrOXYzine HCl (ATARAX) 25 mg, Oral, 4 times daily PRN ondansetron ODT (Zofran-ODT) 4 MG disintegrating tablet DISSOLVE 1 TABLET UNDER TONGUE EVERY 6 HOURS IF NEEDED FOR NAUSEA pyridoxine (VITAMIN B-6) 25 mg, Oral, Daily sertraline (ZOLOFT) 150 mg, Oral, Daily ALLERGIES No Known Allergies PROBLEMS Active Ambulatory Problems Diagnosis Date Noted Generalized anxiety disorder 04/08/2024 Major depressive disorder, recurrent episode, mild 04/08/2024 Class 3 severe obesity due to excess calories without serious comorbidity with body mass index (BMI) of 45.0 to 49.9 in adult ([facility]) 04/08/2024 Annual physical exam 06/08/2024 Nausea and vomiting during prior to 22 weeks gestation ([facility]) 04/04/2025 HSV infection 05/30/2025 Hx of cold sores 05/30/2025 Resolved Ambulatory Problems Diagnosis Date Noted Acute bronchitis due to other specified organisms 04/08/2024 Past Medical History: Diagnosis Date Anxiety Panic attacks HISTORY PAST MEDICAL HISTORY SOCIAL HISTORY Past Medical History: Diagnosis Date Anxiety Panic attacks Social History Tobacco Use Smoking status: Never Smokeless tobacco: Never Substance Use Topics Alcohol use: Never Comment: Caffeine intake: 2 cans pop daily Drug use: Never FAMILY HISTORY No family history on file. SURGICAL HISTORY Past Surgical History: Procedure Laterality Date SECTION, LOW TRANSVERSE 06/2022 CHOLECYSTECTOMY REVIEW OF SYSTEMS Review of Systems: Review of Systems Constitutional: Negative. HENT: Negative. Eyes: Negative. Respiratory: Negative. Cardiovascular: Negative. Gastrointestinal: Negative. Genitourinary: Negative. Musculoskeletal: Negative. Skin: Negative. Neurological: Negative. All other systems reviewed and are negative. Hematological: Negative. Endocrine: Negative. Allergic/Immunologic: Negative. OBJECTIVE Objective: Physical Exam Constitutional: Appearance: Normal appearance. She is well-developed. Genitourinary: Vulva normal. Right Adnexa: not tender and no mass present. Left Adnexa: not tender and no mass present. No cervical discharge. Breasts: Breasts are soft. Right: Normal. Left: Normal. HENT: Head: Normocephalic. Nose: Nose normal. Mouth/Throat: Mouth: Mucous membranes are moist. Cardiovascular: Rate and Rhythm: Normal rate and regular rhythm. Pulmonary: Effort: Pulmonary effort is normal. Breath sounds: Normal breath sounds. Abdominal: General: Bowel sounds are normal. There is no distension. Palpations: Abdomen is soft. Tenderness: There is no abdominal tenderness. There is no guarding or rebound. Musculoskeletal: General: No swelling. Normal range of motion. Cervical back: Normal range of motion. Right lower leg: No edema. Left lower leg: No edema. Neurological: General: No focal deficit present. Mental Status: She is alert and oriented to person, place, and time. Skin: General: Skin is warm and dry. Psychiatric: Mood and Affect: Mood normal. Behavior: Behavior normal. Vitals and nursing note reviewed. Exam conducted with a section leader and machine setter present. Vitals: Estimated body mass index is 45.95 kg/m?? as calculated from the following: Height as of 04/04/25: 5' 7 . Weight as of this encounter: 293 lb 6.4 oz. BP: 124/76 Patient's last menstrual period was 02/26/2025. Assessment/Plan ICD-10-CM 1. 17 weeks gestation of ([facility]) Z3A.17 POCT urinalysis dipstick manually resulted Alpha fetoprotein, maternal Alpha fetoprotein, maternal 2. Second trimester ([facility]) Z34.92 POCT urinalysis dipstick manually resulted Alpha fetoprotein, maternal Alpha fetoprotein, maternal 3. Hx of cold sores Z86.19 4. Well woman exam with routine gynecological exam Z01.419 Pap Smear 5. Exposure to STD Z20.2 CHLAMYDIA TRACHOMATIS (GENITO/STI) Neisseria gonorrhea DNA probe, direct 6. Vaginal discharge N89.8 SURESWAB(R) ADVANCED VAGINITIS PLUS, TMA Assessment/Plan Return OB/Annual Exam: Patient presents today for an annual exam/routine obstetrics appointment. Patient is currently 17w3d . Patient is doing well and states she has no complaints. Pap/cultures was obtained without difficulty and patient was given [facility] order to have obtained. Orders Placed This Encounter Procedures CHLAMYDIA TRACHOMATIS (GENITO/STI) Neisseria gonorrhea DNA probe, direct Alpha fetoprotein, maternal POCT urinalysis dipstick manually resulted Patient will need M referral for spouse h/o of cardiac issues and his diamond driller recommends allbabies to have echos. Follow Up: Patient is to return to our office in 4 weeks for routine OB appointment Documented by Twyla Robles LPN on behalf of: MARY JO Pena documented in this encounter Plan of Treatment DateTypeDepartmentCare Team (Latest Contact Info)Kwgxwhhgymb76/17/2025 11:30 AM ESTRoutine [facility] [address] [place] [phone] Catarino Jaramillo, [address] [place] [address] NameTypePriorityAssociated DiagnosesOrder ScheduleSURESWAB(R) ADVANCED VAGINITIS PLUS, TMAPathology and CytologyRoutine Vaginal discharge Ordered: 06/28/2025HLAMYDIA TRACHOMATIS (GENITO/STI)LabRoutine Exposure to STD Ordered: 06/28/2025Neisseria gonorrhea DNA probe, directLabRoutine Exposure to STD Ordered: 06/28/2025Pap SmearPathology and CytologyRoutine Well woman exam with routine gynecological exam Ordered: 5Alpha fetoprotein, maternalLabRoutine 17 weeks gestation of ([facility]) Second trimester ([facility]) Expected: 06/28/2025 (Approximate), Expires: 07/28/2025documented as of this encounter Procedures Procedure NamePriorityDate/TimeAssociated DiagnosisCommentsPOCT URINALYSIS [id number]/19/2025 2:02 PM EST 17 weeks gestation of ([facility]) Second trimester ([facility]) documented in this encounter Results * (ABNORMAL) POCT urinalysis dipstick manually resulted (06/28/2025 2:02 PM EST) ComponentValueRef RangeTest MethodAnalysis TimePerformed AtPathologist SignatureColor, UAYellowClarity, UAClearGlucose, UANegativeNegative - 2000(110) ++++ mg/dLBilirubin, UANegativeNegative - 4(70) +++ mg/dLKetones, UA NegativeNegative - 160(16) ++++ mg/dLSpec Grav, UA1.0251 - 1.03Blood, UA NegativeNegative - 50 Todd/mcLpH, UA6.05 - 9Protein, UAPositiveNegative - 2000(20) ++++ mg/dLUrobilinogen, UA1.00.2 - 12 mg/dLLeukocytes, UA2+Negative - 500+++ Yamilet/mcLNitrite, UANegativeNegative - PositiveSpecimen (Source) Anatomical Location / LateralityCollection Method / VolumeCollection Time Received MaugKeutj73/19/2025 2:02 PM EST Narrative Authorizing ProviderResult TypeResult StatusMonson Developmental CenterOINT OF CARE TEST ENTER/EDIT ORDERABLESFinal Result documented in this encounter Visit Diagnoses Diagnosis 17 weeks gestation of ([facility]) Second trimester ([facility]) state, incidental Hx of cold sores Well woman exam with routine gynecological exam Routine gynecological examination Exposure to STD Vaginal discharge Leukorrhea, not specified as infective documented in this encounter Care Teams Team MemberRelationshipSpecialtyStart DateEnd Date Braden Reagan MD [address] [place] [address] PCP - GeneralFamily Medicine03/25/23documented as of this encounter
--- OUTSIDE RECORDS SUMMARY | 2025-06-28 20:49 | XMS_ITS | CCD ---
Author Organization [facility] Care Team Providers Care Salicylic Acid Blender Name Role Phone Marion Davis Unavailable [phone] SONIA VILLAGRAN Admitting Unavailable JANA, SONIA Attending Unavailable MILLERESTELLE Referring Unavailable MILLER, ESTELLE BETTS Primary Care Unavailable MOROCCChanning, SONIA Attending Unavailable MILLER, ESTELLE BETTS Primary Care Unavailable MillerEstelle Gae Primary Care Provider [phone] Rachael Hernandez Unavailable CLINT, DR AGUILAR Admitting [...] Admitting Unavailable CLINT, DR AGUILAR Attending Unavailable LCINT, DR AGUILAR Consulting Unavailable NADERER, DR BRADEN [...] Admitting Unavailable CLINT, DR AGUILAR Attending Unavailable PINE BLUFF, DR KENZIE Chanel Consulting Unavailable NADERER, DR [...] Admitting Unavailable CLINT, DR AGUILAR Attending Unavailable NADEREHenry, DR BRADEN Martin Primary Care Unavailable Braden Rosales MD Primary Care Provider Margoth MUNOZ Attending Unavailable Braden Rosales MD Primary Care Provider [phone] 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 APRN Primary Care Provider Catarino Jaramillo DO Attending Provider Braden Rosales MD Primary Care Provider [phone] Braden Rosales MD Attending Provider [phone] CATARINO JARAMILLO Attending Unavailable BRADEN ROSALES Attending Unavailable CONNIE, BRADEN Attending Unavailable Allergies Allergy ClassificationReported Allergen(s)Allergy TypeDate of OnsetReaction(s) Facility (1 source)No Known Medication Allergies; Translations: [No Known Medication Allergies]Propensity to adverse reactions (disorder)[facility] Medications Current Medications MedicationDrug Class(es)DatesSig (Normalized)Sig (Original)[id number] 200 actuat albuterol 0.09 mg/actuat metered dose inhaler (13 sources)beta2-Adrenergic AgonistStart: 03-13-2024 End: 33-33-8902zmva 2 puff(s) by mouth every four to six hours as needed for wheezingalbuterol HFA 90 mcg/act inhaler INHALE 2 PUFFS BY MOUTH EVERY 4-6 HOURS NEEDED FOR SHORTNESS OFBREATH OR WHEEZING FOR 7 DAYS 03/13/2024 04/04/2025 DiscontinuedStart: 03-13-2024 End: 64-64-3646Onbsbeqyg Sulfate 90 mcg/actuation HFA aerosol inhaler Discontinued 2 INH INHALATION EVERY 4-6 HOURS as needed for shortness of breath or wheezing 6.7 7 March 13, 2024 12:00am October 26, 2024 1:26pmcrisaborole 0.02 mg/mg topical ointment (1 source)Start: 18-00-1462nkwrpzopbsl (EUCRISA) 2 % Oint Apply 1 application topically 2 (two) times a day . 60 g 11 02/16/2019 ActiveStart: 02-16-2019 crisaborole (EUCRISA) 2 % Oint Apply 1 application topically 2 (two) times a day . 60 g 11 02/16/2019 Activeethinyl estradiol/ferrous fumarate/norethindrone (4 sources)Progestin, EstrogenStart: 94-17-3931QDYRYBBLZYN FE 08/29, , 1 mg-20 mcg (21)/75 mg (7) per tablethydrOXYzine hydrochloride 25 mg oral tablet (9 sources)AntihistamineStart: 04-04-2025 End: 97-35-3901nitv 1 tablet by mouth four times daily as needed for anxiety hydrOXYzine HCl (Atarax) 25 MG tablet Indications: Generalized anxiety disorder Take 1 tablet (25 mg) by mouth 4 (four) times a day as needed for anxiety 60 tablet 2 04/04/2025 ActivelevoFLOXacin 750 mg oral tablet (2 sources)Quinolone AntimicrobialStart: 04-08-2024 End: 04-14-3244jhfe 1 tablet by mouth once dailylevoFLOXacin (Levaquin) 750 MG tablet Indications: Acute bronchitis due to other specified organisms Take 1 tablet (750 mg) by mouth Daily for 7 days 7 tablet 04/08/2024 04/15/2024 Active mometasone furoate 0.001 mg/mg topical ointment (1 source)CorticosteroidStart: 09-01-2017 End: 87-03-7635cyvwjakyxq (ELOCON) 0.1 % ointment Apply topically 2 (two) times a day. 45 g 0 09/01/2017 09/01/2018 ActiveMv-Mn 905-Sr-Wy4-Uod-Tqf-Jozv (Centrum ) 180 mcg-35 mg- 25 mg-5 mg tablet,chewable (1 source)Start: 11-15-3440Xv-Mn 897-Xz-Ec6-Uoq-Bqy-Auat (Centrum ) 180 mcg-35 mg- 25 mg-5 mg tablet,chewable Active TAB PO May 09, 2025 12:00am Complies with drug therapyondansetron 4 mg disintegrating oral tablet (6 sources)Serotonin-3 Receptor AntagonistStart: 95-04-6606saaaebvhbjj ODT (Zofran-ODT) 4 MG disintegrating tablet Indications: Nausea DISSOLVE 1 TABLET UNDERTONGUE EVERY 6 HOURS IF NEEDED FOR NAUSEA 20 tablet 2 05/26/2025 Active Start: 07-30-4270uyfk 1 tablet by mouth every six hours as needed for nausea and vomitingOndansetron 4 mg tablet,disintegrating Active 4 MG PO Every 6 hours as needed for nausea and vomiting May 08, 2025 12:00am Complies with drug therapyStart: 21-28-5541zddj 1 tablet by mouth every six hours as needed for nausea and nausea and nauseaondansetron ODT (Zofran-ODT) 4 MG disintegrating tablet Indications: Nausea Take 1 tablet (4 mg) bymouth every 6 (six) hours if needed for nausea 20 tablet 2 04/05/2025 ActivePARoxetine hydrochloride 10 mg oral tablet (1 source)Serotonin Reuptake InhibitorStart: 86-80-5675mvmz 1 tablet by mouth once dailyPARoxetine (PAXIL) 10 MG tablet Take 1 tablet by mouth daily . 1 12/07/2018 ActivepredniSONE 50 mg oral tablet (2 sources)Start: 04-08-2024 End: 29-29-7097jeob 1 tablet by mouth once dailypredniSONE (Deltasone) 50 MG tablet Indications: Acute bronchitis due to other specified organisms Take 1 tablet (50 mg) by mouth Daily for 6 days 6 tablet 04/08/2024 04/14/2024 Active pyridoxine hydrochloride 25 mg oral tablet (2 sources)Start: 05-30-2025 End: 08-89-4172axfi 1 tablet by mouth once dailypyridoxine (Vitamin B-6) 25 MG tablet Indications: Nausea Take 1 tablet (25 mg) by mouth Daily 30 tablet 3 05/30/2025 06/29/2025 Activesertraline 100 mg oral tablet (20 sources)Serotonin Reuptake InhibitorStart: 85-51-5217Sjucvotftc 100 mg tablet Active 150 MG PO Daily May 08, 2025 11:28am Complies with drug therapyStart: 24-07-5275tpgz 1.5 tablets by mouth once dailysertraline (Zoloft) 100 MG tablet Indications: Major depressive disorder, recurrent episode, mild Ta ke 1.5 tablets (150 mg) by mouth Daily 135 tablet 3 04/04/2025 ActiveStart: 27-17-3061Mhgsnzjjlc Active MG PO March 13, 2024 12:00amStart: 03-18-2023 End: 66-72-2701etbu 1 tablet by mouth once dailysertraline (Zoloft) 100 MG tablet Indications: Major depressive disorder, recurrent, mild , Major de pressive disorder, recurrent episode, mild TAKE 1 TABLET BY MOUTH EVERY DAY 90 tablet 3 04/03/2025 04/04/2025 Discontinued (Reorder)Zoloft Active Completed/Discontinued Medications MedicationDrug Class(es)DatesSig (Normalized)Sig (Original)Albuterol Sulfate 90 mcg/actuation HFA aerosol inhaler (1 source)Start: 03-13-2024 End: 65-04-7973Wqgrbqrfu Sulfate 90 mcg/actuation HFA aerosol inhaler Discontinued 2 INH INHALATION EVERY 4-6 HOURS as needed for shortness of breath or wheezing 6.7 7 March 13, 2024 12:00am October 26, 2024 1:26pmamoxicillin 875 mg / clavulanate 125 mg oral tablet (2 sources)Penicillin-class AntibacterialStart: 03-13-2024 End: 43-24-0087yukv 1 tablet by mouth twice dailyAmoxicillin-Pot Clavulanate 875-125 mg tablet Discontinued 1 TAB PO Twice daily 20 10 March 13, 2024 12:00am October 26, 2024 1:26pmmetoclopramide 10 mg oral tablet (1 source)Dopamine-2 Receptor AntagonistStart: 04-12-2025 End: 86-47-5376gvggwgumvbnmkt (Reglan) 10 MG tablet Indications: Nausea and vomiting during ([facility]) Take 1 tablet (10 mg) by mouth in the morning and 1 tablet (10 mg) at noon and 1 tablet (10 mg) in theevening. Take before meals. Take 1 tablet by mouth 30 minutes prior to meals 3 times daily as needed for nausea. 90 tablet 2 04/12/2025 04/27/2025 Discontinued Problems Active Problems Problem ClassificationProblemDateDocumented DateEpisodic/ChronicAnxiety disorders (20 sources)Generalized anxiety disorder; Translations: [Generalized anxiety disorder]Onset: 136641-15-2508ZrznoyuZxbbowc obstructive pulmonary disease and bronchiectasis (2 sources)Bronchitis; Translations: [Bronchitis, not specified as acute or chronic]21-76-9454GhaqhiohVhaek of unknown origin (4 sources)Fever, unspecified; Translations: [FEVER UNSPECIFIED]Onset: 94-99-7243OimdkoazGxqgawtvt (3 sources)Influenza due to Influenza A virus; Translations: [Influenza due to other identified influenza virus with other respiratory manifestations] 76-13-8147PclhvjbtYkhgaveqy disorders (5 sources)Irregular menstruation, unspecified; Translations: [Missed period] Onset: 84-89-1582EqerylnXohm disorders (20 sources)Recurrent major depressive episodes, mild ; Translations: [Major depressive disorder, recurrent, mild]Onset: 911672-20-9379NkxybtkBaqlpa and vomiting (2 sources)Nausea; Translations: [Nausea]79-21-9908DyqppswzWmicz and unspecified benign neoplasm (2 sources)Melanocytic nevi of scalp and neck; Translations: [Melanocytic nevi of scalp and neck]Onset: 49-19-9181PsjmcntxBdpru complications of ; puerperium affecting management of mother (1 source)Urinary tract infection following delivery, unspecified; Translations: [UTI FOLLOWING DELIVERY UNSPECIFIED]Onset: 36-29-4337ErijqewlCpigo complications of ; puerperium affecting management of mother (1 source)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; Translations: [STREP B BOWER STATE COMP CHILDBIRTH]Onset: 01-12-6037HtztsslpGgyov complications of (5 sources)Maternal care for excessive growth, third trimester, not applicable or unspecified; Translations: [MAT CARE EXCSS FTL GRTH 3RD TRI UNS] Onset: 49-54-4580ReefvvkuUzqwq complications of (10 sources)Vomiting of , unspecified; Translations: [Mild hyperemesis gravidarum, unspecified as to episode of care or not applicable]Onset: 297300-18-2112JuzcsrwwFbhpg infections; including parasitic (4 sources)H/O: viral illness; Translations: [Personal history of other infectious and parasitic diseases]Onset: 375503-89-8944GkubnienGzcfy lower respiratory disease (3 sources)Shortness of breath; Translations: [SHORTNESS OF BREATH]Onset: 76-33-2845RznlybntFpmob nervous system disorders (2 sources)Other disturbances of skin sensation; Translations: [Other disturbances of skin sensation]Onset: 61-54-8376WjgdlsstBbfnn nutritional; endocrine; and metabolic disorders (5 sources)Morbid obesity; Translations: [Morbid (severe) obesity due to excess calories]Onset: 083882-79-8561UqwydrxTmteq nutritional; endocrine; and metabolic disorders (15 sources)Severe obesity; Translations: [Class 3 severe obesity due to excess calories without serious comorbidity with body mass index (BMI) of 45.0 to 49.9 in adult (CMS/[facility])]Onset: 489322-90-0602SmjiflwKbbpn nutritional; endocrine; and metabolic disorders (2 sources)Body mass index 40+ - severely obese; Translations: [Body mass index (BMI) 40.0-44.9, adult]02-50-5312EywmoppWavhb and delivery including normal (20 sources)Encounter for care and examination of lactating mother; Translations: [Encounter for routine follow-up]Onset: 11-11-2021 EpisodicOther screening for suspected conditions (not mental disorders or infectious disease) (18 sources)Encounter for screening for Streptococcus B; Translations: [Encounter for screening for diabetes mellitus]Onset: 88-02-0171HvorihbwXzmui skin disorders (2 sources)Epidermal cyst; Translations: [Epidermal cyst]Onset: 11-30-2018 EpisodicOther skin disorders (2 sources)Corns and callosities; Translations: [Corns and callosities]Onset: 44-93-0840BblonuivBchmq upper respiratory infections (3 sources)Acute upper respiratory infection, unspecified; Translations: [Acute sinusitis]EpisodicPrevious (1 source)Maternal care for low transverse scar from previous delivery; Translations: [MAT CARE LW TRANS SCAR PREV C/S DEL]Onset: 18-26-3426Vjyqwgid Residual codes; unclassified (1 source)Acquired absence of other specified parts of digestive tract; Translations: [ACQ ABSENCE OTH PART DIGESTV TRACT]Onset: 64-37-3451Nshfbtri Residual codes; unclassified (1 source)39 weeks gestation of ; Translations: [39 WEEKS GESTATION OF ]Onset: 21-13-4910IdocyfakDcnwvvyr codes; unclassified (2 sources)Gestation period, 13 weeks; Translations: [13 weeks gestation of ]47-31-8380NblmkeuzNnanlccwubpi (4 sources)CONTACT W/AND (SUSP) EXPOS COVID-19; Translations: [CONTACT W/AND (SUSP) EXPOS COVID-19]Onset: 22-71-8908Mskfsdn tract infections (1 source)Urinary tract infection, site not specified; Translations: [UTI SITE NOT SPECIFIED]Onset: 93-00-8046WiteyndnDnbxx infection (7 sources)Viral wart, unspecified; Translations: [Verruca vulgaris]Onset: 077015-49-2309IgulywndIktwy infection (1 source)COVID-19; Translations: [COVID-19]Onset: 07-27-2022 Past or Other Problems Problem ClassificationProblemDateDocumented DateEpisodic/ChronicAcute bronchitis (15 sources)Acute infective bronchitis; Translations: [Acute bronchitis due to other specified organisms]Onset: 04-08-2024 Resolved: 576275-19-5217SpxaqiarJldzldpu reactions (1 source)Eczema; Translations: [Eczema, unspecified type]EpisodicConditions associated with dizziness or vertigo (3 sources)Dizziness and giddiness; Translations: [DIZZINESS AND GIDDINESS] Onset: 82-78-1180WgtimqcuUupypnwieo during ; abruptio placenta; placenta previa (4 sources)Hemorrhage in early , unspecified; Translations: [HEMORRHAGE EARLY UNS]Onset: 90-72-0675PigkhdtuAaufneooueqbw and screening for infectious disease (4 sources)Contact with and (suspected) exposure to other viral communicable diseases; Translations: [Encounter for screening for infections with a predominantly sexual mode of transmission]Onset: 66-28-6421JumzkdhtRpzra aftercare (1 source)Other prison (current) drug therapy; Translations: [OTH HALFWAY CURRENT DRUG THERAPY]Onset: 01-05-3327XynvggkmCzsjq and unspecified benign neoplasm (1 source)Melanocytic nevus of scalp; Translations: [Nevus of scalp]Episodic Other female genital disorders (4 sources)Other specified noninflammatory disorders of vagina; Translations: [OTH SPEC NONINFLAMMATORY D/O VAGINA]Onset: 17-47-8416RhyisbzaHjaih nervous system disorders (3 sources)Skin sensation disturbance; Translations: [Other disturbances of skin sensation]EpisodicOther skin disorders (1 source)Milia; Translations: [Milia]EpisodicOther skin disorders (1 source)Tyler - lesion ; Translations: [Pre-ulcerative corn or callous]Episodic Residual codes; unclassified (1 source)33 weeks gestation of ; Translations: [33 WEEKS GESTATION OF ]Onset: 94-77-0179DsnvqattPjmtdnyl codes; unclassified (1 source)28 weeks gestation of ; Translations: [28 WEEKS GESTATION OF ]Onset: 38-48-0932LdyfzqflPgkihdd (1 source)Syncope and collapse; Translations: [SYNCOPE AND COLLAPSE]Onset: 01-26-4155OzpudmqiZadjdidtzxew (1 source)CONTACT W/AND (SUSP) EXPOS COVID-19; Translations: [CONTACT W/AND (SUSP) EXPOS COVID-19]Onset: 07-23-2022 Results Test NameValueInterpretationReference RangeFacilityUrinalysis macro (dipstick) panel (U)on 88-90-7444Wosbmhmde, UANegativeNegative - 4(70) +++ mg/dLNOMS HealthcareBlood, UANegativeNegative - 50 Todd/mcLNOMS HealthcareClarity, UAClear NOMS HealthcareColor, UAYellowNOPR HealthcareGlucose, UANegativeNegative - 2000(110) ++++ mg/dLNOPR HealthcareInterpretation and review of laboratory resultsAbnormalNOPR HealthcareKetones, UANegativeNegative - 160(16) ++++ mg/dL [facility] HealthcareLeukocytes, UANegativeNegative - 500+++ Yamilet/mcLNOPR Healthcare Nitrite, UANegativeNegative - PositiveNOMS HealthcarepH, UA6.05 - 9NOMS HealthcareProtein, UA1+Negative - 2000(20) ++++ mg/dLNOPR HealthcareSpec Grav, UA1.0301 - 1.03NOMS HealthcareUrobilinogen, UA1.00.2 - 12 mg/dLNOPR Healthcare NOMS HealthcareBasophils Auto (Bld) [#/Vol]Ordered By: Catarino Jaramillo on 05-03-2025 Basophils (Bld) [#/Vol]0.0 10 3/uL0.0-0.1FWilson [address] Hospital Basophils/100 WBC Auto (Bld)Ordered By: Catarino Jaramillo on 71-53-7907Crxagszcn/100 WBC (Bld)0.4 %0.2-2.0[facility] HospitalBuprenorphine [Presence] in UrineOrdered By: Catarino Jaramillo on 66-58-2194Jcykgiadfxiyb Ql (U)Negative NEGATIVEVan Wert County HospitalComment on above:DRUG CLASS TEST SYSTEM CUT-OFF CONCENTRATIONS ARE ASFOLLOWS:AMP (Amphetamine): 500 ng/mLBAR (Barbitu rates): 200 ng/mLBZO (Benzodiazepines): 150 ng/mLBUP (Buprenorphine): 10 ng/mLCOC (Cocaine): 150 ng/mLmAMP (Methamphetamine): 500 ng/mLMTD (Methadone): 200 ng/mLOPI (Opiates): 100 ng/mLOXY (Oxycodone): 100 ng/mLPCP (Phencyclidine): 25 ng/mLTHC (Cannabinoids): 50 ng/mLTCA (Trycyclic Antidepressants): 300 ng/mL Eosinophils/100 WBC Auto (Bld)Ordered By: Catarino Jaramillo on 05-03-2025 Eosinophils/100 WBC (Bld)1.3 %0.9-7.0[facility] Erythrocyte distribution width Auto (RBC) [Ratio]Ordered By: Catarino Jaramillo on 03-52-5266Ifrrvoxzyyb distribution width (RBC) [Ratio]14.2 %11.0-15.0[facility] HospitalGlucose mean value [Mass/volume] in Blood Estimated from glycated hemoglobinOrdered By: Catarino Jaramillo on 15-16-2330Fopgpnd glucose Estimated from glycated hemoglobin (Bld) [Mass/Vol]88 mg/dLVan Wert County HospitalHematocrit Auto (Bld) [Volume fraction]Ordered By: Catarino Jaramillo on 08-42-2646Hnxajfzwzh (Bld) [Volume fraction]37.8 %36.0-48.0[facility] HospitalHemoglobin A1c percentageOrdered By: Catarino Jaramillo on 05-03-2025 HbA1c (Bld) [Mass fraction]4.7 %4.5-6.2FWilson [address] HospitalComment on above:ADA RECOMMENDED LIMIT 4.0 - 6.0ADA THERAPEUTIC TARGET < 7.0ACTION SUGGESTED> 7.0Hemoglobin [Mass/volume] in BloodOrdered By: Catarino Jaramillo on 60-25-0822Nijgnhpqhx (Bld) [Mass/Vol]12.9 g/dL12.0-16.0[facility] HospitalHepatitis B virus surface Ag [Presence] in Serum or Plasma by ImmunoassayOrdered By: Catarino Jaramillo on 53-00-6687CUS surface Ag IA QlNegative [facility] HospitalComment on above:Performed at: - Lab[address] [id number] Director: Kenroy Lui PhD, Phone: [phone] - Drug toxicologyOrdered By: Catarino Jaramillo on 97-44-7057Mclgluyxjttb Ql (U)NegativeNEGKing's Daughters Medical Center OhioBenzodiazepines Ql (U)NegativeNEGKing's Daughters Medical Center Ohio Cocaine Ql (U)NegativeNEGKing's Daughters Medical Center OhioOpiates Ql (U) NegativeNEGKing's Daughters Medical Center OhioPhencyclidine Ql (U)Negative NEGATIVEVan Wert County HospitalLaboratory - Hematology and Cell counts Ordered By: Catarino Jaramillo on 25-33-0204Ykvefnqs granulocytes/100 WBC (Bld)0.2 % 0.0-0.5FWilson Street HospitalLeukocytes [#/volume] corrected for nucleated erythrocytes in Blood by Automated counOrdered By: Catarino Jaramillo on 41-15-4376ZVC corrected for nucl RBC Auto (Bld) [#/Vol]8.5 10 3/uL4.0-11.0 [facility] HospitalLymphocytes Auto (Bld) [#/Vol]Ordered By: Catarino Jaramillo on 88-30-9595Fmminzivebn (Bld) [#/Vol]1.2 10 3/uL1.2-3.8[facility] HospitalLymphocytes/100 WBC Auto (Bld)Ordered By: Catarino Jaramillo on 49-91-0870Olnxcraqqtc/100 WBC (Bld)14.0 %Low20.5-60.0[facility] Auto (RBC) [Entitic mass]Ordered By: Catarino Jaramillo on 37-31-4812WJM (RBC) [Entitic mass]28.2 pg26.7-34.0[facility] DaytonHC Auto (RBC) [Mass/Vol]Ordered By: Catarino Jaramillo on 20-36-3577HLON (RBC) [Mass/Vol]34.1 g/dL29.9-35.2FWilson [address] HospitalMCV Auto (RBC) [Entitic vol] Ordered By: Catarino Jaramillo on 06-89-7812GIR (RBC) [Entitic vol]82.7 fL81.0-99.0 [facility] HospitalMLR HEMOGLOBIN A1Con 93-01-8433Uawevyj [Mass/Vol]88 mg/dLNOPR TptveghqbfIdS5v (Bld) [Mass fraction]4.7 %4.5 - 6.2 %NOMS HealthcareComment on above:ADA RECOMMENDED LIMIT 4.0 - 6.0 ADA THERAPEUTIC TARGET < 7.0 ACTION SUGGESTED > 7.0 CLINISYNCNOMS HealthcareMethadone [Presence] in Urine by Screen methodOrdered By: Catarino Jaramillo on 77-07-4660Ooupgbqac Screen Ql (U)NegativeNEGATIVEVan Wert County HospitalMonocytes Auto (Bld) [#/Vol]Ordered By: Catarino Jaramillo on 77-49-7208Msptstrzf (Bld) [#/Vol]0.4 10 3/uL0.3-0.8[facility] HospitalMonocytes/100 WBC Auto (Bld)Ordered By: Catarino Jaramillo on 05-03-2025 Monocytes/100 WBC (Bld)5.1 %1.7-12.0[facility] HospitalNeutrophils Auto (Bld) [#/Vol]Ordered By: Catarino Jaramillo on 43-22-1017Pufwwegmrns (Bld) [#/Vol]6.7 10 3/uLHigh1.4-6.5FWilson Street HospitalNeutrophils/100 WBC Auto (Bld)Ordered By: Catarino Jaramillo on 61-63-1230Kcsnsueqhcl/100 WBC (Bld)79.0 %High43.0-75.0[facility] HospitalNo Panel InformationOrdered By: Catarino Jaramillo on 34-91-8472Mlqxynnvnzr # (Auto)0.1 10 3/uL0.0-0.7FWilson [address] HospitalHepatitis C InterpretationComment.[facility] HospitalComment on above:Not infected with HCV unless early or acute infection issuspected (which may be delayed in an immunocompromisedindividual), or other evidence exists to indicate HCVinfection.Performed at: [facility] [id number] Director: Kenroy Lui PhD, Phone: [phone] (1&2) Antibody ScreenNon-ReactiveNon ReactiveVan Wert County HospitalComment on above:HIV-1/HIV-2 antibodies and HIV-1 p24 antigen were NOTdetected. There is no laboratory evidence of HIV infection.HIV NegativePerformed at: [employer] [id number] Director: Kenroy Lui PhD, Phone: [phone] Granulocyte # (Auto)0.02 10 3/uL0.00-0.03[facility] HospitalRPR Quantitative ConfirmationNon Reactive titerNonRea<1:1FWilson Street HospitalComment on above:Please Note: This test does not meet current guidelines forscreening and diagnosis of syphilis. This test isintended for following treatment response in patients beingtreated for syphilis infection. To screen for syphilisinfection, a reflex cascade that includes both RPR and atreponema- specific assay should be utilized, such asTreponema pallidum (Syphilis) Screening [place] (847739) orRapid Plasma Reagin (RPR) Test With Reflex to QuantitativeRPR and Confirmatory Treponema pallidum Antibodies(306863).Performed at: [facility] [address] [place], [place] [id number] Director: Kenroy Lui PhD, Phone: [phone] IgG Antibody2.31 indexImmune >0.99[facility] HospitalComment on above:Non-immune <0.90 Equivocal 0.90 - 0.99 Immune >0.99Performed at: [address] [place], [place] [id number] Director: Kenroy Lui PhD, Phone: [phone] Urine Barbiturates ScreenNegativeNEGATIVEVan Wert County HospitalUrine Marijuana (THC) ScreenNegativeNEGATIVEVan Wert County HospitalUrine Methamphetamines ScreenNegativeNEGATIVEVan Wert County HospitalPlatelet mean volume Auto (Bld) [Entitic vol]Ordered By: Catarino Jaramillo on 05-03-2025 Platelet mean volume (Bld) [Entitic vol]9.5 fL9.5-13.5FWilson [address] HospitalPlatelets Auto (Bld) [#/Vol]Ordered By: Catarino Jaramillo on 45-41-0987Zgmnayagx (Bld) [#/Vol]334 10 3/vU257-149OcjhkeohyVan Wert County HospitalRBC Auto (Bld) [#/Vol]Ordered By: Catarino Jaramillo on 32-51-6847UCL (Bld) [#/Vol]4.57 10 6/uL 4.20-5.40St. [facility]'s Hospitalerum or plasma hepatitis C virus antibody signal/cutoff ratio by immunoassay (relatiOrdered By: Catarino Jaramillo on 32-61-7416TNK Ab Signal/Cutoff IA [Rel units/Vol]Non-ReactiveNon Reactive [facility] HospitalUrine tricyclic antidepressant measurement Ordered By: aCtarino Jaramillo on 11-87-3578Jnzxaiymy antidepressants (U) [Mass/Vol] NegativeNEGATIVEVan Wert County HospitaloxyCODONE+oxyMORphone [Presence] in Urine by Screen methodOrdered By: Catarino Jaramillo on 05-03-2025 oxyCODONE+oxyMORphone Screen Ql (U)NegativeNEGKing's Daughters Medical Center OhioHCG ( test) Ql (U)on 87-55-6904Dmfmxbrqogxlnt and review of laboratory resultsAbnormalNOMS HealthcarePreg Test, UrPositiveNegativeNOMS HealthcareNOMS HealthcareUS OB TRANSVAGINALon 76-44-1905ON OB TRANSVAGINAL FINDINGS: A single intrauterine gestational sac is present. No subchorionic hemorrhage. A single pole is present. Normal heart rate at 173 beats per minute. Yolk sac also is seen. Current sonographic age is 8 weeks and 4 days based on the crown-rump length measurement of 2.0cm. Based on this age,current estimated date of delivery is December 03, 2025. No pelvic fluid or adnexal mass present. Cervix closed, 4.3 cm. IMPRESSION: Findings consistent with a live intrauterine gestation, current sonographic age of 8 weeks and 4 days resulting in an estimated date of delivery of December 03, 2025. TRANSCRIBED BY: ELECTRONICALLY SIGNED BY: Riki LimaalNot AvailableComment on above:Order Comment: US OB TRANSVAGINAL No LMP recorded.Urinalysis macro (dipstick) panel (U)on 55-05-7476Ybionbqej, UA NegativeNegative - 4(70) +++ mg/dLNOMS HealthcareBlood, UANegativeNegative - 50 Todd/mcLNOMS HealthcareClarity, UAClearNOMS HealthcareColor, UAYellowNOMS HealthcareGlucose, UANegativeNegative - 2000(110) ++++ mg/dLNOMS Healthcare Interpretation and review of laboratory resultsAbnormalNOMS HealthcareKetones, UANegativeNegative - 160(16) ++++ mg/dLNOPR HealthcareLeukocytes, UANegative Negative - 500+++ Yamilet/mcLNOPR HealthcareNitrite, UANegativeNegative - Positive NOMS HealthcarepH, UA65 - 9NOMS HealthcareProtein, UAPositiveNegative - 2000(20) ++++ mg/dLNOPR HealthcareSpec Grav, UA1.031 - 1.03NOMS HealthcareUrobilinogen, UA1.00.2 - 12 mg/dLNOMS HealthcareNOPR HealthcareNo Panel InformationOrdered By: Magda Carroll on 24-68-0615Kldgn Strep (POC)[facility] IGP,APTIMA HPV,AGE GDLNon 13-55-5955RPE GDLN ACOG TESTINGNote.[facility] Comment on above:TESTS RESULT FLAG UNITS REF RANGE LAB Clinician Provided Cytology Information Source.............Cervix;Endocervix No. of containers..01 ThinPrep Vial Age Algo ACOG Roselyn... -07 09 FLAG LEGEND: L-Low Normal,H-High Normal,LL-Alert Low,HH-Alert High <-Panic Low,>-Panic High,A-Abnormal,AA-Critical Abnormal Performed at: 01 =G [facility] [address] [place] [address] Althea Boone MD, IGP, RFX APTIMA HPV ASCUNote.NOMS HealthcareComment on above:TESTS RESULT FLAG UNITS REF RANGE LAB DIAGNOSIS: 02 NEGATIVE FOR INTRAEPITHELIAL LESION OR MALIGNANCY. Specimen adequacy: 02 Satisfactory for evaluation. Endocervical and/or squamous metaplastic cells (endocervical component) are present. Performed by: 02 Ileana Nunez Credentialing Analyst ([facility]) . 02 Note: Note 03 The [...] High,A-Abnormal,AA-Critical Abnormal Performed at: 02 KWCYT [facility] [place] [facility] [id number] [place] [id number] Jimi Florez MD, 03 WB [facility] [address] [address] Althea Boone MD, Performed at: =G - [address] [id number] [place] [employer] Finder: Althea Boone MD, Phone: [phone] Performed at: [facility] [id number] [place] [id number] [employer] Finder: Jimi Florez MD, Phone: [phone] BRUSH-SPATULA CERVIX ENDOCERVIX [facility] (CVDTBH)on [id number]-CoV-2 (COVID-19) RNA ZACKARY+probe Ql (Unsp spec)DetectedCritically abnormalNOT DETECTEDThe [facility] CenterComment on above:Result Comment: This test is not yet approved or cleared by the [place] FDA. When there are no FDA-approved or cleared tests available, and other criteria are met, FDA can make tests available under an emergency access mechanism called an Emergency Use Authorization (EUA). The EUA for this test is supported by the [place] of Health and Human Service's declaration that circumstances exist to justify the emergency use of in vitro diagnostics for the detection and/or diagnosis of the virusthat causes COVID-19. This EUA will remain in effect for the duration of the COVID-19 declaration ju stifying emergency of IVDs, unless it is terminated or revoked by the FDA (after which the test mayno longer be used).Performed By: #### CBC #### [facility] [address] [place] [address] Dr. Molina Wells AUTO DIFFon [id number] #0.0 103/ulNormal0.0-0.1The [facility] CenterComment on above:Performed By: #### CBC #### [facility] [address] [place] [address] Dr. Molina Suesophils/100 WBC (Bld)0.6 %Normal0.2-2.0The [facility] Comment on above:Performed By: #### CBC #### [facility] [address] [place] [address] Dr. Auguste ChangEO #0.2 103/ulNormal0.0-0.7The [facility] CenterComment on above: Performed By: #### CBC #### [facility] [address] [address] [address] Molina Kernosinophils/100 WBC (Bld)3.0 %Normal0.9-7.0[facility] Comment on above:Performed By: #### CBC #### [facility] [address] [place] [address] Dr. Molina Kernrythrocyte distribution width (RBC) [Ratio]13.2 %Nrpleq81.0-15.0 [facility] HospitalComment on above:Performed By: #### CBC #### [facility] [address] [place] [address] Dr. Molina ZhangHematocrit (Bld) [Volume fraction]33.1 %Critically low36.0-48.0 [facility] HospitalComment on above:Performed By: #### CBC #### [facility] [address] [place] [address] Dr. Molina ZhangHemoglobin (Bld) [Mass/Vol]10.7 g/dLCritically low12.0-16.0[facility] HospitalComment on above:Performed By: #### CBC #### [facility] [address] [place] [address] Dr. Molina Conde #0.08 10e3/ulCritically high0.00-0.03[facility] Comment on above:Performed By: #### CBC #### [facility] [address] [place] [address] Dr. Molina Conde %1.3 %Critically high0.0-0.5ThOhioHealth Doctors HospitalComment on above:Performed By: #### CBC #### [facility] [address] [place] [address] Dr. Molina McgheeH #1.1 103/ulCritically low1.2-3.8The [facility] Comment on above:Performed By: #### CBC #### [facility] [address] [place] [address] Dr. Molina Edwardmphocytes/100 WBC (Bld)16.9 %Critically low20.5-60.0The [facility] CenterComment on above:Performed By: #### CBC #### [facility] [address] [place] [address] Dr. Molina Rinaldi DIFF REQNONormalThe [facility] CenterComment on above: Performed By: #### CBC #### [facility] [address] [place] [address] Dr. Molina Miller (RBC) [Entitic mass]26.6 pgCritically low26.7-34.0The Somers HospitalComment on above:Performed By: #### CBC #### [facility] [address] [place] [address] Dr. Molina Miller (RBC) [Mass/Vol]32.3 g/wSUbwenp39.9-35.2The [facility] CenterComment on above:Performed By: #### CBC #### [facility] [address] [place] [address] Dr. Molina Miller (RBC) [Entitic vol]82.1 uASkxzhe01.0-99.0The [facility] CenterComment on above:Performed By: #### CBC #### [facility] [address] [place] [address] Dr. Molina Lr #0.4 103/ulNormal0.3-0.8The [facility] CenterComment on above:Performed By: #### CBC #### [facility] [address] [place] [address] Dr. Molina Christineocytes/100 WBC (Bld)6.1 %Normal1.7-12.0The [facility] Comment on above:Performed By: #### CBC #### [facility] [address] [place] [address] Dr. Molina Ma #4.5 103/ulNormal1.4-6.5The [facility] CenterComment on above:Performed By: #### CBC #### [facility] [address] [place] [address] Dr. Molina Shannonutrophils/100 WBC (Bld)72.1 %Pcbqgg88.0-75.0The [facility] CenterComment on above:Performed By: #### CBC #### [facility] [address] [place] [address] Dr. Molina ZhangPlatelet mean volume (Bld) [Entitic vol]9.3 fLCritically low 9.5-13.5The [facility] CenterComment on above:Performed By: #### CBC #### [facility] [address] [place] [address] Dr. Molina ZhangPLT379 103/eqObhsuz614-371Wvl [facility] CenterComment on above: Performed By: #### CBC #### [facility] [address] [place] [address] Dr. Molina ZhangRBC4.03 106/ulCritically low4.20-5.40The [facility] CenterComment on above:Performed By: #### CBC #### [facility] [address] [place] [address] Dr. Molina ZhangWBC6.3 103/ulNormal4.0-11.0The [facility] CenterComment on above: Performed By: #### CBC #### [facility] [address] [place] [address] Dr. Molina Tirado/FLU/RSV RT-PCRon [id number]-CoV-2 (COVID-19) RNA ZACKARY+probe Ql (Unsp spec)NegativeNoChester County Hospital Arthena Other COVID/FLU/RSV RT-PCRNegativeNoChester County Hospital Arthena Other CULTURE BLOODon 22-48-7555Wviinkeqxjl examination of blood, cultureCulture Observations: NO GROWTH AT 5 DAYS.NormalThe [facility] CenterComment on above:Performed By: #### [id number] #### [facility] [address] [place] [address] Dr. Molina ZhangPerformed By: #### [id number] #### [facility] [address] [place] [address] Dr. Molina ZhangCUSHRADDHA URINEon [id number] URINECulture Observations: LIGHT GROWTH OF MIXED GENITAL LAWANDA. NO POTENTIAL PATHOGENS SEEN.NormalPike Community HospitalComment on above:Performed By: #### CMP #### [facility] [address] [place] [address] Dr. Molina Hawkinsvid-19 PCR ([facility])on 84-80-9121BTBF-CoV-2 (COVID-19) RNA ZACKARY+probe Ql (Unsp spec)Not detectedNormalNOT DETECTEDPike Community Hospital Comment on above:Result Comment: When diagnostic testing is negative, the [...] for this test is supported by the Cell Geneticist of Health and Human Service's declaration that circumstances exist to justify the emergency use of in vitro diagnostics for the detection and/or diagnosis of the virus that causes COVID-19. This EUA will remain in effect for the duration of the COVID-19 declaration justifying emergency of IVDs, unless it is terminated or revoked by the FDA (after which the test may no longer be used).Performed By: #### CBC #### [facility] [address] [place] [address] Dr. Molina Nunez URINE PROFILEon 70-85-0359Cntkdeffv Ql (U)NegativeNormal NEGATIVEPike Community HospitalComment on above:Performed By: #### [id number] #### [facility] [address] [place] [address] Dr. Molina Stone (U)CLEARNormalCLEARPike Community HospitalComment on above: Performed By: #### [id number] #### [facility] [address] [place] [address] Dr. Molina Maza (U)YELLOWNormalYELLOWPike Community HospitalComment on above: Performed By: #### [id number] #### [facility] [address] [address] [address] Molina Lewis micrscopic examination will be performed if indicated. NormalOhiohealth HospitalComment on above:Performed By: #### [id number] #### [facility] [address] [address] [address] Molina ZhangGlucose Ql (U)NegativeNormalNEGATIVEPike Community HospitalComment on above:Performed By: #### [id number] #### [facility] [address] [place] [address] Dr. Molina ZhangHemoglobin Ql (U)LARGEAbnormalNEGATIVEMarymount Hospital on above:Performed By: #### [id number] #### [facility] [address] [place] [address] Dr. Molina ZhangKetones Ql (U)TRACEAbnormalNEGATIVEPike Community HospitalComment on above:Performed By: #### [id number] #### [facility] [address] [place] [address] Dr. Molina ZhangLEUKOCYTESTRACEAbnormalNEGATIVEPike Community HospitalComment on above:Performed By: #### [id number] #### [facility] [address] [place] [address] Dr. Molina ZhangNitrite Ql (U)NegativeNormalNEGATIVEPike Community HospitalComment on above:Performed By: #### [id number] #### [facility] [address] [place] [address] Dr. Molina ZhangpH (U)5.5 [pH]Normal5-9[facility] HospitalComment on above: Performed By: #### [id number] #### [facility] [address] [address] [address] Molina ZhangProtein (U) [Mass/Vol]30 mg/dLAbnormalNEGATIVE/ TRACEPike Community HospitalComment on above:Performed By: #### [id number] #### [facility] [address] [place] [address] Dr. Molina ZhangSPEC GRAVITY>=1.769Jyewdmxn6.005-<=1.025The [facility] Comment on above:Performed By: #### [id number] #### [facility] [address] [place] [address] Dr. Molina Carter MICRO INDINDICATEDNormalThe [facility] CenterComment on above: Performed By: #### [id number] #### [facility] [address] [place] [address] Dr. Molina ZhangUrobilinogen Qn (U)0.2 {Jaelyn'U}/dLNormal0.2 - 1.0The [facility] CenterComment on above:Performed By: #### [id number] #### [facility] [address] [place] [address] Dr. Molina ZhangLACTATE/LACTIC ACIDon 44-83-5709Hqenqth [Moles/Vol]1.4 mmol/L Normal0.4-1.9The [facility] CenterComment on above:Performed By: #### [id number] #### [facility] [address] [place] [address] Dr. Molina ZhangPROF 14(COMP METB)on 21-69-6770Mtsurdy [Mass/Vol]3.2 g/dL Critically low3.4-5.0The [facility] CenterComment on above:Performed By: #### CMP #### [facility] [address] [place] [address] Dr. Molina ZhangAlbumin/Globulin [Mass ratio]0.8 {ratio}NormalThe [facility] CenterComment on above:Performed By: #### CMP #### [facility] [address] [place] [address] Dr. Molina Alvarez [Catalytic activity/Vol]127 U/LCritically finv56-711Crf [facility] CenterComment on above:Performed By: #### CMP #### [facility] [address] [place] [address] Dr. Molina Dooley [Catalytic activity/Vol]14 U/IZgpqjl60-98Egj [facility] CenterComment on above:Performed By: #### CMP #### [facility] [address] [address] [address] Molina ZhangAnion gap [Moles/Vol]9.5 mmol/LNormalThe [facility] CenterComment on above:Performed By: #### CMP #### [facility] [address] [address] [address] Molina ZhangAST [Catalytic activity/Vol]10 U/LCritically hgl42-00Bty [facility] CenterComment on above:Performed By: #### CMP #### [facility] [address] [address] [address] Molina ZhangBilirubin [Mass/Vol]0.2 mg/dLNormal0.2-1.0The [facility] Comment on above:Performed By: #### CMP #### [facility] [address] [address] [address] Molina ZhangCalcium [Mass/Vol]8.4 mg/dLCritically low8.5-10.1The [facility] CenterComment on above:Performed By: #### CMP #### [facility] [address] [address] [address] Molina ZhangChloride [Moles/Vol]104 mmol/QTiyilm21-423Xel [facility] Comment on above:Performed By: #### CMP #### [facility] [address] [address] [address] Molina ZhangCO2 [Moles/Vol]25.9 mmol/OOkjrgd11.0-32.0The [facility] Comment on above:Performed By: #### CMP #### [facility] [address] [address] [address] Molina ZhangCreatinine [Mass/Vol]1.23 mg/dLCritically high0.55-1.02The [facility] CenterComment on above:Performed By: #### CMP #### [facility] [address] [address] [address] Auguste ChangEGFR-AF CZECH>60Normal>=60The [facility] CenterComment on above:Performed By: #### CMP #### [facility] [address] [address] [address] Molina KernGFR-NON AF QNJZPZOC27 mL/min/1.29x5Qcexfspikg low>=60The [facility] CenterComment on above:Performed By: #### CMP #### [facility] [address] [place] [address] Dr. Molina ZhangGlobulin (S) [Mass/Vol]4.2 g/dLNormGood Samaritan HospitalComment on above:Performed By: #### CMP #### [facility] [address] [place] [address] Dr. Molina ZhangGlucose [Mass/Vol]98 mg/kMHpnzup53-778Euy [facility] Comment on above:Performed By: #### CMP #### [facility] [address] [place] [address] Dr. Molina ZhangPotassium [Moles/Vol]3.4 mmol/LCritically low3.5-5.1The [facility] CenterComment on above:Performed By: #### CMP #### [facility] [address] [place] [address] Dr. Molina ZhangProtein [Mass/Vol]7.4 g/dLNormal6.4-8.2The [facility] Comment on above:Performed By: #### CMP #### [facility] [address] [place] [address] Dr. Molina ZhangSodium [Moles/Vol]136 mmol/KFotusp039-720Tdj [facility] Comment on above:Performed By: #### CMP #### [facility] [address] [place] [address] Dr. Molina ZhangUrea nitrogen [Mass/Vol]13.0 mg/dLNormal7.0-18.0The [facility] CenterComment on above:Performed By: #### CMP #### [facility] [address] [place] [address] Dr. Molina Calero nitrogen/Creatinine [Mass ratio]10.6 mg/mgNoSelect Medical Cleveland Clinic Rehabilitation Hospital, AvonComment on above:Performed By: #### CMP #### [facility] [address] [place] [address] Dr. Molina Archuleta MICROSCOPIC ONLYon [id number]QQZN SEENThe [facility] CenterComment on above:Performed By: #### [id number] #### [facility] [address] [place] [address] Dr. Molina Romero identified Cx Nom (U)INDICATEDNoalThOhioHealth Doctors HospitalComment on above:Performed By: #### [id number] #### [facility] [address] [place] [address] Dr. Molina Shook SEENNormalNONE SEENPike Community HospitalComascension st. [facility] on above:Performed By: #### [id number] #### [facility] [address] [place] [address] Dr. Molina Sevillaystals LM Nom (Urine sed)NONE SEENNormalNONE SEENPike Community HospitalComascension st. [facility]ose[facility] on above:Performed By: #### [id number] #### [facility] [address] [place] [address] Dr. Auguste ChangEpithelial cells LM Ql (Urine sed)FEWAbnormalNONE SEEN /RAREThe [facility] CenterComascension [facility] on above:Performed By: #### [id number] #### [facility] [address] [place] [address] Dr. Molina ShearerCOUSTRACEAbnormalNONE SEENPike Community HospitalComascension st[facility] on above:Performed By: #### [id number] #### [facility] [address] [place] [address] Dr. Molina ZhangFabkxAXD6-3Sxebtvbc6-3Tff [facility] HospitalComment on above:Performed By: #### [id number] #### [facility] [address] [place] [address] Dr. Molina ZhangAcucmPOZ82-72DfbknxnhVONT SEENPike Community HospitalComment on above: Performed By: #### [id number] #### [facility] [address] [place] [address] Dr. Molina Wells AUTO DIFFon 99-60-1521OTMR #0.0 103/ulNormal0.0-0.1The [facility] CenterComment on above:Performed By: #### CMP #### [facility] [address] [place] [address] Dr. Molina ZhangBasophils/100 WBC (Bld)0.4 %Normal0.2-2.0[facility] Comment on above:Performed By: #### CMP #### [facility] [address] [place] [address] Dr. Molina Rubalcava #0.1 103/ulNormal0.0-0.7The [facility] CenterComment on above: Performed By: #### CMP #### [facility] [address] [place] [address] Dr. Molina Kernosinophils/100 WBC (Bld)1.0 %Normal0.9-7.0[facility] Comment on above:Performed By: #### CMP #### [facility] [address] [place] [address] Dr. Molina Kernrythrocyte distribution width (RBC) [Ratio]14.2 %Sgbwvj01.0-15.0 [facility] HospitalComment on above:Performed By: #### CMP #### [facility] [address] [place] [address] Dr. Molina ZhangHematocrit (Bld) [Volume fraction]24.7 %Critically low36.0-48.0 [facility] HospitalComment on above:Performed By: #### CMP #### [facility] [address] [place] [address] Dr. Molina ZhangHemoglobin (Bld) [Mass/Vol]8.3 g/dLCritically low12.0-16.0[facility] HospitalComment on above:Performed By: #### CMP #### [facility] [address] [place] [address] Dr. Molina Conde #0.07 10e3/ulCritically high0.00-0.03[facility] Comment on above:Performed By: #### CMP #### [facility] [address] [address] [address] Molina Conde %0.7 %Critically high0.0-0.5The [facility] CenterComment on above:Performed By: #### CMP #### [facility] [address] [place] [address] Dr. Molina Acosta #1.6 103/ulNormal1.2-3.8The [facility] CenterComment on above:Performed By: #### CMP #### [facility] [address] [place] [address] Dr. Molina Mcgheehocytes/100 WBC (Bld)16.1 %Critically low20.5-60.0The [facility] CenterComment on above:Performed By: #### CMP #### [facility] [address] [place] [address] Dr. Molina BerriosUAL DIFF REQNONormalThe [facility] CenterComment on above: Performed By: #### CMP #### [facility] [address] [place] [address] Dr. Molina Miller (RBC) [Entitic mass]27.9 aiGiemgf13.7-34.0The [facility] CenterComment on above:Performed By: #### CMP #### [facility] [address] [place] [address] Dr. Molina Miller (RBC) [Mass/Vol]33.6 g/mXQqbnkm09.9-35.2The [facility] CenterComment on above:Performed By: #### CMP #### [facility] [address] [place] [address] Dr. Molina Miller (RBC) [Entitic vol]83.2 dPQllutx82.0-99.0The [facility] CenterComment on above:Performed By: #### CMP #### [facility] [address] [place] [address] Dr. Molina Lr #0.7 103/ulNormal0.3-0.8The [facility] CenterComment on above:Performed By: #### CMP #### [facility] [address] [place] [address] Dr. Molina Christineocytes/100 WBC (Bld)6.8 %Normal1.7-12.0The [facility] Comment on above:Performed By: #### CMP #### [facility] [address] [place] [address] Dr. Molina Ma #7.3 103/ulCritically high1.4-6.5The [facility] Comment on above:Performed By: #### CMP #### [facility] [address] [place] [address] Dr. Molina Shannonutrophils/100 WBC (Bld)75.0 %Zgbuvp95.0-75.0The [facility] CenterComment on above:Performed By: #### CMP #### [facility] [address] [place] [address] Dr. Molina Howelllet mean volume (Bld) [Entitic vol]9.3 fLCritically low 9.5-13.5The [facility] CenterComment on above:Performed By: #### CMP #### [facility] [address] [place] [address] Dr. Molina ZhangPLT253 103/cxMyiqlq970-611Nxg [facility] CenterComment on above: Performed By: #### CMP #### [facility] [address] [place] [address] Dr. Moilna ZhangRBC2.97 106/ulCritically low4.20-5.40The [facility] CenterComment on above:Performed By: #### CMP #### [facility] [address] [place] [address] Dr. Molina ZhangWBC9.8 103/ulNormal4.0-11.0The [facility] CenterComment on above: Performed By: #### CMP #### [facility] [address] [place] [address] Dr. Molina Wells AUTO DIFFon [id number] #0.0 103/ulNormal0.0-0.1The [facility] CenterComment on above:Performed By: #### [id number] #### [facility] [address] [place] [address] Dr. Molina ZhangBasophils/100 WBC (Bld)0.4 %Normal0.2-2.0The [facility] Comment on above:Performed By: #### [id number] #### [facility] [address] [place] [address] Dr. Molina Rubalcava #0.1 103/ulNormal0.0-0.7The [facility] CenterComment on above: Performed By: #### [id number] #### [facility] [address] [place] [address] Dr. Molina Kernosinophils/100 WBC (Bld)0.9 %Normal0.9-7.0The [facility] Comment on above:Performed By: #### [id number] #### [facility] [address] [place] [address] Dr. Molina Kernrythrocyte distribution width (RBC) [Ratio]13.8 %Jgflgk41.0-15.0 [facility] HospitalComment on above:Performed By: #### [id number] #### [facility] [address] [place] [address] Dr. Molina ZhangHematocrit (Bld) [Volume fraction]30.9 %Critically low36.0-48.0 [facility] HospitalComment on above:Performed By: #### [id number] #### [facility] [address] [place] [address] Dr. Molina ZhangHemoglobin (Bld) [Mass/Vol]10.5 g/dLCritically low12.0-16.0[facility] HospitalComment on above:Performed By: #### [id number] #### [facility] [address] [place] [address] Dr. Molina Conde #0.08 10e3/ulCritically high0.00-0.03The [facility] Comment on above:Performed By: #### [id number] #### [facility] [address] [place] [address] Dr. Yilan ChangIG %0.7 %Critically high0.0-0.5The [facility] HospitalComment on above:Performed By: #### [id number] #### [facility] [address] [place] [address] Dr. Molina Acosta #2.0 103/ulNormal1.2-3.8The [facility] HospitalComment on above:Performed By: #### [id number] #### [facility] [address] [place] [address] Dr. Molina Mcgheehocytes/100 WBC (Bld)17.7 %Critically low20.5-60.0The [facility] HospitalComment on above:Performed By: #### [id number] #### [facility] [address] [place] [address] Dr. Molina Rinaldi DIFF REQNONormalThe [facility] CenterComment on above: Performed By: #### [id number] #### [facility] [address] [place] [address] Dr. Molina Meadows (RBC) [Entitic mass]28.0 bcNninyq41.7-34.0The [facility] HospitalComment on above:Performed By: #### [id number] #### [facility] [address] [place] [address] Dr. Molina Miller (RBC) [Mass/Vol]34.0 g/xSQewtgk42.9-35.2The [facility] CenterComment on above:Performed By: #### [id number] #### [facility] [address] [place] [address] Dr. Molina Noble (RBC) [Entitic vol]82.4 gIFsuxdd47.0-99.0The [facility] CenterComment on above:Performed By: #### [id number] #### [facility] [address] [place] [address] Dr. Molina Lr #0.7 103/ulNormal0.3-0.8The [facility] HospitalComment on above:Performed By: #### [id number] #### [facility] [address] [place] [address] Dr. Molina Christineocytes/100 WBC (Bld)6.4 %Normal1.7-12.0The [facility] Comment on above:Performed By: #### [id number] #### [facility] [address] [place] [address] Dr. Molina Ma #8.3 103/ulCritically high1.4-6.5The [facility] Comment on above:Performed By: #### [id number] #### [facility] [address] [place] [address] Dr. Molina Shannonutrophils/100 WBC (Bld)73.9 %Qnzwri56.0-75.0The [facility] CenterComment on above:Performed By: #### [id number] #### [facility] [address] [place] [address] Dr. Molina ZhangPlatelet mean volume (Bld) [Entitic vol]10.4 fLNormal9.5-13.5The [facility] CenterComment on above:Performed By: #### [id number] #### [facility] [address] [place] [address] Dr. Molina ZhangPLT351 103/fwVdezhb445-632Zkr [facility] CenterComment on above: Performed By: #### [id number] #### [facility] [address] [place] [address] Dr. Molina ZhangRBC3.75 106/ulCritically low4.20-5.40The [facility] CenterComment on above:Performed By: #### [id number] #### [facility] [address] [place] [address] Dr. Molina ZhangWBC11.2 103/ulCritically high4.0-11.0The [facility] CenterComment on above:Performed By: #### [id number] #### [facility] [address] [place] [address] Dr. Molina ZhangDRUG SCREEN RAPID (URINE)on [id number]A The [facility] CenterComment on above:Performed By: #### [id number] #### [facility] [address] [place] [address] Dr. Molina AmayaNegativeNoalNEGSuburban Community Hospital & Brentwood HospitalComment on above: Performed By: #### [id number] #### [facility] [address] [place] [address] Dr. Molina PatelPNegativeNoalNEGSuburban Community Hospital & Brentwood HospitalComment on above: Performed By: #### [id number] #### [facility] [address] [place] [address] Dr. Molina ZhangBZONegativeNormalNEGATIVEPike Community HospitalComment on above: Performed By: #### [id number] #### [facility] [address] [place] [address] Dr. Molina HawkinsCNegativeLiberty HospitalalNEGSuburban Community Hospital & Brentwood HospitalComment on above: Performed By: #### [id number] #### [facility] [address] [place] [address] Dr. Molina GordonBarney Children's Medical CenterComment on above: Result Comment: AMP (Amphetamine): 500ng/mL, BAR (Barbituates): 200 ng/mL, BZO (Benzodiazepines): 150 ng/mL, BUP (Buprenorphine): 10 ng/mL, MARCIO (Cocaine): 150 ng/mL, mAMP (Methamphetamine): 500 ng/mL, MTD (Methadone): 200 ng/mL, OPI (Opiates): 100 ng/mL, OXY (Oxycodone): 100 ng/mL, PCP (Phencyclidine): 25 ng/mL, PPX (Propoxyphene): 300 ng/mL, THC (Cannabinoids): 50 ng/mL, TCA (Trycyclic Antidepressants): 300 ng/mLPerformed By: #### [id number] #### [facility] [address] [place] [address] Dr. Molina ZhangDRUG CUT HEADERDRUG CLASS TEST SYSTEM CUT-OFF CONCENTRATIONS ARE FOLLOWS:[facility] on above:Performed By: #### [id number] #### [facility] [address] [address] [address] Molina ZhangmAMPNegativeNormalNEGATIVEPike Community HospitalComment on above: Performed By: #### [id number] #### [facility] [address] [place] [address] Dr. Molina ZhangMTDNegativeNormalNEGATIVEPike Community HospitalComment on above: Performed By: #### [id number] #### [facility] [address] [place] [address] Dr. Molina ZhangOPINegativeNormalNEGSuburban Community Hospital & Brentwood HospitalComment on above: Performed By: #### [id number] #### [facility] [address] [place] [address] Dr. Molina ZhangOXYNegativeNormalNEGSuburban Community Hospital & Brentwood HospitalComment on above: Performed By: #### [id number] #### [facility] [address] [place] [address] Dr. Molina ZhangPCPNegativeNormalNEGSuburban Community Hospital & Brentwood HospitalComment on above: Performed By: #### [id number] #### [facility] [address] [place] [address] Dr. Molina ZhangPPXNegativeNormalNEGSuburban Community Hospital & Brentwood HospitalComascension [facility] on above: Performed By: #### [id number] #### [facility] [address] [place] [address] Dr. Molina ZhangTCANegativeNormalNEGSuburban Community Hospital & Brentwood HospitalComascension [facility] on above: Performed By: #### [id number] #### [facility] [address] [place] [address] Dr. Molina ZhangTHCNegativeNormalNEGSuburban Community Hospital & Brentwood HospitalComment on above: Performed By: #### [id number] #### [facility] [address] [place] [address] Dr. Molina Cabrera AND SCREENon 81-04-1544YTZT AND SCREENNegativeNormalThOhioHealth Doctors HospitalComment on above:Performed By: #### CMP #### [facility] [address] [place] [address] Dr. Molina Rodrigues (CLEAN/CATCH) DRILL PRESS TENDER/MICRO IF IND.on [id number] Ql (U) NegativeNormalNEGATIVEPike Community HospitalComment on above:Performed By: #### CBC #### [facility] [address] [place] [address] Dr. Molina Stone (U)CLEARNormalCLEARPike Community HospitalComment on above: Performed By: #### CBC #### [facility] [address] [address] [address] Molina Hawkinslor (U)YELLOWNormalYELLOWPike Community HospitalComment on above: Performed By: #### CBC #### [facility] [address] [place] [address] Dr. Molina ZhangGlucose Ql (U)NegativeNormalNEGATIVEPike Community HospitalComment on above:Performed By: #### CBC #### [facility] [address] [place] [address] Dr. Molina ZhangHemoglobin Ql (U)NegativeNormalNEGMarietta Memorial Hospital on above:Performed By: #### CBC #### [facility] [address] [address] [address] Molina ZhangKetones Ql (U)NegativeNormalNEGATIVEMercy Health Defiance Hospitalment on above:Performed By: #### CBC #### [facility] [address] [place] [address] Dr. Molina ZhangLEUKOCYTESNegativeNormalNEGATIVEPike Community HospitalComascension st[facility] on above:Performed By: #### CBC #### [facility] [address] [address] [address] Molina ZhangNitrite Ql (U)NegativeNormalNEGATIVEPike Community HospitalComment on above:Performed By: #### CBC #### [facility] [address] [place] [address] Dr. Molina ZhangpH (U)6.0 [pH]Normal5-9Mercy Health Defiance Hospitalment on above: Performed By: #### CBC #### [facility] [address] [address] [address] Molina ZhangSPEC GRAVITY>=1.027Mpcjjvjb6.005-<=1.025The [facility] Comment on above:Performed By: #### CBC #### [facility] [address] [place] [address] Dr. Molina Rodrigues PROTEINTRACENormalNEGATIVE/ TRACEThe [facility] CenterComment on above:Performed By: #### CBC #### [facility] [address] [place] [address] Dr. Molina ZhangUR MICRO INDNOT INDICATEDNormalThe [facility] CenterComment on above:Performed By: #### CBC #### [facility] [address] [place] [address] Dr. Molina Bansalbilinogen Qn (U)0.2 {Jaelyn'U}/dLNormal0.2 - 1.0The [facility] CenterComment on above:Performed By: #### CBC #### [facility] [address] [place] [address] Dr. Molina ZhangCovid-19 PCR (CVDTB)on 08-10-4910VNTG-CoV-2 (COVID-19) RNA ZACKARY+probe Ql (Unsp spec)Not detectedNormalNOT DETECTEDPike Community Hospital Comment on above:Result Comment: This test is not yet approved or cleared by the [place] FDA. When there are no FDA-approved or cleared tests available, and other criteria are met, FDA can make tests available under an emergency access mechanism called an Emergency Use Authorization (EUA). The EUA for this test is supported by the [place] of Health and Human Service's (HHS's) declaration that circumstances exist to justify the emergency use of in vitro diagnostics for the detection and/or diagnosis of the virus that causes COVID- 19. This EUA will remain in effect (meaning [...] of clinical signs and symptoms consistent with SARS-CoV-2.Performed By: #### CMP #### [facility] [address] [place] [address] [address] [address] Mol[address] ZhangGROUP B STREP CULTUREon 05-17-2022. agalactiae Ag Ql (Unsp spec) Culture Observations: [...] Vancomycin 0.5 S F Tetracycline >=16 R FNormalPike Community HospitalComment on above:Performed By: #### GBSCX #### [facility] [address] [place] [address] Dr. Molina Escalante PREG GROWTHon [id number] PREG GROWTHEXAMINATION: US PREG GROWTH HISTORY: Large for gestation [...] Electronically authenticated by: MUNDO BECKER Date: 2022-04-23 16:13[facility] HospitalUS PREG GROWTHon [id number] PREG GROWTHEXAMINATION: US PREG GROWTH HISTORY: Excessive growth affecting [...] Electronically authenticated by: KENZIE AVILES Date: 2022-03-20 16:41[facility] HospitalGLUCOSE - 1HRon 36-04-1571Epjmmif [Mass/Vol]137 mg/dLCritically pdep02-177Bml [facility] CenterComment on above:Performed By: #### [id number] #### [facility] [address] [place] [address] Dr. Molina ZhangHEMOGRAM AND PLATELon 92-88-0187Ihzynuwrde (Bld) [Volume fraction]32.5 %Critically low36.0-48.0The [facility] CenterComment on above: Performed By: #### [id number] #### [facility] [address] [address] [address] Molina ZhangHemoglobin (Bld) [Mass/Vol]11.2 g/dLCritically low12.0-16.0The [facility] CenterComment on above:Performed By: #### [id number] #### [facility] [address] [address] [address] Molina ZhangLONG [facility] (RBC) [Entitic mass]29.1 stPfkbqx76.7-34.0The [facility] CenterComment on above:Performed By: #### [id number] #### [facility] [address] [place] [address] Dr. Molina MillerHC (RBC) [Mass/Vol]34.5 g/gWCuuvoj89.9-35.2The [facility] CenterComment on above:Performed By: #### [id number] #### [facility] [address] [place] [address] Dr. Molina MillerV (RBC) [Entitic vol]84.4 sTPnownu32.0-99.0The [facility] CenterComment on above:Performed By: #### [id number] #### [facility] [address] [place] [address] Dr. Molina ZhangPLT294 103/cxGeaakp760-644Gmg [facility] CenterComment on above: Performed By: #### [id number] #### [facility] [address] [place] [address] Dr. Molina ZhangRBC3.85 106/ulCritically low4.20-5.40The [facility] CenterComment on above:Performed By: #### [id number] #### [facility] [address] [place] [address] Dr. Molina ZhangWBC9.9 103/ulNormal4.0-11.0The [facility] CenterComment on above: Performed By: #### [id number] #### [facility] [address] [place] [address] Dr. Molina Prater MATERNAL FOR SPINA BIFIDAon 93-33-8133AOJ MoM2.20NormalThe [facility] CenterComment on above:Performed By: #### [id number] #### [facility] [address] [place] [address] Dr. Molina Prater Value88.7 ng/mLNormalThe [facility] CenterComment on above: Performed By: #### [id number] #### [facility] [address] [place] [address] Dr. Molina Prater, Serum for Spina BifidaReHolzer Medical Center – [facility] Comment on above:Performed By: #### [id number] #### [facility] [address] [address] [address] Molina ValeriomentMercy Health Fairfield HospitalComascension st[facility] on above:Result Comment: Omaira Chacon, Ph.D., [facility] Director . References: Available Upon Request. . Multiples Of Median Cutoffs For AFP Elevations Wild 2.5 Black 2.8 IDD 2.0 Twins 4.5 Abbreviation Definitions IDD - Insulin Dep Diabetes OSBR - Open Spina Bifida Risk . For further inquiries contact [employer] at [phone].Performed By: #### [id number] #### [facility] [address] [place] [address] Dr. Molina Barrett Age Collection Date19.7 weeksBluffton Hospital Comment on above:Performed By: #### [id number] #### [facility] [address] [address] [address] Molina Dubose, Age Based [facility] HospitalComment on above:Result Comment: 06/11/2022 Recalculations are not recommended when gestational dating by LMP and ultrasound are within 10 days.Performed By: #### [id number] #### [facility] [address] [place] [address] Dr. oMlina ZhangInsulin Dep DiabetesNoNChildren's Hospital for RehabilitationComment on above:Performed By: #### [id number] #### [facility] [address] [place] [address] Dr. Molina ZhangInterpretationMercy Health Fairfield HospitalComment on above: Result Comment: Interpretation: Screen Negative . This result is screen [...] Customer Services to discuss available options. The [employer] [place] [employer] recommends amniocentesis be offered to women age 35 and older.Performed By: #### [id number] #### [facility] [address] [place] [address] Dr. Molina Desir Age at EDD[age] yrBluffton HospitalComment on above:Performed By: #### [id number] #### [facility] [address] [place] [address] Dr. Molina Schwarziple GestationNoNChildren's Hospital for RehabilitationComment on above: Performed By: #### [id number] #### [facility] [address] [place] [address] Dr. Molina SommerBR Risk 1 [id number] Hospital Dayton on above: Performed By: #### [id number] #### [facility] [address] [place] [address] Dr. Molina Bolaños.NormalThe [facility] CenterComment on above:Performed By: #### [id number] #### [facility] [address] [place] [address] Dr. Molina PonceCaucasianNChildren's Hospital for RehabilitationComascension st. [facility] on above: Performed By: #### [id number] #### [facility] [address] [place] [address] Dr. Molina Mcclain Results:NegativeKindred Hospital Dayton on above: Performed By: #### [id number] #### [facility] [address] [place] [address] Dr. Molina ZhangCHLAMYDIA/GONOCOCCUS ZACKARY (SWAB/URINE/PAPon 64-69-2267Lguysuobw trachomatis, NAANegativeNormalNegativeSumma Health Barberton Campus on above: Performed By: #### CBC #### [facility] [address] [place] [address] Dr. Molina ZhangNeisseria gonorrhoeae, NAANegativeNormalNegativePike Community HospitalComascension st. [facility] on above:Performed By: #### CBC #### [facility] [address] [place] [address] Dr. Molina ZhangVAGINITIS/VAGINOSIS DNA PROBEon 61-73-0750Ffxrxyj speciesNegative NormalNegativePike Community HospitalComment on above:Performed By: #### CMP #### [facility] [address] [place] [address] Dr. Molina Browndnerella vaginalisNegativeNormalNegativeThe [facility] Comment on above:Performed By: #### CMP #### [facility] [address] [place] [address] Dr. Molina ZhangTrichomonas vaginalisNegativeNormalNegativePike Community Hospital Comment on above:Performed By: #### CMP #### [facility] [address] [place] [address] Dr. Molina Mathew B SURFACE ANTIGEN SCREENon 33-24-7993BUfCe ScreenNegative NormalNegativeThe [facility] CenterComment on above:Performed By: #### [id number] #### [facility] [address] [place] [address] Dr. Molina Callahan C VIRUS AB W/ REFLEX QUANTon [id number] AB0.1 s/co ratioNormal0.0-0.9The [facility] CenterComment on above:Performed By: #### CMP #### [facility] [address] [place] [address] Dr. Molina ZhangInterpretation:CommentNormalThe [facility] CenterComment on above:Result Comment: Negative Not infected with HCV, unless recent infection is suspected or other evidence exists to indicate HCV infection.Performed By: #### CMP #### [facility] [address] [place] [address] Dr. Molina OtooleV 1 AND 2 WITH REFLEXon 96-56-3266BYV Screen 4th Generation wRfxNon-ReactiveNormalNon ReactiveThe [facility] Valley Medical CenterComment on above:Result Comment: HIV Negative HIV-1/HIV-2 antibodies and HIV-1 p24 antigen were NOT detected. There is no laboratory evidence of HIV infection.Performed By: #### CBC #### [facility] [address] [place] [address] Dr. Molina RiosR QUANTon [id number] Plasma Reagin, QuantNon-Reactive NormalNonRea<1:1The [facility] CenterComment on above:Result Comment: Please Note: This test does not meet current guidelines for screening and diagnosis of syphilis. This test is intended for following treatment response in patients being treated for syphilis infection. To screen for syphilis infection, a reflex cascade that includes both RPR and a treponema-specific assay should be utilized, such as Treponema pallidum (Syphilis) Screening [place] (373041) or Rapid Plasma Reagin (RPR) Test With Reflex to Quantitative RPR and Confirmatory Treponema pallidum Antibodies (492246).Performed By: #### [id number] #### [facility] [address] [place] [address] Dr. Molina Guerrero AB IGGon 31-40-3825Cunxyim Antibodies, IgG2.76 index NormalImmune >0.99The [facility] CenterComment on above:Result Comment: Non- immune <0.90 Equivocal 0.90 - 0.99 Immune >0.99Performed By: #### CBC #### [facility] [address] [place] [address] Dr. Molina Wells AUTO DIFFon 63-47-4643TXXV #0.0 103/ulNormal0.0-0.1The [facility] CenterComment on above:Performed By: #### CBC #### [facility] [address] [place] [address] Dr. Molina ZhangBasophils/100 WBC (Bld)0.2 %Normal0.2-2.0The [facility] Comment on above:Performed By: #### CBC #### [facility] [address] [place] [address] Dr. Molina Rubalcava #0.0 103/ulNormal0.0-0.7The [facility] CenterComment on above: Performed By: #### CBC #### [facility] [address] [place] [address] Dr. Molina Kernosinophils/100 WBC (Bld)0.5 %Critically low0.9-7.0The [facility] CenterComment on above:Performed By: #### CBC #### [facility] [address] [place] [address] Dr. Molina Kernrythrocyte distribution width (RBC) [Ratio]14.2 %Zqoqws77.0-15.0 The [facility] CenterComment on above:Performed By: #### CBC #### [facility] [address] [place] [address] Dr. Molina ZhangHematocrit (Bld) [Volume fraction]38.9 %Tuxspu92.0-48.0The [facility] CenterComment on above:Performed By: #### CBC #### [facility] [address] [place] [address] Dr. Molina ZhangHemoglobin (Bld) [Mass/Vol]13.1 g/vUHtbelw35.0-16.0The [facility] CenterComment on above:Performed By: #### CBC #### [facility] [address] [place] [address] Dr. Molina ZhangIG #0.03 10e3/ulNormal0.00-0.03The [facility] CenterComment on above:Performed By: #### CBC #### [facility] [address] [place] [address] Dr. Molina ZhangIG %0.4 %Normal0.0-0.5The [facility] CenterComment on above: Performed By: #### CBC #### [facility] [address] [place] [address] Dr. Molina EdwardMPH #1.2 103/ulNormal1.2-3.8The [facility] CenterComment on above:Performed By: #### CBC #### [facility] [address] [place] [address] Dr. Molina Edwardmphocytes/100 WBC (Bld)14.8 %Critically low20.5-60.0The [facility] CenterComment on above:Performed By: #### CBC #### [facility] [address] [place] [address] Dr. Molina Rinaldi DIFF REQNONormalThe [facility] CenterComment on above: Performed By: #### CBC #### [facility] [address] [place] [address] Dr. Molina Miller (RBC) [Entitic mass]27.2 fjGaedkr47.7-34.0The [facility] CenterComment on above:Performed By: #### CBC #### [facility] [address] [place] [address] Dr. Molina Miller (RBC) [Mass/Vol]33.7 g/hWSsvqal27.9-35.2The [facility] CenterComment on above:Performed By: #### CBC #### [facility] [address] [place] [address] Dr. Molina Miller (RBC) [Entitic vol]80.7 fLCritically low81.0-99.0The [facility] CenterComment on above:Performed By: #### CBC #### [facility] [address] [place] [address] Dr. Molina Lr #0.4 103/ulNormal0.3-0.8The [facility] CenterComment on above:Performed By: #### CBC #### [facility] [address] [place] [address] Dr. Molina Christineocytes/100 WBC (Bld)4.8 %Normal1.7-12.0[facility] Comment on above:Performed By: #### CBC #### [facility] [address] [place] [address] Dr. Molina Ma #6.7 103/ulCritically high1.4-6.5The [facility] Comment on above:Performed By: #### CBC #### [facility] [address] [place] [address] Dr. Molina Shannonutrophils/100 WBC (Bld)79.3 %Critically high43.0-75.0The [facility] CenterComment on above:Performed By: #### CBC #### [facility] [address] [address] [address] Molina ZhangPlatelet mean volume (Bld) [Entitic vol]9.1 fLCritically low 9.5-13.5The [facility] CenterComment on above:Performed By: #### CBC #### [facility] [address] [address] [address] Molina ZhangPLT346 103/tuDwhbdb429-522Qxw [facility] CenterComment on above: Performed By: #### CBC #### [facility] [address] [address] [address] Molina ZhangRBC4.82 106/ulNormal4.20-5.40The [facility] CenterComment on above:Performed By: #### CBC #### [facility] [address] [place] [address] Dr. Molina ZhangWBC8.4 103/ulNormal4.0-11.0The [facility] CenterComment on above: Performed By: #### CBC #### [facility] [address] [place] [address] Dr. Molina ZhangCULTURE URINEon 19-95-8650ICSNSNQ URINECulture Observations: LIGHT GROWTH OF MIXED GENITAL LAWANDA. NO POTENTIAL PATHOGENS SEEN.NormalThe [facility] CenterComment on above:Performed By: #### URCX #### [facility] [address] [address] [address] Molina ZhangGLYCOHEMOGLOBIN A1Con 70-75-7922AMK RECOMMENDATIONADA THERAPEUTIC TARGET 6.0 - 7.0 ACTION SUGGESTED > 7.0NormGood Samaritan HospitalComment on above:Performed By: #### [id number] #### [facility] [address] [address] [address] Molina ZhangGlucose [Mass/Vol]85 mg/dLNoSelect Medical Cleveland Clinic Rehabilitation Hospital, AvonComment on above:Performed By: #### [id number] #### [facility] [address] [place] [address] Dr. Molina ZhangHbA1c (Bld) [Mass fraction]4.6 %Normal<=6.0The [facility] Comment on above:Performed By: #### [id number] #### [facility] [address] [address] [address] Molina Pandya BOX TEST PT SEND OUTon 62-49-7999MHWP TO REF LAB11/23/2021 NormalPike Community HospitalComment on above:Performed By: #### CBC #### [facility] [address] [address] [address] Molina ZhangTYPE AND SCREENon 94-43-0014CTPG AND SCREENNegativeNoSelect Medical Cleveland Clinic Rehabilitation Hospital, AvonComment on above:Performed By: #### TNS #### [facility] [address] [address] [address] Molina ZhangUS PREG TVon 60-12-5013NP PREG TVEXAMINATION: US PREG TV HISTORY: Missed period COMPARISON: [...] Electronically authenticated by: MUNDO BECKER Date: 2021-11-07 13:51[facility] HospitalPREG QUANT HCGon 29-18-6261WDC WDDOB685 mIU/mLNormalPike Community HospitalComment on above:Performed By: #### CMP #### [facility] [address] [address] [address] Molina ZhangHCG RANGESEE BELOWBluffton HospitalComment on above: Result Comment: 5-50 0-1 WEEK 40-300 1-2 WEEKS 100-1,000 2-3 WEEKS 500-6,000 3-4 WEEKS 5,000-200,000 1-2 MONTHS 10,000-100,000 2-3 MONTHS 3,000-50,000 2ND TRIMESTER 1,000-50,000 3RD TRIMESTERPerformed By: #### CMP #### [facility] [address] [place] [address] Dr. Molina Malave QUANT HCGon 60-47-2176ZPH QUANT59 mIU/mLNormalSumma Health Barberton Campus on above:Performed By: #### CBC #### [facility] [address] [place] [address] Dr. Molina CHAVEZ [facility] on above: Result Comment: 5-50 0-1 WEEK 40-300 1-2 WEEKS 100-1,000 2-3 WEEKS 500-6,000 3-4 WEEKS 5,000-200,000 1-2 MONTHS 10,000-100,000 2-3 MONTHS 3,000-50,000 2ND TRIMESTER 1,000-50,000 3RD TRIMESTERPerformed By: #### CBC #### [facility] [address] [place] [address] Dr. Molina Malave QUANT HCGon 73-19-9058JWM QUANT28 mIU/mLNChildren's Hospital for RehabilitationComment on above:Performed By: #### CBC #### [facility] [address] [place] [address] Dr. Molina Grace [facility] on above: Result Comment: 550 0-1 WEEK 40-300 1-2 WEEKS 100-1,000 2-3 WEEKS 500-6,000 3-4 WEEKS 5,000-200,000 1-2 MONTHS 10,000-100,000 2-3 MONTHS 3,000-50,000 2ND TRIMESTER 1,000-50,000 3RD TRIMESTERPerformed By: #### CBC #### [facility] [address] [place] [address] Dr. Molina Malave QUANT HCGon 51-64-5756GPO QUANT22 mIU/mLNUniversity Hospitals Geneva Medical Center on above:Performed By: #### PREGQNT #### [facility] [address] [place] [address] Dr. Molina CHAVEZ BELOWNormalThe Bismark HospitalComment on above: Result Comment: 5-50 0-1 WEEK 40-300 1-2 WEEKS 100-1,000 2-3 WEEKS 500-6,000 3-4 WEEKS 5,000-200,000 1-2 MONTHS 10,000-100,000 2-3 MONTHS 3,000-50,000 2ND TRIMESTER 1,000-50,000 3RD TRIMESTERPerformed By: #### PREGQNT #### [facility] [address] [place] [address] Dr. Molina Hawkinsvid-19 PCR ([facility])on 66-71-7597IJYN-CoV-2 (COVID-19) RNA ZACKARY+probe Ql (Unsp spec)Not detectedNormalNOT DETECTEDPike Community Hospital Comment on above:Result Comment: This test is not yet approved or cleared by the [place] FDA. When there are no FDA-approved or cleared tests available, and other criteria are met, FDA can make tests available under an emergency access mechanism called an Emergency Use Authorization (EUA). The EUA for this test is supported by the Cell Geneticist of Health and Human Service's (HHS's) declaration that circumstances exist to justify the emergency use of in vitro diagnostics for the detection and/or diagnosis of the virus that causes COVID- 19. This EUA will remain in effect (meaning [...] of clinical signs and symptoms consistent with SARS-CoV-2.Performed By: #### [id number] #### [facility] [address] [place] [address] Dr. Molina Shah ACOG PANEL 2: 21 to 2909-05-2021..NormalPike Community HospitalComment on above:Performed By: #### [id number] #### [facility] [address] [place], [place] [id number] Dr. Molina Isaacs Gdln ACOG Lddzgcj25-18EzqzznPwa Bellevue HospitalComment on above:Performed By: #### [id number] #### [facility] [address] [place] [address] Dr. Molina ZhangDIAGNOSIS:CommentKindred Hospital Dayton on above: Result Comment: NEGATIVE FOR INTRAEPITHELIAL LESION OR MALIGNANCY.Performed By: #### [id number] #### [facility] [address] [place] [address] Dr. Molina ZhangMethodology:CommentKindred Hospital Dayton on above: Result Comment: This liquid based ThinPrep(R) pap test was screened with the use of an image guided system.Performed By: #### [id number] #### [address] [address] Dr[address] Molina ZhangNote:CommentKindred Hospital Dayton on above:Result Comment: The Pap smear is a screening test designed to aid in the detection of premalignant and malignant conditions of the uterine cervix. It is not a diagnostic procedure and should not be used as the sole means of detecting cervical cancer. Both false-positive and false-negative reports do occur. .Performed By: #### [id number] #### [address] [place] [address] Dr[address] Molina ZhangPerformed by:CommentKindred Hospital Dayton on above: Result Comment: Laura Jung Credentialing Analyst (ASCP)Performed By: #### [id number] #### [address] [place] [address] Dr[address] Molina ZhangReflex Criteria:CommentKindred Hospital Dayton on above:Result Comment: The HPV DNA reflex criteria were not met with this specimen result therefore, no HPV testing was performed. .Performed By: #### [id number] #### [facility] [address] [place] [address] Dr. Molina ZhangSpecimen adequacy:CommentKindred Hospital Dayton on above:Result Comment: Satisfactory for evaluation. No endocervical component is identified.Performed By: #### [id number] #### [facility] [address] [place] [address] Dr. Molina ZhangCBC AUTO DIFFon 50-19-5956UCQO #0.1 103/ulNormal0.0-0.1The [facility] CenterComment on above:Performed By: #### CMP #### [facility] [address] [place] [address] Dr. Molina ZhangBasophils/100 WBC (Bld)0.6 %Normal0.2-2.0The [facility] Comment on above:Performed By: #### CMP #### [facility] [address] [place] [address] Dr. Molina Rubalcava #0.2 103/ulNormal0.0-0.7The [facility] CenterComment on above: Performed By: #### CMP #### [facility] [address] [place] [address] Dr. Molina Kernosinophils/100 WBC (Bld)1.7 %Normal0.9-7.0The [facility] Comment on above:Performed By: #### CMP #### [facility] [address] [place] [address] Dr. Molina Kernrythrocyte distribution width (RBC) [Ratio]13.8 %Nchhxy12.0-15.0 The [facility] CenterComment on above:Performed By: #### CMP #### [facility] [address] [place] [address] Dr. Molina ZhangHematocrit (Bld) [Volume fraction]36.9 %Sbspow13.0-48.0The [facility] CenterComment on above:Performed By: #### CMP #### [facility] [address] [place] [address] Dr. Molina ZhangHemoglobin (Bld) [Mass/Vol]12.3 g/yKYyhiip26.0-16.0The [facility] CenterComment on above:Performed By: #### CMP #### [facility] [address] [place] [address] Dr. Molina Conde #0.02 10e3/ulNormal0.00-0.03The [facility] CenterComment on above:Performed By: #### CMP #### [facility] [address] [address] [address] Molina Conde %0.2 %Normal0.0-0.5The [facility] on above: Performed By: #### CMP #### [facility] [address] [place] [address] Dr. Molina Acosta #2.3 103/ulNormal1.2-3.8The [facility] CenterComment on above:Performed By: #### CMP #### [facility] [address] [place] [address] Dr. Molina Mcgheehocytes/100 WBC (Bld)25.1 %Jjdmmh66.5-60.0The [facility] on above:Performed By: #### CMP #### [facility] [address] [place] [address] Dr. Molina BerriosUAL DIFF REQNONormalThe [facility] CenterComment on above: Performed By: #### CMP #### [facility] [address] [place] [address] Dr. Molina Miller (RBC) [Entitic mass]26.7 fwRwsnit04.7-34.0The [facility] on above:Performed By: #### CMP #### [facility] [address] [place] [address] Dr. Molina Miller (RBC) [Mass/Vol]33.3 g/sJDsvoqs83.9-35.2The [facility] on above:Performed By: #### CMP #### [facility] [address] [place] [address] Dr. Molina Miller (RBC) [Entitic vol]80.2 fLCritically low81.0-99.0The [facility] on above:Performed By: #### CMP #### [facility] [address] [place] [address] Dr. Molina Lr #0.7 103/ulNormal0.3-0.8The [facility] CenterCom[facility] on above:Performed By: #### CMP #### [facility] [address] [place] [address] Dr. Molina Christineocytes/100 WBC (Bld)7.9 %Normal1.7-12.0The [facility] Comment on above:Performed By: #### CMP #### [facility] [address] [place] [address] Dr. Molina ShannonUT #6.0 103/ulNormal1.4-6.5The [facility] CenterComment on above:Performed By: #### CMP #### [facility] [address] [place] [address] Dr. Molina Shannonutrophils/100 WBC (Bld)64.5 %Mmkkod29.0-75.0The [facility] CenterComment on above:Performed By: #### CMP #### [facility] [address] [place] [address] Dr. Molina ZhangPlatelet mean volume (Bld) [Entitic vol]9.0 fLCritically low 9.5-13.5The [facility] CenterComment on above:Performed By: #### CMP #### [facility] [address] [place] [address] Dr. Molina ZhangPLT368 103/ffPuznnp906-464Lyn [facility] CenterComment on above: Performed By: #### CMP #### [facility] [address] [place] [address] Dr. Molina ZhangRBC4.60 106/ulNormal4.20-5.40The [facility] CenterComment on above:Performed By: #### CMP #### [facility] [address] [place] [address] Dr. Molina ZhangWBC9.3 103/ulNormal4.0-11.0The [facility] CenterComment on above: Performed By: #### CMP #### [facility] [address] [place] [address] Dr. Auguste ChangER URINE PROFILEon 68-39-5485Bihguwowg Ql (U)NegativeNormal NEGATIVEThe [facility] CenterComment on above:Performed By: #### [id number] #### [facility] [address] [address] [address] Molina ZhangClarity (U)CLEARNormalCLEARPike Community HospitalComment on above: Performed By: #### [id number] #### [facility] [address] [address] [address] Molina Maza (U)LT. YELLOWNormalYELLOWPike Community HospitalComment on above:Performed By: #### [id number] #### [facility] [address] [address] [address] Molina Lewis micrscopic examination will be performed if indicated. NormalThe [facility] CenterComment on above:Performed By: #### [id number] #### [facility] [address] [place] [address] Dr. Molina ZhangGlucose Ql (U)NegativeNormalNEGATIVEPike Community HospitalComment on above:Performed By: #### [id number] #### [facility] [address] [place] [address] Dr. Molina ZhangHemoglobin Ql (U)NegativeNormalNEGMarietta Memorial Hospital on above:Performed By: #### [id number] #### [facility] [address] [place] [address] Dr. Molina ZhangKetones Ql (U)NegativeNormalNEGATIVEPike Community HospitalComment on above:Performed By: #### [id number] #### [facility] [address] [place] [address] Dr. Molina ZhangLEUKOCYTESNegativeNormalNEGATIVEPike Community HospitalComment on above:Performed By: #### [id number] #### [facility] [address] [address] [address] Molina ZhangNitrite Ql (U)NegativeNormalNEGATIVEPike Community HospitalComment on above:Performed By: #### [id number] #### [facility] [address] [address] [address] Molina ZhangpH (U)6.0 [pH]Normal5-9P[facility] Community HospitalComment on above: Performed By: #### [id number] #### [facility] [address] [address] [address] Molina ZhangSPEC GRAVITY1.803Zkvhsw5.005-<=1.025The [facility] CenterComment on above:Performed By: #### [id number] #### [facility] [address] [address] [address] Molina Rodrigues PROTEINNegativeNormalNEGATIVE/ TRACEThe [facility] Comment on above:Performed By: #### [id number] #### [facility] [address] [address] [address] Molina Carter MICRO INDNOT INDICATEDNormalThe [facility] CenterComment on above:Performed By: #### [id number] #### [facility] [address] [address] [address] Molina Bansalbilinogen Qn (U)0.2 {Jaelyn'U}/dLNormal0.2 - 1.0The [facility] CenterComment on above:Performed By: #### [id number] #### [facility] [address] [address] [address] Molina ZhangPOINT OF CARE GLUCOSEon 16-13-8368Uillleb [Mass/Vol]110 mg/dL Critically wcbb25-381Mrn [facility] CenterComment on above:Performed By: #### [id number] #### [facility] [address] [address] [address] Molina ZhangPREGNANCY URon 10-44-3993NZTHUYRKY, QUALNegativeNormalNEGATIVEThe [facility] CenterComment on above:Performed By: #### [id number] #### [facility] [address] [address] [address] Molina Og 14(COMP METB)on 36-89-2450Ahlwbdq [Mass/Vol]3.6 g/dLNormal 3.5-5.0The [facility] CenterComment on above:Performed By: #### CMP #### [facility] [address] [place] [address] Dr. Yilan ChangAlbumin/Globulin [Mass ratio]0.9 {ratio}NormalPike Community HospitalComment on above:Performed By: #### CMP #### [facility] [address] [place] [address] Dr. Molina AbbottP [Catalytic activity/Vol]114 U/MGanpzi59-816Ecs [facility] CenterComment on above:Performed By: #### CMP #### [facility] [address] [place] [address] Dr. Molina AbbottT [Catalytic activity/Vol]21 U/LNormal9-52The [facility] Comment on above:Performed By: #### CMP #### [facility] [address] [place] [address] Dr. Molina Albertson gap [Moles/Vol]11.2 mmol/LNormalThe [facility] Comment on above:Performed By: #### CMP #### [facility] [address] [place] [address] Dr. Molina ZhangAST [Catalytic activity/Vol]13 U/LCritically glf27-60Hbx [facility] CenterComment on above:Performed By: #### CMP #### [facility] [address] [place] [address] Dr. Molina ZhangBilirubin [Mass/Vol]0.3 mg/dLNormal0.2-1.3The [facility] Comment on above:Performed By: #### CMP #### [facility] [address] [place] [address] Dr. Molina ZhangCalcium [Mass/Vol]9.0 mg/dLNormal8.4-10.2[facility] Comment on above:Performed By: #### CMP #### [facility] [address] [place] [address] Dr. Molina ZhangChloride [Moles/Vol]103 mmol/ZEqbqef30-915Gvf [facility] Comment on above:Performed By: #### CMP #### [facility] [address] [place] [address] Dr. Molina ZhangCO2 [Moles/Vol]27.6 mmol/IZxkrvw54.0-30.0[facility] Comment on above:Performed By: #### CMP #### [facility] [address] [address] [address] Molina ZhangCreatinine [Mass/Vol]0.98 mg/dLNormal0.52-1.04[facility] HospitalComment on above:Performed By: #### CMP #### [facility] [address] [address] [address] Molina KernGFR-AF CZECH>60Normal>=60The [facility] CenterComment on above:Performed By: #### CMP #### [facility] [address] [address] [address] Molina KernGFR-NON AF CZECH>60Normal>=60The [facility] CenterComment on above:Performed By: #### CMP #### [facility] [address] [place] [address] Dr. Molina ZhangGlobulin (S) [Mass/Vol]3.9 g/dLNormalThe [facility] CenterComment on above:Performed By: #### CMP #### [facility] [address] [place] [address] Dr. Molina ZhangGlucose [Mass/Vol]85 mg/yDZdnaxr49-498UwuP[facility] Comment on above:Performed By: #### CMP #### [facility] [address] [place] [address] Dr. Molina ZhangPotassium [Moles/Vol]3.8 mmol/LNormal3.4-5.0The [facility] Comment on above:Performed By: #### CMP #### [facility] [address] [place] [address] Dr. Molina ZhangProtein [Mass/Vol]7.5 g/dLNormal6.1-8.2The [facility] Comment on above:Performed By: #### CMP #### [facility] [address] [address] [address] Molina ZhangSodium [Moles/Vol]138 mmol/LTtkmku603-611Oio [facility] Comment on above:Performed By: #### CMP #### [facility] [address] [place], [place] [address] Dr. Molina ZhangUrea nitrogen [Mass/Vol]13.0 mg/dLNormal7.0-17.0The [facility] on above:Performed By: #### CMP #### [facility] [address] [place], [place] [address] Dr. Molina ZhangUrea nitrogen/Creatinine [Mass ratio]13.3 mg/mgNormalThe [facility] CenterComment on above:Performed By: #### CMP #### [facility] [address] [place], [place] [address] Dr. Molina Shah, THIN PREP WITH IMAGINGon 71-34-5421MNY, THIN PREP WITH IMAGINGCleveland Clinic FoundationComascension [facility] on above:Result Comment: INTERPRETATION Thin Prep Image-Guided Pap Test (Cervical/Endocervical) NEGATIVE [...] Pills) ICD-CM DIAGNOSIS CODE(S) Z01.419 Encntr For Pharmacy Technician Exam (general) (routine) W/o Abn Findings [facility] [address] [place] [address] CLIA No. [id number] CAP Accreditation No. [id number] Electronic [employer]ils Supervisor: Kai Agarwal M.D. EventMama Accession Number: [id number] By: #### PL PAP W/IMAGE #### [address] [place] [address] CT Nucleic-Acid Probe-Endocervical Swabon 79-53-1033MO Nucleic-Acid Probe-Endocervical SwabNegativeNormalNEGATIVESelect Medical Trihealth Rehabilitation HospitalComment on above:Performed By: #### GC Amp Endocerv, CT Amp Endocerv #### [address] [place] [address] Age at specimen collection=NormalSelect Medical Trihealth Rehabilitation HospitalComment on above:Performed By: #### GC Amp Endocerv, CT Amp Endocerv #### [address] [place] [address] Performed By: #### PL PAP W/IMAGE #### [address] [place] [address] GC Nucleic-Acid Probe-Endocervical Swabon 51-15-5605IX Nucleic-Acid Probe-Endocervical SwabNegativeNormalNEGATIVESelect Medical Trihealth Rehabilitation HospitalComment on above:Performed By: #### GC Amp Endocerv, CT Amp Endocerv #### [address] [place] [address] Vital Signs Date TimeVital SignValuePerforming VdbdjtdinMrorottg75-24-6979 14:51-0400Body mass index (BMI) [Ratio]45.42 kg/w8Byjle Clint DO Work Phone: [facility] FultonYekrapltpo65-98-6213 14:51-0400Body ziscsj481.54 kgCorey Clint DO Work Phone: [facility] FultonYrvnhjmqsg25-10-9430 14:51-0400Diastolic blood zsqcfitr42 mm[Hg]Catarino Clint DO Work Phone: [phone] FultonPldiotweak05-64-4285 14:51-0400Systolic blood ycqkzxhb261 mm[Hg]Catarino Clint DO Work Phone: [facility] FultonXmshjswanq25-54-4986 09:34-0400Body vrtnpa479.18 cmDianne Miller FOREIGN LANGUAGE INTERPRETER Work Phone: [phone] [place], [place] 5657709-30-2025 09:34-0400 Body mass index (BMI) [Ratio]45.7 kg/r1Whgxvt Miller FOREIGN LANGUAGE INTERPRETER Work Phone: [phone] [place], [place] 5657709-30-2025 09:34-0400 Body yhakxhxnspn27.5 [degF]Estelleluis Singhis FOREIGN LANGUAGE INTERPRETER Work Phone: [phone] [place], [place] 5657709-30-2025 09:34-0400 Body hlxwic595.44 kgDigiovanni Miller FOREIGN LANGUAGE INTERPRETER Work Phone: [phone] [place], [place] 5657709-30-2025 09:34-0400 Diastolic blood ijozghph17 mm[Hg]Estelle Singhis FOREIGN LANGUAGE INTERPRETER Work Phone: [phone] [place], [place] 5657709-30-2025 09:34-0400 Heart boqf846 /minDstune Miller FOREIGN LANGUAGE INTERPRETER Work Phone: [phone] [place], [place] 5657709-30-2025 09:34-0400 Respiratory rate20 /minDstune Miller FOREIGN LANGUAGE INTERPRETER Work Phone: [phone] [place], [place] 5657709-30-2025 09:34-0400 SaO2% (BldA) [Mass fraction]97 %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 FOREIGN LANGUAGE INTERPRETER Work Phone: [phone] [place], [place] 5657709-30-2025 09:34-0400 Systolic blood mm[Hg]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 FOREIGN LANGUAGE INTERPRETER Work Phone: [phone] [place], [place] 5657709-18-2025 14:08-0400 Body mass index (BMI) [Ratio]46.17 kg/v7OuoheNY[facility]09-18-2025 14:08-0400Body ctyjal925.72 kgNY[facility]09-18-2025 14:08-0400 Diastolic blood qptjhaut89 mm[Hg][facility]09-18-2025 14:08-0400 Systolic blood sbvgcila167 mm[Hg][facility]08-26-2025 13:28-0400 Body oitidh111.2 cmBraden Rosales MD Work Phone: [facility] FultonCbnyeoocwz10-92-6808 13:28-0400Body mass index (BMI) [Ratio]47.46 kg/m2Braden Rosales MD Work Phone: [facility] FultonHfjkgtmija37-76-2343 13:28-0400Body temperature 97.81 [degF]Braden Rosales MD Work Phone: [phone] [place], [place] [address]Kvxbqzrnyy58-82-4032 13:28-0400Body gcovbf289.44 kgBraden Rosales MD Work Phone: [facility] FultonVqwiagjchq25-88-0191 13:28-0400Diastolic blood mm[Hg]Braden Rosales MD Work Phone: [facility] FultonOmjbwrgtvz30-72-1013 13:28-0400Heart jdew886 /min Braden Rosales MD Work Phone: [facility] FultonHcaiaegdlq40-68-5214 13:28-0400Respiratory rate22 /minBraden Rosales MD Work Phone: [address] [address]Edndjxpqlp99-68-1688 13:28-2784IcT0% (BldA) [Mass fraction]98 %Braden Rosales MD Work Phone: [facility] FultonRrkqjnyhna16-30-3456 13:28-0400Systolic blood ctlhfhye589 mm[Hg]Braden Rosales MD Work Phone: [phone] [place], [place] [address]Fkxlrjogun48-24-1299 13:32-0400Body ouafwu197.18 cm[facility]03-19-2025 13:32-0400Body mass index (BMI) [Ratio]45.6 kg/n5FekxkrhrbVan Wert County Hospital03-19-2025 13:32-0400Body hcetywkgojl19.8 [degF][facility]03-19-2025 13:32-0400Body goemnk699.99 kgVan [facility]03-19-2025 13:32-0400Diastolic blood uufhprlg17 mm[Hg][facility]03-19-2025 13:32-0400 Heart rate94 /[facility] [place]03-19-2025 13:32-0400 Respiratory rate16 /[facility] [place]03-19-2025 13:32-0400 SaO2% (BldA) [Mass fraction]99 %[facility]03-19-2025 13:32-0400Systolic blood hapvtnkq081 mm[Hg][facility] 06-08-2024 08:57-0400Body zfrlin417.6 cmBraden Rosales MD Work Phone: [facility] FultonCtvyfbgbhl25-29-7713 08:57-0400Body mass index (BMI) [Ratio]46.65 kg/m2Braden Rosales MD Work Phone: [facility] FultonMbpkmvesuv51-82-0421 08:57-0400Body temperature 97.3 [degF]Braden Rosales MD Work Phone: [facility] FultonRpznkwzobt76-18-5416 08:57-0400Body .09 kgBraden Rosales MD Work Phone: [facility] FultonUrhizuwhso58-65-3288 08:57-0400Diastolic blood aaapvmzo41 mm[Hg]Braden Rosales MD Work Phone: [facility] FultonQghrksadrf04-92-5010 08:57-0400Heart rate87 /min Braden Rosales MD Work Phone: [facility] FultonWjlwksydhn94-85-0502 08:57-0400Respiratory rate22 /minBraden Rosales MD Work Phone: [facility] FultonMwsogfyias87-02-6165 08:57-0573MvV2% (BldA) [Mass fraction]97 %Braden Rosales MD Work Phone: [facility] FultonMhsnvlpdkc02-75-1481 08:57-0400Systolic blood zixbaryu829 mm[Hg]Braden Rosales MD Work Phone: [facility] FultonDrudvvvnad76-08-3124 09:40-0400Body yzzvla518.6 cmBraden Rosales MD Work Phone: [facility] FultonScmsdtisba88-00-3269 09:40-0400Body mass index (BMI) [Ratio]46.16 kg/m2Braden Rosales MD Work Phone: [facility] FultonJdvdofkfgz56-57-6809 09:40-0400Body temperature 97.5 [degF]Braden Rosales MD Work Phone: [facility] FultonEbsiuqpqeu07-78-9799 09:40-0400Body zxqzby071.73 kgBraden Rosales MD Work Phone: [facility] FultonAihxqvyavn72-58-7714 09:40-0400Diastolic blood uaqvilqk47 mm[Hg]Braden Rosales MD Work Phone: [facility] FultonLqcwfiucki27-56-5554 09:40-0400Heart rate88 /min Braden Rosales MD Work Phone: [facility] FultonSwtmzatrha77-33-5569 09:40-0400Respiratory rate22 /minBraden Rosales MD Work Phone: [facility] FultonDxjhfmigfp45-36-9544 09:40-3585CiV4% (BldA) [Mass fraction]97 %Braden Rosales MD Work Phone: [facility] FultonTlxrprwqzu04-10-2742 09:40-0400Systolic blood rcaxxkzx738 mm[Hg]Braden Rosales MD Work Phone: [facility] FultonFldandwopt06-06-0097 09:11-0400Body mass index (BMI) [Ratio]46.16 kg/e2Ftozr Clint DO Work Phone: noHawthorn [facility] Psychiatric HospitalCfmfepioxu37-29-4064 09:11-0400Body .73 kgCorey Clint DO Work Phone: [address] [address]Ghqbrtmfck65-64-3731 09:11-0400Diastolic blood mm[Hg]Catarino Clint DO Work Phone: noHawthorn Children's Psychiatric HospitalGvhkrerwpu38-80-5428 09:11-0400Systolic blood nelkimpp068 mm[Hg]Catarino Clint DO Work Phone: [facility] FultonShfbngpyae77-39-7189 10:30-0400Body cadrod532.18 cmVan [facility]08-04-2024 10:30-0400Body mass index (BMI) [Ratio]44.8 kg/y7UuvmvdkwuVan Wert County Hospital08-04-2024 10:30-0400Body qleqluxiiqa07.6 [degF][facility]08-04-2024 10:30-0400Body uuohkz125.84 kgVan [facility]ert [facility] Hospital08-04-2024 10:30-0400Diastolic blood cbpuvtfv76 mm[Hg][facility]08-04-2024 10:30-0400 Heart rate92 /[facility]08-04-2024 10:30-0400 Respiratory rate18 /[facility] [place]08-04-2024 10:30-0400 SaO2% (BldA) [Mass fraction]97 %[facility]08-04-2024 10:30-0400Systolic blood lkyxdtgn153 mm[Hg][facility] 06-19-2022 16:05-0500Body seckdk253.18 cmAbianka Hernandez Other [employer] Other 11-10-2022 16:05-0500Body mass index (BMI) [Ratio] 42.28 kg/q4NewciRachael Hernandez Other [employer] Other 11-10-2022 16:05-0500Body ptgcfvgjbry398.3 [degF]Rachael Hernandez Other [employer] Other 11-10-2022 16:05-0500Body ilwjpo889.47 kgIsabeler David Other [employer] Other 11-10-2022 16:05-0500Respiratory rate20 /minRachael Hernandez Other [employer] Other 11-10-2022 16:05-8414NtM9% (BldA) [Mass fraction]98 % Rachael Hernandez Other [employer] Other 06-15-2022 03:06-0400Body cdfaco444.6472 kgDR CATARINO [facility] Healthcaremichel [facility] CenterComment on above:Performed By: #### [id number] #### [facility] Laboratory [address] [place] [address] Dr. Molina Zhang Encounters Encounter DateEncounter TypeCare ProviderFacilityStart: 05-30-2025 End: 12-79-3178Kqxbeqpe flow sheetCorey Clint DO Work Phone: [facility] OBGYNComment on above:13 weeks gestation of ([facility]); Second trimester ([facility]); Hx of cold sores; NauseaStart: 05-30-2025 End: 98-14-3474cgraluzsisIJSPX FAZIONot AvailableStart: 05-30-2025 End: 82-06-4673Dxjvbp flowsheetCorey Clint DO Work Phone: [facility] OBGYNStart: 05-30-2025 End: 67-91-3238Kduhjg flowsheetCorey Clint DO Work Phone: [facility] OBGYNStart: 05-09-2025 End: 35-42-4847vsrkydwxqrBozmxt G Miller FOREIGN LANGUAGE INTERPRETER Work Phone: [facility] Work Phone: Start: 05-09-2025 End: 58-38-7885Llcjczm encounter procedureBraden Rosales MD-[facility] Work Phone: Start: 05-03-2025 End: 15-87-9767Udvbetljb Result EncounterCorey Clint DO Work Phone: [facility] External Department UnsolicitedStart: 05-03-2025 End: 50-67-7581Rzzejkcda Result EncounterCorey Clint DO Work Phone: noms External Department UnsolicitedStart: 05-03-2025 Non-patient / Non-visitCorey Clint-[facility] Work Phone: Start: 04-27-2025 End: 84-37-7390Widudy outpatient visit 5 minutesFazio Nurse [facility] Bcp ObNOMS [facility] OBGYNComment on above:GA: 6l1hQnfmf: 04-27-2025 End: 10-91-4721yxcrqrmpbcUYYGJ FAZIONot AvailableStart: 04-04-2025 End: 03-40-1947Zomipc Wesley Rosales MD Work Phone: noms CWM FMStart: 04-04-2025 End: 53-46-1692Itmxuimay Rosales MD Work Phone: n[facility] CWM FMStart: 04-04-2025 End: 72-97-9656Xwyiyi outpatient visit 25 minutesBraden Rosales MD Work Phone: noms CWM FMComment on above:Major depressive disorder, recurrent episode, mild (Primary Dx); Generalized anxiety disorder ; Nausea and vomiting during prior to 22 weeks gestation ([facility]); Class 3 severe obesity due to excess calories without serious comorbidity with body mass index (BMI) of 45.0 to 49.9 in adult ([facility])Start: 04-04-2025 End: 47-48-5170klusyssmkuWFKC HAILEERRicardo AvailableStart: 02-20-2025 End: 12-13-0136ohyneoatlvPnei T AMESFacility:[facility] Start: 10-26-2024 End: 89-60-8180krbewbyljoTydveadwmMercy Health – [facility] Work Phone: Start: 10-26-2024 End: 71-80-0383Ciiyyqr encounter procedureCaromont [facility] Work Phone: start: 06-08-2024 End: 81-42-2565Pnihnj flowsJerica Rosales MD Work Phone: n[facility] CWM FMStart: 06-08-2024 End: 88-36-9063Fkpnim flowsJerica Rosales MD Work Phone: n[facility] CWM FMStart: 06-08-2024 End: 68-91-3109Xzfnduw encounter procedureMarelías Rosales MD Work Phone: [facility] Work Phone: Start: 06-08-2024 End: 38-11-5555Tyirjxgk preventive med est patient 18-39 yrsBraden Rosales MD Work Phone: noms CWM FMComment on above:Annual physical exam (Primary Dx); Class 3 severe obesity due to excess calories without serious comorbidity with body mass index (BMI) of 45.0 to 49.9 in adult ([facility])Start: 06-08-2024 End: 56-02-5676qszxkqmbnyITZV NADERERNot AvailableStart: 04-08-2024 End: 90-77-4334Hdbuap Wesley Rosales MD Work Phone: [facility] CWM FMStart: 04-08-2024 End: 46-11-8585Nkmmgq Wesley Rosales MD Work Phone: n[facility] CWM FMStart: 04-08-2024 End: 58-42-7559Lofprk outpatient visit 15 minutesBraden Rosales MD Work Phone: noms CWM FMComment on above:Acute bronchitis due to other specified organisms (Primary Dx); Morbid obesity due to excess calories ([facility]); Body mass index (BMI) 40.0-44.9, adult ([facility])Start: 03-29-2024 End: 88-45-6340Qjfdpgdrp Result EncounterGeneric External Data ProviderNOMS External Department UnsolicitedStart: 03-29-2024 End: 25-43-4719Hbclccaxd Result EncounterGeneric External Data ProviderNOPR External Department UnsolicitedStart: 03-29-2024 End: 02-30-2332Lmyyrym encounter procedureCorey Clint DO Work Phone: [facility] Work Phone: Start: 03-29-2024 End: 78-31-7751Vucgmmwp preventive med est patient 18-39 yrsCorey Clint DO Work Phone: [facility] BCP OBComment on above:Well woman exam with routine gynecological examStart: 03-13-2024 End: 20-62-4772xnhkiiaxufXjcsxblrqMer[facility] Work Phone: Start: 03-13-2024 End: 31-81-0914Wasukjm encounter procedureCaromont [facility] Work Phone: Start: 07-24-2022 End: 95-42-3604bdbxpxmazpLI RUBY Fernandezcility:Z3Hwanv: 07-23-2022 End: 34-19-8990lyagvopdqxPV BRADEN Martin NADERERFacility:X6Vbplc: 06-19-2022 End: 33-39-6059oburetljdpDD LILIANE Figueroa [employer] Other Start: 09-18-9917Ucribw outpatient new 30 minutesAmber [facility] ClydeStart: 06-12-2022 End: 66-82-7617nzllujhsseHB BRADEN A NADERERFacility:X8Ezxao: 06-09-2022 End: 44-02-8324ihnxevswutLU BRADEN A NADERERFacility:R1Odapr: 06-04-2022 End: 23-73-9250Xegyczcqom and management of inpatientDR BRADEN STEPHENR Facility:S9Hnovc: 05-31-2022 End: 31-66-6689azruwakpfiCY BRADEN A NADERERFacility:L8Tyndl: 86-73-7350Fbyeylhrzs and management of inpatientDR CATARINO FAZIOFacility:C1Bzpwz: 05-31-2022 End: 25-28-2260atzhaakcduDV CATARINO FAZIOFacility:X3Ndqxj: 05-13-2022 End: 63-25-2038enanfkmgpcRU CATARINO FAZIOFacility:V0Hhifu: 04-23-2022 End: 79-45-3141vpaaslbcfrHS CATARINO FAZIOFacility:L9Sqjua: 03-20-2022 End: 57-46-2846zjdydwwrakQH CATARINO FAZIOFacility:K6Baryp: 03-15-2022 End: 29-53-0997lnmtusrtjjKO CATARINO FAZIOFacility:R0Ijtlb: 01-20-2022 End: 95-21-2475yazzxegqbtAE CATARINO FAZIOFacility:N1Zkchx: 12-25-2021 End: 74-25-7040agvryguceeXY CATARINO FAZIOFacility:P2Xbegl: 11-23-2021 End: 90-73-5679xwamwghjbsYA CATARINO FAZIOFacility:S0Mrgpz: 11-07-2021 End: 95-75-4109vimnmwtvcvQY CATARINO FAZIOFacility:H0Saiaf: 10-06-2021 End: 79-61-3951jgdinxwyplHZ CATARINO FAZIOFacility:C7Bgdon: 10-03-2021 End: 29-77-6675hfwpxgymcnSI CATARINO FAZIOFacility:M7Qlvju: 10-01-2021 End: 29-06-4627apjhtmmoclAK CATARINO FAZIOFacility:J3Qovdv: 09-29-2021 End: 88-66-0561znvppuoexxRQ CATARINO FAZIOFacility:M1Zhvxw: 09-16-2021 End: 82-42-2196dohgrysmqzSQKRXHCH EBERLYFacility:U9Mhxrx: 09-02-2021 End: 78-54-6097qckexoaxklXW CATARINO FAZIOFacility:D1Iyfce: 08-18-2021 End: 45-91-9028oofetureycEY BRADEN A NADERERFacility:N7Pihce: 02-16-2019 End: 77-11-9495Czxwlw outpatient visit 15 minutesFrank [place] Work Phone: [facility] DermatologyComment on above: Viral warts, unspecified type (Primary Dx); Other disturbances of skin sensation; Eczema, unspecified typeStart: 12-13-2018 End: 28-57-3613Alceufi encounter procedureMercy Health Defiance Hospital PhysiciansStart: 12-13-2018 End: 67-00-9349Eyyzgm outpatient visit 10 minutesNorthern [facility] Work Phone: [facility] DermatologyComment on above: Viral warts, unspecified type (Primary Dx); Other disturbances of skin sensation; Nevus of scalpStart: 11-30-2018 End: 40-94-4755Xsrzntc encounter procedureFRMerit Health Rankin PhysiciansStart: 11-30-2018 End: 68-13-0836Mawlla outpatient visit 15 minutesNorthern Light A.[facility] Work Phone: [facility] DermatologyComment on above: Milia (Primary Dx); Viral warts, unspecified type; Other disturbances of skin sensation; Pre-ulcerative corn or callousStart: 40-69-6132Cbigwc consultationFrBrockton Hospital Work Phone: [facility] Procedures DateProcedureProcedure DetailPerforming ClinicianStart: 75-57-0596Iymwi dip stick/tablet rgnt non-auto w/o micrscpCorey Clint DO Work Phone: Start: 62-56-8571CLU HEMOGLOBIN L1BRnzwr Clint DO Work Phone: Start: 05-52-2586Nloek dip stick/tablet rgnt non-auto w/o micrscpCorey Clint DO Work Phone: Start: 53-88-8856Uunfx Strep (POC)Start: 03-29-2024 IGP,APTIMA HPV,AGE GDLNCorey Clint DO Work Phone: Start: 61-06-0858Whnkcewcnp of Products of Conception, Low Cervical, Open ApproachDR CATARINO FAZIOStart: 20-36-5109Devzalfhbhg observation [Identifier] in Cervix by Cyto stainNorthern Light A.R. Gould Hospital Plan of Treatment DateCare ActivityDetailAuthorStart: 30-98-6146Hvogvkv vaccinationTETANUS EVERY 10 YROhioHealthStart: 06-28-2025 End: 85-10-9218Ssovrht encounter webiuezct32/19/2025 1:30 PM EST Routine [facility] [place] [facility] [address] [place], [id number] Kady Haynes PA [address] [place] [address] [facility] OBGYNStart: 05-30-2025 End: 40-91-5793Dypzepr encounter procedureNOMS [facility] OBGYNComment on above: ArrivedStart: 05-09-2025 End: 26-89-2913Ekzbiho encounter mmifatnar58/30/2025 9:30 AM EDT Office Visit [facility] [address] [place] [address] Braden Rosales MD [address] [place] [address] [facility] FMStart: 04-28-2025 End: 99-12-1923sbkojzkffo93/19/2025 9:30 AM EDT Initial [facility] [address] [place], [id number] [phone] [facility] OBGYNStart: 04-28-2025 End: 89-75-8497Vbsqlzptjuij / ancillary services lnsbtpmonl21/19/2025 9:00 AM EDT Ancillary Procedure [facility] [address] [place] [address] [phone] [facility] OBGYNStart: 04-27-2025 End: 11-57-5796LEE/RhABO/Rh Lab Routine Missed menses , unspecified gestational age ([facility]) Expected: 04/27/2025 (Approximate), Expires: 04/27/2026[facility] HealthcareComment on above:Expected: 04/27/2025 (Approximate), Expires: 04/27/2026Start: 04-27-2025 End: 48-84-4342Qbinu type and Indirect antibody screen panel - BloodType and screen Lab Routine Missed menses , unspecified gestational age ([facility]) Expected: 04/27/2025 (Approximate), Expires: 04/27/2026[facility] Comment on above:Expected: 04/27/2025 (Approximate), Expires: 04/27/2026Start: 04-27-2025 End: 91-35-7463Lehbl of abuse panel - Urine by Screen methodRapid drug screen, urine Lab Routine , unspecified gestational age ([facility]) Encounter for supervision of normal first in first trimester ([facility]) Expected: 04/27/2025 (Approximate), Expires: 04/27/2026[facility] HealthcareComment on above: Expected: 04/27/2025 (Approximate), Expires: 04/27/2026Start: 04-19-2025 End: 13-46-1949TB Pelvis transvaginalUS OB transvaginal Imaging Routine Missed menses Positive urine test ([facility]) Expected: 04/19/2025, Expires: 07/19/2025[facility] Work Phone: comment on above:Expected: 04/19/2025, Expires: 07/19/2025Start: 62-39-0506Qbhkudopr vaccinationInfluenza Vaccine (#1)[facility] HealthcareStart: 04-06-2025 End: 23-86-9194Xthnerg encounter esqyopqhv57/28/2025 9:00 AM EDT Office Visit [facility] [address] [place] [address] Catarino Jaramillo, DO [address] [place] [address] [facility] BCP OBStart: 04-04-2025 End: 68-06-2656Fjwlzls encounter gwjafmiid43/26/2025 1:15 PM EDT Office Visit [facility] [address] [address] Braden Rosales MD [address] [place] [address] [facility] FMComment on above:ArrivedStart: 06-08-2024 End: 70-57-6155Fpfeb metabolic 1998 panel - Serum or PlasmaBasic metabolic panel Lab Routine Annual physical exam Expected: 06/08/2024 (Approximate), Expires: 06/08/2025[facility] HealthcareComment on above:Expected: 06/08/2024 (Approximate), Expires: 06/08/2025Start: 06-08-2024 End: 91-66-4072THP W Auto Differential panel - BloodCBC and differential Lab Routine Annual physical exam Expected: 06/08/2024 (Approximate), Expires: 1 [facility] HealthcareComment on above:Expected: 06/08/2024 (Approximate), Expires: 06/08/2025Start: 06-08-2024 End: 91-17-6116Ksorxxzzgd A1c/Hemoglobin.total in BloodHemoglobin A1c Lab Routine Annual physical exam Expected: 06/08/2024 (Approximate), Expires: 06/08/2025[facility] Work Phone: Comment on above:Expected: 06/08/2024 (Approximate), Expires: 06/08/2025Start: 06-08-2024 End: 98-47-4937Bfivewk function 2000 panel - Serum or PlasmaHepatic function panel Lab Routine Annual physical exam Expected: 06/08/2024 (Approximate), Expires: 06/08/2025[facility] HealthcareComment on above:Expected: 06/08/2024 (Approximate), Expires: 06/08/2025Start: 06-08-2024 End: 79-60-7893Kujxw 1996 panel - Serum or PlasmaLipid panel Lab Routine Annual physical exam Expected: 06/08/2024 (Approximate), Expires: 06/08/2025[facility] HealthcareComment on above:Expected: 06/08/2024 (Approximate), Expires: 06/08/2025Start: 06-08-2024 End: 92-84-6412Kspqtkrzlfw [Units/volume] in Serum or PlasmaTSH Lab Routine Annual physical exam Expected: 06/08/2024 (Approximate), Expires: 06/08/2025[facility] HealthcareComment on above:Expected: 06/08/2024 (Approximate), Expires: 06/08/2025Start: 06-08-2024 End: 69-23-4671Zfaakfs encounter procedureNOMS CW FMComment on above:Arrived Start: 46-49-2848Wtydngvrn vaccinationInfluenza Vaccine (#1)[facility] Start: 04-08-2024 End: 23-50-1810Bkksahh encounter edmgqomjm40/30/2024 9:45 AM EDT Office Visit [facility] [address] [address] Braden Rosales MD [address] [phone] [facility] FMComment on above:ArrivedStart: 47-37-6990Azslaqnzf for malignant neoplasm of cervixPAP SMEAROhioHealth Work Phone: Start: 31-57-8762Obyebympa vaccination givenOhioHealth Start: 02-16-2019 End: 59-87-0988Tayxck Visit02/16/2019 Office Visit Dermatology Sonia Villagran Jr., DO [address] [place] [address] [phone] [facility] DermatologyStart: 12-13-2018 End: 68-02-3917Zdnokn Visit12/13/2018 Office Visit Dermatology Sonia Villagran Jr., DO [address] [place] [address] [phone] [facility] DermatologyStart: 82-76-7739Ddpgrvhbj vaccination given SEQUENTIAL INFLUENZA VACCINE (#1)[facility]HealthStart: 72-53-7549Mblhvmgug vaccinationSEQUENTIAL INFLUENZA VACCINE (#1)[facility] Work Phone: Start: 02-22-9167Jcrkzhmgweb for human papillomavirus HPV VACCINES (1 - Female 3-dose series)[facility] SystemStart: 61-09-9642Cebzshjtpwb for human papillomavirusHPV VACCINES (1 of 3 - Female 3 Dose Series)[facility] Work Phone: Start: 57-19-6797Kcrxair and physical examination, annual for [facility] VisitOhioHealthStart: 22-51-2608Vsmqaeskj for Chlamydia trachomatisChlamydia ScreeningOhioHealthStart: 88-04-2766Pucovye vaccinationTETANUS EVERY 10 YROhVan Wert County Hospital Work Phone: bacteria identified in Urine by CultureUrine culture Microbiology Routine Missed menses Ordered: 04/27/2025[facility] HealthcareComment on above:Ordered: 04/27/2025BC W Auto Differential panel - BloodCBC and differential Lab Routine Missed menses , unspecified gestational age ([facility]) Ordered: 04/27/2025[facility] HealthcareComment on above:Ordered: 04/27/2025 Cytology Cervical or vaginal smear or scraping studyPap Smear Pathology and Cytology Routine Well woman exam with routine gynecological exam Ordered: [facility] [employer] Work Phone: comment on above:Ordered: 03/29/2024Hemoglobin A1c/Hemoglobin.total in BloodHemoglobin A1c Lab Routine Missed menses , unspecified gestational age ([facility]) Ordered: 04/27/2025[facility] HealthcareComment on above:Ordered: 04/27/2025Hepatitis B virus surface Ag [Presence] in Serum or Plasma by ImmunoassayHepatitis B surface antigen Lab Routine Missed menses , unspecified gestational age ([facility]) Ordered: 04/27/2025[facility] HealthcareComment on above:Ordered: 04/27/2025Hepatitis C virus Ab [Presence] in Serum or Plasma by ImmunoassayHepatitis C antibody Lab Routine Missed menses , unspecified gestational age ([facility]) Ordered: 04/27/2025[facility] HealthcareComment on above:Ordered: 04/27/2025HIV-1/HIV-2 antigen/antibody combination immunoassayHIV-1 and HIV-2 antibodies Lab Routine Missed menses , unspecified gestational age ([facility]) Ordered: 04/27/2025[facility] HealthcareComment on above:Ordered: 04/27/2025Reagin Ab [Presence] in Serum by RPRRPR Lab Routine Missed menses , unspecified gestational age ([facility]) Ordered: 04/27/2025[facility] HealthcareComment on above:Ordered: 04/27/2025 Rubella antibody, IgGRubella antibody, IgG Lab Routine Missed menses , unspecified gestational age ([facility]) Ordered: 04/27/2025[facility] HealthcareComment on above:Ordered: 04/27/2025US Pelvis transvaginalUS OB transvaginal Imaging Routine Missed menses Positive urine test ([facility]) 51:48 PM [facility]TFulton [facility] Immunizations Immunization DateImmunizationNotesCare SbgndjftNctsmpfh84-16-9783xcrbqzdah virus vaccine, unspecified formulationCorey Clint DO Work Phone: [facility] Payers DatePayer CategoryPayerPolicy [id number] Health Insurance [id number] Health [id number] 2..840.1.895455.19 93-16-2890Qwdmuhe Health [id number] 2.16.840.1.723548.3.249.13 87-50-1233Xfyecur Health Insurancexxxxxxxxxx [id number] 2.16.840.1.414705.3.57[id number] 2..840.1.630005.3.57[id number] 2.16.840.1.612827.3.57[id number] 2.16.840.1.946993.3.57[id number] 2.16.840.1.465763.3.579.[id number] 2.16840.1.849804.3.57[id number] 2.16840.1.268372.3.579.[id number] 2.840.1.303776.3.579.2.66690-37-6127Ugazcrd3725209 2.840.1.752698.3.579.2.43640-06-5355Wnicaky7316609 2.840.1.699909.3.579.2.82760-93-2891Mmyxopb3242771 2.16840.1.605330.3.579.2.109 [id number] 2.16840.1.703246.3.579.2.42047-99-4479Rdmfqhe1230777 2.840.1.308921.3.579.2.90888-66-5629Bgycreq5881532 2.16840.1.323888.3.579.[id number] 2.16840.1.501618.3.579.2.22718-65-8173Twfehfe7302299 2.16840.1.347435.3.579.2.95976-00-5996Ydrmker8469758 2.16840.1.119113.3.579.2.97703-34-5899Dyeetkp3335541 2.16840.1.593113.3.579.2.63767-00-5230Svbinhb2448138 2.16840.1.259747.3.579.2.96220-81-0776Syprmws3515826 2.16840.1.796901.3.579.2.60794-03-0887Mjepdya8107979 2.840.1.568546.3.579.2.87926-76-0392Fzhwqqk4842059 2.840.1.596896.3.579.2.66841-69-3735Rbziejg9382681 2.840.1.737894.3.579.2.26037-02-0434Gfefcyu3786336 2.840.1.830507.3.579.2.55591-82-1732Wdutrot9045501 2.840.1.416629.3.579.2.82647-38-0958Eaxdiev1888664 2.840.1.200003.3.579.2.92525-58-7117Bbiofuo98414478 2.840.1.394223.3.579.2.13060-90-7208Ycjtgmw44401853 2.840.1.759869.3.579.2.113765-38-4642Qkmaitg21859737 2.840.1.841014.3.579.2.532746-00-5000Djdrpvf60323551 2.840.1.966822.3.579.2.905346-11-8110Icrjfdk01690201 2.840.1.449513.3.579.2.079589-50-6055Cpeptwo9170307 2.840.1.870047.3.579.2.804414-10-4663Wycg-nwlAuejqvyIGJ51982320A 2..840.1.885389.3.249.13Private Health InsuranceCape Fear/Harnett Health Health [id number] 2..840.1.821838.3.579.2.593 Social History DateTypeDetailFacilityStart: 09-01-2017 End: 13-36-1898Tfqqiru smoking status NHISNecolorado mental health institute [facility] smokerOhioHealth Work Phone: Start: 77-54-9743Tba Assigned At BirthNot on file [facility] Work Phone: Start: 04-08-2024 End: 06-02-8123Suk Assigned At [facility] HealthcareStart: 14-71-2651Tid Assigned At [facility] Main Campustart: 47-72-8227Vdepptu use and exposureSmokeless tobacco non-userNOMS HealthcareStart: 04-08-2024 End: 63-87-9881Rrsqkvifz beverage intakeLifetime non-drinker (finding)[facility] HealthcareStart: 04-08-2024 End: 07-52-1346Icxondu of Social functionNOMS HealthcareStart: 66-87-9102Etgeddp CommentCaffeine intake: 2 cans pop dailyNOMS HealthcareStart: 69-79-3631Enb Female (finding)[facility] HospitalHow often do you need to have someone help you when you read instructions, pamphlets, or other written material from your doctor or pharmacy [SILS]NeverNOMS HealthcareWithin the last year, have you been afraid of your partner or ex-partner?NoNOMS HealthcareAre you now , , , , never or living with a partner?MarriedNOMS HealthcareStart: 67-25-5706Xpy many standard drinks containing alcohol do you have on a typical day?Patient does not drinkNOMS HealthcareDo you feel stress - tense, restless, nervous, or anxious, or unable to sleep at night because yourmind is troubled all the time - these days [OSQ]To some extentCAST[facility]IEW HOSPITAL Healthcare(I/We) worried whether (my/our) food would run out before (I/we) got money to buy more.Never trueCASTLEVIEW HOSPITAL HealthcareStart: 03-12-2025 [facility] Functional Status CiulCtnidhxkxyGeuzsiIavtjppy70-96-9233Clotw score [AUDIT-C]0 04/04/2025 6:18 AM EDT [employer] Enterprisesun[facility]t, GenericFulton Medical Center- FultonKvfcwvtiov44-64-9153Giw often to you have a drink containing alcohol?Never 04/04/2025 6:18 AM EDT [employer]lajas, Generic [facility] HospitalMsqhmusjnm41-58-5384Dybhnrkwhv statusPatient does not drink 04/04/2025 6:18 AM EDT [employer]hart, Generic Patient does not drinkFulton Medical Center- FultonWrgzjnuisy65-76-2862Ppx often do you have 6 or more drinks on 1 occasion?Never 04/04/2025 6:18 AM EDT [employer]lajas, Generic [facility] Clinical Notes 06-04-2022 to 05-30-2025 Note Date & MtyvUfsuIyghykbm78-25-9097 History of Present illness Narrative* MARY JO Pena - 05/30/2025 2:40 PM EDT Reason for Appointment: Patient ID: Ioana Cadena is a 29 y.o. female who presents for Routine Visit Patient presents today for Return OB [...] (BMI) of 45.0 to 49.9 in adult ([facility]) 04/08/2024 Annual physical exam 06/08/2024 Nausea and vomiting during prior to 22 weeks gestation ([facility]) 04/04/2025 HSV infection 05/30/2025 Hx of cold [...] Exam Constitutional: Appearance: Normal appearance. She is normal weight. HENT: Head: Normocephalic. Cardiovascular: Rate and Rhythm: Normal rate. Pulses: Normal pulses. Pulmonary: Effort: Pulmonary effort is normal. Breath sounds: Normal breath sounds. Abdominal: Palpations: Abdomen is soft. Musculoskeletal: General: Normal range of motion. Neurological: General: No focal deficit present. Mental Status: She is alert and oriented to person, place, and time. Psychiatric: Mood and Affect: Mood normal. Behavior: Behavior normal. Thought Content: Thought content normal. Judgment: Judgment normal. Vitals and nursing note reviewed. Vitals: Estimated body mass index is 45.42 kg/m as calculated from the following: Height as of 04/04/25: 5' 7 . Weight as of this encounter: 290 lb. BP: 128/78 Patient's last menstrual period was 02/26/2025. Assessment/Plan ICD-10-CM 1. 13 weeks gestation of ([facility]) Z3A.13 POCT urinalysis dipstick manually resulted 2. Second trimester ([facility]) Z34.92 3. Hx of cold sores Z86.19 4. Nausea R11.0 pyridoxine (Vitamin B-6) 25 MG tablet Return OB: Patient presents today for a routine obstetrics appointment. Patient is currently 13w2d . Patient states she is doing well but has complaints of being tired due to current . Patient has verbalizes frequent movement. Patient continues to have nausea and does not tolerate reglan due to work, we will send in Vit B 6 Orders Placed This Encounter Procedures POCT urinalysis dipstick manually resulted Follow Up: Patient is to return to office in 4 week for routine OB appointment. Documented by MARY JO Pena on behalf of: Catarino Jaramillo DO documented in this encounterFulton Medical Center- FultonOyhhcljouq87-87-6422 History of Present illness Narrative* Twyla Robles LPN - 04/27/2025 2:00 PM EDT Reason for Appointment: Patient ID: Ioana Cadena [...] (BMI) of 45.0 to 49.9 in adult ([facility]) 04/08/2024 Annual physical exam 06/08/2024 Nausea and vomiting during prior to 22 weeks gestation ([facility]) 04/04/2025 Resolved Ambulatory Problems Diagnosis Date Noted [...] urinalysis dipstick manually resulted Positive urine test ([facility]) - US OB transvaginal; Future , unspecified gestational age ([facility]) - Type and screen; Future - ABO/Rh; Future - CBC and differential - Hemoglobin A1c - RPR - Rubella antibody, IgG - Hepatitis B surface antigen - Hepatitis C antibody - HIV-1 and HIV-2 antibodies - Rapid drug screen, urine; Future Encounter for supervision of normal first in first trimester ([facility]) - Rapid drug screen, urine; Future Nurse Note: OB Intake: Patient presents today for first OB visit. Patients history has been reviewed in great detail including any potential risks. Patient signed consent forms and patient desires testing in both trimesters. Patient currently has no complaints and has been advised to drink 6-8 glasses of water a day, eatno raw or undercooked meat, and stay away from [facility]. Patient has also been advised to not change litter boxes and eat 6 small meals a day. Patient has been consulted regarding the do's and don'ts ofpregnancy. Patient was given labs and all questions and concerns were answered. Patient Given Kountze to have completed with Initial intake labs. Follow Up: Patient is to return in 4 weeks for routine OB appointment. Follow Up: Patient is to have labs drawn at directed and return to office for initial OB appointment with provider. Patient may call office as needed with any concerns or questions. Nurse Visit Completed by: Twyla Robles LPN documented in this encounterFulton Medical Center- FultonYpsolmzgug79-11-9329 History of Present illness Narrative* Braden Rosales MD - 04/04/2025 1:58 PM EDTAssociated Problem(s): Class 3 severe obesity due to excess calories without serious comorbidity with body mass index (BMI) of 45.0 to 49.9 in adult ([facility]) Weight loss indicated * Braden Rosales MD - 04/04/2025 1:56 PM EDTAssociated Problem(s): Generalized anxiety disorder Worsening symptoms and increase zoloft. Warned will take 2-3 weeks to notice improvement in mood. Start hydroxyzine PRN. * Braden Rosales MD - 04/04/2025 1:56 PM EDTAssociated Problem(s): Major depressive disorder, recurrent episode, mild Worsening symptoms and increase zoloft. Warned will take 2-3 weeks to notice improvement in mood. * Braden Rosales MD - 04/04/2025 1:55 PM EDTAssociated Problem(s): Nausea and vomiting during prior to 22 weeks gestation ([facility]) Increased symptoms and use medication PRN. Follow with OB. Increase fluids. * Braden Rosales MD - 04/04/2025 1:15 PM EDT Images from the original note were not included. Subjective Patient ID: Ioana Cadena is a 29 y.o. female who presents for Follow-up (Er f/up faintness). ER follow up from 04/02 for nausea and lightheaded. Currently about 5 weeks . Developed severe nausea and emesis. Very lightheaded and fatigued. In ER labs normal. US showed intrauterine gestation. Discharged with Paul. Nausea tolerable with medication but overall doesn't [...] (BMI) of 45.0 to 49.9 in adult ([facility]) Weight loss indicated Nausea and vomiting during prior to 22 weeks gestation ([facility]) Increased symptoms and use medication PRN. Follow with OB. Increase fluids. documented in this encounterFulton Medical Center- FultonUygghddurb09-35-4697 History of Present illness Narrative* Braden Rosales MD - 06/08/2024 9:44 AM EDTAssociated Problem(s): Class 3 severe obesity due to excess calories without serious comorbidity with body mass index (BMI) of 45.0 to 49.9 in adult ([facility]) Weight loss indicated * Braden Rosales MD - 06/08/2024 9:43 AM EDTAssociated Problem(s): Annual physical exam Due for labs. Discussed proper diet and regular aerobic exercise. Need aerobic exercise 5-6 days a week for 30 minutes at a time. Smaller portions and limit total calories. Colonoscopy after age 45. Tetanus every 10 years. Advised not to smoke. Discussed daily Aspirin therapy. * Braden Rosales MD - 06/08/2024 8:45 AM EDT Images from the original note were not [...] panel Lipid panel TSH documented in this encounterFulton Medical Center- FultonJawcdxrsvw26-17-4148 History of Present illness Narrative* Braden Rosales MD - 04/08/2024 10:11 AM EDTAssociated Problem(s): Morbid obesity due to excess calories ([facility]) Weight loss indicated * Braden Rosales MD - 04/08/2024 10:10 AM EDTAssociated Problem(s): Acute bronchitis due to other specified organisms Take antibiotics for 7 days. Use prednisone for inflammation. Use sudafed or other decongestants asneeded. Use Robitussin or Robitussin-DM for cough. Can use afrin for congestion but no longer than 3 days. Can use Mucinex to bring up phlegm. Use Motrin or Tylenol as needed for fever, aches, or pains. Increase fluid intake and rest. Should improve over next 5-7 days and if no better or worse callfor re-evaluation. * Braden Rosales MD - 04/08/2024 9:45 AM EDT Images from the original note were not [...] for inflammation. Use sudafed or other decongestants asneeded. Use Robitussin or Robitussin-DM for cough. Can use afrin for congestion but no longer than 3 days. Can use Mucinex to bring up phlegm. Use Motrin or Tylenol as needed for fever, aches, or pains. Increase fluid intake and rest. Should improve over next 5-7 days and if no better or worse callfor re-evaluation. Relevant Medications levoFLOXacin (Levaquin) 750 MG tablet predniSONE (Deltasone) 50 MG tablet documented in this encounterFulton Medical Center- FultonIeixfrjkqf74-14-9847 History of Present illness Narrative* Dedra Carlos LPN - 03/29/2024 9:00 AM EDT Reason for Appointment: Patient ID: Ioana Cadena is a 28 y.o. female who presents for Well Women Visit Patient presents today for Annual Exam. MEDICATIONS Current Outpatient Medications Medication Instructions albuterol HFA 90 mcg/act inhaler INHALE 2 PUFFS BY MOUTH EVERY 4-6 HOURS NEEDED FOR SHORTNESS OFBREATH OR WHEEZING FOR 7 DAYS sertraline (ZOLOFT) [...] nursing note reviewed. Exam conducted with a chimney builder helper present. Vitals: Estimated body mass index is [...] of: Catarino Jaramillo DO documented in this encounterFulton Medical Center- FultonHmjvffpmfp30-97-8932 Evaluation note* Encounter Date Diagnosis Assessment Notes Treatment Notes Treatment Clinical Notes Jun, Contact with and (flores spected) exposure to other viral communicable diseases (ICD-10 - Z20.828) Jun,Viral URI with cough (ICD-10 - J06.9) Advised [...] treatment plan. Patient left in stable condition Foodl[employer] Other 10-26-2022 NoteCONSULTATION DISCHARGE DATE: 07/03/2022 PRIMARY [...] pain free and no longer on narcotics.[facility] CenterVctyzkvd00-87-4651 NoteOPERATIVE NOTE OPERATION DATE: 06/04/2022 PROCEDURE: Repeat low transverse section. PREOPERATIVE DIAGNOSIS: 1. Intrauterine at 39 weeks. 2. Previous . POSTOPERATIVE DIAGNOSIS: 1. Intrauterine at 39 weeks. 2. Previous . ANESTHESIA: Spinal with Duramorph. SURGEON: Catarino Jaramillo D.O. GLOBAL LEAD: KASANDRA Ko URINE OUTPUT: Yellow and clear. [...] to the Recovery Room in stable condition.[facility] CenterEvaluation noteNo assessment information availablePomerene Hospital Work Phone: Evaluation note* Diagnosis Acute bronchitis due to other specified organisms- Primary Morbid obesity due to excess calories ([facility]) Body mass index (BMI) 40.0-44.9, adult ([facility]) Annual physical exam- Primary Routine general medical examination at a health care facility Class 3 severe obesity due to excess calories without serious comorbidity with body mass index (BMI) of 45.0 to 49.9 in adult ([facility]) [facility] HealthcareEvaluation note* Diagnosis Well woman exam with routine gynecological exam Routine gynecological examination documented in this encounter [facility] HealthcareEvaluation note* Diagnosis Acute bronchitis due to other specified organisms- Primary Morbid obesity due to excess calories ([facility]) Body mass index (BMI) 40.0-44.9, adult ([facility]) documented in this encounter [facility] HealthcareEvaluation note* Diagnosis Onset Date Resolution Status Admit Date Influenza A acuteMarch 2024 1:14pm [facility] Work Phone: Evaluation note* Diagnosis Acute bronchitis due to other specified organisms- Primary Morbid obesity due to excess calories ([facility]) Body mass index (BMI) 40.0-44.9, adult ([facility]) Annual physical exam- Primary Routine general medical examination at a health care facility Class 3 severe obesity due to excess calories without serious comorbidity with body mass index (BMI) of 45.0 to 49.9 in adult ([facility]) Major depressive disorder, recurrent episode, mild- Primary Major depressive disorder, recurrent episode, mild Generalized anxiety disorder Generalized anxiety disorder Nausea and vomiting during prior to 22 weeks gestation ([facility]) Class 3 severe obesity due to excess calories without serious comorbidity with body mass index (BMI) of 45.0 to 49.9 in adult ([facility]) documented in this encounter [facility] HealthcareEvaluation note* Diagnosis Acute bronchitis due to other specified organisms- Primary Morbid obesity due to excess calories ([facility] Body mass index (BMI) 40.0-44.9, adult [place] Annual physical exam- Primary Routine general medical examination at a health care facility Class 3 severe obesity due to excess calories without serious comorbidity with body mass index (BMI) of 45.0 to 49.9 in adult ([facility] Major depressive disorder, recurrent episode, mild- Primary Major depressive disorder, recurrent episode, mild Generalized anxiety disorder Generalized anxiety disorder Nausea and vomiting during prior to 22 weeks gestation ([facility]) Class 3 severe obesity due to excess calories without serious comorbidity with body mass index (BMI) of 45.0 to 49.9 in adult ([facility] Missed menses Positive urine test ([facility]) , unspecified gestational age ([facility]) Encounter for supervision of normal first in first trimester ([facility]) [facility] Diagnosis Onset Date Resolution Status Admit Date Generalized anxiety disorder acuteSept2024 9:23amMajor depressive disorder, recurrent, mildacute May 09, 2025 9:23am [facility] Work Phone: Evaluation note* Diagnosis Acute bronchitis due to other specified organisms- Primary Morbid obesity due to excess calories ([facility] Body mass index (BMI) 40.0-44.9, adult ([facility] Annual physical exam- Primary Routine general medical examination at a health care facility Class 3 severe obesity due to excess calories without serious comorbidity with body mass index (BMI) of 45.0 to 49.9 in adult ([facility] Major depressive disorder, recurrent episode, mild- Primary Generalized anxiety disorder Nausea and vomiting during prior to 22 weeks gestation ([facility]) Class 3 severe obesity due to excess calories without serious comorbidity with body mass index (BMI) of 45.0 to 49.9 in adult ([facility] 13 weeks gestation of ([facility]) Second trimester ([facility]) state, incidental Hx of cold sores Nausea Nausea alone documented in this encounter [facility] N[facility]ative - Reported* Type Description Date Surgical History Foodlve Other Reason for referral (narrative)No reason for referral information availablePomerene Hospital Work Phone: Assessments DiagnosisEczema, unspecified type - PrimaryXerosis cutis Other specified disease of sebaceous glands [...] No Advanced Directives Records FoundDocuments on File TypeDate RecordedPatient RepresentativeExplanationAdvance Directives and Living Will Advance Directive Response Recorded Date/ Time Advance Directives No October 24, 2 020 6:03pm History of Present Illness * Sonia Villagran Jr., DO - 11/30/2018 10:19 AM EDT Ioana Reyna is a 23 y.o. female who presents for Chief Complaint Skin Problem Dictation on: 11/30/2018 10:27 AM by: SONIA VILLAGRAN [[id number]] History reviewed. No pertinent past medical history. [...] be found below Assessment and Plan Sonia Villagran DO 11/30/2018 documented in this encounter* Sonia Villagran Jr., DO - 02/16/2019 10:28 AM EDT Ioana Reyna is a 23 y.o. female who presents for Chief Complaint Skin Problem; Skin Lesion Dictation on: 02/16/2019 10:36 AM by: SONIA VILLAGRAN [[id number]] History reviewed. No pertinent past medical history. [...] be found below Assessment and Plan Sonia Villagran DO 02/16/2019 documented in this encounter* Sonia Villagran Jr., - 12/13/2018 10:08 AM EDT Ioana Reyna [...] be found below Assessment and Plan Sonia Villagran DO 12/13/2018 documented in this encounter Chief Complaint and Reason for Visit Chief Complaint cough for 2 weeks, d rainage Chief Complaint Admit Date Sore throat October 26, 2024 1:1 4pm Reason for Visit Admit Date Influenza A October 26, 2024 1:1 4pm Chief Complaint Admit Date Established Patient May 09, 2025 9:23am Reason for Visit Admit Date Generalized anxiety disorder April 122024 9:23am Major depressive disorder, recurrent, mi ld May 09, 2025 9:23am Additional Source Comments INFORMATION SOURCE (unrecogn ized section and content) DATE CREATED AUTHOR 12/27/2018 [facility] DATE CREATED AUTHOR AUTHOR'S ORGANIZ ATION 11/15/2019 [facility] DATE CREATED AUTHOR AUTHOR'S ORGANIZ ATION 07/30/2022 [facility] DATE CREATED AUTHOR AUTHOR'S ORGANIZ ATION 02/27/2025 [facility] DATE CREATED AUTHOR AUTHOR'S ORGANIZ ATION 06/01/2025 [facility] EPIC Reason for Visit (unrecogniz ed section and content) ReasonCommentsSkin ProblemStatusReasonSpecialtyDiagnoses / ProceduresReferred By ContactReferred To ContactPending Review Specialty Services Required/Patient's Best Interest Dermatology Diagnoses Viral warts, unspecified type 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, [employer]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 [address] [place] [address] Sonia Villagran Jr., [address] [address] ReasonCommentsSkin ProblemSkin LesionReasonCommentsAnnual ExamwellnessReason CommentsWell Women VisitReasonCommentsSinusitisWITH BRONCHITISReasonComments Follow-upEr f/up faintnessReasonCommentsAmenorrheaReasonCommentsRoutine Visit Care Teams (unrecognized sec tion and content) Team Status: Active Member Role Status Dates 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 APRN WEIGHT SHIFTER-C Primary Care Provider Activ e Team Status: Inactive Member Role Status Dates 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 APRN WEIGHT SHIFTER-C Primary Care Provider Activ e Start: March 13, 2024 End: March 13Luis Allen ProviderActiveStart: March 13, 2024 End: March 13, 2024Team MemberRelationshipSpecialtyStart DateEnd Date Braden Rosales MD [address] [place] [address] PCP - Generalmily Medicine03/25/23Team MemberRelationshipSpecialtyStart DateEnd Date Braden Rosales MD [address] [place] [address] PCP - [facility] Medicine03/25/23Team MemberRelationshipSpecialtyStart DateEnd Date Braden Rosales MD [address] [place] [address] PCP - [facility] Medicine03/25/23Team MemberRelationshipSpecialtyStart DateEnd Date Braden Rosales MD [address] [place] [address] PCP - Generalmi Medicine03/25/23Team MemberRelationshipSpecialtyStart DateEnd Date Braden Rosales MD [address] [place] [address] PCP - Generalmi Medicine03/25/23Team MemberRelationshipSpecialtyStart DateEnd Date Braden Rosales MD [address] [place] [address] PCP - Generalmi Medicine03/25/23 Team Status: Inactive Member Role Status Dates 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 APRN WEIGHT SHIFTER-C Primary Care Provider Activ e Start: October 26, 2024 End: October 26, 2024Luis Ozuna ProviderActiveStart: October 26, 2024 End: October 26, 2024Team MemberRelationshipSpecialtyStart DateEnd Date Braden Rosales MD [address] [place] [address] PCP - [facility]03/25/23Team MemberRelationshipSpecialtyStart DateEnd Date Braden Rosales MD PCP - [facility]03/25/23Team MemberRelationshipSpecialtyStart DateEnd Date Braden Rosales MD PCP - [facility]03/25/23 Team Status: Active Member Role Status Dates Braden Rosales MD Primary Care Provider Active Team Status: Active Member Role Status Dates 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 APRN WEIGHT SHIFTER-C Primary Care Provider Activ e Start: May 03, 2025 Candy Aguilar ProviderActiveStart: May 03, 2025 Team Status: Inactive Member Role Status Dates Braden Rosales MD Primary Care Provider Active S tart: May 09, 2025 End: May 09, 2025[facility] Covarrub[facility] ProviderActiveStart: May 09, 2025 End: May 09, 2025Team MemberRelationshipSpecialtyStart DateEnd Date Braden Rosales MD PCP - [facility]03/25/23Team MemberRelationshipSpecialtyStart DateEnd Date Braden Rosales MD PCP - [facility]03/25/23 Goals (unrecognized section and content) Goals may [...] BE BASED ON THE PRIMARY CLINICAL RECORDS. [facility] [employer] [facility]. provides no warranty or guarantee of the accuracy or completeness of information in this document.
--- OUTSIDE RECORDS SUMMARY | 2025-06-28 20:50 | XMS_ITS | Encounter Summary ---
Author Organization [facility] Address [address] [place] [address] Care Team Providers Care Observer Helper Name Role Phone Braden Reagan MD Primary Care Provider [phone] Encounter Details DateTypeDepartmentCare Team (Latest Contact Info)Tsmckawyrew56/19/2025Travel Social History Tobacco UseTypesPacks/DayYears UsedDateSmoking Tobacco: NeverSmokeless Tobacco: NeverAlcohol UseStandard Drinks/WeekCommentsNever0 (1 standard drink = 0.6 oz pure alcohol)Caffeine intake: 2 cans pop [id number] Health LiteracyAnswerDate RecordedHow often do you need [...] relatives?Once a week04/04/2025How often do you attend mandaen or samaritan services?Never04/04/2025Do you belong to any clubs or organizations such as mandaen groups, unions, fraternal or athletic groups, or school groups?No04/04/2025How often do you attend meetings of the clubs or organizations you belong to?Never04/04/2025re you , , , , never , or living with a partner?Ghjkxrr9704/04/2025UDIT-C AnswerDate RecordedQ1: How often do you have [...] medical care, and heating?Not hard at all04/04/2025 [employer] [place] [employer] - Occupational Stress Questionnaire AnswerDate RecordedDo you feel stress - tense, restless, nervous, or anxious, or unable to sleep at night because yourmind is troubled all the time - these days? To some vopzkg6204/04/2025Exercise Vital SignAnswerDate RecordedOn average, how many days [...] were you homeless or living in a mcc (including now)?No04/04/2025Estimated Date of DeliveryComments Yes12/03/2025ased on last menstrual period of 02/26/2025Sex and Gender InformationValueDate RecordedSex Assigned at BirthNot on fileLegal SexFemale 10/22/2022 10:02 PM EDTGender IdentityNot on fileSexual OrientationNot on file documented as of this encounter Plan of Treatment DateTypeDepartmentCare Team (Latest Contact Info)Ajkdovlmlum24/17/2025 11:30 AM ESTRoutine [facility] [address] [place] [phone] Catarino Jaramillo DO [address] [place], [place] [id number] documented as of this encounter Visit Diagnoses Not on filedocumented in this encounter Care Teams Team MemberRelationshipSpecialtyStart DateEnd Date Bradne Reagan MD [address] [place] [address] PCP - GeneralFamily Medicine03/25/23documented as of this encounter
--- OUTSIDE RECORDS SUMMARY | 2025-06-28 20:50 | XMS_ITS | Clinical Summary ---
Author Organization [facility] Address [address], [address] [place] [address] Care Team Providers Care In Flight Refueling Craftsman Name Role Phone Paul Estelle Dutta APRN - FLOW MANAGER Primary Care Provider Allergies No known active allergies Medications MedicationSigDispense QuantityRefillsLast FilledStart DateEnd DateStatus loratadine (CLARITIN) 10 MG tablet TAKE 1 TABLET BY MOUTH ONCE A DAY NEEDED FOR CJBGLZSJB76/10/2020Active ondansetron (ZOFRAN) 4 MG tablet TAKE 1 TABLET BY MOUTH EVERY 6 HOURS06/12/2020Active sertraline (ZOLOFT) 100 MG tablet TAKE 1 TABLET BY MOUTH EVERY DAY 15 tablet 1Active Active Problems ProblemNoted DateDiagnosed Date12 weeks gestation of laxiqadbz72/01/2020Other specified diseases of dpxmtajvbbt44/01/2020Upper abdominal pain, unspecified 07/06/20202730Kmybhfv06/14/2020 Immunizations ImmunizationAdministration DatesNext DueHep B, RECOMBIVAX-HB, (age 20y+), IM, 1mL1,11/06/2017,09/29/2017TDaP, ADACEL (age 10y-64y), BOOSTRIX (age 10y+), IM, 0.5mL08/31/2017 Social History Tobacco UseTypesPacks/DayYears UsedDateSmoking Tobacco: NeverSmokeless Tobacco: NeverAlcohol UseStandard Drinks/WeekCommentsYes0 (1 standard drink = 0.6 oz pure alcohol)AUDIT-CAnswerDate RecordedQ1: How often do you have a drink containing alcohol?Monthly or less12/02/2020Q2: How many drinks containing alcohol do you have on a typical day when you are drinking?1 or Frequency of Binge DrinkingNot on file07/11/2020CommentsUnknownSex and Gender Information ValueDate RecordedSex Assigned at BirthNot on fileLegal WtzIoctuz34/10/2013 9:41 PM ESTGender IdentityNot on fileSexual OrientationNot on file Last Filed Vital Signs Vital SignReadingTime TakenCommentsBlood Sagngjih781/7607/11/2020 7:36 AM EST Cousz741607/11/2020 7:36 AM ZHSAgvdlzbksfk36.7 ??C (98.1 ??F)07/11/2020 7:36 AM ESTRespiratory Hvnk995609/11/2019 7:36 AM ESTOxygen Cyoqshixlw06%12/11/2015 12:49 PM EDTInhaled Oxygen Concentration--Vcyaam300 kg (258 lb)07/11/2020 7:36 AM EST Bentbg557.2 cm (5' 7 )07/11/2020 7:36 AM ESTBody Mass Index40.41109/11/2019 7:36 AM EST Plan of Treatment Not on file Insurance Care Teams Team MemberRelationshipSpecialtyStart DateEnd Date 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 APRN - LEIGHANN PCP - GeneralFamily Nurse Fbpcfglafdwd25/2/20
--- OUTSIDE RECORDS SUMMARY | 2025-06-28 20:50 | XMS_ITS | Clinical Summary ---
Author Organization [facility] Healthcare Address [address] [place] [address] Care Team Providers Care Equal Employment Opportunity Officer Name Role Phone Braden Reagan MD Primary Care Provider [phone] Allergies No known active allergies Medications MedicationSigDispense QuantityRefillsLast FilledStart DateEnd DateStatus sertraline (Zoloft) 100 MG tablet Indications:Major depressive disorder, recurrent episode, mildTake 1.5 tablets (150 mg) by mouth Daily 135 tablet 5Active hydrOXYzine HCl (Atarax) 25 MG tablet Indications:Generalized anxiety disorderTake 1 tablet (25 mg) by mouth 4 (four) times a day as needed for anxiety 60 tablet 5Active ondansetron ODT (Zofran-ODT) 4 MG disintegrating tablet Indications:NauseaDISSOLVE 1 TABLET UNDER TONGUE EVERY 6 HOURS IF NEEDED FOR NAUSEA 20 tablet 5Active pyridoxine (Vitamin B-6) 25 MG tablet Indications:NauseaTake 1 tablet (25 mg) by mouth Daily 30 tablet 515Active Active Problems ProblemNoted DateDiagnosed DateHSV xpwunvcdx72/21/2025Hx of cold sores05/30/2025 Nausea and vomiting during prior to 22 weeks gestation ([facility]) 04/04/2025 Assessment & Plan (04/04/2025 1:55 PM EDT): Increased symptoms and use medication PRN. Follow with OB. Increase fluids. Annual physical exam06/08/2024 Assessment & Plan (06/08/2024 9:43 AM EDT): Due for labs. Discussed proper diet and regular aerobic exercise. Need aerobic exercise 5-6 days a week for 30 minutes at a time. Smaller portions and limit total calories. Colonoscopy after age 45. Tetanus every 10 years. Advised not to smoke. Discussed daily Aspirin therapy. Generalized anxiety bmeajsxb23/30/2024 Assessment & Plan (04/04/2025 1:56 PM EDT): Worsening symptoms and increase zoloft. Warned will take 2-3 weeks to notice improvement in mood. Start hydroxyzine PRN. Major depressive disorder, recurrent episode, mild04/08/2024 Assessment & Plan (04/04/2025 1:56 PM EDT): Worsening symptoms and increase zoloft. Warned will take 2-3 weeks to notice improvement in mood. Class 3 severe obesity due to excess calories without serious comorbidity with body mass index (BMI) of 45.0 to 49.9 in adult04/08/2024 Assessment & Plan (04/04/2025 1:58 PM EDT): Weight loss indicated Assessment & Plan (06/08/2024 9:44 AM EDT): Weight loss indicated Assessment & Plan (04/08/2024 10:11 AM EDT): Weight loss indicated Estimated Date of LddhtcykXgsskmddDef38/26/2026Based on last menstrual period of 02/26/2025 Resolved Problems ProblemNoted DateDiagnosed DateResolved DateAcute bronchitis due to other specified aptonfkul81 Assessment & Plan (04/08/2024 10:10 AM EDT): [...] if no better or worse callfor re-evaluation. Encounters DateTypeDepartmentCare DtuvVqwmvpavyet62/19/2025 1:30 PM ESTRoutine [facility] [address] [place] [phone] Kady Haynes PA 17 weeks gestation of ([facility]); Second trimester ([facility]); Hx of cold sores; Well woman exam with routine gynecological exam; Exposure to STD; Vaginal uwtikxiai56/19/2025Telephone [facility] [address] [place] [address] Thuy Pinto LPN 06/28/2025amboo flowsheet [facility] [address] [place] [address] Kady Haynes PA 06/28/20251378Xemnbz54/21/2025 2:40 PM EDTRoutine [facility] [address] [place] [address] Catarino Jaramillo, DO 13 weeks gestation of ([facility]); Second trimester ([facility]); Hx of cold sores; Xvdgas0805/30/2025amboo flowsheet [facility] [address] [place] [address] Catarino Jaramillo, 05/30/20253150Ktdgnr39/15/2025Refill [facility] [address] [place] [address] Catarino Jaramillo, DO Iqhned0405/09/2025bstract [facility] [address] [place] [phone] Toya Judge MA 05/03/2025linisync Result Encounter [facility] External Department Unsolicited Catarino Jaramillo DO 04/27/2025 2:00 PM EDTInitial [facility] [address] [place] [address] [place]: 8w4d04/27/2025 1:30 PM EDTAncillary Procedure [facility] [address] [place] [phone] Missed menses; Positive urine test ([facility])04/27/2025bstract [facility] [address] [place] [address] Catarino Jaramillo, DO 04/24/20256650Tftlxt89/04/2025Telephone [facility] [address] [place] [address] Alfie Stockton, MA 04/12/2025Telephone [facility] [address] [place] [address] AlfieCascadia, MA 04/05/2025Telephone [facility] [address] [place] [address] Catarino Jaramillo, 04/04/2025 1:15 PM EDTOffice Visit [facility] [address] [place] [phone] Braden Reagan MD Major depressive disorder, recurrent episode, mild (Primary Dx); Generalized anxiety disorder ; Nausea and vomiting during prior to 22 weeks gestation ([facility]); Class 3 severe obesity due to excess calories without serious comorbidity with body mass index (BMI) of 45.0 to 49.9 in adult ([facility])04/04/2025amboo flowsheet [facility] [address] [address] Braden Reagan MD 04/04/20259751Rkcqpp73/25/2025Refill [facility] [address] [place] [address] Braden Reagan MD Major depressive disorder, recurrent, mild ; Major depressive disorder, recurrent episode, mildfrom Last 3 Months Social History Tobacco UseTypesPacks/DayYears UsedDateSmoking Tobacco: NeverSmokeless Tobacco: Never Tobacco Cessation:Counseling Given: Not Answered Alcohol UseStandard Drinks/WeekCommentsNever0 (1 standard drink = 0.6 oz pure alcohol)Caffeine intake: 2 cans pop [id number] Health LiteracyAnswerDate RecordedHow often do you need [...] otherwise physically hurt by your partner or ex-partner?04/04/2025Within the last year, have you been raped or forced to have any kind of sexual activity by your part ner or ex-partner?04/04/2025Social Connection and Isolation PanelAnswerDate RecordedIn a typical week, how many times do you talk on the phone with family, friends, or neighbors?More than three times a week04/04/2025How often do you get together with friends or relatives?Once a week04/04/2025How often do you attend rastafari or restorationist services?Never04/04/2025Do you belong to any clubs or organizations such as rastafari groups, unions, fraternal or athletic groups, or school groups?No04/04/2025How often do you attend meetings of the clubs or organizations you belong to?Never04/04/2025re you , , , , never , or living with a partner?Kxttjfn7604/04/2025UDIT-C AnswerDate RecordedQ1: How often do you have [...] medical care, and heating?Not hard at all04/04/2025 [employer] - Occupational Stress Questionnaire AnswerDate RecordedDo you feel stress - tense, restless, nervous, or anxious, or unable to sleep at night because yourmind is troubled all the time - these days? To some zkmert7104/04/2025Exercise Vital SignAnswerDate RecordedOn average, how many days [...] were you homeless or living in a custodial (including now)?No04/04/2025Estimated Date of DeliveryComments Yes12/03/2025ased on last menstrual period of 02/26/2025Sex and Gender InformationValueDate RecordedSex Assigned at BirthNot on fileLegal SexFemale 10/22/2022 10:02 PM EDTGender IdentityNot on fileSexual OrientationNot on file Last Filed Vital Signs Vital SignReadingTime TakenCommentsBlood Siwoonek324/7611 1:59 PM EST Hztge32886/26/2025 1:28 PM OJLIzutibsdstt87.6 ??C (97.8 ??F)04/04/2025 1:28 PM EDTRespiratory Cndw248504/04/2025 1:28 PM EDTOxygen Kchfcbdclz83%04/04/2025 1:28 PM EDTInhaled Oxygen Concentration--Oywdxl988 kg (293 lb 6.4 oz)06/28/2025 1:59 PM ETYBaboww551.2 cm (5' 7 )04/04/2025 1:28 PM EDTBody Mass Index45.9508 1:28 PM EDT Plan of Treatment DateTypeDepartmentCare Team (Latest Contact Info)Zcjoxxwcvhb13/17/2025 11:30 AM ESTRoutine [facility] [address] [place] [address] Catarino Jaramillo DO [address] [place], [place] [phone] Health MaintenanceDue DateLast DoneCommentsCOVID-19 Vaccine ( season) 508/, 03/09/2021Influenza Vaccine (#1)512/08/2016, 04/20/2016, 05/14/2015Pneumococcal Vaccine: Pediatrics (0 to 5 Years) and At- Risk Patients (6 to 64 Years)Aged OutNo longer eligible based on patient's age to complete this topic Procedures Procedure NamePriorityDate/TimeAssociated DiagnosisCommentsPOCT URINALYSIS DUMKOOAHGplaael70/19/2025 2:02 PM EST 17 weeks gestation of ([facility]) Second trimester ([facility]) POCT URINALYSIS TUMHOFHBXdangwr62/21/2025 2:52 PM EDT 13 weeks gestation of ([facility]) HBSAG BIDZHCKjqzpcf80/24/2025 12:30 PM EDT RAPID PLASMA REAGIN, GBLPPNdtqhez93/24/2025 12:30 PM EDT HCV ANTIBODY RFX TO QUANT HLDAzptrpe58/24/2025 12:30 PM EDT ALL RUBELLA IGG XPSmvappg06/24/2025 12:30 PM EDT HIV AB/P24 AG WITH ZUHZGFOdzxcdg06/24/2025 12:30 PM EDT ALL TYPE AND FLWZTGSwcwxih73/24/2025 12:30 PM EDT ALL CBC WITH AUTO KHFPQuantxx68/24/2025 12:30 PM EDT BOX GHFMCkmojsj00/24/2025 12:30 PM EDT MLR HEMOGLOBIN R3VZliupyn69/24/2025 12:30 PM EDT [facility] DRUG SCREEN RAPID (URINE)Bwtauwh6705/03/2025 12:13 PM EDT US OB FQOXSCNKMVYFLcfybmn96/18/2025 1:48 PM EDT Missed menses Positive urine test ([facility]) POCT URINALYSIS QLOMZLEECfuosry38/18/2025 1:46 PM EDT Missed menses POCT , IGQFZRzptgyi09/18/2025 1:46 PM EDT Missed menses from Last 3 Months Results * (ABNORMAL) POCT urinalysis dipstick manually resulted (06/28/2025 2:02 PM EST) Only the most recent of3 resultswithin the time period is included. ComponentValueRef RangeTest MethodAnalysis TimePerformed AtPathologist Signature Color, UAYellowClarity, UAClearGlucose, UANegativeNegative - 2000(110) ++++ mg/dLBilirubin, UANegativeNegative - 4(70) +++ mg/dLKetones, UANegativeNegative - 160(16) ++++ mg/dLSpec Grav, UA1.0251 - 1.03Blood, UANegativeNegative - 50 Todd/mcLpH, UA6.05 - 9Protein, UAPositiveNegative - 2000(20) ++++ mg/dL Urobilinogen, UA1.00.2 - 12 mg/dLLeukocytes, UA2+Negative - 500+++ Yamilet/mcL Nitrite, UANegativeNegative - PositiveSpecimen (Source)Anatomical Location / LateralityCollection Method / VolumeCollection TimeReceived VsgvMkanm80/19/2025 2:02 PM EST Narrative Authorizing ProviderResult TypeResult StatusA[facility] OF CARE TEST ENTER/EDIT ORDERABLESFinal Result * BOX TEST (05/03/2025 12:30 PM EDT)ComponentValueRef RangeTest MethodAnalysis TimePerformed AtPathologist SignatureBOX TEST SENT LKWWCSUINVRTDF7BAKYEEDTSHM5 05/03/2025TBHSpecimen (Source)Anatomical Location / LateralityCollection Method / VolumeCollection TimeReceived Time05/03/2025 12:30 PM EDT05/03/2025 12:35 PM EDT Narrative [facility] - 05/03/2025 12:58 PM EDT Authorizing ProviderResult TypeResult StatusCorey Clint DOLAB BLOOD ORDERABLES Final ResultPerforming OrganizationAddressCity/State/ZIP CodePhone Number [facility] * HBSAG SCREEN (05/03/2025 12:30 PM EDT)ComponentValueRef RangeTest Method Analysis TimePerformed AtPathologist SignatureHBSAG SCREENNegativeNegativeTBH Comment: Performed at: ?? - [facility] [address] ??[id number] Director Product: Kenroy Lui PhD, Phone: ??[phone] Specimen (Source)Anatomical Location / LateralityCollection Method / Volume Collection TimeReceived Time05/03/2025 12:30 PM EDT05/03/2025 12:35 PM EDT Narrative [facility] - 05/04/2025 1:08 PM EDT Authorizing ProviderResult TypeResult StatusCorey Clint DOLAB BLOOD ORDERABLES Final ResultPerforming OrganizationAddressCity/State/ZIP CodePhone Number [facility] * RAPID PLASMA REAGIN, QUANT (05/03/2025 12:30 PM EDT)ComponentValueRef Range Test MethodAnalysis TimePerformed AtPathologist SignatureRAPID PLASMA REAGIN, QUANTNon ReactiveNonRea<1:1 titerTBHComment: Please Note: This test does not meet current guidelines for screening and diagnosis of syphilis. This test is intended for following treatment response in patients being treated for syphilis infection. To screen for syphilis infection, a reflex cascade that includes both RPR and a treponema-specific assay should be utilized, such as Treponema pallidum (Syphilis) Screening [place] (058822) or Rapid Plasma Reagin (RPR) Test With Reflex to Quantitative RPR and Confirmatory Treponema pallidum Antibodies (286417). Performed at: ?? - [facility] ??[id number] Director Product: Kenroy Lui PhD, Phone: ??[phone] Specimen (Source)Anatomical Location / LateralityCollection Method / Volume Collection TimeReceived Time05/03/2025 12:30 PM EDT05/03/2025 12:35 PM EDT Narrative [facility] - 05/04/2025 1:08 PM EDT Authorizing ProviderResult TypeResult StatusCorey Clint DOLAB BLOOD ORDERABLES Final ResultPerforming OrganizationAddressCity/State/ZIP CodePhone Number [facility] * HIV AB/P24 AG WITH REFLEX (05/03/2025 12:30 PM EDT)ComponentValueRef RangeTest MethodAnalysis TimePerformed AtPathologist SignatureHIV AB/P24 AG SCREENNon ReactiveNon ReactiveTBHComment: HIV-1/HIV-2 antibodies and HIV-1 p24 antigen were NOT detected. There is no laboratory evidence of HIV infection. HIV Negative Performed at: ??[address] ??[id number] Director Product: Kenroy Lui PhD, Phone: ??[phone] Specimen (Source)Anatomical Location / LateralityCollection Method / Volume Collection TimeReceived Time05/03/2025 12:30 PM EDT05/03/2025 12:35 PM EDT Narrative [facility] - 05/04/2025 5:08 AM EDT Authorizing ProviderResult TypeResult StatusCorey Clint DOLAB BLOOD ORDERABLES Final ResultPerforming OrganizationAddressCity/State/ZIP CodePhone Number [facility] * HCV ANTIBODY RFX TO QUANT PCR (05/03/2025 12:30 PM EDT)ComponentValueRef Range Test MethodAnalysis TimePerformed AtPathologist SignatureHCV ABNon ReactiveNon ReactiveTBHINTERPRETATION:Comment.TBHComment: Not infected with HCV unless early or acute infection is suspected (which may be delayed in an immunocompromised individual), or other evidence exists to indicate HCV infection. Performed at: ??[address] ??[id number] Director Product: Kenroy Lui PhD, Phone: ??[phone] Specimen (Source)Anatomical Location / LateralityCollection Method / Volume Collection TimeReceived Time05/03/2025 12:30 PM EDT05/03/2025 12:35 PM EDT Narrative [facility] - 05/04/2025 7:08 AM EDT Authorizing ProviderResult TypeResult StatusCorey Clint DOLAB BLOOD ORDERABLES Final ResultPerforming OrganizationAddressty/State/ZIP CodePhone Number [facility] * MLR HEMOGLOBIN A1C (05/03/2025 12:30 PM EDT)ComponentValueRef RangeTest Method Analysis TimePerformed AtPathologist SignatureGLYCOHEMOGLOBIN A1C4.74.5 - 6.2 %TBHComment: ADA RECOMMENDED LIMIT 4.0 - 6.0 ADA THERAPEUTIC TARGET < 7.0 ACTION SUGGESTED > 7.0 ESTIMATED AVERAGE VIFOXBA33su/dLTBHSpecimen (Source)Anatomical Location / LateralityCollection Method / VolumeCollection TimeReceived Time05/03/2025 12:30 PM EDT05/03/2025 12:35 PM EDT Narrative [facility] - 05/03/2025 12:55 PM EDT Authorizing ProviderResult TypeResult StatusCorey Clint DOCLINISYNCFinal Result Performing OrganizationAddHaven Behavioral Hospital of Eastern Pennsylvaniaty/State/ZIP CodePhone Number [facility] * ALL TYPE AND SCREEN (05/03/2025 12:30 PM EDT)ComponentValueRef RangeTest MethodAnalysis TimePerformed AtPathologist SignatureBLOOD TYPEA PositiveTBH ANTIBODY SCREENNEGATIVETBHSpecimen (Source)Anatomical Location / Laterality Collection Method / VolumeCollection TimeReceived Time05/03/2025 12:30 PM EDT 05/03/2025 12:35 PM EDT Narrative [facility] - 05/03/2025 1:37 PM EDT [facility] , ?? Authorizing ProviderResult TypeResult StatusCorey Clint DOCLINISYNCFinal Result Performing OrganizationAddJames E. Van [facility]/ZIP CodePhone Number [facility] * ALL RUBELLA IGG AB (05/03/2025 12:30 PM EDT)ComponentValueRef RangeTest Method Analysis TimePerformed AtPathologist SignatureRUBELLA ANTIBODIES, IGG2.31 Immune >0.99 indexTBHComment: Non-immune <0.90 ?Equivocal ??0.90 - 0.99 Immune >0.99 Performed at: ?? - [facility] [address] ??[id number] Director Product: Kenroy Lui PhD, Phone: ??[phone] Specimen (Source)Anatomical Location / LateralityCollection Method / Volume Collection TimeReceived Time05/03/2025 12:30 PM EDT05/03/2025 12:35 PM EDT Narrative [facility] - 05/04/2025 7:08 AM EDT Authorizing ProviderResult TypeResult StatusCorey Clint DOCLINISYNCFinal Result Performing OrganizationAddressCity/State/ZIP CodePhone Number [facility]ISYLANETTE [facility] * (ABNORMAL) ALL CBC WITH AUTO DIFF (05/03/2025 12:30 PM EDT)ComponentValueRef RangeTest MethodAnalysis TimePerformed AtPathologist SignatureTBH WBC8.54.0 - 11.0 10 3/uLTBHTBH RBC4.574.20 - 5.40 10 6/uLTBHTBH HGB12.912.0 - 16.0 g/dLTBH TBH HCT37.836.0 - 48.0 %TBHTBH MCV82.781.0 - 99.0 fLTBHTBH MCH28.226.7 - 34.0 pgTBHTBH MCHC34.129.9 - 35.2 g/dLTBHTBH RDW14.211.0 - 15.0 %TBHTBH TFU994408 - 450 10 3/uLTBHTBH MPV9.59.5 - 13.5 fLTBHNEUTROPHILS PERCENT AUTO79.0(H)43.0 - 75.0 %TBHLYMPHOCYTES PERCENT AUTO14.0(L)20.5 - 60.0 %TBHMONOCYTES PERCENT AUTO 5.11.7 - 12.0 %TBHTBH EO %1.30.9 - 7.0 %TBHBASOPHILS PERCENT AUTO0.40.2 - 2.0 %TBHIMMATURE GRANULOCYTES PCT AUTO0.20.0 - 0.5 %TBHNEUTROPHILS ABSOLUTE AUTO 6.7(H)1.4 - 6.5 10 3/uLTBHLYMPHOCYTES ABSOLUTE AUTO1.21.2 - 3.8 10 3/uLTBH MONOCYTES ABSOLUTE AUTO0.40.3 - 0.8 10 3/uLTBHTBH EO #0.10.0 - 0.7 10 3/uLTBH BASOPHILS ABSOLUTE AUTO0.00.0 - 0.1 10 3/uLTBHIMMATURE GRANULOCYTES ABS AUTO 0.020.00 - 0.03 10 3/uLTBHSpecimen (Source)Anatomical Location / Laterality Collection Method / VolumeCollection TimeReceived Time05/03/2025 12:30 PM EDT 05/03/2025 12:35 PM EDT Narrative [facility] - 05/03/2025 1:21 PM EDT Authorizing ProviderResult TypeResult StatusCorey Clint DOCLINISYNCFinal Result Performing OrganizationAddressCity/State/ZIP CodePhone Number [facility] * [facility] DRUG SCREEN RAPID (URINE) (05/03/2025 12:13 PM EDT)ComponentValueRef Range Test MethodAnalysis TimePerformed AtPathologist SignatureCANNABINOID SCREEN URINENEGATIVENEGATIVETBHPHENCYCLIDINE SCREEN URINENEGATIVENEGATIVETBHCOCAINE SCREEN URINENEGATIVENEGATIVETBHMETHAMPHETAMINES SCREEN URINENEGATIVENEGATIVE TBHOPIATE SCREEN URINENEGATIVENEGATIVETBHAMPHETAMINE SCREEN URINENEGATIVE NEGATIVETBHBENZODIAZEPINES SCREEN URINENEGATIVENEGATIVETBHTRICYCLIC ANTIDEPRESSANT URINENEGATIVENEGATIVETBHMETHADONE SCREEN URINENEGATIVENEGATIVE TBHBARBITURATES SCREEN URINENEGATIVENEGATIVETBHOXYCODONE SCREEN URINENEGATIVE NEGATIVETBHBUPRENORPHINE SCREEN URINENEGATIVENEGATIVETBHComment: DRUG CLASS TEST SYSTEM CUT-OFF CONCENTRATIONS ARE FOLLOWS: AMP (Amphetamine): 500 ng/mL BAR (Barbiturates): 200 ng/mL BZO (Benzodiazepines): 150 ng/mL BUP (Buprenorphine): 10 ng/mL MARCIO (Cocaine): 150 ng/mL mAMP (Methamphetamine): 500 ng/mL MTD (Methadone): 200 ng/mL OPI (Opiates): 100 ng/mL OXY (Oxycodone): 100 ng/mL PCP (Phencyclidine): 25 ng/mL THC (Cannabinoids): 50 ng/mL TCA (Trycyclic Antidepressants): 300 ng/mL Specimen (Source)Anatomical Location / LateralityCollection Method / Volume Collection TimeReceived Time05/03/2025 12:13 PM EDT05/03/2025 12:35 PM EDT Narrative [facility] - 05/03/2025 2:11 PM EDT Authorizing ProviderResult TypeResult StatusCorey Clint DOCLINISYNCFinal Result Performing OrganizationAddressCity/State/ZIP CodePhone Number [facility] * OB transvaginal (04/27/2025 1:48 PM EDT)Anatomical RegionLateralityModality BodyUltrasoundSpecimen (Source)Anatomical Location / LateralityCollection Method / VolumeCollection TimeReceived Time04/27/2025 2:28 PM EDT Impressions 04/27/2025 3:03 PM EDT Findings consistent with a live intrauterine gestation, current sonographic age of 8 weeks and 4 days resulting in an estimated date of delivery of December 03, 2025. TRANSCRIBED BY: ? ELECTRONICALLY SIGNED BY: Juan A Neal MD Narrative 04/27/2025 3:03 PM EDT FINDINGS: A single intrauterine gestational sac is present. ??No subchorionic hemorrhage. ??A single pole is present. Normal heart rate at 173 beats per minute. ??Yolk sac also is seen. ?? Current sonographic age is 8 weeks and 4 days based on the crown-rump length measurement of ??2.0cm. ??Basedon this age, current estimated date of delivery is ??December 03, 2025. ??No pelvic fluid or adnexal mass present. ??Cervix closed, 4.3 cm. Procedure Note Juan A Neal MD - 04/27/2025 FINDINGS: A single intrauterine gestational sac is present. No subchorionichemorrhage. A single pole is present. Normal heart rate at173 beats per minute. Yolk sac also is seen. Current sonographic age is8 weeks and 4 days based on the crown-rump length measurement of 2.0cm.Based on this age, current estimated date of delivery is December 03, 2025.No pelvic fluid or adnexal mass present. Cervix closed, 4.3 cm. IMPRESSION: Findings consistent with a live intrauterine gestation, currentsonographic age of 8 weeks and 4 days resulting in an estimated date ofdelivery of December 03, 2025. TRANSCRIBED BY: ELECTRONICALLY SIGNED BY: Juan A Neal MD Authorizing ProviderResult TypeResult StatusCorey Clint [facility] OB US PROCEDURES Final Result * (ABNORMAL) POCT , urine manually resulted (04/27/2025 1:46 PM EDT) ComponentValueRef RangeTest MethodAnalysis TimePerformed AtPathologist SignaturePreg Test, UrPositiveNegativeSpecimen (Source)Anatomical Location / LateralityCollection Method / VolumeCollection TimeReceived TimeUrine 04/27/2025 1:46 PM EDT Narrative Authorizing ProviderResult TypeResult StatusCorey Clint DOPOINT OF CARE TEST ENTER/EDIT ORDERABLESFinal Result from Last 3 Months Insurance Care Teams Team MemberRelationshipSpecialtyStart DateEnd Date Braden Reagan MD [address] [place] [address] PCP - GeneralFamily Medicine03/25/23
--- OUTSIDE RECORDS SUMMARY | 2025-06-28 20:50 | XMS_ITS | Encounter Summary ---
Author Organization [facility] Address [address] [place] [address] Care Team Providers Care Education Trainer Name Role Phone Braden Reagan MD Primary Care Provider [phone] Encounter Details DateTypeDepartmentCare Team (Latest Contact Info)Bzeejqfoott31/19/2025amboo flowsheet [facility] [address] [place] [address] Kady Haynes PA [address] [place], [place] [address] Social History Tobacco UseTypesPacks/DayYears UsedDateSmoking Tobacco: NeverSmokeless Tobacco: NeverAlcohol UseStandard Drinks/WeekCommentsNever0 (1 standard drink = 0.6 oz pure alcohol)Caffeine intake: 2 cans pop [id number] Health LiteracyAnswerDate RecordedHow often do you need [...] relatives?Once a week04/04/2025How often do you attend hoahaoism or adventist services?Never04/04/2025Do you belong to any clubs or organizations such as hoahaoism groups, unions, [employer] or athletic groups, or school groups?No04/04/2025How often do you attend meetings of the clubs or organizations you belong to?Never04/04/2025re you , , , , never , or living with a partner?Imuenge1104/04/2025UDIT-C AnswerDate RecordedQ1: How often do you have [...] medical care, and heating?Not hard at all04/04/2025 [employer] - Occupational Stress Questionnaire AnswerDate RecordedDo you feel stress - tense, restless, nervous, or anxious, or unable to sleep at night because yourmind is troubled all the time - these days? To some bnukgz2204/04/2025Exercise Vital SignAnswerDate RecordedOn average, how many days [...] were you homeless or living in a jail (including now)?No04/04/2025Estimated Date of DeliveryComments Yes12/03/2025ased on last menstrual period of 02/26/2025Sex and Gender InformationValueDate RecordedSex Assigned at BirthNot on fileLegal SexFemale 10/22/2022 10:02 PM EDTGender IdentityNot on fileSexual OrientationNot on file documented as of this encounter Plan of Treatment DateTypeDepartmentCare Team (Latest Contact Info)Valtkoenrpk49/17/2025 11:30 AM ESTRoutine [facility] [address] [place] [address] Catarino Jaramillo DO [address] [place] [address] documented as of this encounter Visit Diagnoses Not on filedocumented in this encounter Care Teams Team MemberRelationshipSpecialtyStart DateEnd Date Braden Reagan MD [address] [place] [address] PCP - GeneralFamily Medicine03/25/23documented as of this encounter
--- OUTSIDE RECORDS SUMMARY | 2025-06-28 20:50 | XMS_ITS | Clinical Summary ---
Author Organization [employer] [facility] tem Address [id number] [place] [address] Care Team Providers Care Shank Archer Name Role Phone 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 APRN-VERTICAL ROLL OPERATOR Primary Care Provider [phone] Allergies No known active allergies Medications MedicationSigDispense QuantityRefillsLast FilledStart DateEnd DateStatus ondansetron (ZOFRAN) 4 mg tablet Take 4 mg by mouth every 6 (six) hours as needed for nausea or vomiting.Active sertraline (ZOLOFT) 50 mg tablet Take 100 mg by mouth daily. Active vit calc,iron,folic ( VITAMIN ORAL) Take 1 tablet by mouth daily.Active loratadine (CLARITIN) 10 mg tablet TAKE 1 TABLET BY MOUTH ONCE A DAY NEEDED FOR RXEEAWMHA20/10/2020Active metoclopramide (REGLAN) 10 mg tablet Take 10 mg by mouth in the morning and 10 mg at noon and 10 mg in the evening and 10 mg before bedtime.Active aspirin 81 mg Take 81 mg by mouth in the morning.Active Active Problems ProblemNoted DateDiagnosed DateAbnormal genetic test during cxyagkmmm14/27/2021 Overview (09/05/2020): Screen POSITIVE for OSB Cholelithiasis affecting , cmlsacyubm82/22/2021nxiety during 07/25/2020Depression during frpltmzwy20/16/2020Family history of coarctation of aorta07/25/2020 Overview (07/25/2020): FOB has coarctation of aorta Obesity affecting yihycosnk58/16/2020 Family History Medical HistoryRelationNameCommentsDiabetesMaternal GrandmotherHeart disease Maternal GrandmotherHypertensionMaternal GrandmotherCancerPaternal Grandfather lungRelationNameStatusCommentsMaternal GrandmotherPaternal Grandfather Social History Tobacco UseTypesPacks/DayYears UsedDateSmoking Tobacco: NeverSmokeless Tobacco: NeverAlcohol UseStandard Drinks/WeekCommentsNot Currently0 (1 standard drink = 0.6 oz pure alcohol)ChildcareAnswerDate MwtddnkyDhfgosuicEeotofz81/08/2020 EmploymentAnswerDate LarogzuyXpsdzkggakLaxsbqi22/08/2020Purpose - LifeAnswerDate RecordedPurpose and direction in yqymZfjxwgd16/22/2021CommentsNoSex and Gender InformationValueDate RecordedSex Assigned at BirthNot on fileLegal Sex Kvrnhk4707/17/2020 11:07 AM ESTGender IdentityNot on fileSexual OrientationNot on file Last Filed Vital Signs Vital SignReadingTime TakenCommentsBlood Mbzkxgdo656/5906 9:07 AM EDT Jdykm920001/24/2022 9:07 AM EDTTemperature--Respiratory Rate--Oxygen Saturation-- Inhaled Oxygen Concentration--Nkewct235.5 kg (278 lb 14.1 oz)01/24/2022 9:07 AM ZELNrhiag694.2 cm (5' 7 )01/24/2022 9:07 AM EDTBody Mass Index43.68001/24/2022 9:07 AM EDT Plan of Treatment Health MaintenanceDue DateLast DoneCommentsDepression Junjqxmeg73/28/2007Tobacco Seiujufov86/28/2007dult BMI Kqxldoxcz05/28/2013Pap Smear2016COVID-19 Vaccine ( season)508/, 03/09/2021Influenza Vaccine 512/08/2016, 04/20/2016, 05/14/2015, Additional history existsDTaP,Tdap and Td Vaccines (9 - Td or Tdap), 08/31/2017, 12/03/2007, Additional history exists Medical Devices Not on file Insurance Care Teams Team MemberRelationshipSpecialtyStart DateEnd Date 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 APRN-KATHY PCP - GeneralNurse Practitioner08/31/20
--- OUTSIDE RECORDS SUMMARY | 2025-06-28 20:50 | XMS_ITS | Encounter Summary ---
Author Organization [facility] Address [address] [place] [address] Care Team Providers Care Hvac Technician Residential Name Role Phone Braden Reagan MD Primary Care Provider [phone] Encounter Details DateTypeDepartmentCare Team (Latest Contact Info)Fizrnxzujbt02/19/2025Telephone [facility] [address] [place] [address] Thuy Pinto LPN Social History Tobacco UseTypesPacks/DayYears UsedDateSmoking Tobacco: NeverSmokeless Tobacco: NeverAlcohol UseStandard Drinks/WeekCommentsNever0 (1 standard drink = 0.6 oz pure alcohol)Caffeine intake: 2 cans pop [id number] Health LiteracyAnswerDate RecordedHow often do you need [...] relatives?Once a week04/04/2025How often do you attend confucianism or shinto services?Never04/04/2025Do you belong to any clubs or organizations such as confucianism groups, unions, fraternal or athletic groups, or school groups?No04/04/2025How often do you attend meetings of the clubs or organizations you belong to?Never04/04/2025re you , , , , never , or living with a partner?Uklcxva1204/04/2025UDIT-C AnswerDate RecordedQ1: How often do you have [...] medical care, and heating?Not hard at all04/04/2025 [place] [place] [employer] - Occupational Stress Questionnaire AnswerDate RecordedDo you feel stress - tense, restless, nervous, or anxious, or unable to sleep at night because yourmind is troubled all the time - these days? To some nefbgq7904/04/2025Exercise Vital SignAnswerDate RecordedOn average, how many days [...] on file documented as of this encounter Miscellaneous Notes * Telephone Encounter - Thuy Pinto LPN - 06/28/2025 2:20 PM EST Patient will need M referral for spouse h/o of cardiac issues and his group tester recommends allbabies to have echos. documented in this encounter Plan of Treatment DateTypeDepartmentCare Team (Latest Contact Info)Mxwttlbhqvz18/17/2025 11:30 AM ESTRoutine [facility] [address] [place] [address] Catarino Jaramillo DO [address] [place] [address] documented as of this encounter Visit Diagnoses Not on filedocumented in this encounter Care Teams Team MemberRelationshipSpecialtyStart DateEnd Date Braden Reagan MD [address] [place] [phone] [facility]03/25/23documented as of this encounter
--- OUTSIDE RECORDS SUMMARY | 2025-06-28 20:50 | XMS_ITS ---
Author Organization [facility] Source Produ ction (ClinicalSummary Clone) Address Unknown Care Team Providers Care Dividend Deposit Voucher Clerk Name Role Phone Unavailable Primary Care Physician Unavailab le Results * [UNITY] ANEUPLOIDY NIPT Performed by: Level 3 Communications Component Value Range Date Fraction 3.5% 05/09/2025 03:05 am UTCRh(D) NIPTRhD HMJGLMJO43/30/2025 03:05 am UTCSex Chromosome AneuploidyNOT NAOOEMYJ14/30/2025 03:05 am UTCMonosomy XLOW RISK <1 in 03:05 am UTCTrisomy 13LOW RISK <1 in 03:05 am UTCTrisomy 18LOW RISK <1 in 03:05 am UTCTrisomy 21LOW RISK <1 in 03:05 am UTCFetal IhzBCGOVX80/30/2025 03:05 am UTCPregnancy IpwpzeuprWUBCNHYSY53/30/2025 03:05 am UTCFor detailed report, see PDFSee PDF 05/09/2025 03:05 am UTC05/09/2025 03:05 am UTC Social History Observation Value Start Date End Date
[2025-07-03 13:08] LABS: Age Gdln ACOG Testing Note (.); IGP, rfx Aptima HPV ASCU Note (.)
== END 2025-06-28 20:46 | disposition home or self-care (01) ==
LOC: LAB 20:45
PROVIDERS: PCP Family Medicine; Visit Provider Physician Assistant
DX: Z01.419 Encounter for gynecological examination (general) (routine) without abnormal findings (principal)
CPT/HCPCS: 88175